=== PATIENT | female | born 1970 | race Caucasian/White ===

== ENCOUNTER 2016-03-14 13:58 | Outpatient (RCR) | payer MEDICAID, OTHER ==
[~2016-03-14 13:58] MED LIST: AMLO10TA2 PO; APIX5TAB PO; ASP81TEC PO; ASPI-983 PO; CAND8TAB PO; CLON0.2T PO; CLOT15CR9 TOP; CYCL-97 PO; CYCL10TA9 PO; DICY10CA26 PO; DICY20TA10 PO; DIPH25TA29 PO; DIPH50CA PO; DOCU100C37 PO; DPH25C PO; DULO30CA; DULO60CA6 PO; FURO40TA4 PO; HYDR-229 PO; HYDR-34 PO; HYDR-3820 PO; HYDR453. TOP; IBP800T; LISI1TAB10; LORTAB; MAGN400T6 PO; MECL-133 PO; MELO-195 PO; METH113C21 TP; METH1ADH5 TP; METO100T2 PO; METO25TA2 PO; NF-ESOM40C PO; OMG1KC PO; PANT40TA3 PO; POTA20TA8 PO; PRD20T PO; PREG100C PO; PREG300C PO; PREG50C PO; PRV20T PO; RNT150T PO; SCR1T PO; SCR1T1 PO; SERT100T8 PO; SUMA100T3 PO; TAZORAC; TIZA4TAB3 PO; TRAM50TA2 PO; WARF4TAB PO; WHEA730P PO; Zolpidem Tartrate PO; [UNRECOGNIZED DRUG - OTHER] TP
[2016-03-14 15:21] LABS: BASOPHILS % (AUTO) 0 % (0-10); EOSINOPHILS # (AUTO) 0.2 10^3/uL (0.0-0.3); EOSINOPHILS % (AUTO) 3 % (0-10); LYMPHOCYTES % (AUTO) 37 % (12-44); MEAN CORPUSCULAR HEMOGLOBIN 28 PG (25-34); MEAN CORPUSCULAR HGB CONC 33 G/DL (32-36); MEAN CORPUSCULAR VOLUME 83 FL (80-99); MEAN PLATELET VOLUME 9.8 FL (7.4-10.4); MONOCYTES # (AUTO) 0.5 X 10^3 (0.0-1.0); MONOCYTES % (AUTO) 6 % (0-12); NEUTROPHILS # (AUTO) 4.5 X 10^3 (1.8-7.8); NEUTROPHILS % (AUTO) 55 % (42-75); PLATELET COUNT 353 10^3/uL (130-400); RED BLOOD COUNT 4.38 10^6/uL (4.35-5.85); RED CELL DISTRIBUTION WIDTH 13.8 % (10.0-14.5); WHITE BLOOD COUNT 8.1 10^3/uL (4.3-11.0)
[2016-03-14 15:50] LABS: ALANINE AMINOTRANSFERASE 22 U/L (0-55); ALBUMIN 4.2 G/DL (3.2-4.5); ANION GAP 8 MMOL/L (5-14); ASPARTATE AMINO TRANSFERASE 50 U/L (5-34); BILIRUBIN,TOTAL 0.3 MG/DL (0.1-1.0); BLOOD UREA NITROGEN 14 MG/DL (7-18); BUN/CREATININE RATIO 17; CALCIUM 9.7 MG/DL (8.5-10.1); CARBON DIOXIDE 27 MMOL/L (21-32); CHLORIDE 102 MMOL/L (98-107); CREATININE SERUM 0.82 MG/DL (0.60-1.30); GFR ESTIMATED > 60; GLUCOSE 111 MG/DL (70-105); POTASSIUM 4.1 MMOL/L (3.6-5.0); SODIUM 137 MMOL/L (135-145); TOTAL PROTEIN 6.9 G/DL (6.4-8.2)
[2016-03-14 16:11] LABS: THYROID STIMULATING HORMONE 2.62 UIU/ML (0.35-4.94)
[2016-03-15 06:27] LABS: HOMOCYSTEINE 30.9 umol/L (<=10.3)
[2016-03-16 08:09] LABS: LUPUS ANTICOAGULANT PTT 35.5 Seconds (24.4-41.7)
[2016-03-16 08:10] LABS: DIL RUSSELL VIPER VENOM SCREEN 1.73 ratio (0.00-1.20); DRVVT SCREEN 1:1 MIX 1.47 ratio (0.00-1.20); INHIBITOR SCREEN PT Negative; PROTIME 1:1 MIX ROOM TEMP 14.4 Seconds (10.5-15.7)
[2016-03-16 08:43] LABS: PROTIME 1:1 MIX INCUBATED 15.7 Seconds (10.5-15.7)
[2016-03-16 08:44] LABS: PT REF RML 16.4 H SEC (10.5-15.7)
[2016-03-16 08:45] LABS: INR REF RML 1.3 (0.7-1.3); PTT LUPUS 35.9 SEC (20.6-39.2)
[2016-03-17 06:34] LABS: FACTOR 8 (VIII) ASSAY C 265 % (60-150)
[2016-03-17 06:42] LABS: PROTEIN C FUNCTIONAL ASSAY 203 % (70-130)
[2016-03-20 09:52] LABS: FACTOR II 20210 MUTATIONC Negative
[2016-03-20 16:31] LABS: CLIN PATHOLOGY REPORT FOOTNOTE
[2016-04-18] MEDS ORDERED: PANT20TA3 PO (16:23)
[2016-04-18] MEDS ORDERED: PRD10T PO (16:23)
[2016-04-18] MEDS ORDERED: ACET325T49 PO (16:23)
[2016-04-18] MEDS ORDERED: MAGN400T6 PO (16:23)
[2016-04-19] MEDS ORDERED: DICL100G18 TOP (08:04)
== END 2016-06-12 | disposition home or self-care (01) ==
LOC: ONC 13:58
PROVIDERS: ATTEND Internal Medicine Hematology & Oncology
DX: I27.82 Chronic pulmonary embolism (principal); I82.5Z1 Chronic embolism and thrombosis of unspecified deep veins of right distal lower extremity; Z85.3 Personal history of malignant neoplasm of breast; E66.01 Morbid (severe) obesity due to excess calories; Z68.41 Body mass index [BMI] 40.0-44.9, adult; I50.9 Heart failure, unspecified; K21.9 Gastro-esophageal reflux disease without esophagitis; Z90.13 Acquired absence of bilateral breasts and nipples; Z87.891 Personal history of nicotine dependence; Z79.01 Long term (current) use of anticoagulants
CPT/HCPCS: 36415; 80053; 81240; 83090; 84439; 84443; 85025; 85240; 85300; 85303; 85306; 85307; 85610; 85613; 85705; 85730; 86038; 86146; 86147; 86300; 99213

== ENCOUNTER 2016-03-29 11:39 | Inpatient (IN) | payer MEDICAID, OTHER ==
[~2016-03-29] VITALS: Ht 172.7 cm; Wt 130.6 kg
--- NOTE | 2016-03-29 13:13 | ST Cognitive Linguistic Eval ---
DORA PADILLABECONNOR MCCORD 03/29/16 1313: Speech Evaluation-General Medical Diagnosis Polymyalgia Rheumatica Onset Date: Mar 29, 2016 Therapy Diagnosis Therapy Diagnosis: Questionable Cognitive Impairment Precautions Precautions/Isolations: Fall Prevention, Standard Precautions Referral Referring Physician: Dr. Holder Reason for Referral: Evaluation/Treatment Cognitive Screen Medical History Pertinent Medical History: Breast CA S/P Mastectomy Reviewed History: Yes Speech PLF-Current Status Prior Level of Function The patient denied previous challenges with cognition, speech, or language. Subjective The patient was recently admitted to [facility] with a diagnosis of polymyalgia rhuematica. The patient greeted the clinician appropriately and agreed to participate in the cognitive screen on this date. Language Eval: Auditory Comprehends Simple Yes/No Ques: Functional Indent/Objects Multiple [place]: Functional Ident/Pics in Multiple [place]: Functional Follows 1-Step Commands: Functional Follows General Conversations: Functional Language Eval: Verbal Language Completes Spontaneous Greeting: Functional Produces Auto, Serial Info: Functional Imitates Simple Words/Phrases: Functional Word Finding: Functional Requests Basic Needs: Functional States Basic Personal Info: Functional Expresses Complex Ideas: Functional Cognitive Patient Orientation The patient is alert and oriented x 3. Objective Cognitive Domain Attention: WNL Memory: WNL Problem Solving: Functional Objective Impression The patient demonstrated cognitive linguistic skills grossly within normal limits for age. Communication/Social Cognition Comprehension: 6 Expression: 6 Social Interaction: 6 Problem Solvin Memory: 6 Speech Patient Assess Expression of Ideas/Wants: Expression (4) Understanding Vebal Content: Understands (4) Brief Interview-Mental Status: Yes Repetition of Three Words: Three (3) Temporal Orientation: Year: Correct (3) Temporal Orientation: Month: Accurate within 5 days(2) Temporal Orientation: Day: Correct (1) Recall : Wear: Yes, no cue required (2) Recall : Color: Yes, no cue required (2) Recall : Bed: Yes, no cue required (2) Speech-Plan Treatment Plan Speech Therapy Treatment Plan: Discontinue ST (Eval, only.) Rehab Potential: Guarded Safety Risks/Education Teaching Recipient: Patient Teaching Methods: Discussion Response to Teaching: Verbalize Understanding Education Topics Provided: Plan of Care Time Speech Therapy Time In: 12:30 Speech Therapy Time Out: 12:45 Total Billed Time: 15 Billed Treatment Time 1, LISA VINSON DO 03/31/16 1255: Speech Evaluation-General Therapy Diagnosis Therapy Diagnosis: not my patient VALERIEDORA EnamoradoANEESH ST Mar 29, 2016 13:13 LISA HOLDER DO Mar 31, 2016 12:55
[2016-03-29] MEDS: HYDROcodone/APAP 10 MG/325 MG (LORTAB) TAB PO PRN ×3 (14:33→23:36)
--- NOTE | 2016-03-29 14:36 | Physical Therapy Evaluation ---
MIYA RODRIGUEZ PT 03/29/16 1436: PT Evaluation-General Medical Diagnosis Admission Date Mar 29, 2016 at 11:39 Medical Diagnosis: Polymyalgia Rheumatica Onset Date: Mar 29, 2016 Therapy Diagnosis Therapy Diagnosis: impaired strength, mobility, endurance Height/Weight Height (Feet): 5 Height (Inches): 8.00 Weight (Pounds): 290 Weight (Ounces): 11.2 Precautions Precautions/Isolations: Fall Prevention, Standard Precautions Referral Physician: Dr. Holder Reason for Referral: Evaluation/Treatment Medical History Pertinent Medical History: Breast CA S/P Mastectomy, GERD, HTN, Smoking Additional Medical History fibromyalgia, depression, morbid obesity, resp. insuff., anxiety, breast CA, surg (mastectomy, hysterectomy, cholecystectomy, appendectomy, lung biopsy, EGD) Reviewed History: Yes Social History Home: Single Level Current Living Status: Spouse Entry Into Home: Stairs With Railing PT Steps Into Home: 2 Prior/Core FIM Prior Level of Function Functional [place] Measure 0=Not Assessed/NA 4=Minimal Assistance 1=Total Assistance 5=Supervision or Setup 2=Maximal Assistance 6=Modified [place] 3=Moderate Assistance 7=Complete [place] Bed Mobility: 7 Transfers (B,C,W/C) (FIM): 7 Gait: 6 patient uses a cane outside of the home PT Daily Note-Current Subjective Patient in bed pre tx, agrees to PT, she seems anxious. Pain Numeric Pain Scale: 5-Moderate Pain Comment: back and shoulders Appearance Patient in bed post tx with nurse call, phone, tray, all needs met. Mental Status Patient Orientation: Normal For Age Transfers Functional [place] Measure 0=Not Assessed/NA 4=Minimal Assistance 1=Total Assistance 5=Supervision or Setup 2=Maximal Assistance 6=Modified [place] 3=Moderate Assistance 7=Complete IndependenceIRFPAI Quality Coding Scale 6 Independent with activity with or without an assistive device 5 Patient requires set up or clean up by helper. Patient completes activity by themselves 4 Supervision or touching assist (CGA). [place] provide cues , steadying assist 3 The helper provides less than half the effort to complete the activity 2 The helper provides more than half the effort to complete the activity 1 Dependent. The helper does all the effort to complete an activity 7 Patient refused to complete or attempt activity 9 The patient did not perform the activity before the current illness or injury 88 Not attempted due to Medical conditions or safety concerns Transfers (B, C, W/C) (FIM): 4 Scootin Rollin Roll Left to Right (QC): 4 Supine to/from Sit: 5 Sit to/from Stand: 4 Bed to/from Chair: 4 Sit to Lying (QC): 4 Lying-Sitting/Side of Bed(QC): 4 Sit to Stand (QC): 4 Chair/Zjg-nw-Rpzrx Xfer(QC): 4 Car Transfer (QC): 88 cues for safety and hand placement Gait Training Does the Patient Walk?: Yes Gait (FIM): 1 Distance: 20' Walk 10 feet (QC): 4 Walk 50 ft with 2 Turns(QC): 88 Walk 150 ft (QC): 88 Walk 10ft-uneven surface(QC): 88 Gait Level of Assist: 4 Gait Persons Needed: 1 Gait Assistive Device: FWW Patient fatigues very quickly. Very poor endurance. Wheelchair Training Does the Pt Use a Wheelchair?: No Stair Training No steps at this time. Patient is too weak and has very poor endurance, steps will not be safe to perform at this time. Balance Balance Sitting Static: Normal Balance Sitting Dynamic: Normal Balance-Standing Static: Fair Balance Standing Dynamic: Fair Picking up an Object (QC): 88 Neuromuscular MMT 4/5 on the left LE and 4-/5 on the right LE. Patient has intact light touch sensation in both lower extremities but states it is decreased on the right foot. Treatments eval Assessment Patient has impaired strength, balance, endurance , mobility in general from polymyalgia rheumatica. Patient would benefit from skilled PT intervention to increase strength and endurance, improve functional mobility and independence at home. PT Short Term Goals Short Term Goals Time Frame: Apr 05, 2016 Transfers (B,C,W/C) (FIM): 5 Gait (FIM): 2 Gait Distance Comment: 50' Gait Level of Assist: 5 Gait Assistive Device: FWW PT Nutrition Intern Goals Mcc Goals PT Mcc Goals Time Frame: Apr 19, 2016 Transfers (B,C,W/C) (FIM): 6 Sit to Lying (QC): 6 Lying-Sitting on Side/Bed(QC): 6 Sit to Stand (QC): 6 Rollin Roll Left to Right (QC): 6 Chair/Bqk-tx-Wmnkz Xfer(QC): 6 Car Transfer (QC): 4 Does the Patient Walk: Yes Gait (FIM): 5 Distance: 200' Walk 10 feet (QC): 4 Walk 10ft-Uneven Surface(QC): 4 Walk 50ft with 2 Turns (QC): 4 Walk 150 ft (QC): 4 Gait Level of Assist: 5 Gait Assistive Device: FWW Does the Pt use WC or Scooter?: No Stairs (FIM): 2 # of Steps: 4 1 Step (curb) (QC): 4 4 Steps (QC): 4 12 Steps (QC): 88 Stairs Level Of Assist: 4 Picking up an Object (QC): 88 PT Plan Problem List Problem List: Activity Tolerance, Functional Strength, Safety, Balance, Gait, Transfer, Bed Mobility Treatment/Plan Treatment Plan: Continue Plan of Care Treatment Plan: Bed Mobility, Education, Functional Activity Dia, Functional Strength, Group Therapy, Gait, Safety, Therapeutic Exercise, Transfers Treatment Duration: Apr 19, 2016 # of days/week 5-6 Visits Per Week: 10-11 Minutes/Day (M-F): 60-90 Minutes/Day (Sat/Beltran): 15-30 Pt/Family Agrees w/Plan: Yes Safety Risks/Education Patient Education: Gait Training, Transfer Techniques, Correct Positioning, Safety Issues Teaching Recipient: Patient Teaching Methods: Demonstration, Discussion Response to Teaching: Reinforcement Needed Discharge Recommendations Plan Patient will perform bed mobility and transfers, balance and endurance training , functional strengthening, stair training, gait training, education, to improve functional mobility and independence at home. Therapy D/C Recommendations: Home w/ Family Support Time/GCodes Time In: 1145 Time Out: 1200 Total Billed Treatment Time: 15 Total Billed Treatment 1 visit EVS 15 min LISA HOLDER DO 03/31/16 1256: PT Evaluation-General Medical Diagnosis Admission Date not my patient MIYA RODRIGUEZ PT Mar 29, 2016 14:36 LISA HOLDER DO Mar 31, 2016 12:56
--- NOTE | 2016-03-29 14:55 | Therapy Group Daily Note ---
Therapy Daily Group Note Patient Education Topic Energy Cons Exercises LE Seated Exercise, Sit to/from Stand, UE Exercise Other/Notes Pt was propelled to PT/OT group in W/C in Therapy [facility] area. PT actively participated in group consisting of Introductions (Name, Place you'd like to Visit as well as Pt asked question of the Most amazing thing you've ever seen), UE/LE and Pt led Ex, Energy Conservation Education, Sit to Stand and Memory Recall Maldonado Bag game. Pt participated in group by answering questions and giving energy conservation examples during memory recall game. Pt also led an UE EX during group. Pt was propelled back to room to rest at the end of group with all needs met. Start Time: 13:00 Stop Time: 14:15 Total Billed Treatment Time: 75 Total Billed Treatment 1, GRP MANOJCB AREA COORDINATOR Mar 29, 2016 14:55
--- NOTE | 2016-03-29 15:40 | Occupational Therapy Eval ---
OT Evaluation-General/PLF Medical Diagnosis Admission Date Mar 29, 2016 at 11:39 Medical Diagnosis: Polymyalgia Rheumatica Onset Date: Mar 29, 2016 Therapy Diagnosis Therapy Diagnosis: weakness, decreased ADL skills Height/Weight Height (Feet): 5 Height (Inches): 8.00 Weight (Pounds): 290 Weight (Ounces): 11.2 Precautions Precautions/Isolations: Fall Prevention, Standard Precautions Weight Bear Status Weight Bearing Restriction: Weight Bearing/Tolerated Referral Physician: Dr. Parra Referral Reason: Activity Tolerance, Self Care, Evaluation/Treatment, Strengthening/ROM Medical History Pertinent Medical History: Breast CA S/P Mastectomy, GERD, HTN, Smoking Additional Medical History Respiratory distress, was on ventilator for 1 month. Pt. also states that she was having vertigo, and that it was even causing her to "faint" at times. States that at the hospital that she was at previously, an OT did a vestibular assessment on her. Pt. has vestibular exercises that she would like to implement into therapy services this date. Current History Pt. states that she woke up one morning and could not get out of bed. Her spouse called an ambulance after she laid there all day. States that she was told that her oxygen saturation was so high, that it was "poisoning" her. Pt. states that her is disabled, and that she normally takes care of him. Reviewed History: Yes Social History Home: Single Level Current Living Status: Spouse Entry Into Home: Stairs With Railing Steps Into Home: 3 ADL-Prior Level of Function ADL PLOF Comments Pt. states that previous to getting ill this time, she was able to bathe and dress self in her home. DME/Equipment: Tub/Shower, Toilet/Riser DME/Equipment Comments Pt. states that she has a cane and walker. States that she needs a shower seat. OT Current Status Subjective Pt. reports a 7/10 pain "all over." Nursing notified. Appearance Pt. is fatigued but agrees to therapy. Mental Status/Objective Patient Orientation: Person, Place Current Hand Dominance: Right Upper Extremity ROM WFL bilaterally Upper Extremity Coordination intact Upper Extremity Strength Pt. demonstrates 3+/5 bilateral UE strength. ADL-Treatment Functional [place] Measure 0=Not Assessed/NA 4=Minimal Assistance 1=Total Assistance 5=Supervision or Setup 2=Maximal Assistance 6=Modified [place] 3=Moderate Assistance 7=Complete IndependenceIRFPAI Quality Coding Scale 6 Independent with activity with or without an assistive device 5 Patient requires set up or clean up by helper. Patient completes activity by themselves 4 Supervision or touching assist (CGA). [place] provide cues , steadying assist 3 The helper provides less than half the effort to complete the activity 2 The helper provides more than half the effort to complete the activity 1 Dependent. The helper does all the effort to complete an activity 7 Patient refused to complete or attempt activity 9 The patient did not perform the activity before the current illness or injury 88 Not attempted due to Medical conditions or safety concerns Eating (FIM): 5 (set up to open packages.) Eating (QC): 5 Grooming (FIM): 5 (Pt. is able to brush hair with set up.) Oral Hygiene (QC): 5 Bathing (FIM): 5 (Pt. is able to wash self after set up. Declines shower but agrees to spongebath.) Shower/Bathe Self (QC): 5 Upper Body Dressing (FIM): 5 (set up) Upper Body Dressing (QC): 5 Lower Body Dressing (FIM): 5 (Pt. able to doff socks and pants, and then don pants. Required assistance to don VICKI hose.) Lower Body Dressing (QC): 5 On/Off Footwear (QC): 4 Toileting (FIM): 5 (SBA) Toileting Hygiene (QC): 4 Transfers (B, C, W/C) (FIM): 4 (Min assist for sit-stand.) Toilet/Commode Transfer (FIM): 5 (SBA) Toilet Transfer (QC): 4 Other Treatments After ADLs, pt. transferred back to bed. Pt. seen twice this date to complete evaluation. Education OT Patient Education: Correct positioning, Modified ADL techniques, Progress toward Goal/Update tx plan, Purpose of tx/functional activities, Reviewed precautions, Rehab process, Transfer techniques Teaching Recipient: Patient Teaching Methods: Demonstration, Discussion Response to Teaching: Verbalize Understanding, Return Demonstration OT Short Term Goals Short Term Goals Time Frame: Apr 05, 2016 Eating(FIM): 7 Grooming(FIM): 6 Bathing(FIM): 5 Upper Body Dressing(FIM): 6 Lower Body Dressing(FIM): 6 Toileting(FIM): 6 Transfers (B,C,W/C) (FIM): 56 Toilet/Commode Transfer(FIM): 6 Shower Transfer(FIM): 5 Additional Short Term Goals: 1-Demonstrate ADL Tasks, 2-Verbalize Understanding , 3-ImproveStrength/Dia 1=Demonstrate adherence to instructed precautions during ADL tasks. 2=Patient will verbalize/demonstrate understanding of assistive devices/ modifications for ADL. 3=Patient will improve strength/tolerance for activity to enable patient to perform ADL's. OT Shelter Goals Shelter Goals Time Frame: Apr 12, 2016 Eating (FIM): 6 Eating (QC): 6 Oral Hygiene (QC): 6 Grooming(FIM): 6 Bathing(FIM): 5 Shower/Bathe Self (QC): 5 Upper Body Dressing(FIM): 6 Upper Body Dressing (QC): 6 Lower Body Dressing(FIM): 6 Lower Body Dressing (QC): 6 On/Off Footwear (QC): 6 Toileting(FIM): 6 Toileting Hygiene (QC): 6 Transfers (B,C,W/C) (FIM): 6 Toilet/Commode Transfer(FIM): 6 Toilet/Commode Transfer (QC): 6 Shower Transfer(FIM): 5 Additional Goals: 1-Demonstrate ADL Tasks, 2-Verbalize Understanding, 3- ImproveStrength/Dia 1=Demonstrate adherence to instructed precautions during ADL tasks. 2=Patient will verbalize/demonstrate understanding of assistive devices/ modifications for ADL. 3=Patient will improve strength/tolerance for activity to enable patient to perform ADL's. OT Education/Plan Problem List/Assessment Assessment: Dependent Transfers, Impaired Bed Mobility, Impaired Funct Balance , Impaired I ADL's, Impaired Self-Care Skills Discharge Recommendations Plan/Recommendations: Continue POC Therapy D/C Recommendations: Home w/ Family Support, Occupational Therapy Home Care, Scheduled Assistance Equpiment Recommendations-D/C: Extended Bath Bench, VICKI Hose [place]vin Barriers to Progress weakness, low endurance. Treatment Plan/Plan of Care Treatment,Training & Education: Yes Patient would benefit from OT for education, treatment and training to promote independence in ADL's, mobility, safety and/or upper extremity function for ADL' s. Plan of Care: ADL Retraining, Functional Mobility, UE Funct Exercise/Act Treatment Duration: Apr 12, 2016 # of days/week 5-6 Visits Per Week: 10-12 Agreement: Yes Rehab Potential: Fair Time/GCodes Start Time: 11:30 Stop Time: 14:45 Total Time Billed (hr/min): 60 Billed Treatment Time 1, EVS [id number] 1, ADL x 2 [id number] 2 treatment as pt. came right before lunch, and wanted to eat her lunch before group therapy. OT came back after group therapy to assist her with ADLS. JULIO CESAR BURNETT OT Mar 29, 2016 15:40
--- NOTE | 2016-03-29 16:09 | Physical Therapy Daily Note ---
PT Daily Note-Current Subjective Pt supine in bed upon arrival. Pt reports feeling tired. Pt agreed to PT. Pain Numeric Pain Scale: 4 Location: Right, Left Location Body Site: Ear Pain Description: Throbbing Mental Status Patient Orientation: Person, Place, Time, Situation Transfers Functional [place] Measure 0=Not Assessed/NA 4=Minimal Assistance 1=Total Assistance 5=Supervision or Setup 2=Maximal Assistance 6=Modified [place] 3=Moderate Assistance 7=Complete IndependenceIRFPAI Quality Coding Scale 6 Independent with activity with or without an assistive device 5 Patient requires set up or clean up by helper. Patient completes activity by themselves 4 Supervision or touching assist (CGA). [place] provide cues , steadying assist 3 The helper provides less than half the effort to complete the activity 2 The helper provides more than half the effort to complete the activity 1 Dependent. The helper does all the effort to complete an activity 7 Patient refused to complete or attempt activity 9 The patient did not perform the activity before the current illness or injury 88 Not attempted due to Medical conditions or safety concerns Scootin Rollin Supine to/from Sit: 5 Sit to/from Stand: 4 Weight Bearing Weight Bearing Restriction: Full Weight Bearing Location Restriction: LE Bilateral Gait Training Does the Patient Walk?: Yes Gait (FIM): 2 Distance (FIM): 1=up to 49 ft Distance: 25' Gait Level of Assist: 4 Gait Persons Needed: 1 Gait Assistive Device: FWW Pt reports numbness and pain when walking to restroom. Pt's gait is slight antalgic. Treatments Pt completed Vestibular EX at EOB then needed to use toilet. Pt ambulated to restroom using FWW at CGA. After finished, pt ambulated back to bed and transferred back to supine in bed with all needs met at end of tx. Assessment Current Status: Fair Progress Pt gets dizzy with Ex and has to take short rest after each EX. Pt has numbness and pain with walking. PT Short Term Goals Short Term Goals Time Frame: Apr 05, 2016 Transfers (B,C,W/C) (FIM): 56 Gait (FIM): 2 Gait Distance Comment: 50' Gait Level of Assist: 5 Gait Assistive Device: FWW PT Skilled Nursing Goals Sql Database Programmer Goals PT Sql Database Programmer Goals Time Frame: Apr 19, 2016 Transfers (B,C,W/C) (FIM): 6 Sit to Lying (QC): 6 Lying-Sitting on Side/Bed(QC): 6 Sit to Stand (QC): 6 Rollin Roll Left to Right (QC): 6 Chair/Nig-hn-Yqvii Xfer(QC): 6 Car Transfer (QC): 4 Does the Patient Walk: Yes Gait (FIM): 5 Distance: 200' Walk 10 feet (QC): 4 Walk 10ft-Uneven Surface(QC): 4 Walk 50ft with 2 Turns (QC): 4 Walk 150 ft (QC): 4 Gait Level of Assist: 5 Gait Assistive Device: FWW Does the Pt use WC or Scooter?: No Stairs (FIM): 2 # of Steps: 4 1 Step (curb) (QC): 4 4 Steps (QC): 4 12 Steps (QC): 88 Stairs Level Of Assist: 4 Picking up an Object (QC): 88 PT Plan Problem List Problem List: Activity Tolerance, Functional Strength, Safety, Balance, Gait, Transfer, Bed Mobility Treatment/Plan Treatment Plan: Continue Plan of Care Treatment Plan: Bed Mobility, Education, Functional Activity Dia, Functional Strength, Group Therapy, Gait, Safety, Therapeutic Exercise, Transfers Treatment Duration: Apr 19, 2016 Visits Per Week: 10-11 Minutes/Day (M-F): 60-90 Minutes/Day (Sat/Beltran): 15-30 Safety Risks/Education Patient Education: Gait Training, Transfer Techniques, Reviewed Precautions, Correct Positioning, Safety Issues Teaching Recipient: Patient Teaching Methods: Discussion Response to Teaching: Verbalize Understanding Time/GCodes Time In: 1530 Time Out: 1555 Total Billed Treatment Time: 25 Total Billed Treatment visit, EX (15m) & FA (10m) CB ARANDA PTA Mar 29, 2016 16:09
[2016-03-29 18:16] VITALS: BP 125/76
[2016-03-29] MEDS: DOCUSATE SODIUM 100 MG (COLACE) CAP PO SCH (19:51)
[2016-03-29] MEDS: PREGABALIN 100 MG (LYRICA) CAPSULE PO SCH (19:51)
[2016-03-29] MEDS: PANTOPRAZOLE 20 MG TABLET (PROTONIX) PO SCH (19:52)
[2016-03-29] MEDS: APIXABAN 5 MG (ELIQUIS) TABLET PO SCH (19:52)
[2016-03-29] MEDS: diphenhydrAMINE 25 MG TAB (BENADRYL) PO SCH (19:52)
[2016-03-29] MEDS: SERTRALINE 100 MG (ZOLOFT) TAB PO SCH (19:52)
[2016-03-29] MEDS: cloNIDine 0.2 MG (CATAPRES) TAB PO SCH (19:52)
[2016-03-30] MEDS: KCL 20 MEQ TAB (K-DUR) PO SCH (05:01)
[2016-03-30] MEDS: HYDROcodone/APAP 10 MG/325 MG (LORTAB) TAB PO PRN ×5 (05:02→23:07)
[2016-03-30] MEDS: predniSONE 10 MG TAB PO SCH (05:02)
[2016-03-30] MEDS: ONDANSETRON 4 MG (ZOFRAN) ORAL DISSOLVE TAB PO PRN ×2 (05:23→18:36)
[2016-03-30 06:00] VITALS: BP 134/76
[2016-03-30 06:11] LABS: MEAN PLATELET VOLUME 9.9 FL (7.4-10.4); RED BLOOD COUNT 4.3 10^6/uL (4.35-5.85); RED CELL DISTRIBUTION WIDTH 14.1 % (10.0-14.5)
[2016-03-30 06:46] LABS: ALANINE AMINOTRANSFERASE 27 U/L (0-55); ALBUMIN 4.5 G/DL (3.2-4.5); ANION GAP 11 MMOL/L (5-14); ASPARTATE AMINO TRANSFERASE 23 U/L (5-34); BILIRUBIN,TOTAL 0.3 MG/DL (0.1-1.0); BLOOD UREA NITROGEN 17 MG/DL (7-18); BUN/CREATININE RATIO 21; CALCIUM 9.8 MG/DL (8.5-10.1); CARBON DIOXIDE 23 MMOL/L (21-32); CHLORIDE 102 MMOL/L (98-107); CREATININE SERUM 0.81 MG/DL (0.60-1.30); GFR ESTIMATED > 60; GLUCOSE 94 MG/DL (70-105); POTASSIUM 3.9 MMOL/L (3.6-5.0); SODIUM 136 MMOL/L (135-145); TOTAL PROTEIN 7.4 G/DL (6.4-8.2)
[2016-03-30] MEDS: ASPIRIN E.C. 81 MG (ECOTRIN) TAB PO SCH (09:08)
[2016-03-30] MEDS: FUROSEMIDE 40 MG (LASIX) TAB PO SCH (09:09)
[2016-03-30] MEDS: PREGABALIN 100 MG (LYRICA) CAPSULE PO SCH ×3 (09:09→20:10)
[2016-03-30] MEDS: amLODIPine 10 MG (NORVASC) TAB PO SCH (09:09)
[2016-03-30] MEDS: cloNIDine 0.2 MG (CATAPRES) TAB PO SCH ×3 (09:09→20:10)
[2016-03-30] MEDS: PANTOPRAZOLE 20 MG TABLET (PROTONIX) PO SCH ×2 (09:09→20:12)
[2016-03-30] MEDS: APIXABAN 5 MG (ELIQUIS) TABLET PO SCH ×2 (09:09→20:12)
[2016-03-30] MEDS: MAGNESIUM OXIDE (MAG-OX)400 MG TAB PO SCH (09:09)
[2016-03-30] MEDS: DOCUSATE SODIUM 100 MG (COLACE) CAP PO SCH ×2 (09:09→20:12)
--- NOTE | 2016-03-30 10:03 | Pulmonary Consultation ---
History of Present Illness History of Present Illness Date of Consultation 03/30/16 09:58 Date of Admission History of Present Illness 45yo with hx of multiple comorbidities and hospitalizations. SHe has hx of PE, mechanical ventilation, and tracheostomy. She went to [facility] secondary to extreme weakness and unable to get out of bed. [facility] dx her with myositis and put her on prednisone. She was transferred here for rehab. I am consulted secondary to hypoxia. currently she in on 99% on RA and no SOB> Allergies and Home Medications Allergies Coded Allergies: Cephalosporins (Verified Allergy, Unknown, 07/22/09) lisinopril (Unverified Allergy, Unknown, 02/22/15) Uncoded Allergies: CEFABID (Allergy, Mild, 07/22/09) Home Medications 5 MG TAB #15 5 MG PO HS PRN PRN INSOMNIA Prescribed by: CHIN STEWART on 12/09/15 1522 Amlodipine Besylate 10 Mg Tablet 10 MG PO HS (Reported) Apixaban 5 Mg Tablet 5 MG PO BID (Reported) Aspirin 81 Mg Tablet.dr 81 MG PO HS (Reported) Clonidine HCl 0.2 Mg Tablet 0.2 MG PO TID (Reported) Clotrimazole 15 Gm Cream..g. #1 0 GM TOP BID Prescribed by: CHIN STEWART on 12/09/15 1324 Diphenhydramine HCl 25 Mg Tablet 50 MG PO DAILY PRN PRN ITCHING (Reported) Docusate Sodium 100 Mg Capsule #60 100 MG PO BID Prescribed by: CHIN STEWART on 12/09/15 1324 Furosemide 40 Mg Tablet #30 40 MG PO DAILY Prescribed by: CHIN STEWART on 12/09/15 1324 Hydrocodone/Acetaminophen 1 Each Tablet #30 1 EA PO Q4H PRN PRN PAIN Prescribed by: CHIN STEWART on 12/09/15 1324 Hydrocortisone 453.6 Gm Cream..g. #1 0 GM TOP BID Prescribed by: CHIN STEWART on 12/09/15 1324 Magnesium Oxide 400 Mg Tablet #60 400 MG PO BIDPC Prescribed by: CHIN STEWART on 12/09/15 1324 Methyl Salicylate/Menthol 1 Each Adh..patch 1 PATCH TP DAILY PRN PRN PAIN ( Reported) Pantoprazole Sodium 40 Mg Tablet.dr 40 MG PO BID (Reported) Potassium Chloride 20 Meq Tab.er.prt #30 20 MEQ PO DAILY@0700 Prescribed by: CHIN STEWART on 12/09/15 1324 Pregabalin 100 Mg Capsule #60 300 MG PO BID Prescribed by: CHIN STEWART on 12/09/15 1324 Sertraline HCl 100 Mg Tablet 100 MG PO HS (Reported) Sumatriptan Succinate 100 Mg Tablet 50-100 MG PO UD PRN PRN MIGRAINE (Reported) TAKE 1/2-1 TABLET BY MOUTH NEEDED. MAY REPEAT IN 2 HOURS IF NEEDED Tizanidine HCl 4 Mg Tablet #60 4 MG PO TID PRN PRN Muscle pain/spasm Prescribed by: CHIN STEWART on 12/09/15 1324 Tramadol HCl 50 Mg Tablet 100 MG PO BID PRN PRN PAIN (Reported) TAKES 2 (50 MG) TABLETS Past Wlgrryb-Oiluqh-Almwyf Hx Patient Social History Smoking Status: Current Everyday Smoker Type Used: Cigarettes Recent Foreign Travel: No Contact w/Someone Who Travel: No Recent Infectious Disease Expo: No Recent Hopitalizations: Yes (GB REMOVED, HYST., APPY. , OVARIAN CYSTECTOMY) Immunizations Up To Date Tetanus Booster (TDap): More than 5yrs Date of Pneumonia Vaccine: Oct 01, 2015 Date of Influenza Vaccine: Dec 31, 2015 Seasonal Allergies Seasonal Allergies: Yes Surgeries HX Surgeries: Yes (TRAM FAP FOR LEFT AND RIGHT MASTECTOMY; 2 eye surgeries,) Respiratory Hx Respiratory Disorders: Yes Respiratory Disorders: Pneumonia, Chronic Bronchitis, Pulmonary Embolism Cardiovascular Hx Cardiac Disorders: Yes (pt reports "Low EF on left side") Neurological Hx Neurological Disorders: Yes ([place]) Reproductive System : No Hx Reproductive Disorders: Yes Sexually Transmitted Disease: No HIV/AIDS: No Female Reproductive Disorders: Denies BELL VALET History: Hysterectomy Genitourinary Hx Genitourinary Disorders: No Gastrointestinal Hx Gastrointestinal Disorders: Yes Gastrointestinal Disorders: Colitis, Gastroesophageal Reflux, Moraes's Esophagus, Chronic Constipation, Chronic Diarrhea, Irritable Bowel Musculoskeletal Hx Musculoskeletal Disorders: Yes (2 herniated discs in lower back and 1 in neck) Musculoskeletal Disorders: Arthritis, Fibromyalgia, Chronic Back Pain Endocrine Hx Endocrine Disorders: Yes HEENT HX ENT Disorders: No Loss of Vision: Denies Hearing Impairment: Denies Cancer Hx Cancer: Yes Cancer: Breast Psychosocial Hx Psychiatric Problems: Yes Behavioral Health Disorders: Anxiety, Depression Integumentary HX Skin/Integumentary Disorder: Yes Skin/Integumentary Disorders: Eczema Blood Transfusions Hx Blood Disorders: No Adverse Reaction to a Blood Tr: No Family Medical History Significant Family History: Cancer Family Medial History: Cancer 03 FATHER, Onset:60 years & older (LUNG CANCER) Chest pain 03 MOTHER (LYMPHANGIO MITOSIS) Dementia 03 FATHER, Onset:60 years & older Family history: Allergy 03 MOTHER (SEASONAL ALLERGIES) Family history: Arthritis 03 FATHER 03 MOTHER Family history: Asthma 03 MOTHER Family history: Breast disease 03 FATHER (AUNT ON FATHERS SIDE FROM BREAST CANCER) Family history: Cardiovascular disease 03 MOTHER Family history: Gastrointestinal disease 03 FATHER Family history: Hypertension 03 MOTHER Family history: Osteoporosis 03 MOTHER Heart disease 03 MOTHER History of - respiratory disease 03 MOTHER ("LYMPHANGIO MITOSIS - SHORTNESS OF BREATH AND TAKES BREATHING TREATMENTS" ) Malignant neoplasm of lung 03 FATHER No Family History of: Abdominal aortic aneurysm Lenny's disease Alcoholism Aphasia Cancer of colon Cataract Congenital heart disease Congestive heart failure Cystic fibrosis Dysphagia Family history: Alzheimer's disease Family history: Coronary thrombosis Family history: Diabetes mellitus Family history: Glaucoma Family history: Thyroid disorder Hearing loss History of - anemia Kidney disease Parkinson's disease Prostate cancer Psychotic disorder Seizure disorder Stroke Exam Exam Vital Signs Date Time Temp Pulse Resp B/P Pulse Ox O2 Delivery O2 Flow Rate FiO2 03/30/16 06:00 97.1 64 22 134/76 93 Room Air 03/29/16 21:00 Room Air 03/29/16 18:16 97.5 63 20 125/76 95 Room Air 03/29/16 17:34 Room Air I & O 03/30/16 07:00 Intake Total 2100 ml Balance 2100 ml General Appearance: No Apparent Distress WD/WN Anxious HEENT: PERRL/EOMI TMs Normal Neck: Full Range of Motion Normal Inspection Respiratory: Chest Non Tender Lungs Clear Normal Breath Sounds No Accessory Muscle Use No Respiratory Distress Cardiovascular: Regular Rate, Rhythm No Edema Gastrointestinal: normal bowel sounds non tender Extremity: Normal Capillary Refill Neurologic/Psychiatric: Alert Oriented x3 Results Lab Laboratory Tests 03/30/16 05:56 Assessment/Plan Assessment/Plan Dyspnea with Hypoxia -- pt has home oxygen at 3 liters/min - will reorder PRN -CUrrently her Sp02 is 99% on RA -SVNS Q 6 Hx of PE Deconditioning Probable RENALDO -outpt testing Hx of tracheostomy Clinical Quality Measures DVT/VTE Risk/Contraindication: Risk Factor Score Per Nursin RFS Level Per Nursing on Admit: 4+=Very High NARESH GALLARDO DO Mar 30, 2016 10:03
[2016-03-30] MEDS ORDERED: RT-ALBUTEROL/IPRATROPIUM 3 ML (DUONEB) VIAL INH PRN (10:15)
[2016-03-30] MEDS ORDERED: MECLIZINE 25 MG (ANTIVERT) TAB PO PRN (11:00)
--- NOTE | 2016-03-30 11:34 | Occupational Ther Daily Note ---
OT Current Status-Daily Note Subjective Pt alert, sitting in chair. Pt agreed to therapy. No c/o pain at this time. Mental Status/Objective Patient Orientation: Person, Place, Time, Situation Functional [place] Measure 0=Not Assessed/NA 4=Minimal Assistance 1=Total Assistance 5=Supervision or Setup 2=Maximal Assistance 6=Modified [place] 3=Moderate Assistance 7=Complete [place] ADL-Treatment Functional [place] Measure 0=Not Assessed/NA 4=Minimal Assistance 1=Total Assistance 5=Supervision or Setup 2=Maximal Assistance 6=Modified [place] 3=Moderate Assistance 7=Complete IndependenceIRFPAI Quality Coding Scale 6 Independent with activity with or without an assistive device 5 Patient requires set up or clean up by helper. Patient completes activity by themselves 4 Supervision or touching assist (CGA). [place] provide cues , steadying assist 3 The helper provides less than half the effort to complete the activity 2 The helper provides more than half the effort to complete the activity 1 Dependent. The helper does all the effort to complete an activity 7 Patient refused to complete or attempt activity 9 The patient did not perform the activity before the current illness or injury 88 Not attempted due to Medical conditions or safety concerns Grooming (FIM): 6 (Sitting at sink, pt is able to complete own grooming. Pt has dentures.) Bathing (FIM): 5 (Using shower bench, hand held shower and grabbars pt is able to complete bathing with SBA for safety.) Bathing Location: L Arm, R Arm, L Upper Leg, R Upper Leg, L Lower Leg ( including foot), R Lower Leg (including foot), Chest, Abdomen, Buttocks, Perineal Area Upper Body (FIM): 5 (After set up, pt is able to don/doff upper body clothing by self.) Lower Body Dressing (FIM): 4 (Pt donned/doffed pants with SBA using grabbars for safety to hike pants over hips. OT assisted with compression stockings and socks.) Transfers (B, C, W/C) (FIM): 5 (SBA for transfers) Shower Transfer(FIM): 5 (Using shower bench and grabbars, pt is SBA for transfer.) Pt was able to maneuver w/c out of room and 20' before taking a break. Sitting in w/c, pt was able to place clothing into washer then was assisted with applying soap and starting washer. Pt was transported back to room to complete vestibular exercises to decrease pt's dizziness during daily tasks. After therapy, pt lying in bed with call light/phone in reach. All needs met in room. OT Short Term Goals Short Term Goals Time Frame: Apr 05, 2016 Eating(FIM): 7 Grooming(FIM): 6 Bathing(FIM): 5 Upper Body Dressing(FIM): 6 Lower Body Dressing(FIM): 6 Toileting(FIM): 6 Transfers (B,C,W/C) (FIM): 56 Toilet/Commode Transfer(FIM): 6 Shower Transfer(FIM): 5 Additional Short Term Goals: 1-Demonstrate ADL Tasks, 2-Verbalize Understanding , 3-ImproveStrength/Dia 1=Demonstrate adherence to instructed precautions during ADL tasks. 2=Patient will verbalize/demonstrate understanding of assistive devices/ modifications for ADL. 3=Patient will improve strength/tolerance for activity to enable patient to perform ADL's. OT Snf Goals Nutritionist Public Health Goals Time Frame: Apr 12, 2016 Eating (FIM): 6 Eating (QC): 6 Oral Hygiene (QC): 6 Grooming(FIM): 6 Bathing(FIM): 5 Shower/Bathe Self (QC): 5 Upper Body Dressing(FIM): 6 Upper Body Dressing (QC): 6 Lower Body Dressing(FIM): 6 Lower Body Dressing (QC): 6 On/Off Footwear (QC): 6 Toileting(FIM): 6 Toileting Hygiene (QC): 6 Transfers (B,C,W/C) (FIM): 6 Toilet/Commode Transfer(FIM): 6 Toilet/Commode Transfer (QC): 6 Shower Transfer(FIM): 5 Additional Goals: 1-Demonstrate ADL Tasks, 2-Verbalize Understanding, 3- ImproveStrength/Dia 1=Demonstrate adherence to instructed precautions during ADL tasks. 2=Patient will verbalize/demonstrate understanding of assistive devices/ modifications for ADL. 3=Patient will improve strength/tolerance for activity to enable patient to perform ADL's. OT Education/Plan Discharge Recommendations Plan/Recommendations: Continue POC Treatment Plan/Plan of Care Patient would benefit from OT for education, treatment and training to promote independence in ADL's, mobility, safety and/or upper extremity function for ADL' s. Plan of Care: ADL Retraining, Functional Mobility, UE Funct Exercise/Act Treatment Duration: Apr 12, 2016 Visits Per Week: 10-12 Agreement: Yes Rehab Potential: Fair Time/GCodes Start Time: 10:00 Stop Time: 11:30 Total Time Billed (hr/min): 90 Billed Treatment Time 1 visit-ADL 5 (70 min) FA 1 (20 min) SAAD PEREZ Mar 30, 2016 11:34
--- NOTE | 2016-03-30 11:51 | Physical Therapy Daily Note ---
PT Daily Note-Current Subjective Pt supine in bed upon arrival. Pt reports cramping pain 7/10 in both UE & LE. Pt agrees to PT though. Pain Numeric Pain Scale: 7 Location: Soft Tissue Location Body Site: Arm Pain Description: Cramping Mental Status Patient Orientation: Person, Place, Time, Situation Transfers Functional [place] Measure 0=Not Assessed/NA 4=Minimal Assistance 1=Total Assistance 5=Supervision or Setup 2=Maximal Assistance 6=Modified [place] 3=Moderate Assistance 7=Complete IndependenceIRFPAI Quality Coding Scale 6 Independent with activity with or without an assistive device 5 Patient requires set up or clean up by helper. Patient completes activity by themselves 4 Supervision or touching assist ([facility]). [place] provide cues , steadying assist 3 The helper provides less than half the effort to complete the activity 2 The helper provides more than half the effort to complete the activity 1 Dependent. The helper does all the effort to complete an activity 7 Patient refused to complete or attempt activity 9 The patient did not perform the activity before the current illness or injury 88 Not attempted due to Medical conditions or safety concerns Scootin Rollin Supine to/from Sit: 4 Sit to/from Stand: 4 Weight Bearing Weight Bearing Restriction: Full Weight Bearing Location Restriction: LE Bilateral Gait Training Does the Patient Walk?: Yes Gait (FIM): 2 Distance (FIM): 1=up to 49 ft Distance: 15' Gait Level of Assist: 4 Gait Persons Needed: 1 Gait Assistive Device: FWW Pt has cramping pain while ambulating as well as tingling sensation. Pt has antalgic gait pattern. Wheelchair Training Does the Pt Use a Wheelchair?: Yes Wheelchair (FIM): 4 Wheelchair Distance: 1=up to 49 ft Distance: 30' Wheelchair Level of Assist: 4 Type of Wheelchair: Manual Pt has a lot of cramping in UE and isn't able to propel W/C for very far. Exercises Seated Therapy Exercises: Ankle pumps, Sit to stand, Long arc quads, Hip flexion, Kicking activity Seated Reps: 20 Treatments Pt was given morning meds at start of tx. Pt transferred supine to EOB at Min A with short rest break after to allow dizziness to subside. Pt then transferred EOB to standing using FWW at [facility] with short break again. Pt then ambulated in room to doorway using FWW at [facility] with W/C following. Pt then propelled W/C approx. 20' before needing assistance the rest of the way to Therapy Gym. Pt completed seated EX with several short rest breaks. Pt then completed another round of seated EX before rest. Pt then transferred to standing to attempt walking again. Pt ambulated approx. 5' before fatiguing to and needing to sit in W/C. Pt propelled W/C another 10' before needing assistance to room. Pt was left in W/C for OT to arrive for shower shortly. Pt left with all needs met at end of tx. Assessment Current Status: Fair Progress Pt fatigues quickly and needs frequent rest breaks. Pt has cramping in UE & LE that limits tx. PT Short Term Goals Short Term Goals Time Frame: Apr 05, 2016 Transfers (B,C,W/C) (FIM): 56 Gait (FIM): 2 Gait Distance Comment: 50' Gait Level of Assist: 5 Gait Assistive Device: FWW PT Assistant Softball Coach Goals [facility] Goals PT Assistant Softball Coach Goals Time Frame: Apr 19, 2016 Transfers (B,C,W/C) (FIM): 6 Sit to Lying (QC): 6 Lying-Sitting on Side/Bed(QC): 6 Sit to Stand (QC): 6 Rollin Roll Left to Right (QC): 6 Chair/Ski-fb-Sjnsk Xfer(QC): 6 Car Transfer (QC): 4 Does the Patient Walk: Yes Gait (FIM): 5 Distance: 200' Walk 10 feet (QC): 4 Walk 10ft-Uneven Surface(QC): 4 Walk 50ft with 2 Turns (QC): 4 Walk 150 ft (QC): 4 Gait Level of Assist: 5 Gait Assistive Device: FWW Does the Pt use WC or Scooter?: No Stairs (FIM): 2 # of Steps: 4 1 Step (curb) (QC): 4 4 Steps (QC): 4 12 Steps (QC): 88 Stairs Level Of Assist: 4 Picking up an Object (QC): 88 PT Plan Problem List Problem List: Activity Tolerance, Functional Strength, Safety, Balance, Gait, Transfer Treatment/Plan Treatment Plan: Continue Plan of Care Treatment Plan: Bed Mobility, Education, Functional Activity Dia, Functional Strength, Group Therapy, Gait, Safety, Therapeutic Exercise, Transfers Treatment Duration: Apr 19, 2016 Visits Per Week: 10-11 Minutes/Day (M-F): 60-90 Minutes/Day (Sat/[place]): 15-30 Safety Risks/Education Patient Education: Gait Training, Transfer Techniques, Correct Positioning, W/ C Management, Safety Issues Teaching Recipient: Patient Teaching Methods: Discussion Response to Teaching: Verbalize Understanding Time/GCodes Time In: 900 Time Out: 1000 Total Billed Treatment Time: 60 Total Billed Treatment visit, EX X2 (30m), FA (15m) & GT (15m) CB ARANDA DIRECTOR DENTAL SERVICES Mar 30, 2016 11:51
[2016-03-30] MEDS: RT-ALBUTEROL/IPRATROPIUM 3 ML (DUONEB) VIAL INH SCH ×2 (15:44→20:13)
--- NOTE | 2016-03-30 15:50 | Physical Therapy Daily Note ---
PT Daily Note-Current Subjective Patient is in bed and agrees to therapy. Patient c/o bottom of feet pain/ burning/tingling. Pain Numeric Pain Scale: 5-Moderate Pain Location: Right, Left Location Body Site: Foot Pain Description: Burning, Tingling Mental Status Patient Orientation: Normal For Age Transfers Functional [place] Measure 0=Not Assessed/NA 4=Minimal Assistance 1=Total Assistance 5=Supervision or Setup 2=Maximal Assistance 6=Modified [place] 3=Moderate Assistance 7=Complete IndependenceIRFPAI Quality Coding Scale 6 Independent with activity with or without an assistive device 5 Patient requires set up or clean up by helper. Patient completes activity by themselves 4 Supervision or touching assist (CGA). [place] provide cues , steadying assist 3 The helper provides less than half the effort to complete the activity 2 The helper provides more than half the effort to complete the activity 1 Dependent. The helper does all the effort to complete an activity 7 Patient refused to complete or attempt activity 9 The patient did not perform the activity before the current illness or injury 88 Not attempted due to Medical conditions or safety concerns Transfers (B, C, W/C) (FIM): 5 Scootin Rollin Roll Left to Right (QC): 5 Supine to/from Sit: 5 Sit to/from Stand: 5 Sit to Lying (QC): 5 Sit to Stand (QC): 5 Chair/Siq-ec-Asmbp Xfer(QC): 5 Bed to/from Chair: 5 Gait Training Does the Patient Walk?: Yes Gait (FIM): 2 Distance (FIM): 8=631-84 ft Distance: 75' x 2; 150' x 1 Gait Level of Assist: 5 Gait Assistive Device: FWW Patient required 2 recovery periods initially, then was able to ambulate from the laundry room to room without difficulty. Patient demonstrates a slow, steady gait sequence. Assessment Patient tolerated an increase in activity this p.m. PT to increase activity as tolerated by patient. PT Short Term Goals Short Term Goals Time Frame: Apr 05, 2016 Transfers (B,C,W/C) (FIM): 56 Gait (FIM): 2 (met 03/30/16) Gait Distance Comment: 50' Gait Level of Assist: 5 (met 03/30/16) Gait Assistive Device: FWW Wheelchair Distance: 30' PT Research Project Coordinator Goals Research Project Coordinator Goals PT Nursing Home Goals Time Frame: Apr 19, 2016 Transfers (B,C,W/C) (FIM): 6 Sit to Lying (QC): 6 Lying-Sitting on Side/Bed(QC): 6 Sit to Stand (QC): 6 Rollin (me5t 03/30/16) Roll Left to Right (QC): 6 Chair/Gaq-yn-Uncsd Xfer(QC): 6 Car Transfer (QC): 4 Does the Patient Walk: Yes Gait (FIM): 5 Distance: 200' Walk 10 feet (QC): 4 Walk 10ft-Uneven Surface(QC): 4 Walk 50ft with 2 Turns (QC): 4 Walk 150 ft (QC): 4 Gait Level of Assist: 5 Gait Assistive Device: FWW Does the Pt use WC or Scooter?: No Stairs (FIM): 2 # of Steps: 4 1 Step (curb) (QC): 4 4 Steps (QC): 4 12 Steps (QC): 88 Stairs Level Of Assist: 4 Picking up an Object (QC): 88 PT Plan Treatment/Plan Treatment Plan: Continue Plan of Care Treatment Plan: Bed Mobility, Education, Functional Activity Dia, Functional Strength, Group Therapy, Gait, Safety, Therapeutic Exercise, Transfers Treatment Duration: Apr 19, 2016 Visits Per Week: 10-11 Minutes/Day (M-F): 60-90 Minutes/Day (Sat/[place]): 15-30 Time/GCodes Time In: 1500 Time Out: 1530 Total Billed Treatment Time: 30 Total Billed Treatment 1 visit GT x 2 30 min JERRELL PHIPPS PT Mar 30, 2016 15:50
[2016-03-30 18:30] VITALS: BP 126/85
[2016-03-30] MEDS: diphenhydrAMINE 25 MG TAB (BENADRYL) PO SCH (20:11)
[2016-03-30] MEDS: ZOLPIDEM 5 MG (AMBIEN) TAB PO PRN (20:12)
[2016-03-30] MEDS: SERTRALINE 100 MG (ZOLOFT) TAB PO SCH (20:12)
[2016-03-31] MEDS: RT-ALBUTEROL/IPRATROPIUM 3 ML (DUONEB) VIAL INH SCH ×4 (02:52→21:46)
[2016-03-31] MEDS: KCL 20 MEQ TAB (K-DUR) PO SCH (05:16)
[2016-03-31] MEDS: predniSONE 10 MG TAB PO SCH (05:16)
[2016-03-31] MEDS: HYDROcodone/APAP 10 MG/325 MG (LORTAB) TAB PO PRN ×4 (05:16→20:18)
[2016-03-31 06:00] VITALS: BP 131/80
--- NOTE | 2016-03-31 07:41 | HISTORY AND PHYSICAL ---
DATE OF ADMISSION: 03/29/2016 CHIEF COMPLAINT: Weakness, difficulty with walking. The patient is a 45-year-old female, patient of critical access hospital [facility] to increased weakness and pain. ABG revealed respiratory alkalosis with O2 sat of 98%. UDS was positive for benzos and opiates. The patient was seen by neurology and internal medicine, PT and OT. She was felt to have polymyalgia rheumatica as well as temporal arteritis explaining some of her symptoms of generalized weakness as well as muscle pain. She was started on steroids. She is now referred to Inpatient Rehabilitation Unit at [facility] for ongoing therapies. Currently she complains of pain all over, worse with activity with muscle stiffness and aching. She is requesting an increase in her Lortab. She also mentioned starting Elavil at night to help her sleep and for the pain is well.However she is on multiple meds. She is set up for eating, grooming, bathing, dressing, all with extra time and assist for toileting, hygiene, transfers, and she is min assist for ambulation 20 feet with a front wheel walker. She has poor endurance, fatigues easily. She also complains of resting tremors which she relates to fatigue. PAST MEDICAL HISTORY: 1. Chronic pain, takes Lortab at home under the direction of [facility]. 2. Diabetes mellitus. 3. Obesity. 4. Hypertension. 5. GERD. 6. Nicotine dependence. 7. History of pulmonary embolism for which she received rehab for her general debilitation this prior August on this unit. 8. Anxiety. 9. Hypertriglyceridemia. 10. Pulmonary vascular congestion. PAST SURGICAL HISTORY: 1. Left mastectomy for breast cancer. 2. Cholecystectomy. 3. Appendectomy. 4. Lung biopsy. 5. Tracheostomy. 6. Gastrostomy. 7. EGD with biopsy. 8. Gastrostomy tube removal. ALLERGIES: 1. CEPHALOSPORINS. 2. LISINOPRIL. FAMILY HISTORY: Noncontributory. SOCIAL HISTORY: She is disabled. She indicates that she is obtained SSI and is awaiting approval for [place] Medicaid. She currently has no medical insurance. 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 She lives with her spouse in [place], [place] in a one-story home. She had been modified independent with extra time prior to this. MEDICATIONS: 1. Colace 200 mg p.o. b.i.d. 2. DuoNeb treatments q.2 hours p.r.n. also shortness of breath. 3. Meclizine 12.5 mg p.o. t.i.d. p.r.n. dizziness. 4. Ambien 5 mg p.o. at bedtime p.r.n. insomnia. 5. Amlodipine 10 mg p.o. daily. 6. ASA 81 mg p.o. daily. 7. Furosemide 20 mg p.o. daily. 8. Mag-Ox 400 mg p.o. daily. 9. K-Dur 20 milliequivalents p.o. daily. 10. Prednisone 15 mg p.o. daily. 11. Zofran 4 mg p.o. q.6 hours p.r.n. nausea, vomiting. 12. Catapres 0.2 mg p.o. t.i.d. 13. Benadryl 25 mg p.o. at bedtime p.r.n. insomnia. 14. Eliquis 5 mg p.o. b.i.d. 15. Protonix 20 mg p.o. b.i.d. 16. Lyrica 300 mg p.o. t.i.d. 17. Zoloft 20 mg p.o. at bedtime. 18. Lortab 10 and 1 tablet p.o. q.4 hours p.r.n. moderate pain. 19. Imitrex 100 mg p.o. q.2 hours p.r.n. migraine. 20. Zanaflex 1 mg p.o. q.8 hours p.r.n. muscle spasms. PHYSICAL EXAMINATION: Physical examination is significant for an obese female, appearing her stated age, lying in bed in no acute distress with resting tremors in both hands. VITAL SIGNS: She is afebrile, pulse is 64 and regular, respirations 20, blood pressure 134/75, O2 sat 93% on room air. HEENT: Vision, speech, hearing, grossly intact. No oral lesions noted. NECK: Supple without mass. HEART: Regular rhythm. LUNGS: Clear. ABDOMEN: Soft, nontender. Bowel sounds present. EXTREMITIES: Trace edema in the ankles. No calf tenderness. MUSCULOSKELETAL: She has functional active range of motion of all 4 extremities. NEUROLOGIC: Cognition appears grossly intact. Sensation grossly intact to touch. She has resting tremors both hands. Strength is 3+/5 both upper extremities. She is unable to straight leg raise both lower extremities. She can active hip flex with strength generally 3+ 4-/5 strength. IMPRESSION: 1. General debilitation secondary to bout of polymyalgia rheumatica and temporal arteritis, treated with steroids with generalized muscle pain, myalgias, and generalized weakness with decline in functional dependence. 2. Obesity. 3. History of PE. 4. Probable RENALDO, outpatient testing pending. 5. History of tracheostomy 6. Chronic pain and takes Lortab under the direction of [facility]. 7. Hypertension, controlled with medication. 8. OAC on Eliquis, sees Dr. Ruffin and Malou Loja on an outpatient basis PLAN: The patient will comprehensive program of inpatient rehabilitation with the goal of maximizing level of functional dependence prior to discharge home with spouse. The patient will have PT/OT 90 minutes per day, each discipline, for gait strengthening, conditioning, balance, ADLs, energy conservation, any patient/family/caregiver training necessary, any adaptive equipment and training necessary. Speech therapy has assessed the patient and found patient to be functional and discontinued speech therapy. Rehabilitation nursing assist with bowel, bladder, skin, medication administration, pain management. The patient reports she is continent of bowel and bladder. Respiratory therapy to assist with respiratory therapy and monitor O2 sats. Dr. Ruffin has been consulted appreciate his consults. Dr. Steiner [facility], we will see tomorrow on the . barrow worker helper to assist with discharge planning, community reentry. ESTIMATED LENGTH OF STAY: Two weeks. PROGNOSIS: Rehab prognosis appears good for goal of discharging home with spouse, hopefully, modified independent to supervision for ADLs and mobility skills. DIET: Heart healthy. CODE STATUS: Full code. POST ADMISSION PHYSICIAN ASSESSMENT: The preadmission screen agrees with the post admission assessment that the patient is a good candidate for inpatient rehabilitation. She appears to be well motivated to participate in 3 hours of therapy a day. She should be able tolerate 3 hours of therapy a day from a medical standpoint. She should benefit from the 3 hours of therapy a day. She has a reasonable discharge plan, reasonable discharge rehabilitation goals and a supportive family. She has various comorbidities that need to be closely monitored with medications and treatments adjusted on daily basis as needed. These include the ongoing treatment for her polymyalgia rheumatica and temporal arteritis with steroids. Her hypertension, and history of PE and shortness of breath and respiratory insufficiency, as well as her chronic pain. The patient requested be on Elavil at night and an increase in her hydrocodone but there was a question regarding overmedication in the recent past. She is on multiple medications and will defer to Dr. Steiner regarding this at this time. Barriers to discharge for this patient who had been modified independent prior to this and living with her spouse in the community in [place], [place] is for her to be modified independent to supervision for ADLs and mobility skills with decreased pain increased strength and endurance prior to discharge home with spouse so as to lessen the burden of the caregivers. Risks for this patient include: 1. Worsening weakness. 2. Worsening respiratory failure. 3. Poorly controlled pain. 4. Controlled hypertension. 5. Recurrent PE, DVT. 6. Urinary retention. 7. UTI. 8. Respiratory infection. 9. Aspiration. barrow worker helper to follow-up regarding status of patient's Medicaid application as it would certainly be beneficial for her to have [place] Medicaid in force. Job ID: [id number] Dictated Date: 03/30/2016 17:23:05 [employer] Date: 03/31/2016 07:17:20/joaquín SZYMANSKI
[2016-03-31] MEDS: APIXABAN 5 MG (ELIQUIS) TABLET PO SCH ×2 (07:47→20:17)
[2016-03-31] MEDS: cloNIDine 0.2 MG (CATAPRES) TAB PO SCH ×3 (07:47→20:17)
[2016-03-31] MEDS: PANTOPRAZOLE 20 MG TABLET (PROTONIX) PO SCH ×2 (07:47→20:17)
[2016-03-31] MEDS: MAGNESIUM OXIDE (MAG-OX)400 MG TAB PO SCH (07:47)
[2016-03-31] MEDS: ASPIRIN E.C. 81 MG (ECOTRIN) TAB PO SCH (07:47)
[2016-03-31] MEDS: DOCUSATE SODIUM 100 MG (COLACE) CAP PO SCH ×2 (07:48→20:17)
[2016-03-31] MEDS: amLODIPine 10 MG (NORVASC) TAB PO SCH (07:48)
[2016-03-31] MEDS: FUROSEMIDE 40 MG (LASIX) TAB PO SCH (07:48)
[2016-03-31] MEDS: PREGABALIN 100 MG (LYRICA) CAPSULE PO SCH ×3 (07:48→20:17)
--- NOTE | 2016-03-31 09:57 | PM & R (SOAP) Progress Note ---
Subjective Subjective/Events-last exam Patient was seen in her room this AM Patient Min assist for transfers with WW Patient Continent of bowel and bladder,Current meds reviewed Review of Systems Neurological: : Weakness Objective Exam Last Set of Vital Signs Vital Signs Date Time Temp Pulse Resp B/P Pulse Ox O2 Delivery O2 Flow Rate FiO2 03/31/16 06:00 97.9 90 20 131/80 97 Room Air Capillary Refill : I&O Intake and Output 03/31/16 00:00 Intake Total 1989 ml Balance 1990 ml Intake Oral 1990 ml # Voids 10 # Bowel Movements 1 General: Alert, Oriented X3, Cooperative, No Acute Distress HEENT: Atraumatic, PERRLA, EOMI, Mucous Memb Moist/[place] Neck: Supple, No JVD Lungs: Clear to Auscultation Heart: Regular Rate Abdomen: Normal Bowel Sounds, Soft, No Tenderness Extremities: Other (trace edema ankles) Neuro: Other (fairly diffuse weakness) Psych/Mental Status: Other (anxious at times) Results Lab Laboratory Tests 03/30/16 05:56: Alanine Aminotransferase (ALT/SGPT) 27, Albumin 4.5, Alkaline Phosphatase 74, Anion Gap 11, Aspartate Amino Transf (AST/SGOT) 23, BUN/Creatinine Ratio 21, Blood Urea Nitrogen 17, Calcium Level 9.8, Carbon Dioxide Level 23, Chloride Level 102, Creatinine 0.81, Erythrocyte Sedimentation Rate 31H, Estimat Glomerular Filtration Rate > 60, Glucose Level 94, Hematocrit 35, Hemoglobin 12.2, Mean Corpuscular Hemoglobin 28, Mean Corpuscular Hemoglobin Concent 35, Mean Corpuscular Volume 82, Mean Platelet Volume 9.9, Platelet Count 392, Potassium Level 3.9, Red Blood Count 4.30L, Red Cell Distribution Width 14.1, Sodium Level 136, Total Bilirubin 0.3, Total Protein 7.4, White Blood Count 9.0 Assessment/Plan Assessment Diffuse weakness seconday to PMR on steroids Chronic pain managed by [facility] on LOrtab HX Pulm embolism Plan Continue PT/OT/Pain management [facility] to see re chronic anxiety and pain DR Haskins et al [facility] to see Appreciate Dr Villegas consult Team Conference next week CHIN STEWART MD Mar 31, 2016 09:57
[2016-03-31] MEDS: ONDANSETRON 4 MG (ZOFRAN) ORAL DISSOLVE TAB PO PRN (11:08)
--- NOTE | 2016-03-31 11:18 | Occupational Ther Daily Note ---
OT Current Status-Daily Note Subjective Pt alert, lying in bed. Family present in room. Pt agreed to therapy. Asked for nausea and pain medications, reported to nrsg. Mental Status/Objective Functional Ocean Measure 0=Not Assessed/NA 4=Minimal Assistance 1=Total Assistance 5=Supervision or Setup 2=Maximal Assistance 6=Modified Ocean 3=Moderate Assistance 7=Complete Ocean ADL-Treatment Pt stated that she didn't want to complete bathing since her family was present. Pt ambulated to therapy gym with CGA using FWW, 1 break. Pt takes increased time to complete tasks. Pt has low activity tolerance and requires frequent breaks and slow movements. Pt completed arm bike for 10 min at 5 hays resistance, moving arm bike very slow that clock didn't count down until she sped up. Pt then completed resistive fine motor exercises that incorporates UE reaching and grasping. During exercises, pt requested to use bathroom. Pt mod I for toileting and SBA for transfer to toilet using FWW. After therapy, pt lying in bed with call light/phone in reach. Family present in room. All needs met in room. Functional Ocean Measure 0=Not Assessed/NA 4=Minimal Assistance 1=Total Assistance 5=Supervision or Setup 2=Maximal Assistance 6=Modified Ocean 3=Moderate Assistance 7=Complete IndependenceIRFPAI Quality Coding Scale 6 Independent with activity with or without an assistive device 5 Patient requires set up or clean up by helper. Patient completes activity by themselves 4 Supervision or touching assist (CGA). [place] provide cues , steadying assist 3 The helper provides less than half the effort to complete the activity 2 The helper provides more than half the effort to complete the activity 1 Dependent. The helper does all the effort to complete an activity 7 Patient refused to complete or attempt activity 9 The patient did not perform the activity before the current illness or injury 88 Not attempted due to Medical conditions or safety concerns Toileting Hygiene (QC): 6 Toileting (FIM): 6 Toilet/Commode Transfer (FIM): 6 OT Short Term Goals Short Term Goals Time Frame: Apr 05, 2016 Eating(FIM): 7 Grooming(FIM): 6 Bathing(FIM): 5 Upper Body Dressing(FIM): 6 Lower Body Dressing(FIM): 6 Toileting(FIM): 6 Transfers (B,C,W/C) (FIM): 56 Toilet/Commode Transfer(FIM): 6 Shower Transfer(FIM): 5 Additional Short Term Goals: 1-Demonstrate ADL Tasks, 2-Verbalize Understanding , 3-ImproveStrength/Dia 1=Demonstrate adherence to instructed precautions during ADL tasks. 2=Patient will verbalize/demonstrate understanding of assistive devices/ modifications for ADL. 3=Patient will improve strength/tolerance for activity to enable patient to perform ADL's. OT Intermediate Goals Intermediate Goals Time Frame: Apr 12, 2016 Eating (FIM): 6 Eating (QC): 6 Oral Hygiene (QC): 6 Grooming(FIM): 6 Bathing(FIM): 5 Shower/Bathe Self (QC): 5 Upper Body Dressing(FIM): 6 Upper Body Dressing (QC): 6 Lower Body Dressing(FIM): 6 Lower Body Dressing (QC): 6 On/Off Footwear (QC): 6 Toileting(FIM): 6 Toileting Hygiene (QC): 6 Transfers (B,C,W/C) (FIM): 6 Toilet/Commode Transfer(FIM): 6 Toilet/Commode Transfer (QC): 6 Shower Transfer(FIM): 5 Additional Goals: 1-Demonstrate ADL Tasks, 2-Verbalize Understanding, 3- ImproveStrength/Dia 1=Demonstrate adherence to instructed precautions during ADL tasks. 2=Patient will verbalize/demonstrate understanding of assistive devices/ modifications for ADL. 3=Patient will improve strength/tolerance for activity to enable patient to perform ADL's. OT Education/Plan Discharge Recommendations Plan/Recommendations: Continue POC Treatment Plan/Plan of Care Patient would benefit from OT for education, treatment and training to promote independence in ADL's, mobility, safety and/or upper extremity function for ADL' s. Plan of Care: ADL Retraining, Functional Mobility, UE Funct Exercise/Act Treatment Duration: Apr 12, 2016 Visits Per Week: 10-12 Agreement: Yes Rehab Potential: Fair Time/GCodes Start Time: 10:00 Stop Time: 11:00 Total Time Billed (hr/min): 60 Billed Treatment Time 1 visit-ADL 1 (15 min) EX 3 (45 min) SAAD PEREZ Mar 31, 2016 11:18
--- NOTE | 2016-03-31 12:02 | Consultation (CHS) ---
HPI History of Present Illness: 45Y WOMAN patient of Dr Melara who was recently hospitalized at [facility] for an acute exacerbation of PMR and temporal arteritis. She was given IV steroids and responded appropriately. She did have respiratory failure upon presentation to ER with a UDS positive for benzos and opiates (hydrocodone prescribed by her PCP). She improved and was transferred to IRF for further care and evaluation. Medicine is consulted for medical management. Source: patient, family Exam Limitations: no limitations Date seen by provider: Mar 31, 2016 Attending Physician Gabriele Patel MD PCP Anayeli Maldonado DO Consult Date of Admission Mar 29, 2016 at 11:39 am Home Medications Home Medications Reviewed patient Home Medication Reconciliation Form Allergies Coded Allergies: Cephalosporins (Verified Allergy, Unknown, 07/22/09) lisinopril (Unverified Allergy, Unknown, 02/22/15) Uncoded Allergies: CEFABID (Allergy, Mild, 07/22/09) LIU-Pmyelm-Synawm Hx Patient Social History Smoking Status: Current Everyday Smoker Type Used: Cigarettes Recent Foreign Travel: No Contact w/other who traveled: No Recent Hopitalizations: Yes (GB REMOVED, HYST., APPY. , OVARIAN CYSTECTOMY) Recent Infectious Disease Expo: No Immunizations Up To Date Tetanus Booster (TDap): More than 5yrs Date of Pneumonia Vaccine: Oct 01, 2015 Date of Influenza Vaccine: Dec 31, 2015 Past Medical History Past Medical History 1. History of CHF, non ischemic cardiomyopathy with a normal ejection fraction of 50% per last echocardiogram. 2. Morbid Obesity 3. Lt. Breast CA with bilateral mastectomy and reconstruction 2006 4. PSTD 5. Bipolar type II 6. History of Moraes Esophagitis 7. PE 8. Insulin Resistance 9. History of Pneumonia requiring mechanical ventilation 10. Fibromyalgia 11. Tobaccoism Past Surgical History 1.Bilateral Mastectomy with reconstruction 2006 2. Appendectomy 3. Cholecystectomy 4. Hysterectomy 5. Eye surgery as child Family Medical History Significant Family History: Cancer Family History: Cancer 03 FATHER, Onset:60 years & older (LUNG CANCER) Chest pain 03 MOTHER (LYMPHANGIO MITOSIS) Dementia 03 FATHER, Onset:60 years & older Family history: Allergy 03 MOTHER (SEASONAL ALLERGIES) Family history: Arthritis 03 FATHER 03 MOTHER Family history: Asthma 03 MOTHER Family history: Breast disease 03 FATHER (AUNT ON FATHERS SIDE FROM BREAST CANCER) Family history: Cardiovascular disease 03 MOTHER Family history: Gastrointestinal disease 03 FATHER Family history: Hypertension 03 MOTHER Family history: Osteoporosis 03 MOTHER Heart disease 03 MOTHER History of - respiratory disease 03 MOTHER ("LYMPHANGIO MITOSIS - SHORTNESS OF BREATH AND TAKES BREATHING TREATMENTS" ) Malignant neoplasm of lung 03 FATHER No Family History of: Abdominal aortic aneurysm [place]'s disease Alcoholism Aphasia Cancer of colon Cataract Congenital heart disease Congestive heart failure Cystic fibrosis Dysphagia Family history: Alzheimer's disease Family history: Coronary thrombosis Family history: Diabetes mellitus Family history: Glaucoma Family history: Thyroid disorder Hearing loss History of - anemia Kidney disease Parkinson's disease Prostate cancer Psychotic disorder Seizure disorder Stroke Review of Systems ([facility]) Constitutional: no symptoms reported All Other Systems Reviewed Negative Unless Noted: Yes Physical Exam-([facility]) Physical Exam Vital Signs VS - Last 72 Hours, by Label 04/03/16 04/03/16 04/03/16 04/03/16 15:46 18:07 20:10 20:16 Temp 97.1 Pulse 92 Resp 20 B/P 115/83 Pulse Ox 94 96 95 O2 Delivery Room Air Room Air Room Air Room Air 04/04/16 04/04/16 04/04/16 04/04/16 02:22 04:38 08:03 09:00 Temp 97.3 Pulse 81 Resp 20 B/P 145/81 Pulse Ox 96 96 95 O2 Delivery Room Air Room Air Room Air Room Air 04/04/16 04/04/16 04/04/16 04/04/16 15:29 18:00 19:47 20:50 Temp 97.6 Pulse 93 Resp 20 B/P 150/88 Pulse Ox 96 96 96 O2 Delivery Room Air Room Air Room Air Room Air 04/05/16 04/05/16 04/05/16 04/05/16 02:19 05:17 09:32 15:34 Temp 97.2 Pulse 99 Resp 20 B/P 130/87 Pulse Ox 94 96 95 O2 Delivery Room Air Room Air Room Air Room Air 04/05/16 04/05/16 04/05/16 04/06/16 18:58 19:53 20:10 02:49 Temp 97.7 Pulse 94 Resp 20 B/P 120/81 Pulse Ox 95 94 97 O2 Delivery Room Air Room Air Room Air Room Air 04/06/16 04/06/16 04/06/16 04:10 07:18 09:00 Temp 97.2 Pulse 92 Resp 20 B/P 124/81 Pulse Ox 96 O2 Delivery Room Air Room Air Room Air Capillary Refill : General Appearance: WD/WN no apparent distress obese HEENT: PERRL/EOMI normal ENT inspection pharynx normal Neck: non-tender full range of motion supple normal inspection Respiratory: lungs clear normal breath sounds no respiratory distress no accessory muscle use Cardiovascular: regular rate, rhythm no edema no gallop no JVD no murmur Gastrointestinal: normal bowel sounds non tender soft no organomegaly Back: normal inspection Extremities: normal range of motion non-tender normal inspection no pedal edema no calf tenderness normal capillary refill Neurologic/Psychiatric: imposer II-XII nml as tested no motor/sensory deficits alert normal mood/affect oriented x 3 Skin: normal color warm/dry Assessment/Plan Assessment/Plan Plan PMR TA -to be managed by IRF team ANXIETY -would hold on benzos for now, believe patient is on too many meds, we need to pare some of them down HTN -STABLE on current regimen PRIOR PE -on Eliquis, no changes today Diagnosis/Problems: Clinical Quality Measures DVT/VTE Risk/Contraindication: Risk Factor Score Per Nursin RFS Level Per Nursing on Admit: 4+=Very High TASHA HERNANDEZ MD Mar 31, 2016 12:02
--- NOTE | 2016-03-31 12:15 | Physical Therapy Daily Note ---
PT Daily Note-Current Subjective Pt supine in bed upon arrival. Pt reports less dizziness and cramping only 4/ 10 to start tx. Pt agreed to PT. Pain Numeric Pain Scale: 4 Location: Right, Left Location Body Site: Foot Pain Description: Cramping Mental Status Patient Orientation: Person, Place, Time, Situation Transfers Functional [place] Measure 0=Not Assessed/NA 4=Minimal Assistance 1=Total Assistance 5=Supervision or Setup 2=Maximal Assistance 6=Modified [place] 3=Moderate Assistance 7=Complete IndependenceIRFPAI Quality Coding Scale 6 Independent with activity with or without an assistive device 5 Patient requires set up or clean up by helper. Patient completes activity by themselves 4 Supervision or touching assist ([facility]). [place] provide cues , steadying assist 3 The helper provides less than half the effort to complete the activity 2 The helper provides more than half the effort to complete the activity 1 Dependent. The helper does all the effort to complete an activity 7 Patient refused to complete or attempt activity 9 The patient did not perform the activity before the current illness or injury 88 Not attempted due to Medical conditions or safety concerns Scootin Rollin Supine to/from Sit: 4 Sit to/from Stand: 4 Weight Bearing Weight Bearing Restriction: Full Weight Bearing Location Restriction: LE Bilateral Gait Training Does the Patient Walk?: Yes Distance (FIM): 4=164-61 ft Distance: 125' Gait Level of Assist: 4 Gait Persons Needed: 1 Gait Assistive Device: FWW Pt fatigues easy and needs rest break on way to [facility] but is able to walk farther than yesterday. Pt still reports cramping in bottom of feet especially after activity. Pt walks with antalgic gait. Exercises Seated Therapy Exercises: Ankle pumps, Long arc quads, Hip flexion, Kicking activity Seated Reps: 15 NuStep Minutes: 10 NuStep Workload: 3 Treatments Pt transferred from supine to EOB at [facility] then EOB to standing at [facility]. Pt ambulated using FWW at [facility] but needed to rest on way to [facility]. Pt then ambulates rest of way to gym. Pt uses NuStep for 10m at Workload 3. Pt then takes rest break before completing seated EX in chair. Pt again rests before walking part way to room, resting then returning to room. Pt transfers to EOB to rest at end of tx. Pt is left with all needs met. Assessment Current Status: Good Progress Pt is walking farther with less pain/cramping than yesterday. Pt fatigues less easily. PT Short Term Goals Short Term Goals Time Frame: Apr 05, 2016 Transfers (B,C,W/C) (FIM): 56 Gait (FIM): 2 (met 03/30/16) Gait Distance Comment: 50' Gait Level of Assist: 5 (met 03/30/16) Gait Assistive Device: FWW Wheelchair Distance: 30' PT Towboat Engineer Goals Towboat Engineer Goals PT Jail Goals Time Frame: Apr 19, 2016 Transfers (B,C,W/C) (FIM): 6 Sit to Lying (QC): 6 Lying-Sitting on Side/Bed(QC): 6 Sit to Stand (QC): 6 Rollin (me5t 03/30/16) Roll Left to Right (QC): 6 Chair/Onb-uc-Fslfn Xfer(QC): 6 Car Transfer (QC): 4 Does the Patient Walk: Yes Gait (FIM): 5 Distance: 200' Walk 10 feet (QC): 4 Walk 10ft-Uneven Surface(QC): 4 Walk 50ft with 2 Turns (QC): 4 Walk 150 ft (QC): 4 Gait Level of Assist: 5 Gait Assistive Device: FWW Does the Pt use WC or Scooter?: No Stairs (FIM): 2 # of Steps: 4 1 Step (curb) (QC): 4 4 Steps (QC): 4 12 Steps (QC): 88 Stairs Level Of Assist: 4 Picking up an Object (QC): 88 PT Plan Problem List Problem List: Activity Tolerance, Functional Strength, Safety, Balance, Gait, Transfer Treatment/Plan Treatment Plan: Continue Plan of Care Treatment Plan: Bed Mobility, Education, Functional Activity Dia, Functional Strength, Group Therapy, Gait, Safety, Therapeutic Exercise, Transfers Treatment Duration: Apr 19, 2016 Visits Per Week: 10-11 Minutes/Day (M-F): 60-90 Minutes/Day (Sat/Beltran): 15-30 Safety Risks/Education Patient Education: Gait Training, Transfer Techniques, Correct Positioning, Safety Issues Teaching Recipient: Patient Teaching Methods: Discussion Response to Teaching: Verbalize Understanding Time/GCodes Time In: 800 Time Out: 900 Total Billed Treatment Time: 60 Total Billed Treatment visit, GT X2 (30m) & EX X2 (30m) TREIBER,CB FISHER POT Mar 31, 2016 12:15
--- NOTE | 2016-03-31 13:29 | Individualized Plan of Care ---
Individualized Plan of Care Rehab Nursing IPOC Order Admission Date Mar 29, 2016 at 11:39 Current Orders Orders-CHIN STEWART MD [facility] Consult (03/30/16 17:24) PT IPOC Problem List: Activity Tolerance, Functional Strength, Safety, Balance, Gait, Transfer Treatment Plan: Continue Plan of Care Bed Mobility, Education, Functional Activity Dia, Functional Strength, Group Therapy, Gait, Safety, Therapeutic Exercise, Transfers Treatment Duration: Apr 19, 2016 Visits Per Week: 10-11 Minutes/Day (M-F): 60-90 Minutes/Day (Sat/Beltran): 15-30 OT IPOC Problems: Dependent Transfers, Impaired Bed Mobility, Impaired Funct Balance, Impaired I ADL's, Impaired Self-Care Skills Plan of Care: ADL Retraining, Functional Mobility, UE Funct Exercise/Act Treatment Duration: Apr 12, 2016 Visits Per Week: 10-12 Minutes/Day (M-F): 60-90 Minutes/Day (Sat/Beltran): 15-30 ST IPOC Speech Therapy Treatment Plan: Discontinue ST (Eval, only.) Physician IPOC Medical Issues being managed closely and that require the 24 hour availability of a physician:pain management,Ongoing treatment of PMR on steroids associated with diffuse weakness PTSD 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 Medical Issues: DVT Prophylaxis, Falls Precautions, Fluid/Electrolyte/ Nutrition Balance, Infection Protection, Pain Management, Other (List) (as per above) Brief Synthesis of Preadmission Screen, Post-Admission Evaluation, and Therapy Evaluations: 45 yo female with obesity and hx of PTSD and chronic pain who had been Modified Independent with a WW prior to onset of PMR requiring admission to an OSH and course of Steroid for treatment,Referred here for ongoing [facility] that she now has SSILives with spouse in [facility] Followed by [facility] Appreciate Dr Mendoza consult Have asked [facility] to see Medical Prognosis: good Anticipated Length of Stay: 2-3 weeks Rehab Goals Modified Independent for adls and mobility skills Anticipated discharge destinat: Home with spouse and [facility] CHIN STEWART MD Mar 31, 2016 13:29
--- NOTE | 2016-03-31 15:13 | Therapy Group Daily Note ---
Therapy Daily Group Note Patient Education Topic Home Safety Exercises LE Seated Exercise, UE Exercise Other/Notes Pt ambulated with CGA using FWW to OT/PT group in ARU [facility] area. Group consisted of introductions (name, place living, New Year's resolution), socialization, memory activity, ARU description, UE/LE seated exercises and home safety education. Pt participated in group and contributed to discussions appropriately Pt was able to complete UE/LE exercises. Pt demonstrated good memory during activity. After therapy, pt ambulated with CGA using FWW back to room. Pt laid in bed with call light/phone in reach. All needs met in room. Start Time: 13:00 Stop Time: 14:15 Total Billed Treatment Time: 75 Total Billed Treatment 1-GRP SAAD PEREZ Mar 31, 2016 15:13
[2016-03-31 18:56] VITALS: BP 137/89
[2016-03-31] MEDS: SERTRALINE 100 MG (ZOLOFT) TAB PO SCH (20:17)
[2016-03-31] MEDS: diphenhydrAMINE 25 MG TAB (BENADRYL) PO SCH (20:17)
[2016-03-31] MEDS: ZOLPIDEM 5 MG (AMBIEN) TAB PO PRN (20:18)
[2016-04-01] MEDS: HYDROcodone/APAP 10 MG/325 MG (LORTAB) TAB PO PRN ×6 (00:13→21:10)
[2016-04-01] MEDS: RT-ALBUTEROL/IPRATROPIUM 3 ML (DUONEB) VIAL INH SCH ×4 (02:59→19:40)
[2016-04-01 05:04] VITALS: BP 131/81
[2016-04-01] MEDS: KCL 20 MEQ TAB (K-DUR) PO SCH (05:57)
[2016-04-01] MEDS: predniSONE 10 MG TAB PO SCH (05:57)
[2016-04-01] MEDS: ONDANSETRON 4 MG (ZOFRAN) ORAL DISSOLVE TAB PO PRN (07:57)
[2016-04-01] MEDS: DOCUSATE SODIUM 100 MG (COLACE) CAP PO SCH ×2 (07:57→21:09)
[2016-04-01] MEDS: ASPIRIN E.C. 81 MG (ECOTRIN) TAB PO SCH (07:58)
[2016-04-01] MEDS: PANTOPRAZOLE 20 MG TABLET (PROTONIX) PO SCH ×2 (07:58→21:09)
[2016-04-01] MEDS: MAGNESIUM OXIDE (MAG-OX)400 MG TAB PO SCH (07:58)
[2016-04-01] MEDS: amLODIPine 10 MG (NORVASC) TAB PO SCH (07:59)
[2016-04-01] MEDS: cloNIDine 0.2 MG (CATAPRES) TAB PO SCH ×3 (07:59→21:09)
[2016-04-01] MEDS: FUROSEMIDE 40 MG (LASIX) TAB PO SCH (07:59)
[2016-04-01] MEDS: APIXABAN 5 MG (ELIQUIS) TABLET PO SCH ×2 (07:59→21:09)
--- NOTE | 2016-04-01 10:50 | Physical Therapy Daily Note ---
PT Daily Note-Current Subjective Patient is very agreeable to participate with PT. Pain Numeric Pain Scale: 5-Moderate Pain Location: Soft Tissue Location Body Site: Generalized Pain Description: Ache Mental Status Patient Orientation: Normal For Age Transfers Functional [place] Measure 0=Not Assessed/NA 4=Minimal Assistance 1=Total Assistance 5=Supervision or Setup 2=Maximal Assistance 6=Modified [place] 3=Moderate Assistance 7=Complete IndependenceIRFPAI Quality Coding Scale 6 Independent with activity with or without an assistive device 5 Patient requires set up or clean up by helper. Patient completes activity by themselves 4 Supervision or touching assist (CGA). [place] provide cues , steadying assist 3 The helper provides less than half the effort to complete the activity 2 The helper provides more than half the effort to complete the activity 1 Dependent. The helper does all the effort to complete an activity 7 Patient refused to complete or attempt activity 9 The patient did not perform the activity before the current illness or injury 88 Not attempted due to Medical conditions or safety concerns Transfers (B, C, W/C) (FIM): 6 Scootin Rollin Roll Left to Right (QC): 6 Supine to/from Sit: 6 Sit to/from Stand: 6 Sit to Lying (QC): 6 Sit to Stand (QC): 6 Gait Training Does the Patient Walk?: Yes Gait (FIM): 5 Distance (FIM): 3=150 ft Distance: 200' x 2 Gait Level of Assist: 5 Gait Assistive Device: FWW slow and methodical/safe and functional Assessment Patient tolerates treatment and returned to room with needs met. PT Short Term Goals Short Term Goals Time Frame: Apr 05, 2016 Transfers (B,C,W/C) (FIM): 56 Gait (FIM): 2 (met 03/30/16) Gait Distance Comment: 50' Gait Level of Assist: 5 (met 03/30/16) Gait Assistive Device: FWW Wheelchair Distance: 30' PT Fci Goals Timber Supervisor Goals PT Timber Supervisor Goals Time Frame: Apr 19, 2016 Transfers (B,C,W/C) (FIM): 6 Sit to Lying (QC): 6 Lying-Sitting on Side/Bed(QC): 6 Sit to Stand (QC): 6 Rollin Roll Left to Right (QC): 6 Chair/Qqt-sn-Uxhgg Xfer(QC): 6 Car Transfer (QC): 4 Does the Patient Walk: Yes Gait (FIM): 5 Distance: 200' Walk 10 feet (QC): 4 Walk 10ft-Uneven Surface(QC): 4 Walk 50ft with 2 Turns (QC): 4 Walk 150 ft (QC): 4 Gait Level of Assist: 5 Gait Assistive Device: FWW Does the Pt use WC or Scooter?: No Stairs (FIM): 2 # of Steps: 4 1 Step (curb) (QC): 4 4 Steps (QC): 4 12 Steps (QC): 88 Stairs Level Of Assist: 4 Picking up an Object (QC): 88 PT Plan Treatment/Plan Treatment Plan: Continue Plan of Care Treatment Plan: Bed Mobility, Education, Functional Activity Dia, Functional Strength, Group Therapy, Gait, Safety, Therapeutic Exercise, Transfers Treatment Duration: Apr 19, 2016 Visits Per Week: 10-11 Minutes/Day (M-F): 60-90 Minutes/Day (Sat/Beltran): 15-30 Time/GCodes Time In: 1005 Time Out: 1020 Total Billed Treatment Time: 15 Total Billed Treatment 1 visit GT 15 min JERRELL PHIPPS PT Apr 01, 2016 10:35
[2016-04-01] MEDS: PREGABALIN 100 MG (LYRICA) CAPSULE PO SCH ×3 (10:54→21:09)
[2016-04-01 17:15] VITALS: BP 153/86
[2016-04-01] MEDS: ZOLPIDEM 5 MG (AMBIEN) TAB PO PRN (21:09)
[2016-04-01] MEDS: diphenhydrAMINE 25 MG TAB (BENADRYL) PO SCH (21:09)
[2016-04-01] MEDS: SERTRALINE 100 MG (ZOLOFT) TAB PO SCH (21:09)
[2016-04-02] MEDS: HYDROcodone/APAP 10 MG/325 MG (LORTAB) TAB PO PRN ×6 (00:54→23:07)
[2016-04-02] MEDS: RT-ALBUTEROL/IPRATROPIUM 3 ML (DUONEB) VIAL INH SCH ×4 (02:54→20:08)
[2016-04-02] MEDS: predniSONE 10 MG TAB PO SCH (05:35)
[2016-04-02] MEDS: KCL 20 MEQ TAB (K-DUR) PO SCH (05:35)
[2016-04-02 06:00] VITALS: BP 122/87
[2016-04-02] MEDS: amLODIPine 10 MG (NORVASC) TAB PO SCH (09:46)
[2016-04-02] MEDS: APIXABAN 5 MG (ELIQUIS) TABLET PO SCH ×2 (09:46→19:19)
[2016-04-02] MEDS: ASPIRIN E.C. 81 MG (ECOTRIN) TAB PO SCH (09:46)
[2016-04-02] MEDS: DOCUSATE SODIUM 100 MG (COLACE) CAP PO SCH ×2 (09:46→19:19)
[2016-04-02] MEDS: PREGABALIN 100 MG (LYRICA) CAPSULE PO SCH ×3 (09:46→19:19)
[2016-04-02] MEDS: PANTOPRAZOLE 20 MG TABLET (PROTONIX) PO SCH ×2 (09:46→19:19)
[2016-04-02] MEDS: cloNIDine 0.2 MG (CATAPRES) TAB PO SCH ×3 (09:46→19:19)
[2016-04-02] MEDS: FUROSEMIDE 40 MG (LASIX) TAB PO SCH (09:46)
[2016-04-02] MEDS: MAGNESIUM OXIDE (MAG-OX)400 MG TAB PO SCH (09:47)
[2016-04-02 16:55] VITALS: BP 147/75
[2016-04-02] MEDS: SERTRALINE 100 MG (ZOLOFT) TAB PO SCH (19:19)
[2016-04-02] MEDS: ZOLPIDEM 5 MG (AMBIEN) TAB PO PRN (20:55)
[2016-04-02] MEDS: MILK OF MAGNESIA 400 MG/5 ML 30 ML UDC PO PRN (20:55)
[2016-04-02] MEDS: diphenhydrAMINE 25 MG TAB (BENADRYL) PO SCH (20:55)
[2016-04-03] MEDS: RT-ALBUTEROL/IPRATROPIUM 3 ML (DUONEB) VIAL INH SCH ×4 (02:37→20:16)
[2016-04-03] MEDS: HYDROcodone/APAP 10 MG/325 MG (LORTAB) TAB PO PRN ×4 (03:48→20:50)
[2016-04-03 05:27] VITALS: BP 117/79
[2016-04-03] MEDS: predniSONE 10 MG TAB PO SCH (06:10)
[2016-04-03] MEDS: KCL 20 MEQ TAB (K-DUR) PO SCH (06:10)
--- NOTE | 2016-04-03 08:01 | Occupational Ther Daily Note ---
OT Current Status-Daily Note Subjective Pt alert, lying in bed. Pt c/o aching in arms and feet then stated that she had difficulty with verbalizing wants earlier in the morning. Small abrasion under L breast, nrsg notified of all complaints. Mental Status/Objective Patient Orientation: Person, Place, Time, Situation Functional [place] Measure 0=Not Assessed/NA 4=Minimal Assistance 1=Total Assistance 5=Supervision or Setup 2=Maximal Assistance 6=Modified [place] 3=Moderate Assistance 7=Complete [place] ADL-Treatment Pt stated that she had already taken shower the evening before and didn't want to take one this morning. Pt did agree to freshen up and change clothing. After therapy, pt up in w/c with call light/phone in reach. All needs met in room. Functional [place] Measure 0=Not Assessed/NA 4=Minimal Assistance 1=Total Assistance 5=Supervision or Setup 2=Maximal Assistance 6=Modified [place] 3=Moderate Assistance 7=Complete IndependenceIRFPAI Quality Coding Scale 6 Independent with activity with or without an assistive device 5 Patient requires set up or clean up by helper. Patient completes activity by themselves 4 Supervision or touching assist ([facility]). [place] provide cues , steadying assist 3 The helper provides less than half the effort to complete the activity 2 The helper provides more than half the effort to complete the activity 1 Dependent. The helper does all the effort to complete an activity 7 Patient refused to complete or attempt activity 9 The patient did not perform the activity before the current illness or injury 88 Not attempted due to Medical conditions or safety concerns Eating (FIM): 6 (Dentures. Pt is able to open packages/containers then using built up handle is able to feed self.) Grooming (FIM): 6 (Pt using w/c is able to maneuver into bathroom and complete own grooming.) Upper Body (FIM): 5 (After set up, pt is able to complete upper body dressing.) Lower Body Dressing (FIM): 5 (After set up, pt is able to complete lower body dressing using FWW to stabilize self when hiking pants over hips. Pt is able to don/doff socks by self.) Pt does fatigue easily and takes increased time to complete daily skills and exercises. 1# wt attached to wrist while eating breakfast to increase strength and activity tolerance. OT Short Term Goals Short Term Goals Time Frame: Apr 05, 2016 Eating(FIM): 7 Grooming(FIM): 6 Bathing(FIM): 5 Upper Body Dressing(FIM): 6 Lower Body Dressing(FIM): 6 Toileting(FIM): 6 Transfers (B,C,W/C) (FIM): 56 Toilet/Commode Transfer(FIM): 6 Shower Transfer(FIM): 5 Additional Short Term Goals: 1-Demonstrate ADL Tasks, 2-Verbalize Understanding , 3-ImproveStrength/Dia 1=Demonstrate adherence to instructed precautions during ADL tasks. 2=Patient will verbalize/demonstrate understanding of assistive devices/ modifications for ADL. 3=Patient will improve strength/tolerance for activity to enable patient to perform ADL's. OT Personnel Clerks Supervisor Goals Personnel Clerks Supervisor Goals Time Frame: Apr 12, 2016 Eating (FIM): 6 Eating (QC): 6 Oral Hygiene (QC): 6 Grooming(FIM): 6 Bathing(FIM): 5 Shower/Bathe Self (QC): 5 Upper Body Dressing(FIM): 6 Upper Body Dressing (QC): 6 Lower Body Dressing(FIM): 6 Lower Body Dressing (QC): 6 On/Off Footwear (QC): 6 Toileting(FIM): 6 Toileting Hygiene (QC): 6 Transfers (B,C,W/C) (FIM): 6 Toilet/Commode Transfer(FIM): 6 Toilet/Commode Transfer (QC): 6 Shower Transfer(FIM): 5 Additional Goals: 1-Demonstrate ADL Tasks, 2-Verbalize Understanding, 3- ImproveStrength/Dia 1=Demonstrate adherence to instructed precautions during ADL tasks. 2=Patient will verbalize/demonstrate understanding of assistive devices/ modifications for ADL. 3=Patient will improve strength/tolerance for activity to enable patient to perform ADL's. OT Education/Plan Discharge Recommendations Plan/Recommendations: Continue POC Treatment Plan/Plan of Care Patient would benefit from OT for education, treatment and training to promote independence in ADL's, mobility, safety and/or upper extremity function for ADL' s. Plan of Care: ADL Retraining, Functional Mobility, UE Funct Exercise/Act Treatment Duration: Apr 12, 2016 Visits Per Week: 10-12 Minutes/Day (M-F): 60-90 Minutes/Day (Sat/Beltran): 15-30 Agreement: Yes Rehab Potential: Fair Time/GCodes Start Time: 07:00 Stop Time: 08:00 Total Time Billed (hr/min): 60 Billed Treatment Time 1 visit-FA 4 (60 min) SAAD PEREZ Apr 03, 2016 08:01
[2016-04-03] MEDS: FUROSEMIDE 40 MG (LASIX) TAB PO SCH (08:59)
[2016-04-03] MEDS: PREGABALIN 100 MG (LYRICA) CAPSULE PO SCH ×3 (09:00→20:51)
[2016-04-03] MEDS: ASPIRIN E.C. 81 MG (ECOTRIN) TAB PO SCH (09:00)
[2016-04-03] MEDS: MAGNESIUM OXIDE (MAG-OX)400 MG TAB PO SCH (09:00)
[2016-04-03] MEDS: APIXABAN 5 MG (ELIQUIS) TABLET PO SCH ×2 (09:00→20:50)
[2016-04-03] MEDS: amLODIPine 10 MG (NORVASC) TAB PO SCH (09:00)
[2016-04-03] MEDS: PANTOPRAZOLE 20 MG TABLET (PROTONIX) PO SCH ×2 (09:00→20:51)
[2016-04-03] MEDS: DOCUSATE SODIUM 100 MG (COLACE) CAP PO SCH ×2 (09:00→20:51)
[2016-04-03] MEDS: cloNIDine 0.2 MG (CATAPRES) TAB PO SCH ×3 (09:00→20:50)
--- NOTE | 2016-04-03 09:06 | Physical Therapy Daily Note ---
PT Daily Note-Current Subjective Pt. explains her recent history at home and her declining situation, she and her Pain Numeric Pain Scale: 5-Moderate Pain Location: Left Location Body Site: Knee Pain Description: Stabbing Mental Status Patient Orientation: Normal For Age Transfers Functional [place] Measure 0=Not Assessed/NA 4=Minimal Assistance 1=Total Assistance 5=Supervision or Setup 2=Maximal Assistance 6=Modified [place] 3=Moderate Assistance 7=Complete IndependenceIRFPAI Quality Coding Scale 6 Independent with activity with or without an assistive device 5 Patient requires set up or clean up by helper. Patient completes activity by themselves 4 Supervision or touching assist (C[facility]). [place] provide cues , steadying assist 3 The helper provides less than half the effort to complete the activity 2 The helper provides more than half the effort to complete the activity 1 Dependent. The helper does all the effort to complete an activity 7 Patient refused to complete or attempt activity 9 The patient did not perform the activity before the current illness or injury 88 Not attempted due to Medical conditions or safety concerns Transfers (B, C, W/C) (FIM): 5 Scootin Rollin Supine to/from Sit: 5 Sit to/from Stand: 6 Bed to/from Chair: 5 Gait Training Does the Patient Walk?: Yes Gait (FIM): 2 ([id number]) Distance (FIM): 8=042-03 ft (65x2) Gait Level of Assist: 5 Gait Persons Needed: 1 Gait Assistive Device: FWW slow, narrow CATIA at times, T foot placement with turns, pt. corrects this with cues Wheelchair Training Does the Pt Use a Wheelchair?: Yes Wheelchair (FIM): 6 Wheelchair Distance: 3=150 ft (175) Wheelchair Level of Assist: 6 Exercises Supine Ex: Bridging, Ankle pumps, Quad Set, Rolling, Glut sets, Heel Slides, Short Arc Quads, Scooting, Straight leg raise, Hip abd/add Supine Reps: 15 Assessment Current Status: Good Progress pt. feeling negative about her DC plans, states her home is in bad shape, hoping to move to an apartment and have help for she and her come in PT Short Term Goals Short Term Goals Time Frame: Apr 05, 2016 Transfers (B,C,W/C) (FIM): 56 Gait (FIM): 2 (met 03/30/16) Gait Distance Comment: 50' Gait Level of Assist: 5 (met 03/30/16) Gait Assistive Device: FWW Wheelchair Distance: 30' PT Undergraduate Advisor Goals Senior Living Goals PT Senior Living Goals Time Frame: Apr 19, 2016 Transfers (B,C,W/C) (FIM): 6 Sit to Lying (QC): 6 Lying-Sitting on Side/Bed(QC): 6 Sit to Stand (QC): 6 Rollin Roll Left to Right (QC): 6 Chair/Lrx-cc-Rhufh Xfer(QC): 6 Car Transfer (QC): 4 Does the Patient Walk: Yes Gait (FIM): 5 Distance: 200' Walk 10 feet (QC): 4 Walk 10ft-Uneven Surface(QC): 4 Walk 50ft with 2 Turns (QC): 4 Walk 150 ft (QC): 4 Gait Level of Assist: 5 Gait Assistive Device: FWW Does the Pt use WC or Scooter?: No Stairs (FIM): 2 # of Steps: 4 1 Step (curb) (QC): 4 4 Steps (QC): 4 12 Steps (QC): 88 Stairs Level Of Assist: 4 Picking up an Object (QC): 88 PT Plan Treatment/Plan Treatment Plan: Continue Plan of Care Treatment Plan: Bed Mobility, Education, Functional Activity Dia, Functional Strength, Group Therapy, Gait, Safety, Therapeutic Exercise, Transfers Treatment Duration: Apr 19, 2016 Visits Per Week: 10-11 Minutes/Day (M-F): 60-90 Minutes/Day (Sat/Beltran): 15-30 Safety Risks/Education Patient Education: Gait Training, Transfer Techniques, Correct Positioning, Disease Process, Safety Issues Teaching Recipient: Patient Teaching Methods: Demonstration, Discussion Response to Teaching: Verbalize Understanding, Return Demonstration, Reinforcement Needed Time/GCodes Time In: 800 Time Out: 900 Total Billed Treatment Time: 60 Total Billed Treatment 1,FA30m,EX30m G Codes Necessary: MARION Chowdary HAND INSPECTOR Apr 03, 2016 09:06
[2016-04-03] MEDS: ANTACID SUSP 30 ML UDC (MYLANTA) PO PRN (09:17)
--- NOTE | 2016-04-03 14:45 | Therapy Group Daily Note ---
Therapy Daily Group Note Other/Notes Rehab patients had group therapy in the common area on the rehab floor today. Each patient either ambulated or was transported to the common area and they all sat in a [place]. Then, each patient had to introduce themselves, state where they were born, and answer a question involving memory. Then the group was educated on home safety, decluttering, and home organization strategies. After that, each patient had to lead the group in a randomly selected exercise. Finally, each patient ambulated or was transported back to their room with nurse call, phone, tray, all needs met. Start Time: 13:00 Stop Time: 14:10 Total Billed Treatment Time: 70 Total Billed Treatment 1 visit GRP 70 min MIYA RODRIGUEZ PT Apr 03, 2016 14:45
[2016-04-03 18:07] VITALS: BP 115/83
[2016-04-03] MEDS: SERTRALINE 100 MG (ZOLOFT) TAB PO SCH (20:50)
[2016-04-03] MEDS: ZOLPIDEM 5 MG (AMBIEN) TAB PO PRN (20:50)
[2016-04-03] MEDS: diphenhydrAMINE 25 MG TAB (BENADRYL) PO SCH (20:51)
[2016-04-04] MEDS: RT-ALBUTEROL/IPRATROPIUM 3 ML (DUONEB) VIAL INH SCH ×4 (02:22→19:46)
[2016-04-04] MEDS: HYDROcodone/APAP 10 MG/325 MG (LORTAB) TAB PO PRN ×5 (02:33→21:21)
[2016-04-04 04:38] VITALS: BP 145/81
[2016-04-04] MEDS: MILK OF MAGNESIA 400 MG/5 ML 30 ML UDC PO PRN (05:15)
[2016-04-04] MEDS: predniSONE 10 MG TAB PO SCH (06:14)
[2016-04-04] MEDS: KCL 20 MEQ TAB (K-DUR) PO SCH (06:14)
[2016-04-04] MEDS: PREGABALIN 100 MG (LYRICA) CAPSULE PO SCH ×3 (08:15→20:38)
[2016-04-04] MEDS: cloNIDine 0.2 MG (CATAPRES) TAB PO SCH ×3 (08:15→20:38)
[2016-04-04] MEDS: DOCUSATE SODIUM 100 MG (COLACE) CAP PO SCH ×2 (08:15→20:38)
[2016-04-04] MEDS: amLODIPine 10 MG (NORVASC) TAB PO SCH (08:15)
[2016-04-04] MEDS: MAGNESIUM OXIDE (MAG-OX)400 MG TAB PO SCH (08:16)
[2016-04-04] MEDS: FUROSEMIDE 40 MG (LASIX) TAB PO SCH (08:16)
[2016-04-04] MEDS: PANTOPRAZOLE 20 MG TABLET (PROTONIX) PO SCH ×2 (08:16→20:38)
[2016-04-04] MEDS: ASPIRIN E.C. 81 MG (ECOTRIN) TAB PO SCH (08:16)
[2016-04-04] MEDS: APIXABAN 5 MG (ELIQUIS) TABLET PO SCH ×2 (08:16→20:38)
--- NOTE | 2016-04-04 08:31 | Pulmonary Progress Note ---
Subjective Subjective/Events-last exam Pt reports feeling improved and is only pc after neb treatment. She reports having strong hx of PNA every year. She denies RENALDO and reports has had a sleep study in past but suffers with insomnia. Exam Exam Vital Signs Date Time Temp Pulse Resp B/P Pulse Ox O2 Delivery O2 Flow Rate FiO2 04/04/16 08:03 95 Room Air 04/04/16 04:38 97.3 81 20 145/81 96 Room Air 04/04/16 02:22 96 Room Air 04/03/16 20:16 95 Room Air 04/03/16 20:10 Room Air 04/03/16 18:07 97.1 92 20 115/83 96 Room Air 04/03/16 15:46 94 Room Air 04/03/16 09:00 Room Air I & O 04/04/16 07:00 Intake Total 1989 ml Balance 1989 ml General Appearance: No Apparent Distress WD/WN Anxious Obese HEENT: PERRL/EOMI TMs Normal Neck: Full Range of Motion Normal Inspection Respiratory: Chest Non Tender Lungs Clear Normal Breath Sounds No Accessory Muscle Use No Respiratory Distress Cardiovascular: Regular Rate, Rhythm No Edema Gastrointestinal: normal bowel sounds non tender Extremity: Normal Capillary Refill Normal Inspection Normal Range of Motion Neurologic/Psychiatric: Alert Oriented x3 Skin: Normal Color Warm/Dry Assessment/Plan Assessment/Plan Dyspnea with Hypoxia -- pt has home oxygen at 3 liters/min - will reorder PRN -currently her Sp02 is 99% on RA -SVNS Q 6 Hx of PE Deconditioning Probable RENALDO -outpt testing Hx of PNA -can f/u outpatient w/PFT Hx of tracheostomy Clinical Quality Measures DVT/VTE Risk/Contraindication: Risk Factor Score Per Nursin RFS Level Per Nursing on Admit: 4+=Very High CHRISTIN VALIENTE RESEARCH EDITOR Apr 04, 2016 08:31
--- NOTE | 2016-04-04 09:01 | Physical Therapy Daily Note ---
PT Daily Note-Current Subjective Pt. states she is ready for Rx. C/o that her arms/ some carpal tunnel trouble prevents her from walking farther as well as leg fatigue. Pain Numeric Pain Scale: 4 Location: Right Location Body Site: Hip Pain Description: Ache Comment: nursing gave pain meds as pt. requested Mental Status Patient Orientation: Normal For Age Transfers Functional [place] Measure 0=Not Assessed/NA 4=Minimal Assistance 1=Total Assistance 5=Supervision or Setup 2=Maximal Assistance 6=Modified [place] 3=Moderate Assistance 7=Complete IndependenceIRFPAI Quality Coding Scale 6 Independent with activity with or without an assistive device 5 Patient requires set up or clean up by helper. Patient completes activity by themselves 4 Supervision or touching assist (CGA). [place] provide cues , steadying assist 3 The helper provides less than half the effort to complete the activity 2 The helper provides more than half the effort to complete the activity 1 Dependent. The helper does all the effort to complete an activity 7 Patient refused to complete or attempt activity 9 The patient did not perform the activity before the current illness or injury 88 Not attempted due to Medical conditions or safety concerns Transfers (B, C, W/C) (FIM): 5 Scootin Rollin Supine to/from Sit: 6 Sit to/from Stand: 6 Bed to/from Chair: 5 Gait Training Does the Patient Walk?: Yes Gait (FIM): 5 Distance (FIM): 3=150 ft (150x3) Gait Level of Assist: 5 Gait Persons Needed: 1 Gait Assistive Device: FWW Pt. walks slowly and rests arms/hands/ wrists momentarily during gait Stair Training Stair Training: Handrails/: uses walker #of Steps: 2 Stairs: Pattern: Step to Level of Assist: 4 pink step with FWW Exercises Supine Ex: Bridging, Ankle pumps, Pelvic tilt, Rolling, Glut sets, Heel Slides , Short Arc Quads, Scooting, Straight leg raise, Hip abd/add Supine Reps: 15 clam shells, side hip abd all x15, requires some effort for pt. Assessment Current Status: Good Progress pt. has exceeded the distance she walks at home and feels she is much past PLOF. but knows she will need to ascend descend stairs etc at home to get in out of home PT Short Term Goals Short Term Goals Time Frame: Apr 05, 2016 Transfers (B,C,W/C) (FIM): 56 Gait (FIM): 2 (met 03/30/16) Gait Distance Comment: 50' Gait Level of Assist: 5 (met 03/30/16) Gait Assistive Device: FWW Wheelchair Distance: 30' PT Lead Manufacturing Engineer Goals Lead Manufacturing Engineer Goals PT Lead Manufacturing Engineer Goals Time Frame: Apr 19, 2016 Transfers (B,C,W/C) (FIM): 6 Sit to Lying (QC): 6 Lying-Sitting on Side/Bed(QC): 6 Sit to Stand (QC): 6 Rollin Roll Left to Right (QC): 6 Chair/Kbd-ts-Zmkao Xfer(QC): 6 Car Transfer (QC): 4 Does the Patient Walk: Yes Gait (FIM): 5 Distance: 200' Walk 10 feet (QC): 4 Walk 10ft-Uneven Surface(QC): 4 Walk 50ft with 2 Turns (QC): 4 Walk 150 ft (QC): 4 Gait Level of Assist: 5 Gait Assistive Device: FWW Does the Pt use WC or Scooter?: No Stairs (FIM): 2 # of Steps: 4 1 Step (curb) (QC): 4 4 Steps (QC): 4 12 Steps (QC): 88 Stairs Level Of Assist: 4 Picking up an Object (QC): 88 PT Plan Treatment/Plan Treatment Plan: Continue Plan of Care Treatment Plan: Bed Mobility, Education, Functional Activity Dia, Functional Strength, Group Therapy, Gait, Safety, Therapeutic Exercise, Transfers Treatment Duration: Apr 19, 2016 Visits Per Week: 10-11 Minutes/Day (M-F): 60-90 Minutes/Day (Sat/Beltran): 15-30 Safety Risks/Education Patient Education: Gait Training, Transfer Techniques, Steps Teaching Recipient: Patient Teaching Methods: Demonstration, Discussion Response to Teaching: Verbalize Understanding, Return Demonstration, Reinforcement Needed Time/GCodes Time In: 800 Time Out: 900 Total Billed Treatment Time: 60 Total Billed Treatment 1,EX25,FA20,GT15 G Codes Necessary: MARION Chowdary CHOCOLATE MOLDER Apr 04, 2016 09:01
--- NOTE | 2016-04-04 10:21 | Occupational Ther Daily Note ---
OT Current Status-Daily Note Subjective Pt sleeping in bed, woke easily to name. Pt agreed to therapy. C/o pain throughout body stating that it felt like her body is a bruise. Nrsg notified that pt wanted pain meds and muscle relaxer. Mental Status/Objective Patient Orientation: Person, Place, Time, Situation Functional [place] Measure 0=Not Assessed/NA 4=Minimal Assistance 1=Total Assistance 5=Supervision or Setup 2=Maximal Assistance 6=Modified [place] 3=Moderate Assistance 7=Complete [place] ADL-Treatment Functional [place] Measure 0=Not Assessed/NA 4=Minimal Assistance 1=Total Assistance 5=Supervision or Setup 2=Maximal Assistance 6=Modified [place] 3=Moderate Assistance 7=Complete IndependenceIRFPAI Quality Coding Scale 6 Independent with activity with or without an assistive device 5 Patient requires set up or clean up by helper. Patient completes activity by themselves 4 Supervision or touching assist (CGA). [place] provide cues , steadying assist 3 The helper provides less than half the effort to complete the activity 2 The helper provides more than half the effort to complete the activity 1 Dependent. The helper does all the effort to complete an activity 7 Patient refused to complete or attempt activity 9 The patient did not perform the activity before the current illness or injury 88 Not attempted due to Medical conditions or safety concerns Toileting (FIM): 6 (Using FWW and grabbars pt is able to complete by self.) Toilet/Commode Transfer (FIM): 6 (Using FWW and grabbars, pt able to transfer by herself.) Other Treatment Pt ambulated with one break using FWW to therapy gym. Pt then completed arm bike 15 min at 10 hays resistance with no break to increase strength and endurance. Pt then completed resistive clothespins exercises with each hand. Pt takes increased time to complete exercises. Pt was able to tolerate exercises, light resistance completed. Pt ambulated without breaks to room with FWW then laid down in bed. After therapy, pt laying in bed with call light /phone in reach. All needs met in room. OT Short Term Goals Short Term Goals Time Frame: Apr 05, 2016 Eating(FIM): 7 Grooming(FIM): 6 Bathing(FIM): 5 Upper Body Dressing(FIM): 6 Lower Body Dressing(FIM): 6 Toileting(FIM): 6 Transfers (B,C,W/C) (FIM): 56 Toilet/Commode Transfer(FIM): 6 Shower Transfer(FIM): 5 Additional Short Term Goals: 1-Demonstrate ADL Tasks, 2-Verbalize Understanding , 3-ImproveStrength/Dia 1=Demonstrate adherence to instructed precautions during ADL tasks. 2=Patient will verbalize/demonstrate understanding of assistive devices/ modifications for ADL. 3=Patient will improve strength/tolerance for activity to enable patient to perform ADL's. OT Assisted Goals Assisted Goals Time Frame: Apr 12, 2016 Eating (FIM): 6 Eating (QC): 6 Oral Hygiene (QC): 6 Grooming(FIM): 6 Bathing(FIM): 5 Shower/Bathe Self (QC): 5 Upper Body Dressing(FIM): 6 Upper Body Dressing (QC): 6 Lower Body Dressing(FIM): 6 Lower Body Dressing (QC): 6 On/Off Footwear (QC): 6 Toileting(FIM): 6 Toileting Hygiene (QC): 6 Transfers (B,C,W/C) (FIM): 6 Toilet/Commode Transfer(FIM): 6 Toilet/Commode Transfer (QC): 6 Shower Transfer(FIM): 5 Additional Goals: 1-Demonstrate ADL Tasks, 2-Verbalize Understanding, 3- ImproveStrength/Dia 1=Demonstrate adherence to instructed precautions during ADL tasks. 2=Patient will verbalize/demonstrate understanding of assistive devices/ modifications for ADL. 3=Patient will improve strength/tolerance for activity to enable patient to perform ADL's. OT Education/Plan Discharge Recommendations Plan/Recommendations: Continue POC Treatment Plan/Plan of Care Patient would benefit from OT for education, treatment and training to promote independence in ADL's, mobility, safety and/or upper extremity function for ADL' s. Plan of Care: ADL Retraining, Functional Mobility, UE Funct Exercise/Act Treatment Duration: Apr 12, 2016 Visits Per Week: 10-12 Minutes/Day (M-F): 60-90 Minutes/Day (Sat/Beltran): 15-30 Agreement: Yes Rehab Potential: Fair Time/GCodes Start Time: 07:00 Stop Time: 08:00 Total Time Billed (hr/min): 60 Billed Treatment Time 1 visit-FA 1 (15 min) EX 3 (45 min) SAAD PEREZ Apr 04, 2016 10:21
--- NOTE | 2016-04-04 13:47 | Occupational Ther Daily Note ---
OT Current Status-Daily Note Subjective Pt alert, lying in bed. Pt agreed to therapy. Pt c/o being fatigued. Mental Status/Objective Patient Orientation: Person, Place, Time, Situation Functional [place] Measure 0=Not Assessed/NA 4=Minimal Assistance 1=Total Assistance 5=Supervision or Setup 2=Maximal Assistance 6=Modified [place] 3=Moderate Assistance 7=Complete [place] ADL-Treatment Pt was able to go from lying in bed with HOB raised to sitting EOB by self. Pt then was able to don shoes by self. Pt ambulated to therapy gym without breaks with SBA using FWW. Functional [place] Measure 0=Not Assessed/NA 4=Minimal Assistance 1=Total Assistance 5=Supervision or Setup 2=Maximal Assistance 6=Modified [place] 3=Moderate Assistance 7=Complete IndependenceIRFPAI Quality Coding Scale 6 Independent with activity with or without an assistive device 5 Patient requires set up or clean up by helper. Patient completes activity by themselves 4 Supervision or touching assist (CGA). [place] provide cues , steadying assist 3 The helper provides less than half the effort to complete the activity 2 The helper provides more than half the effort to complete the activity 1 Dependent. The helper does all the effort to complete an activity 7 Patient refused to complete or attempt activity 9 The patient did not perform the activity before the current illness or injury 88 Not attempted due to Medical conditions or safety concerns Other Treatment Pt completed UE dowel reynaldo exercises with 2# wt attached. Pt c/o pain in elbow with internal/external rotation exercises. Pt started off exercises with 10 reps and fatigued quickly. Reduced to 5 reps 3 times, pt was able to complete though took increased time to complete with breaks between each set. Pt ambulated back to room with CGA using FWW without breaks. After therapy, pt lying in bed with call light/phone in reach. All needs met in room. OT Short Term Goals Short Term Goals Time Frame: Apr 05, 2016 Eating(FIM): 7 Grooming(FIM): 6 Bathing(FIM): 5 Upper Body Dressing(FIM): 6 Lower Body Dressing(FIM): 6 Toileting(FIM): 6 Transfers (B,C,W/C) (FIM): 56 Toilet/Commode Transfer(FIM): 6 Shower Transfer(FIM): 5 Additional Short Term Goals: 1-Demonstrate ADL Tasks, 2-Verbalize Understanding , 3-ImproveStrength/Dia 1=Demonstrate adherence to instructed precautions during ADL tasks. 2=Patient will verbalize/demonstrate understanding of assistive devices/ modifications for ADL. 3=Patient will improve strength/tolerance for activity to enable patient to perform ADL's. OT Machine Marker Goals Machine Marker Goals Time Frame: Apr 12, 2016 Eating (FIM): 6 Eating (QC): 6 Oral Hygiene (QC): 6 Grooming(FIM): 6 Bathing(FIM): 5 Shower/Bathe Self (QC): 5 Upper Body Dressing(FIM): 6 Upper Body Dressing (QC): 6 Lower Body Dressing(FIM): 6 Lower Body Dressing (QC): 6 On/Off Footwear (QC): 6 Toileting(FIM): 6 Toileting Hygiene (QC): 6 Transfers (B,C,W/C) (FIM): 6 Toilet/Commode Transfer(FIM): 6 Toilet/Commode Transfer (QC): 6 Shower Transfer(FIM): 5 Additional Goals: 1-Demonstrate ADL Tasks, 2-Verbalize Understanding, 3- ImproveStrength/Dia 1=Demonstrate adherence to instructed precautions during ADL tasks. 2=Patient will verbalize/demonstrate understanding of assistive devices/ modifications for ADL. 3=Patient will improve strength/tolerance for activity to enable patient to perform ADL's. OT Education/Plan Discharge Recommendations Plan/Recommendations: Continue POC Treatment Plan/Plan of Care Patient would benefit from OT for education, treatment and training to promote independence in ADL's, mobility, safety and/or upper extremity function for ADL' s. Plan of Care: ADL Retraining, Functional Mobility, UE Funct Exercise/Act Treatment Duration: Apr 12, 2016 Visits Per Week: 10-12 Minutes/Day (M-F): 60-90 Minutes/Day (Sat/Beltran): 15-30 Agreement: Yes Rehab Potential: Fair Time/GCodes Start Time: 10:30 Stop Time: 11:00 Total Time Billed (hr/min): 30 Billed Treatment Time 1 visit-FA (10 min) EX (20 min) SAAD PEREZ Apr 04, 2016 13:47
--- NOTE | 2016-04-04 13:51 | Physical Therapy Daily Note ---
PT Daily Note-Current Subjective Agrees to Rx. Pain Numeric Pain Scale: 4 Location: Right, Medial Location Body Site: Arm Pain Description: Ache Comment: arms ache with wt bearing and walking Mental Status Patient Orientation: Normal For Age Transfers Functional [place] Measure 0=Not Assessed/NA 4=Minimal Assistance 1=Total Assistance 5=Supervision or Setup 2=Maximal Assistance 6=Modified [place] 3=Moderate Assistance 7=Complete IndependenceIRFPAI Quality Coding Scale 6 Independent with activity with or without an assistive device 5 Patient requires set up or clean up by helper. Patient completes activity by themselves 4 Supervision or touching assist (CGA). [place] provide cues , steadying assist 3 The helper provides less than half the effort to complete the activity 2 The helper provides more than half the effort to complete the activity 1 Dependent. The helper does all the effort to complete an activity 7 Patient refused to complete or attempt activity 9 The patient did not perform the activity before the current illness or injury 88 Not attempted due to Medical conditions or safety concerns TRFs chair and bed and toilet all SBA to Mod I Gait Training Gait Assistive Device: FWW 150,100 SBA slow with periodic stance to rest wrists and arms Exercises Standing: Hip Abduction, Hamstring curls, Heel/toe raises, Marching, Mini squats, Sit to Stand Standing Reps: 12 fatigued quickly and took sitting rest breaks NuStep Minutes: 5 NuStep Workload: 2 Assessment Current Status: Good Progress PT Short Term Goals Short Term Goals Time Frame: Apr 05, 2016 Transfers (B,C,W/C) (FIM): 56 Gait (FIM): 2 (met 03/30/16) Gait Distance Comment: 50' Gait Level of Assist: 5 (met 03/30/16) Gait Assistive Device: FWW Wheelchair Distance: 30' PT Fdc Goals Custodial Engineer Goals PT Custodial Engineer Goals Time Frame: Apr 19, 2016 Transfers (B,C,W/C) (FIM): 6 Sit to Lying (QC): 6 Lying-Sitting on Side/Bed(QC): 6 Sit to Stand (QC): 6 Rollin Roll Left to Right (QC): 6 Chair/Zex-hw-Aihdd Xfer(QC): 6 Car Transfer (QC): 4 Does the Patient Walk: Yes Gait (FIM): 5 Distance: 200' Walk 10 feet (QC): 4 Walk 10ft-Uneven Surface(QC): 4 Walk 50ft with 2 Turns (QC): 4 Walk 150 ft (QC): 4 Gait Level of Assist: 5 Gait Assistive Device: FWW Does the Pt use WC or Scooter?: No Stairs (FIM): 2 # of Steps: 4 1 Step (curb) (QC): 4 4 Steps (QC): 4 12 Steps (QC): 88 Stairs Level Of Assist: 4 Picking up an Object (QC): 88 PT Plan Treatment/Plan Treatment Plan: Continue Plan of Care Treatment Plan: Bed Mobility, Education, Functional Activity Dia, Functional Strength, Group Therapy, Gait, Safety, Therapeutic Exercise, Transfers Treatment Duration: Apr 19, 2016 Visits Per Week: 10-11 Minutes/Day (M-F): 60-90 Minutes/Day (Sat/Beltran): 15-30 Safety Risks/Education Patient Education: Gait Training, Transfer Techniques, Issued Written HEP, Correct Positioning Teaching Recipient: Patient Teaching Methods: Demonstration, Discussion Response to Teaching: Verbalize Understanding, Return Demonstration, Reinforcement Needed Time/GCodes Time In: 1245 Time Out: 1315 Total Billed Treatment Time: 30 Total Billed Treatment 1,EX20m,GT10m G Codes Necessary: MARION Chowdary OPTICAL SCIENTIST Apr 04, 2016 13:51
[2016-04-04 18:00] VITALS: BP 150/88
[2016-04-04] MEDS: SERTRALINE 100 MG (ZOLOFT) TAB PO SCH (20:38)
[2016-04-04] MEDS: diphenhydrAMINE 25 MG TAB (BENADRYL) PO SCH (20:38)
[2016-04-04] MEDS: ZOLPIDEM 5 MG (AMBIEN) TAB PO PRN (21:21)
[2016-04-05] MEDS: HYDROcodone/APAP 10 MG/325 MG (LORTAB) TAB PO PRN ×5 (01:52→21:03)
[2016-04-05] MEDS: RT-ALBUTEROL/IPRATROPIUM 3 ML (DUONEB) VIAL INH SCH ×4 (02:19→19:52)
[2016-04-05 05:17] VITALS: BP 130/87
[2016-04-05] MEDS: KCL 20 MEQ TAB (K-DUR) PO SCH (05:29)
[2016-04-05] MEDS: predniSONE 10 MG TAB PO SCH (05:30)
[2016-04-05] MEDS: cloNIDine 0.2 MG (CATAPRES) TAB PO SCH ×3 (08:05→21:02)
[2016-04-05] MEDS: amLODIPine 10 MG (NORVASC) TAB PO SCH (08:05)
[2016-04-05] MEDS: MAGNESIUM OXIDE (MAG-OX)400 MG TAB PO SCH (08:05)
[2016-04-05] MEDS: APIXABAN 5 MG (ELIQUIS) TABLET PO SCH ×2 (08:05→21:02)
[2016-04-05] MEDS: DOCUSATE SODIUM 100 MG (COLACE) CAP PO SCH ×2 (08:05→21:02)
[2016-04-05] MEDS: ASPIRIN E.C. 81 MG (ECOTRIN) TAB PO SCH (08:05)
[2016-04-05] MEDS: FUROSEMIDE 40 MG (LASIX) TAB PO SCH (08:05)
[2016-04-05] MEDS: PREGABALIN 100 MG (LYRICA) CAPSULE PO SCH ×3 (08:07→21:02)
[2016-04-05] MEDS: PANTOPRAZOLE 20 MG TABLET (PROTONIX) PO SCH ×2 (08:09→21:02)
--- NOTE | 2016-04-05 10:07 | Physical Therapy Daily Note ---
PT Daily Note-Current Subjective Pt. states she is feeling a little stronger and will eventually be ready to go up stairs but not today. Pt. explains she always gets in to her [facility] bed at home and sleeps/lays on very edge the way she is now in the hosp bed. When asked why pt. states "laziness I suppose" We then discussed that she would be more comfortable over a bit toward the center and that we would work on bridging and moving over etc. Pain Numeric Pain Scale: 4 Location: Left Location Body Site: Elbow Pain Description: Ache Comment: pt. states she looks forward to OT using paraffin on her left wrist /joints Mental Status Patient Orientation: Normal For Age Transfers Functional [place] Measure 0=Not Assessed/NA 4=Minimal Assistance 1=Total Assistance 5=Supervision or Setup 2=Maximal Assistance 6=Modified [place] 3=Moderate Assistance 7=Complete IndependenceIRFPAI Quality Coding Scale 6 Independent with activity with or without an assistive device 5 Patient requires set up or clean up by helper. Patient completes activity by themselves 4 Supervision or touching assist (CGA). [place] provide cues , steadying assist 3 The helper provides less than half the effort to complete the activity 2 The helper provides more than half the effort to complete the activity 1 Dependent. The helper does all the effort to complete an activity 7 Patient refused to complete or attempt activity 9 The patient did not perform the activity before the current illness or injury 88 Not attempted due to Medical conditions or safety concerns Transfers (B, C, W/C) (FIM): 5 Scootin Rollin Supine to/from Sit: 6 Sit to/from Stand: 5 Bed to/from Chair: 5 pt. was fatigued and needed min sit to stand from toilet, all other sit to stands SBA Gait Training Does the Patient Walk?: Yes Distance (FIM): 3=150 ft Gait Level of Assist: 5 Gait Persons Needed: 1 Gait Assistive Device: FWW slow, small step length Stair Training Stair Training: Handrails/: uses walker Stairs (FIM): 2 #of Steps: 2 Stairs: Pattern: Step to Level of Assist: 4 as ascending pt. states "oh my God that was hard" Exercises Supine Ex: Bridging, Ankle pumps, Pelvic tilt, Quad Set, Rolling, Glut sets, Lower trunk rotation, Knee to chest, Short Arc Quads, Scooting, Straight leg raise, Hip abd/add Supine Reps: 15 Treatments education and emphasis on core and abdomen as pt. remarks that she really likes head i=of bed up b/c her abs are so weak Assessment Current Status: Good Progress still needs assist up pink single step. will progress to use of single rail on left to ascend steps like pts situation at home PT Short Term Goals Short Term Goals Time Frame: Apr 05, 2016 Transfers (B,C,W/C) (FIM): 56 Gait (FIM): 2 (met 03/30/16) Gait Distance Comment: 50' Gait Level of Assist: 5 (met 03/30/16) Gait Assistive Device: FWW Wheelchair Distance: 30' PT Autism Specialist Goals Penitentiary Goals PT Penitentiary Goals Time Frame: Apr 19, 2016 Transfers (B,C,W/C) (FIM): 6 Sit to Lying (QC): 6 Lying-Sitting on Side/Bed(QC): 6 Sit to Stand (QC): 6 Rollin Roll Left to Right (QC): 6 Chair/Uzc-dp-Tzuww Xfer(QC): 6 Car Transfer (QC): 4 Does the Patient Walk: Yes Gait (FIM): 5 Distance: 200' Walk 10 feet (QC): 4 Walk 10ft-Uneven Surface(QC): 4 Walk 50ft with 2 Turns (QC): 4 Walk 150 ft (QC): 4 Gait Level of Assist: 5 Gait Assistive Device: FWW Does the Pt use WC or Scooter?: No Stairs (FIM): 2 # of Steps: 4 1 Step (curb) (QC): 4 4 Steps (QC): 4 12 Steps (QC): 88 Stairs Level Of Assist: 4 Picking up an Object (QC): 88 PT Plan Treatment/Plan Treatment Plan: Continue Plan of Care Treatment Plan: Bed Mobility, Education, Functional Activity Dia, Functional Strength, Group Therapy, Gait, Safety, Therapeutic Exercise, Transfers Treatment Duration: Apr 19, 2016 Visits Per Week: 10-11 Minutes/Day (M-F): 60-90 Minutes/Day (Sat/Beltran): 15-30 Safety Risks/Education Patient Education: Gait Training, Transfer Techniques, Steps, Correct Positioning, Disease Process, Safety Issues Teaching Recipient: Patient Teaching Methods: Demonstration, Discussion Response to Teaching: Verbalize Understanding, Return Demonstration, Reinforcement Needed Time/GCodes Time In: 910 Time Out: 1010 Total Billed Treatment Time: 60 Total Billed Treatment 1,GT20m,FA15m,EX25m G Codes Necessary: MARION Chowdary CASH SALES AUDIT CLERK Apr 05, 2016 10:07
--- NOTE | 2016-04-05 10:19 | Occupational Ther Daily Note ---
OT Current Status-Daily Note Subjective Pt sitting up right in bed. Agreeable to OT. Appearance Alert, Cooperative Mental Status/Objective Functional [place] Measure 0=Not Assessed/NA 4=Minimal Assistance 1=Total Assistance 5=Supervision or Setup 2=Maximal Assistance 6=Modified [place] 3=Moderate Assistance 7=Complete [place] ADL-Treatment Pt sat EOB to don shoes by self. Pt ambulated to therapy gym without breaks, SBA, FWW. Pt used arm bike for 11 min 12 hays (time decreased from previous date 04/04/16 due to pt reporting pain 7/10 on both hands, wrist), pt took several recovery breaks. Pt did peg board activity using 1# wrist weights on each wrist for strength to help with transfers from lower surfaces. Pt ambulated back to room without breaks SBA, FWW. Pt asked to be toileted, used grab bars, FWW, SBA. Pt ambulated to front of sink to wash hands, SBA, FWW. Pt walked to bed, FWW, SBA. Pt left sitting on EOB bed. Call light in reach. All needs mets. Functional [place] Measure 0=Not Assessed/NA 4=Minimal Assistance 1=Total Assistance 5=Supervision or Setup 2=Maximal Assistance 6=Modified [place] 3=Moderate Assistance 7=Complete IndependenceIRFPAI Quality Coding Scale 6 Independent with activity with or without an assistive device 5 Patient requires set up or clean up by helper. Patient completes activity by themselves 4 Supervision or touching assist (CGA). [place] provide cues , steadying assist 3 The helper provides less than half the effort to complete the activity 2 The helper provides more than half the effort to complete the activity 1 Dependent. The helper does all the effort to complete an activity 7 Patient refused to complete or attempt activity 9 The patient did not perform the activity before the current illness or injury 88 Not attempted due to Medical conditions or safety concerns Grooming (FIM): 5 Toileting (FIM): 5 Transfers (B, C, W/C) (FIM): 5 Education OT Patient Education: Progress toward Goal/Update tx plan, Purpose of tx/ functional activities Teaching Recipient: Patient Response to Teaching: Verbalize Understanding, Return Demonstration OT Short Term Goals Short Term Goals Time Frame: Apr 05, 2016 Eating(FIM): 7 Grooming(FIM): 6 Bathing(FIM): 5 Upper Body Dressing(FIM): 6 Lower Body Dressing(FIM): 6 Toileting(FIM): 6 Transfers (B,C,W/C) (FIM): 56 Toilet/Commode Transfer(FIM): 6 Shower Transfer(FIM): 5 Additional Short Term Goals: 1-Demonstrate ADL Tasks, 2-Verbalize Understanding , 3-ImproveStrength/Dia 1=Demonstrate adherence to instructed precautions during ADL tasks. 2=Patient will verbalize/demonstrate understanding of assistive devices/ modifications for ADL. 3=Patient will improve strength/tolerance for activity to enable patient to perform ADL's. OT As400 Administrator Goals As400 Administrator Goals Time Frame: Apr 12, 2016 Eating (FIM): 6 Eating (QC): 6 Oral Hygiene (QC): 6 Grooming(FIM): 6 Bathing(FIM): 5 Shower/Bathe Self (QC): 5 Upper Body Dressing(FIM): 6 Upper Body Dressing (QC): 6 Lower Body Dressing(FIM): 6 Lower Body Dressing (QC): 6 On/Off Footwear (QC): 6 Toileting(FIM): 6 Toileting Hygiene (QC): 6 Transfers (B,C,W/C) (FIM): 6 Toilet/Commode Transfer(FIM): 6 Toilet/Commode Transfer (QC): 6 Shower Transfer(FIM): 5 Additional Goals: 1-Demonstrate ADL Tasks, 2-Verbalize Understanding, 3- ImproveStrength/Dia 1=Demonstrate adherence to instructed precautions during ADL tasks. 2=Patient will verbalize/demonstrate understanding of assistive devices/ modifications for ADL. 3=Patient will improve strength/tolerance for activity to enable patient to perform ADL's. OT Education/Plan Discharge Recommendations Plan/Recommendations: Continue POC Treatment Plan/Plan of Care Patient would benefit from OT for education, treatment and training to promote independence in ADL's, mobility, safety and/or upper extremity function for ADL' s. Plan of Care: ADL Retraining, Functional Mobility, UE Funct Exercise/Act Treatment Duration: Apr 12, 2016 Visits Per Week: 10-12 Minutes/Day (M-F): 60-90 Minutes/Day (Sat/Beltran): 15-30 Agreement: Yes Rehab Potential: Fair Time/GCodes Start Time: 09:00 Stop Time: 10:00 Total Time Billed (hr/min): 60 Billed Treatment Time visit, EX 60 min TI MATA OT Apr 05, 2016 10:19
[2016-04-05] MEDS: DICLOFENAC 1% GEL 100 GM (VOLTAREN) TUBE TOP SCH ×4 (11:05→21:03)
[2016-04-05] MEDS: ONDANSETRON 4 MG (ZOFRAN) ORAL DISSOLVE TAB PO PRN (14:20)
--- NOTE | 2016-04-05 14:45 | Therapy Group Daily Note ---
Therapy Daily Group Note Patient Education Topic Other List Below (Rehab process and benefits of exercise) Exercises LE Seated Exercise, UE Exercise Other/Notes Pt. attended group PT OT session. Pt.ambulated with FWW SBA to/from. Pt. smiles and is very friendly with others in the group introducing herself etc. Rehab : "what it means and how its different" topic was taught as well as the importance of exercise and activity. pt. helped lead exercise with written illustrated card that she read and lead an exercise. Memory activities were done with image matching as well as pts recall for others names and statements. Pt. to room after Rx. Armendariz at hand Start Time: 13:00 Stop Time: 14:15 Total Billed Treatment Time: 75 Total Billed Treatment 1,GRP Start Time: 13:00 Stop Time: 14:15 Total Billed Treatment Time: 75 Total Billed Treatment 1,GRP MARION JACKMAN CARDIOLOGY SPECIALIST Apr 05, 2016 14:44
--- NOTE | 2016-04-05 17:19 | PM & R (SOAP) Progress Note ---
Subjective Subjective/Events-last exam Patient was seen in her room earlier today,Patient is SBA for transfers.Patient has questions re labwork done by DR Louise office and patient was scheduled to see her as an outpatient tomorrow.Will f/u re this. Patients resting tremors improving.Patient c/o artritic pain in Hands OT requesting Paraffin baths see orders.Voltaran gel ordered as well [facility] They recommended f/u with [facility] Review of Systems Musculoskeletal: : hand pain Objective Exam Last Set of Vital Signs Vital Signs Date Time Temp Pulse Resp B/P Pulse Ox O2 Delivery O2 Flow Rate FiO2 04/05/16 15:34 95 Room Air 04/05/16 05:17 97.2 99 20 130/87 Capillary Refill : I&O Intake and Output 04/05/16 00:00 Intake Total 1950 ml Balance 1950 ml Intake Oral 1950 ml # Voids 11 # Bowel Movements 2 General: Alert, Oriented X3, Cooperative, No Acute Distress HEENT: Atraumatic, PERRLA, EOMI, Mucous Memb Moist/Tok Neck: Supple, No JVD Lungs: Clear to Auscultation Heart: Regular Rate Abdomen: Normal Bowel Sounds, Soft, No Tenderness Extremities: Other (trace edema ankles) Neuro: Other (fairly diffuse weakness) Psych/Mental Status: Other (anxious at times) Assessment/Plan Assessment Diffuse weakness seconday to PMR on steroids Chronic pain managed by [facility] on LOrtab HX Pulm embolism Plan Continue PT/OT/Pain management [facility] to see re chronic anxiety and pain-done DR Haskins et al [facility] to see-done Appreciate Dr Villegas consult Team Conference held earlier today -See report for full functional update and POC and ELOS See orders re Paraffin baths and Voltaran gel CHIN STEWART MD Apr 05, 2016 17:18
[2016-04-05 18:58] VITALS: BP 120/81
[2016-04-05] MEDS: ZOLPIDEM 5 MG (AMBIEN) TAB PO PRN (21:02)
[2016-04-05] MEDS: diphenhydrAMINE 25 MG TAB (BENADRYL) PO SCH (21:02)
[2016-04-05] MEDS: SERTRALINE 100 MG (ZOLOFT) TAB PO SCH (21:02)
[2016-04-06] MEDS: HYDROcodone/APAP 10 MG/325 MG (LORTAB) TAB PO PRN ×5 (01:07→20:08)
[2016-04-06] MEDS: RT-ALBUTEROL/IPRATROPIUM 3 ML (DUONEB) VIAL INH SCH ×4 (02:49→22:27)
[2016-04-06 04:10] VITALS: BP 124/81
[2016-04-06] MEDS: predniSONE 10 MG TAB PO SCH (06:14)
[2016-04-06] MEDS: KCL 20 MEQ TAB (K-DUR) PO SCH (06:14)
[2016-04-06] MEDS: PREGABALIN 100 MG (LYRICA) CAPSULE PO SCH ×3 (08:51→20:07)
[2016-04-06] MEDS: DOCUSATE SODIUM 100 MG (COLACE) CAP PO SCH ×2 (08:51→20:07)
[2016-04-06] MEDS: cloNIDine 0.2 MG (CATAPRES) TAB PO SCH ×3 (08:51→20:08)
[2016-04-06] MEDS: ASPIRIN E.C. 81 MG (ECOTRIN) TAB PO SCH (08:51)
[2016-04-06] MEDS: PANTOPRAZOLE 20 MG TABLET (PROTONIX) PO SCH ×2 (08:51→20:08)
[2016-04-06] MEDS: amLODIPine 10 MG (NORVASC) TAB PO SCH (08:51)
[2016-04-06] MEDS: MAGNESIUM OXIDE (MAG-OX)400 MG TAB PO SCH (08:51)
[2016-04-06] MEDS: APIXABAN 5 MG (ELIQUIS) TABLET PO SCH ×2 (08:51→20:07)
[2016-04-06] MEDS: FUROSEMIDE 40 MG (LASIX) TAB PO SCH (08:51)
[2016-04-06] MEDS: DICLOFENAC 1% GEL 100 GM (VOLTAREN) TUBE TOP SCH ×4 (08:52→20:06)
--- NOTE | 2016-04-06 10:15 | Physical Therapy Daily Note ---
PT Daily Note-Current Subjective Agrees to Rx. States her son was here yesterday and inspired her to keep working. Pt. c/o she doesnt get any sleep and this inhibits her participation in therapies but admits she drinks coffee all day long.(pt. orders a carafe of coffee) Pt. commits to switch to decaf to see if this helps her sleep Pain Numeric Pain Scale: 5-Moderate Pain Location: Left Location Body Site: Wrist Pain Description: Ache Mental Status Patient Orientation: Normal For Age Transfers Functional [place] Measure 0=Not Assessed/NA 4=Minimal Assistance 1=Total Assistance 5=Supervision or Setup 2=Maximal Assistance 6=Modified [place] 3=Moderate Assistance 7=Complete IndependenceIRFPAI Quality Coding Scale 6 Independent with activity with or without an assistive device 5 Patient requires set up or clean up by helper. Patient completes activity by themselves 4 Supervision or touching assist (CGA). [place] provide cues , steadying assist 3 The helper provides less than half the effort to complete the activity 2 The helper provides more than half the effort to complete the activity 1 Dependent. The helper does all the effort to complete an activity 7 Patient refused to complete or attempt activity 9 The patient did not perform the activity before the current illness or injury 88 Not attempted due to Medical conditions or safety concerns Transfers (B, C, W/C) (FIM): 5 Scootin Rollin Supine to/from Sit: 5 Sit to/from Stand: 5 Bed to/from Chair: 5 Gait Training Does the Patient Walk?: Yes Gait (FIM): 4 Distance (FIM): 3=150 ft (150x2,100) Walking 10ft on uneven surface: 4 Gait Level of Assist: 4 Gait Persons Needed: 1 Gait Assistive Device: FWW pt. fatigues and gait safety waxes and wanes, best to have CGA Stair Training Stair Training: Handrails/: uses walker Stairs (FIM): 2 #of Steps: 4 Stairs: Pattern: Step to Level of Assist: 4 pink single step used Exercises Seated Therapy Exercises: Ankle pumps, Sit to stand, Long arc quads, Hip flexion, Hip abd/add Seated Reps: 12 NuStep Minutes: 10 NuStep Workload: 3 Treatments toileted x2 during Rx, manages all SBA to Mod I Assessment Current Status: Good Progress PT Short Term Goals Short Term Goals Time Frame: Apr 05, 2016 Transfers (B,C,W/C) (FIM): 56 Gait (FIM): 2 (met 03/30/16) Gait Distance Comment: 50' Gait Level of Assist: 5 (met 03/30/16) Gait Assistive Device: FWW Wheelchair Distance: 30' PT Opening Machine Cleaner Goals Alf Goals PT Alf Goals Time Frame: Apr 19, 2016 Transfers (B,C,W/C) (FIM): 6 Sit to Lying (QC): 6 Lying-Sitting on Side/Bed(QC): 6 Sit to Stand (QC): 6 Rollin Roll Left to Right (QC): 6 Chair/Bcz-ko-Uwidh Xfer(QC): 6 Car Transfer (QC): 4 Does the Patient Walk: Yes Gait (FIM): 5 Distance: 200' Walk 10 feet (QC): 4 Walk 10ft-Uneven Surface(QC): 4 Walk 50ft with 2 Turns (QC): 4 Walk 150 ft (QC): 4 Gait Level of Assist: 5 Gait Assistive Device: FWW Does the Pt use WC or Scooter?: No Stairs (FIM): 2 # of Steps: 4 1 Step (curb) (QC): 4 4 Steps (QC): 4 12 Steps (QC): 88 Stairs Level Of Assist: 4 Picking up an Object (QC): 88 PT Plan Treatment/Plan Treatment Plan: Continue Plan of Care Treatment Plan: Bed Mobility, Education, Functional Activity Dia, Functional Strength, Group Therapy, Gait, Safety, Therapeutic Exercise, Transfers Treatment Duration: Apr 19, 2016 Visits Per Week: 10-11 Minutes/Day (M-F): 60-90 Minutes/Day (Sat/Beltran): 15-30 Safety Risks/Education Patient Education: Gait Training, Transfer Techniques, Steps Teaching Recipient: Patient Teaching Methods: Demonstration, Discussion Response to Teaching: Verbalize Understanding, Return Demonstration, Reinforcement Needed Time/GCodes Time In: 915 Time Out: 1015 Total Billed Treatment Time: 60 Total Billed Treatment 1,EX30m,FA15m,GT15m G Codes Necessary: MARION Chowdary CHIEF PETROLEUM ENGINEER Apr 06, 2016 10:15
--- NOTE | 2016-04-06 10:34 | Occupational Ther Daily Note ---
OT Current Status-Daily Note Subjective Pt alert, lying in bed. Pt agreed to therapy. Pt stated that she had hurt very bad yesterday and today she felt better. Mental Status/Objective Patient Orientation: Person, Place, Time, Situation Functional [place] Measure 0=Not Assessed/NA 4=Minimal Assistance 1=Total Assistance 5=Supervision or Setup 2=Maximal Assistance 6=Modified [place] 3=Moderate Assistance 7=Complete [place] ADL-Treatment Functional [place] Measure 0=Not Assessed/NA 4=Minimal Assistance 1=Total Assistance 5=Supervision or Setup 2=Maximal Assistance 6=Modified [place] 3=Moderate Assistance 7=Complete IndependenceIRFPAI Quality Coding Scale 6 Independent with activity with or without an assistive device 5 Patient requires set up or clean up by helper. Patient completes activity by themselves 4 Supervision or touching assist (CGA). [place] provide cues , steadying assist 3 The helper provides less than half the effort to complete the activity 2 The helper provides more than half the effort to complete the activity 1 Dependent. The helper does all the effort to complete an activity 7 Patient refused to complete or attempt activity 9 The patient did not perform the activity before the current illness or injury 88 Not attempted due to Medical conditions or safety concerns Toileting (FIM): 6 (Using grabbars, pt is able to complete toileting by self.) Toilet/Commode Transfer (FIM): 6 (Using w/c and grabbars, pt is able to complete toilet transfer.) Other Treatment Pt was able to go from supine to sit EOB mod I. Then was able to transfer to w/ c with supervision. Pt maneuvered w/c to therapy gym by self. Completed arm bike at 10 hays resistance duration 15 min with 3 breaks to increase strength and activity tolerance for daily functional tasks. Pt then completed peg activity for resistance, took extended time to complete. Per physician order, wax paraffin treatment completed. Pt tolerated 20 min of paraffin then massage to hands and wrists. Pt stated that her hands did feel better after treatment. Hand shell sieve operator made for pt to complete mindy and using writing utensils. After therapy, pt left in care of nrsg in room. All needs met in room. OT Short Term Goals Short Term Goals Time Frame: Apr 05, 2016 Eating(FIM): 7 Grooming(FIM): 6 Bathing(FIM): 5 Upper Body Dressing(FIM): 6 Lower Body Dressing(FIM): 6 Toileting(FIM): 6 Transfers (B,C,W/C) (FIM): 56 Toilet/Commode Transfer(FIM): 6 Shower Transfer(FIM): 5 Additional Short Term Goals: 1-Demonstrate ADL Tasks, 2-Verbalize Understanding , 3-ImproveStrength/Dia 1=Demonstrate adherence to instructed precautions during ADL tasks. 2=Patient will verbalize/demonstrate understanding of assistive devices/ modifications for ADL. 3=Patient will improve strength/tolerance for activity to enable patient to perform ADL's. OT [facility] Goals Academic Intern Goals Time Frame: Apr 12, 2016 Eating (FIM): 6 Eating (QC): 6 Oral Hygiene (QC): 6 Grooming(FIM): 6 Bathing(FIM): 5 Shower/Bathe Self (QC): 5 Upper Body Dressing(FIM): 6 Upper Body Dressing (QC): 6 Lower Body Dressing(FIM): 6 Lower Body Dressing (QC): 6 On/Off Footwear (QC): 6 Toileting(FIM): 6 Toileting Hygiene (QC): 6 Transfers (B,C,W/C) (FIM): 6 Toilet/Commode Transfer(FIM): 6 Toilet/Commode Transfer (QC): 6 Shower Transfer(FIM): 5 Additional Goals: 1-Demonstrate ADL Tasks, 2-Verbalize Understanding, 3- ImproveStrength/Dia 1=Demonstrate adherence to instructed precautions during ADL tasks. 2=Patient will verbalize/demonstrate understanding of assistive devices/ modifications for ADL. 3=Patient will improve strength/tolerance for activity to enable patient to perform ADL's. OT Education/Plan Discharge Recommendations Plan/Recommendations: Continue POC Treatment Plan/Plan of Care Patient would benefit from OT for education, treatment and training to promote independence in ADL's, mobility, safety and/or upper extremity function for ADL' s. Plan of Care: ADL Retraining, Functional Mobility, UE Funct Exercise/Act Treatment Duration: Apr 12, 2016 Visits Per Week: 10-12 Minutes/Day (M-F): 60-90 Minutes/Day (Sat/Beltran): 15-30 Agreement: Yes Rehab Potential: Fair Time/GCodes Start Time: 07:15 Stop Time: 08:45 Total Time Billed (hr/min): 90 Billed Treatment Time 1 visit-FA 2 (30 min) EX 4 (60 min) SAAD PEREZ Apr 06, 2016 10:34
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
--- NOTE | 2016-04-06 14:07 | Physical Therapy Daily Note ---
PT Daily Note-Current Subjective Pt. moans and groans during Rx. When asked what was going on pt. states she has pain during gait and exercise, but really wants to continue Pain Numeric Pain Scale: 4 Location: Medial Location Body Site: Back Pain Description: Ache Mental Status Patient Orientation: Normal For Age Transfers Functional [place] Measure 0=Not Assessed/NA 4=Minimal Assistance 1=Total Assistance 5=Supervision or Setup 2=Maximal Assistance 6=Modified [place] 3=Moderate Assistance 7=Complete IndependenceIRFPAI Quality Coding Scale 6 Independent with activity with or without an assistive device 5 Patient requires set up or clean up by helper. Patient completes activity by themselves 4 Supervision or touching assist (CGA). [place] provide cues , steadying assist 3 The helper provides less than half the effort to complete the activity 2 The helper provides more than half the effort to complete the activity 1 Dependent. The helper does all the effort to complete an activity 7 Patient refused to complete or attempt activity 9 The patient did not perform the activity before the current illness or injury 88 Not attempted due to Medical conditions or safety concerns pt. tends to put HOB up as far as she can to get in and out. This DOMESTIC HOUSEKEEPER reminding her that she has flat bed at home and best way to prepare herself is to TRF from flat bed etc Pt. is able to do this indep Gait Training Gait Assistive Device: FWW 150x2 slow, stops x 2 to rest hands/wrists Exercises Standing: Hip Abduction, Hamstring curls, Heel/toe raises, Marching, Mini squats, Sit to Stand Standing Reps: 12 rests between exercises. needs more instruction to perform mini squat with knee protection Assessment Current Status: Good Progress PT Short Term Goals Short Term Goals Time Frame: Apr 05, 2016 Transfers (B,C,W/C) (FIM): 56 Gait (FIM): 2 (met 03/30/16) Gait Distance Comment: 50' Gait Level of Assist: 5 (met 03/30/16) Gait Assistive Device: FWW Wheelchair Distance: 30' PT Skilled Nursing Goals Train Master Goals PT Train Master Goals Time Frame: Apr 19, 2016 Transfers (B,C,W/C) (FIM): 6 Sit to Lying (QC): 6 Lying-Sitting on Side/Bed(QC): 6 Sit to Stand (QC): 6 Rollin Roll Left to Right (QC): 6 Chair/Aki-yu-Ipgpd Xfer(QC): 6 Car Transfer (QC): 4 Does the Patient Walk: Yes Gait (FIM): 5 Distance: 200' Walk 10 feet (QC): 4 Walk 10ft-Uneven Surface(QC): 4 Walk 50ft with 2 Turns (QC): 4 Walk 150 ft (QC): 4 Gait Level of Assist: 5 Gait Assistive Device: FWW Does the Pt use WC or Scooter?: No Stairs (FIM): 2 # of Steps: 4 1 Step (curb) (QC): 4 4 Steps (QC): 4 12 Steps (QC): 88 Stairs Level Of Assist: 4 Picking up an Object (QC): 88 PT Plan Treatment/Plan Treatment Plan: Continue Plan of Care Treatment Plan: Bed Mobility, Education, Functional Activity Dia, Functional Strength, Group Therapy, Gait, Safety, Therapeutic Exercise, Transfers Treatment Duration: Apr 19, 2016 Visits Per Week: 10-11 Minutes/Day (M-F): 60-90 Minutes/Day (Sat/Beltran): 15-30 Safety Risks/Education Patient Education: Gait Training, Transfer Techniques, Issued Written HEP, Correct Positioning, Safety Issues Teaching Recipient: Patient Teaching Methods: Demonstration, Discussion Response to Teaching: Verbalize Understanding, Return Demonstration, Reinforcement Needed Time/GCodes Time In: 1330 Time Out: 1400 Total Billed Treatment Time: 30 Total Billed Treatment 1,GT15m,EX15m G Codes Necessary: MARION Chowdary DOMESTIC HOUSEKEEPER Apr 06, 2016 14:07
--- NOTE | 2016-04-06 18:09 | Consultation ---
History of Present Illness History of Present Illness Patient Consulted On(gage/time) 04/06/16 17:58 Date of Admission 03/29/16 History of Present Illness This is a 45-year-old lady who is currently admitted to the rehabilitation floor after having been hospitalized at [facility] with respiratory failure , profound weakness thought to be arising from an exacerbation of Polymyalgia rheumatica and temporal arteritis. She was last seen by me on March 14, 2016 at the [facility] for evaluation of possible hypercoagulable state, after not having been seen for 2 years previously. Patient had had DVT of the right posterior lateral tibial veins in November 2015 and had recurrent bilateral lower lobe emboli. Patient had also recently had recurrent pneumonias and hypoxic respiratory failure requiring intubation, feeding tube placement and ventilatory support at [facility] this summer. She also states that her sister was hospitalized with DVT and PE at the time that she was hospitalized. She was taking Eliquis 5mg which she continues to take twice daily. Because her sister had also had pulmonary emboli and with her history of recurrent thrombotic events indefinite continuation of her anticoagulation was recommended as was evaluation with a hypercoagulability panel. The hypercoagulability panel was obtained and showed elevation of factor VIII and homocystine. No definite evidence of any other inherited or acquired hypercoagulability factors such as lupus anticoagulant was found. She has been informed that the factor VIII and homocyteine elevations need to be repeated during a period of stability in the outpatient setting to confirm persistent elevation. Past History is significant for: 1. Left Breast Cancer diagnosed May 2006. 2. History of depression. 3. Chronic inflammatory bowel disease. 4. History of ongoing Tobaccoism 5. History of recurrent pneumonia. 6. Multiple other comorbidities, including DJD, endometriosis by history, history of Mnires disease, and chronic recurrent abdominal pain related to her inflammatory bowel disease. 7. CHF diagnosed May 2010 with echocardiogram showing ejection fraction of 35 to 40 percent and cardiac catheterization showing no obstructive coronary artery lesions. CHF probably related to prior anthracycline use. 8. Negative Bone scan Apr 22 2012; Unremarkable liver, spleen, pancreas and adrenal on Feb 03 2013; 9. Non-obstructing right lung Pulmonary Embolus was diagnosed at [facility] (01/01/13-01/05/13) was previously on Xarelto 10. 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 Status post bilateral mastectomy with bilateral TRAM flap reconstruction May 2006. 2. Status post adjuvant chemotherapy with dose-dense ATC, completed 2006, given at [facility] under the direction of Drs. Garcias, Danya, and Eboni. Allergies and Home Medications Allergies Coded Allergies: Cephalosporins (Verified Allergy, Unknown, 07/22/09) lisinopril (Unverified Allergy, Unknown, 02/22/15) Uncoded Allergies: CEFABID (Allergy, Mild, 07/22/09) Home Medications 5 MG TAB #15 5 MG PO HS PRN PRN INSOMNIA Prescribed by: CHIN STEWART on 12/09/15 1522 Amlodipine Besylate 10 Mg Tablet 10 MG PO HS (Reported) Apixaban 5 Mg Tablet 5 MG PO BID (Reported) Aspirin 81 Mg Tablet.dr 81 MG PO HS (Reported) Clonidine HCl 0.2 Mg Tablet 0.2 MG PO TID (Reported) Clotrimazole 15 Gm Cream..g. #1 0 GM TOP BID Prescribed by: CHIN STEWART on 12/09/15 1324 Diphenhydramine HCl 25 Mg Tablet 50 MG PO DAILY PRN PRN ITCHING (Reported) Docusate Sodium 100 Mg Capsule #60 100 MG PO BID Prescribed by: CHIN STEWART on 12/09/15 1324 Furosemide 40 Mg Tablet #30 40 MG PO DAILY Prescribed by: CHIN STEWART on 12/09/15 1324 Hydrocodone/Acetaminophen 1 Each Tablet #30 1 EA PO Q4H PRN PRN PAIN Prescribed by: CHIN STEWART on 12/09/15 1324 Hydrocortisone 453.6 Gm Cream..g. #1 0 GM TOP BID Prescribed by: CHIN STEWART on 12/09/15 1324 Magnesium Oxide 400 Mg Tablet #60 400 MG PO BIDPC Prescribed by: CHIN STEWART on 12/09/15 1324 Methyl Salicylate/Menthol 1 Each Adh..patch 1 PATCH TP DAILY PRN PRN PAIN ( Reported) Pantoprazole Sodium 40 Mg Tablet.dr 40 MG PO BID (Reported) Potassium Chloride 20 Meq Tab.er.prt #30 20 MEQ PO DAILY@0700 Prescribed by: CHIN STEWART on 12/09/15 1324 Pregabalin 100 Mg Capsule #60 300 MG PO BID Prescribed by: CHIN STEWART on 12/09/15 1324 Sertraline HCl 100 Mg Tablet 100 MG PO HS (Reported) Sumatriptan Succinate 100 Mg Tablet 50-100 MG PO UD PRN PRN MIGRAINE (Reported) TAKE 1/2-1 TABLET BY MOUTH NEEDED. MAY REPEAT IN 2 HOURS IF NEEDED Tizanidine HCl 4 Mg Tablet #60 4 MG PO TID PRN PRN Muscle pain/spasm Prescribed by: CHIN STEWART on 12/09/15 1324 Tramadol HCl 50 Mg Tablet 100 MG PO BID PRN PRN PAIN (Reported) TAKES 2 (50 MG) TABLETS Past Uvdvewn-Bklrkl-Jytwbi Hx Patient Social History Smoking Status: Current Everyday Smoker Type Used: Cigarettes Recent Foreign Travel: No Contact w/Someone Who Travel: No Recent Infectious Disease Expo: No Recent Hopitalizations: Yes (GB REMOVED, HYST., APPY. , OVARIAN CYSTECTOMY) Immunizations Up To Date Tetanus Booster (TDap): More than 5yrs Date of Pneumonia Vaccine: Oct 01, 2015 Date of Influenza Vaccine: Dec 31, 2015 Seasonal Allergies Seasonal Allergies: Yes Surgeries HX Surgeries: Yes (TRAM FAP FOR LEFT AND RIGHT MASTECTOMY; 2 eye surgeries,) Respiratory Hx Respiratory Disorders: Yes Respiratory Disorders: Pneumonia, Chronic Bronchitis, Pulmonary Embolism Cardiovascular Hx Cardiac Disorders: Yes (pt reports "Low EF on left side") Neurological Hx Neurological Disorders: Yes ([place]) Reproductive System : No Hx Reproductive Disorders: Yes Sexually Transmitted Disease: No HIV/AIDS: No Female Reproductive Disorders: Denies INSPECTOR TIMERS History: Hysterectomy Genitourinary Hx Genitourinary Disorders: No Gastrointestinal Hx Gastrointestinal Disorders: Yes Gastrointestinal Disorders: Colitis, Gastroesophageal Reflux, Moraes's Esophagus, Chronic Constipation, Chronic Diarrhea, Irritable Bowel Musculoskeletal Hx Musculoskeletal Disorders: Yes (2 herniated discs in lower back and 1 in neck) Musculoskeletal Disorders: Arthritis, Fibromyalgia, Chronic Back Pain Endocrine Hx Endocrine Disorders: Yes HEENT HX ENT Disorders: No Loss of Vision: Denies Hearing Impairment: Denies Cancer Hx Cancer: Yes Cancer: Breast Psychosocial Hx Psychiatric Problems: Yes Behavioral Health Disorders: Anxiety, Depression Integumentary HX Skin/Integumentary Disorder: Yes Skin/Integumentary Disorders: Eczema Blood Transfusions Hx Blood Disorders: No Adverse Reaction to a Blood Tr: No Family Medical History Significant Family History: Cancer Family Medial History: Cancer 03 FATHER, Onset:60 years & older (LUNG CANCER) Chest pain 03 MOTHER (LYMPHANGIO MITOSIS) Dementia 03 FATHER, Onset:60 years & older Family history: Allergy 03 MOTHER (SEASONAL ALLERGIES) Family history: Arthritis 03 FATHER 03 MOTHER Family history: Asthma 03 MOTHER Family history: Breast disease 03 FATHER (AUNT ON FATHERS SIDE FROM BREAST CANCER) Family history: Cardiovascular disease 03 MOTHER Family history: Gastrointestinal disease 03 FATHER Family history: Hypertension 03 MOTHER Family history: Osteoporosis 03 MOTHER Heart disease 03 MOTHER History of - respiratory disease 03 MOTHER ("LYMPHANGIO MITOSIS - SHORTNESS OF BREATH AND TAKES BREATHING TREATMENTS" ) Malignant neoplasm of lung 03 FATHER No Family History of: Abdominal aortic aneurysm [place]'s disease Alcoholism Aphasia Cancer of colon Cataract Congenital heart disease Congestive heart failure Cystic fibrosis Dysphagia Family history: Alzheimer's disease Family history: Coronary thrombosis Family history: Diabetes mellitus Family history: Glaucoma Family history: Thyroid disorder Hearing loss History of - anemia Kidney disease Parkinson's disease Prostate cancer Psychotic disorder Seizure disorder Stroke Review of Systems-General Constitutional: malaise weakness weight gain Respiratory: short of breath Gastrointestinal: abdominal pain Musculoskeletal: joint pain muscle pain Psychiatric/Neurological: Depressed Weakness Physical Exam-General Problems Physical Exam Vital Signs Vital Sign - Last 12Hours 03/31/16 03/31/16 02:53 06:00 Temp 97.9 Pulse 90 Resp 20 B/P 131/80 Pulse Ox 95 O2 Delivery Room Air Capillary Refill : HEENT: PERRL/EOMI Neck: non-tender full range of motion supple Respiratory: chest non-tender lungs clear normal breath sounds no respiratory distress no accessory muscle use Cardiovascular: regular rate, rhythm no edema no gallop no JVD Gastrointestinal: normal bowel sounds non tender soft Rectal: deferred Back: normal inspection no CVA tenderness Neurologic/Psychiatric: 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 Because of history of recurrent bilateral pulmonary emboli, DVT, persistent morbid obesity, sedentary lifestyle b. Recommend to continue anticoagulation indefinitely - Possible RENALDO-workup pending - History of Stage I left breast cancer. No evidence of recurrent disease at this time. - History of CHF. Continue followup with oil heater installer. - Non-obstructing right lung Pulmonary Embolus was diagnosed at [facility] (01/01/13-01/05/13) - History of tobaccoism. Smoking cessation strongly advised; - Morbid obesity. Gradually increase exercise and consistently monitor and appropriately adjust dietary intake. - Multiple comorbidities including depression, degenerative joint disease, history of Mnires disease, history of chronic episodes of recurrent abdominal pain. Clinical Quality Measures DVT/VTE Risk/Contraindication: Risk Factor Score Per Nursin RFS Level Per Nursing on Admit: 4+=Very High MARY DANIEL MD Apr 06, 2016 18:09
[2016-04-06 18:33] VITALS: BP 141/82
[2016-04-06] MEDS: ZOLPIDEM 5 MG (AMBIEN) TAB PO PRN (20:07)
[2016-04-06] MEDS: SERTRALINE 100 MG (ZOLOFT) TAB PO SCH (20:07)
[2016-04-06] MEDS: diphenhydrAMINE 25 MG TAB (BENADRYL) PO SCH (20:08)
[2016-04-07] MEDS: SUMAtriptan 50 MG (IMITREX) TAB PO PRN (02:01)
[2016-04-07] MEDS: HYDROcodone/APAP 10 MG/325 MG (LORTAB) TAB PO PRN ×5 (02:01→21:26)
[2016-04-07] MEDS: RT-ALBUTEROL/IPRATROPIUM 3 ML (DUONEB) VIAL INH SCH ×4 (02:51→20:02)
[2016-04-07 05:53] VITALS: BP 125/84
[2016-04-07] MEDS: DICLOFENAC 1% GEL 100 GM (VOLTAREN) TUBE TOP SCH ×4 (06:19→20:24)
[2016-04-07] MEDS: predniSONE 10 MG TAB PO SCH (06:20)
[2016-04-07] MEDS: KCL 20 MEQ TAB (K-DUR) PO SCH (06:20)
[2016-04-07] MEDS: APIXABAN 5 MG (ELIQUIS) TABLET PO SCH ×2 (08:17→20:23)
[2016-04-07] MEDS: DOCUSATE SODIUM 100 MG (COLACE) CAP PO SCH ×2 (08:17→20:23)
[2016-04-07] MEDS: cloNIDine 0.2 MG (CATAPRES) TAB PO SCH ×3 (08:17→20:23)
[2016-04-07] MEDS: FUROSEMIDE 40 MG (LASIX) TAB PO SCH (08:17)
[2016-04-07] MEDS: PANTOPRAZOLE 20 MG TABLET (PROTONIX) PO SCH ×2 (08:17→20:23)
[2016-04-07] MEDS: MAGNESIUM OXIDE (MAG-OX)400 MG TAB PO SCH (08:17)
[2016-04-07] MEDS: amLODIPine 10 MG (NORVASC) TAB PO SCH (08:17)
[2016-04-07] MEDS: ASPIRIN E.C. 81 MG (ECOTRIN) TAB PO SCH (08:17)
[2016-04-07] MEDS: PREGABALIN 100 MG (LYRICA) CAPSULE PO SCH ×3 (08:18→20:23)
--- NOTE | 2016-04-07 09:29 | Occupational Ther Daily Note ---
OT Current Status-Daily Note Subjective Pt alert, lying in bed finishing parfait. Pt c/o pain in L elbow and arm. Reported to nurse tech that pt requested medication. Pt agreed to therapy. Mental Status/Objective Patient Orientation: Person, Place, Time, Situation Functional [place] Measure 0=Not Assessed/NA 4=Minimal Assistance 1=Total Assistance 5=Supervision or Setup 2=Maximal Assistance 6=Modified [place] 3=Moderate Assistance 7=Complete [place] ADL-Treatment Functional [place] Measure 0=Not Assessed/NA 4=Minimal Assistance 1=Total Assistance 5=Supervision or Setup 2=Maximal Assistance 6=Modified [place] 3=Moderate Assistance 7=Complete IndependenceIRFPAI Quality Coding Scale 6 Independent with activity with or without an assistive device 5 Patient requires set up or clean up by helper. Patient completes activity by themselves 4 Supervision or touching assist (CGA). [place] provide cues , steadying assist 3 The helper provides less than half the effort to complete the activity 2 The helper provides more than half the effort to complete the activity 1 Dependent. The helper does all the effort to complete an activity 7 Patient refused to complete or attempt activity 9 The patient did not perform the activity before the current illness or injury 88 Not attempted due to Medical conditions or safety concerns Other Treatment Pt ambulated to therapy gym with supervision using FWW. Pt c/o that L arm was going numb. Pt completed arm bike 15 min duration at 10 hays resistance with frequent breaks due to pain in L UE to increase strength and activity tolerance for daily functional tasks (8 min with B UE then the last 7 min with only R UE) . Then completed UE stretch and massage for pain and numbness. After therapy, pt's in room and pt lying in bed with call light/phone in reach. All needs met in room. OT Short Term Goals Short Term Goals Time Frame: Apr 05, 2016 Eating(FIM): 7 Grooming(FIM): 6 Bathing(FIM): 5 Upper Body Dressing(FIM): 6 Lower Body Dressing(FIM): 6 Toileting(FIM): 6 Transfers (B,C,W/C) (FIM): 56 Toilet/Commode Transfer(FIM): 6 Shower Transfer(FIM): 5 Additional Short Term Goals: 1-Demonstrate ADL Tasks, 2-Verbalize Understanding , 3-ImproveStrength/Dia 1=Demonstrate adherence to instructed precautions during ADL tasks. 2=Patient will verbalize/demonstrate understanding of assistive devices/ modifications for ADL. 3=Patient will improve strength/tolerance for activity to enable patient to perform ADL's. OT Fpc Goals Fpc Goals Time Frame: Apr 12, 2016 Eating (FIM): 6 Eating (QC): 6 Oral Hygiene (QC): 6 Grooming(FIM): 6 Bathing(FIM): 5 Shower/Bathe Self (QC): 5 Upper Body Dressing(FIM): 6 Upper Body Dressing (QC): 6 Lower Body Dressing(FIM): 6 Lower Body Dressing (QC): 6 On/Off Footwear (QC): 6 Toileting(FIM): 6 Toileting Hygiene (QC): 6 Transfers (B,C,W/C) (FIM): 6 Toilet/Commode Transfer(FIM): 6 Toilet/Commode Transfer (QC): 6 Shower Transfer(FIM): 5 Additional Goals: 1-Demonstrate ADL Tasks, 2-Verbalize Understanding, 3- ImproveStrength/Dia 1=Demonstrate adherence to instructed precautions during ADL tasks. 2=Patient will verbalize/demonstrate understanding of assistive devices/ modifications for ADL. 3=Patient will improve strength/tolerance for activity to enable patient to perform ADL's. OT Education/Plan Discharge Recommendations Plan/Recommendations: Continue POC Treatment Plan/Plan of Care Patient would benefit from OT for education, treatment and training to promote independence in ADL's, mobility, safety and/or upper extremity function for ADL' s. Plan of Care: ADL Retraining, Functional Mobility, UE Funct Exercise/Act Treatment Duration: Apr 12, 2016 Visits Per Week: 10-12 Minutes/Day (M-F): 60-90 Minutes/Day (Sat/Beltran): 15-30 Agreement: Yes Rehab Potential: Fair Time/GCodes Start Time: 07:00 Stop Time: 08:00 Total Time Billed (hr/min): 60 Billed Treatment Time 1 visit-EX 4 (60 min) SAAD PEREZ Apr 07, 2016 09:29
--- NOTE | 2016-04-07 09:53 | PM & R (SOAP) Progress Note ---
Subjective Subjective/Events-last exam Patient was seen in her room this AM Appreciate Dr Louise note and recs.Patient has complaints about left elbow and wrist pain States she was to have possible surgery for ulnar entrapment syndrome.Patient SBA for transfers and ambulation Patient feels the use of walker is execbating her left wrist pain Suggested use of platform walker to take pressure of left wrist Review of Systems Musculoskeletal: : arm pain Objective Exam Last Set of Vital Signs Vital Signs Date Time Temp Pulse Resp B/P Pulse Ox O2 Delivery O2 Flow Rate FiO2 04/07/16 06:48 95 Room Air 04/07/16 05:53 97.6 93 18 125/84 Capillary Refill : I&O Intake and Output 04/07/16 00:00 Intake Total 2080 ml Balance 2080 ml Intake Oral 2080 ml # Voids 10 General: Alert, Oriented X3, Cooperative, No Acute Distress HEENT: Atraumatic, PERRLA, EOMI, Mucous Memb Moist/[place] Neck: Supple, No JVD Lungs: Clear to Auscultation Heart: Regular Rate Abdomen: Normal Bowel Sounds, Soft, No Tenderness Extremities: Other (Has tenderness over ulnar course left elbow with mild tenderness left wrist) Neuro: Other (fairly diffuse weakness) Psych/Mental Status: Other (anxious at times) Assessment/Plan Assessment Diffuse weakness seconday to PMR on steroids Chronic pain managed by [facility] on LOrtab HX Pulm embolism HX Breat ca s/p mastectectomy being followed by Dr Cart[facility]a [facility] Left wrist and elbow pain Plan Continue PT/OT/Pain management [facility] to see re chronic anxiety and pain-done DR Haskins et al [facility] to see-done Appreciate Dr Villegas consult Team Conference held 04/05/16 -See report for full functional update and POC and ELOS See orders re Paraffin baths and Voltaran gel for left arm pain EMG on an outpatient basis once patient has obtained some form of medical insurance Consider local injection for pain control with ortho or Pain Physician Consider use of splint and/or Hemiplatform walker to decrease stress on Left wrist and elbow Next Team Conference 04/12/16 CHIN STEWART MD Apr 07, 2016 09:53
--- NOTE | 2016-04-07 10:14 | Physical Therapy Daily Note ---
PT Daily Note-Current Subjective Pt. agrees to try to do as much as she can. C/o pain in left hand arm wrist at 8 /10. Pt. holds left arm up on chest to chin. States she is really having great difficulty using FWW , wt bearing onto FWW etc. Pain Numeric Pain Scale: 8 Location: Left Location Body Site: Wrist Pain Description: Sharp Appearance appears FLACC 7, holds left arm with right or up under her chin in elbow flexion Mental Status Patient Orientation: Normal For Age Transfers Functional [place] Measure 0=Not Assessed/NA 4=Minimal Assistance 1=Total Assistance 5=Supervision or Setup 2=Maximal Assistance 6=Modified [place] 3=Moderate Assistance 7=Complete IndependenceIRFPAI Quality Coding Scale 6 Independent with activity with or without an assistive device 5 Patient requires set up or clean up by helper. Patient completes activity by themselves 4 Supervision or touching assist (CGA). [place] provide cues , steadying assist 3 The helper provides less than half the effort to complete the activity 2 The helper provides more than half the effort to complete the activity 1 Dependent. The helper does all the effort to complete an activity 7 Patient refused to complete or attempt activity 9 The patient did not perform the activity before the current illness or injury 88 Not attempted due to Medical conditions or safety concerns Transfers (B, C, W/C) (FIM): 6 Scootin Rollin Supine to/from Sit: 6 Sit to/from Stand: 6 Gait Training Does the Patient Walk?: Yes Gait (FIM): 4 Distance (FIM): 3=150 ft (150,125) Gait Level of Assist: 4 Gait Persons Needed: 1 Gait Assistive Device: Walker Matias pt. educated in use of matias walker in right hand. Pt. struggled with sequence and fatigued quickly needing to stand at 75ft intervals Exercises Supine Ex: Bridging, Ankle pumps, Pelvic tilt, Quad Set, Rolling, Glut sets, Lower trunk rotation, Heel Slides, Short Arc Quads, Scooting, Straight leg raise , Hip abd/add Supine Reps: 15 sidelying clam shells and sidelying hip abduction x 15 ea Treatments pt. toileted x 2 during Rx. Manages pants up down and cleaning indep. Pt. is challenged to manage gait issues as she as more and more hand wrist pain after/ during gait as she wt bears. On the other hand use of matias walker in just one hand makes walking quite a struggle and fatigues patient quickly Assessment Current Status: Fair Progress pts. bilat wrist (L>R) and arm pain inhibit gait and function PT Short Term Goals Short Term Goals Time Frame: Apr 05, 2016 Transfers (B,C,W/C) (FIM): 56 Gait (FIM): 2 (met 03/30/16) Gait Distance Comment: 50' Gait Level of Assist: 5 (met 03/30/16) Gait Assistive Device: FWW Wheelchair Distance: 30' PT Valve Tester Goals Valve Tester Goals PT Custodial Goals Time Frame: Apr 19, 2016 Transfers (B,C,W/C) (FIM): 6 Sit to Lying (QC): 6 Lying-Sitting on Side/Bed(QC): 6 Sit to Stand (QC): 6 Rollin Roll Left to Right (QC): 6 Chair/Tbn-tk-Zguny Xfer(QC): 6 Car Transfer (QC): 4 Does the Patient Walk: Yes Gait (FIM): 5 Distance: 200' Walk 10 feet (QC): 4 Walk 10ft-Uneven Surface(QC): 4 Walk 50ft with 2 Turns (QC): 4 Walk 150 ft (QC): 4 Gait Level of Assist: 5 Gait Assistive Device: FWW Does the Pt use WC or Scooter?: No Stairs (FIM): 2 # of Steps: 4 1 Step (curb) (QC): 4 4 Steps (QC): 4 12 Steps (QC): 88 Stairs Level Of Assist: 4 Picking up an Object (QC): 88 PT Plan Treatment/Plan Treatment Plan: Continue Plan of Care Treatment Plan: Bed Mobility, Education, Functional Activity Dia, Functional Strength, Group Therapy, Gait, Safety, Therapeutic Exercise, Transfers Treatment Duration: Apr 19, 2016 Visits Per Week: 10-11 Minutes/Day (M-F): 60-90 Minutes/Day (Sat/Beltran): 15-30 Safety Risks/Education Patient Education: Gait Training, Transfer Techniques, Correct Positioning, Disease Process, Safety Issues Teaching Recipient: Patient Teaching Methods: Demonstration, Discussion Response to Teaching: Verbalize Understanding, Return Demonstration, Reinforcement Needed this ELEVATOR DISPATCHER discussed pts. hand wrist pain with OT. All attempts are being made to see what can be done for possible interventions etc Time/GCodes Time In: 915 Time Out: 1015 Total Billed Treatment Time: 60 Total Billed Treatment 1,EX35,GT10,FA15 G Codes Necessary: MARION Chowdary ELEVATOR DISPATCHER Apr 07, 2016 10:14
--- NOTE | 2016-04-07 14:43 | Therapy Group Daily Note ---
Therapy Daily Group Note Patient Education Topic Other List Below (Rehab process, relaxation through music) Exercises Other (relaxation and breathing) Other/Notes Pt. attended group PT OT session this date. Pt. ambulated to /from with CGA. Pt. was very friendly and participated well showed great interest in the subject matter. Explanation of Rehab and expectations were part of education this date. Focus of group was on relaxation through music with guest demonstration by [facility] animal attendant who played [employer] flute. Utilization of music through playing instrument, dancing and singing were all mentioned. Managing stress during time of medical crisis to facilitate healing was also covered. Pt. to room with gil at hand after Rx. Start Time: 13:00 Stop Time: 14:15 Total Billed Treatment Time: 75 Total Billed Treatment 1,GRP MARION JACKMAN ELECTROMECHANICAL INSPECTOR Apr 07, 2016 14:43
--- NOTE | 2016-04-07 16:45 | Progress Note (SOAP) ---
Subjective Subjective/Events-last exam Reports left wrist pain from known carpal tunnel syndrome; Otherwise has no new complaints; Objective Exam Vital Signs Date Time Temp Pulse Resp B/P Pulse Ox O2 Delivery O2 Flow Rate FiO2 04/07/16 15:19 93 Room Air 04/07/16 09:00 Room Air 04/07/16 06:48 95 Room Air 04/07/16 05:53 97.6 93 18 125/84 95 Room Air 04/07/16 02:51 93 Room Air 04/06/16 22:27 95 Room Air 04/06/16 20:00 Room Air 04/06/16 18:33 98.6 107 16 141/82 93 I & O 04/07/16 07:00 Intake Total 2180 ml Balance 2180 ml Capillary Refill : General Appearance: Obese HEENT: PERRL/EOMI Neck: Full Range of Motion Non Tender Supple Respiratory: Chest Non Tender Lungs Clear Cardiovascular: Regular Rate, Rhythm No Edema No Gallop No JVD Gastrointestinal: normal bowel sounds non tender soft (obese abdomen) Extremity: Normal Inspection Non Tender No Calf Tenderness Neurologic/Psychiatric: Alert Oriented x3 No Motor/Sensory Deficits Normal Mood/Affect Assessment/Plan Assessment/Plan Assess & Plan/Chief Complaint - Deconditioning after recent [facility] admission for profound weakness, respiratory depression, arising from episode of myositis/PMR and temporal arteritis; - Recurrent bilateral lower lobe pulmonary emboli and right lower extremity posterior tibial DVT in late November 2015 - remains on anticoagulation with Eliquis a. Because of history of recurrent bilateral pulmonary emboli, DVT, persistent morbid obesity, sedentary lifestyle b. Recommend to continue anticoagulation indefinitely - Possible RENALDO-workup pending - History of Stage I left breast cancer. No evidence of recurrent disease at this time. - History of CHF. Continue followup with branch service leader. - Non-obstructing right lung Pulmonary Embolus was diagnosed at [facility] (01/01/13-01/05/13) - History of tobaccoism. Smoking cessation strongly advised; - Morbid obesity. Gradually increase exercise and consistently monitor and appropriately adjust dietary intake. - Multiple comorbidities including depression, degenerative joint disease, history of Mnires disease, history of chronic episodes of recurrent abdominal pain. -- Advise patient to keep followup appointment with Dr. Cartagena post discharge; -- Please Re-consult if new problem arises. Diagnosis/Problems: Clinical Quality Measures DVT/VTE Risk/Contraindication: Risk Factor Score Per Nursin RFS Level Per Nursing on Admit: 4+=Very High MARY CARTAGENA MD Apr 07, 2016 16:45
[2016-04-07 17:44] VITALS: BP 126/77
[2016-04-07] MEDS: diphenhydrAMINE 25 MG TAB (BENADRYL) PO SCH (20:23)
[2016-04-07] MEDS: SERTRALINE 100 MG (ZOLOFT) TAB PO SCH (20:23)
[2016-04-07] MEDS: ZOLPIDEM 5 MG (AMBIEN) TAB PO PRN (21:26)
[2016-04-08] MEDS: HYDROcodone/APAP 10 MG/325 MG (LORTAB) TAB PO PRN ×4 (02:29→19:19)
[2016-04-08] MEDS: RT-ALBUTEROL/IPRATROPIUM 3 ML (DUONEB) VIAL INH SCH ×4 (02:29→20:16)
[2016-04-08 06:00] VITALS: BP 117/76
[2016-04-08] MEDS: KCL 20 MEQ TAB (K-DUR) PO SCH (06:18)
[2016-04-08] MEDS: predniSONE 10 MG TAB PO SCH (06:18)
[2016-04-08] MEDS: ANTACID SUSP 30 ML UDC (MYLANTA) PO PRN (06:32)
[2016-04-08] MEDS: cloNIDine 0.2 MG (CATAPRES) TAB PO SCH ×3 (08:23→20:54)
[2016-04-08] MEDS: DOCUSATE SODIUM 100 MG (COLACE) CAP PO SCH ×2 (08:23→20:53)
[2016-04-08] MEDS: amLODIPine 10 MG (NORVASC) TAB PO SCH (08:23)
[2016-04-08] MEDS: APIXABAN 5 MG (ELIQUIS) TABLET PO SCH ×2 (08:23→20:54)
[2016-04-08] MEDS: ASPIRIN E.C. 81 MG (ECOTRIN) TAB PO SCH (08:23)
[2016-04-08] MEDS: FUROSEMIDE 40 MG (LASIX) TAB PO SCH (08:23)
[2016-04-08] MEDS: PREGABALIN 100 MG (LYRICA) CAPSULE PO SCH ×3 (08:23→20:53)
[2016-04-08] MEDS: PANTOPRAZOLE 20 MG TABLET (PROTONIX) PO SCH ×2 (08:23→20:54)
[2016-04-08] MEDS: MAGNESIUM OXIDE (MAG-OX)400 MG TAB PO SCH (08:23)
[2016-04-08] MEDS: DICLOFENAC 1% GEL 100 GM (VOLTAREN) TUBE TOP SCH ×4 (08:24→20:55)
--- NOTE | 2016-04-08 10:17 | Occ Therapy Progress Note ---
Therapy Progress Note Pt. seen this date for paraffin bath and education. Pt. able to transfer supine to sit on side of bed with SBA. Dipped bilateral hands in paraffin x 3 dips. Hands were put into plastic and wrapped with warm towels. Spoke with pt. regarding home set up and equipment needs for discharge home. Pt. states that she has not been feeling well. States that she has had a cough. Nursing aware per pt. Pt. has been coordinating with her regular JOAN and social work regarding needs for home. All needs met this date and pt. states, "that felt good." [id number] 1, FA JULIO CESAR BURNETT OT Apr 08, 2016 10:17
--- NOTE | 2016-04-08 11:47 | Physical Therapy Daily Note ---
PT Daily Note-Current Subjective Patient in bed pre tx, agrees to PT, complains of pain in left arm but will not rate. Appearance Patient sitting EOB post tx, going to order lunch. Has nurse call, phone, tray , all needs met. Mental Status Patient Orientation: Normal For Age Transfers Functional [place] Measure 0=Not Assessed/NA 4=Minimal Assistance 1=Total Assistance 5=Supervision or Setup 2=Maximal Assistance 6=Modified [place] 3=Moderate Assistance 7=Complete IndependenceIRFPAI Quality Coding Scale 6 Independent with activity with or without an assistive device 5 Patient requires set up or clean up by helper. Patient completes activity by themselves 4 Supervision or touching assist (CGA). [place] provide cues , steadying assist 3 The helper provides less than half the effort to complete the activity 2 The helper provides more than half the effort to complete the activity 1 Dependent. The helper does all the effort to complete an activity 7 Patient refused to complete or attempt activity 9 The patient did not perform the activity before the current illness or injury 88 Not attempted due to Medical conditions or safety concerns Transfers (B, C, W/C) (FIM): 5 Scootin Rollin Supine to/from Sit: 6 Sit to/from Stand: 5 Bed to/from Chair: 5 Wheelchair Training Does the Pt Use a Wheelchair?: Yes Wheelchair (FIM): 6 Distance: 150'x2 Type of Wheelchair: Manual Exercises Seated Therapy Exercises: Long arc quads, Hip flexion Seated Reps: 20 Standing: Hip Abduction, Hamstring curls, Heel/toe raises, Mini squats Standing Reps: 20 Treatments bed mobility and transfers, wheelchair mobility, functional strengthening Assessment Current Status: Fair Progress PT Short Term Goals Short Term Goals Time Frame: Apr 05, 2016 Transfers (B,C,W/C) (FIM): 56 Gait (FIM): 2 (met 03/30/16) Gait Distance Comment: 50' Gait Level of Assist: 5 (met 03/30/16) Gait Assistive Device: FWW Wheelchair Distance: 30' PT Sample Maker Original Goals Half-Way Goals PT Half-Way Goals Time Frame: Apr 19, 2016 Transfers (B,C,W/C) (FIM): 6 Sit to Lying (QC): 6 Lying-Sitting on Side/Bed(QC): 6 Sit to Stand (QC): 6 Rollin Roll Left to Right (QC): 6 Chair/Gig-pm-Dvege Xfer(QC): 6 Car Transfer (QC): 4 Does the Patient Walk: Yes Gait (FIM): 5 Distance: 200' Walk 10 feet (QC): 4 Walk 10ft-Uneven Surface(QC): 4 Walk 50ft with 2 Turns (QC): 4 Walk 150 ft (QC): 4 Gait Level of Assist: 5 Gait Assistive Device: FWW Does the Pt use WC or Scooter?: No Stairs (FIM): 2 # of Steps: 4 1 Step (curb) (QC): 4 4 Steps (QC): 4 12 Steps (QC): 88 Stairs Level Of Assist: 4 Picking up an Object (QC): 88 PT Plan Problem List Problem List: Activity Tolerance, Functional Strength, Safety, Balance, Gait, Transfer Treatment/Plan Treatment Plan: Continue Plan of Care Treatment Plan: Bed Mobility, Education, Functional Activity Dia, Functional Strength, Group Therapy, Gait, Safety, Therapeutic Exercise, Transfers Treatment Duration: Apr 19, 2016 Visits Per Week: 10-11 Minutes/Day (M-F): 60-90 Minutes/Day (Sat/Beltran): 15-30 Safety Risks/Education Patient Education: Transfer Techniques, Correct Positioning, Safety Issues Teaching Recipient: Patient Teaching Methods: Demonstration, Discussion Response to Teaching: Reinforcement Needed Time/GCodes Time In: 1125 Time Out: 1140 Total Billed Treatment Time: 15 Total Billed Treatment 1 visit EX 15 min MIYA RODRIGUEZ PT Apr 08, 2016 11:47
[2016-04-08 18:29] VITALS: BP 153/89
[2016-04-08] MEDS: SERTRALINE 100 MG (ZOLOFT) TAB PO SCH (20:53)
[2016-04-08] MEDS: ZOLPIDEM 5 MG (AMBIEN) TAB PO PRN (20:54)
[2016-04-08] MEDS: diphenhydrAMINE 25 MG TAB (BENADRYL) PO SCH (20:54)
[2016-04-09] MEDS: HYDROcodone/APAP 10 MG/325 MG (LORTAB) TAB PO PRN ×5 (00:43→20:52)
[2016-04-09] MEDS: RT-ALBUTEROL/IPRATROPIUM 3 ML (DUONEB) VIAL INH SCH ×4 (02:37→20:30)
[2016-04-09] MEDS: KCL 20 MEQ TAB (K-DUR) PO SCH (06:21)
[2016-04-09] MEDS: predniSONE 10 MG TAB PO SCH (06:21)
[2016-04-09 06:34] VITALS: BP 122/76
[2016-04-09] MEDS: PANTOPRAZOLE 20 MG TABLET (PROTONIX) PO SCH ×2 (08:12→20:52)
[2016-04-09] MEDS: DOCUSATE SODIUM 100 MG (COLACE) CAP PO SCH ×2 (08:12→20:52)
[2016-04-09] MEDS: cloNIDine 0.2 MG (CATAPRES) TAB PO SCH ×3 (08:12→20:52)
[2016-04-09] MEDS: FUROSEMIDE 40 MG (LASIX) TAB PO SCH (08:13)
[2016-04-09] MEDS: MAGNESIUM OXIDE (MAG-OX)400 MG TAB PO SCH (08:13)
[2016-04-09] MEDS: APIXABAN 5 MG (ELIQUIS) TABLET PO SCH ×2 (08:13→20:52)
[2016-04-09] MEDS: DICLOFENAC 1% GEL 100 GM (VOLTAREN) TUBE TOP SCH ×4 (08:13→20:54)
[2016-04-09] MEDS: PREGABALIN 100 MG (LYRICA) CAPSULE PO SCH ×3 (08:13→20:52)
[2016-04-09] MEDS: ASPIRIN E.C. 81 MG (ECOTRIN) TAB PO SCH (08:13)
[2016-04-09] MEDS: amLODIPine 10 MG (NORVASC) TAB PO SCH (08:13)
[2016-04-09 18:05] VITALS: BP 109/73
[2016-04-09] MEDS: diphenhydrAMINE 25 MG TAB (BENADRYL) PO SCH (20:52)
[2016-04-09] MEDS: SERTRALINE 100 MG (ZOLOFT) TAB PO SCH (20:52)
[2016-04-09] MEDS: ZOLPIDEM 5 MG (AMBIEN) TAB PO PRN (20:52)
[2016-04-10] MEDS: HYDROcodone/APAP 10 MG/325 MG (LORTAB) TAB PO PRN ×5 (01:57→22:47)
[2016-04-10] MEDS: RT-ALBUTEROL/IPRATROPIUM 3 ML (DUONEB) VIAL INH SCH ×4 (02:22→21:44)
[2016-04-10] MEDS: predniSONE 10 MG TAB PO SCH (06:19)
[2016-04-10] MEDS: KCL 20 MEQ TAB (K-DUR) PO SCH (06:19)
[2016-04-10 06:20] VITALS: BP 113/80
[2016-04-10] MEDS: PANTOPRAZOLE 20 MG TABLET (PROTONIX) PO SCH ×2 (08:25→20:41)
[2016-04-10] MEDS: cloNIDine 0.2 MG (CATAPRES) TAB PO SCH ×3 (08:25→20:41)
[2016-04-10] MEDS: MAGNESIUM OXIDE (MAG-OX)400 MG TAB PO SCH (08:25)
[2016-04-10] MEDS: APIXABAN 5 MG (ELIQUIS) TABLET PO SCH ×2 (08:25→20:41)
[2016-04-10] MEDS: amLODIPine 10 MG (NORVASC) TAB PO SCH (08:25)
[2016-04-10] MEDS: FUROSEMIDE 40 MG (LASIX) TAB PO SCH (08:25)
[2016-04-10] MEDS: PREGABALIN 100 MG (LYRICA) CAPSULE PO SCH ×3 (08:26→20:41)
[2016-04-10] MEDS: ASPIRIN E.C. 81 MG (ECOTRIN) TAB PO SCH (08:26)
[2016-04-10] MEDS: DICLOFENAC 1% GEL 100 GM (VOLTAREN) TUBE TOP SCH ×4 (08:26→20:42)
[2016-04-10] MEDS: DOCUSATE SODIUM 100 MG (COLACE) CAP PO SCH ×2 (08:26→20:41)
--- NOTE | 2016-04-10 08:30 | Occupational Ther Daily Note ---
OT Current Status-Daily Note Subjective Pt alert, lying in bed eating breakfast. Pt agreed to therapy. Pt c/o L arm pain and decreased ability to use it functionally. Nrsg notified. Mental Status/Objective Patient Orientation: Person, Place, Time, Situation Functional [place] Measure 0=Not Assessed/NA 4=Minimal Assistance 1=Total Assistance 5=Supervision or Setup 2=Maximal Assistance 6=Modified [place] 3=Moderate Assistance 7=Complete [place] ADL-Treatment Pt able to open containers/packages then feed self with regular utensils. Pt does use built up handle with eating utensils when needed. After set up, pt is able to don/doff socks and shoes by self. Functional [place] Measure 0=Not Assessed/NA 4=Minimal Assistance 1=Total Assistance 5=Supervision or Setup 2=Maximal Assistance 6=Modified [place] 3=Moderate Assistance 7=Complete IndependenceIRFPAI Quality Coding Scale 6 Independent with activity with or without an assistive device 5 Patient requires set up or clean up by helper. Patient completes activity by themselves 4 Supervision or touching assist (CGA). [place] provide cues , steadying assist 3 The helper provides less than half the effort to complete the activity 2 The helper provides more than half the effort to complete the activity 1 Dependent. The helper does all the effort to complete an activity 7 Patient refused to complete or attempt activity 9 The patient did not perform the activity before the current illness or injury 88 Not attempted due to Medical conditions or safety concerns Other Treatment Pt ambulated with SBA using FWW to therapy gym. Pt completed arm bike for 15 min at 10 hays resistance to increase strength and activity tolerance for daily functional tasks. Pt was able to complete 6 min with B UE then due to pain in L UE completed 9 min with only R UE. Pt then completed resistive clothespin activity to increase strength and dexterity of B hands/fingers. Pt only able to complete light resistance (red/yellow) on lowest reynaldo with L UE, completed all resistances with R UE 2x's each. Pt takes increased time to complete tasks due to decreased activity tolerance and pain in L UE. After therapy, pt lying in bed with call light/phone in reach. All needs met in room. OT Short Term Goals Short Term Goals Time Frame: Apr 05, 2016 Eating(FIM): 7 Grooming(FIM): 6 Bathing(FIM): 5 Upper Body Dressing(FIM): 6 Lower Body Dressing(FIM): 6 Toileting(FIM): 6 Transfers (B,C,W/C) (FIM): 56 Toilet/Commode Transfer(FIM): 6 Shower Transfer(FIM): 5 Additional Short Term Goals: 1-Demonstrate ADL Tasks, 2-Verbalize Understanding , 3-ImproveStrength/Dia 1=Demonstrate adherence to instructed precautions during ADL tasks. 2=Patient will verbalize/demonstrate understanding of assistive devices/ modifications for ADL. 3=Patient will improve strength/tolerance for activity to enable patient to perform ADL's. OT Timber Framer Goals Timber Framer Goals Time Frame: Apr 12, 2016 Eating (FIM): 6 Eating (QC): 6 Oral Hygiene (QC): 6 Grooming(FIM): 6 Bathing(FIM): 5 Shower/Bathe Self (QC): 5 Upper Body Dressing(FIM): 6 Upper Body Dressing (QC): 6 Lower Body Dressing(FIM): 6 Lower Body Dressing (QC): 6 On/Off Footwear (QC): 6 Toileting(FIM): 6 Toileting Hygiene (QC): 6 Transfers (B,C,W/C) (FIM): 6 Toilet/Commode Transfer(FIM): 6 Toilet/Commode Transfer (QC): 6 Shower Transfer(FIM): 5 Additional Goals: 1-Demonstrate ADL Tasks, 2-Verbalize Understanding, 3- ImproveStrength/Dia 1=Demonstrate adherence to instructed precautions during ADL tasks. 2=Patient will verbalize/demonstrate understanding of assistive devices/ modifications for ADL. 3=Patient will improve strength/tolerance for activity to enable patient to perform ADL's. OT Education/Plan Discharge Recommendations Plan/Recommendations: Continue POC Treatment Plan/Plan of Care Patient would benefit from OT for education, treatment and training to promote independence in ADL's, mobility, safety and/or upper extremity function for ADL' s. Plan of Care: ADL Retraining, Functional Mobility, UE Funct Exercise/Act Treatment Duration: Apr 12, 2016 Visits Per Week: 10-12 Minutes/Day (M-F): 60-90 Minutes/Day (Sat/Beltran): 15-30 Agreement: Yes Rehab Potential: Fair Time/GCodes Start Time: 07:15 Stop Time: 08:15 Total Time Billed (hr/min): 60 Billed Treatment Time visit-ADL 1 (15 min) EX 3 (45 min) SAAD PEREZ Apr 10, 2016 08:30
--- NOTE | 2016-04-10 10:35 | Physical Therapy Daily Note ---
PT Daily Note-Current Subjective Pt. states her left arm feels a little better after not weight bearing on it as much using center held walker and dolores walker but that dolores walker is to awkward. Pt. c/o she is more fatigued after using it.Pt. also comments that she feels she would like to learn some stretching techniques b/c she feels she has lost alot of flexibility in the past couple years. Pain Numeric Pain Scale: 0-No Pain Mental Status Patient Orientation: Normal For Age Transfers Functional [place] Measure 0=Not Assessed/NA 4=Minimal Assistance 1=Total Assistance 5=Supervision or Setup 2=Maximal Assistance 6=Modified [place] 3=Moderate Assistance 7=Complete IndependenceIRFPAI Quality Coding Scale 6 Independent with activity with or without an assistive device 5 Patient requires set up or clean up by helper. Patient completes activity by themselves 4 Supervision or touching assist (CGA). [place] provide cues , steadying assist 3 The helper provides less than half the effort to complete the activity 2 The helper provides more than half the effort to complete the activity 1 Dependent. The helper does all the effort to complete an activity 7 Patient refused to complete or attempt activity 9 The patient did not perform the activity before the current illness or injury 88 Not attempted due to Medical conditions or safety concerns Transfers (B, C, W/C) (FIM): 6 Scootin Rollin Supine to/from Sit: 6 Sit to/from Stand: 6 Bed to/from Chair: 6 Gait Training Does the Patient Walk?: Yes Gait (FIM): 5 Distance (FIM): 3=150 ft (x2) Gait Level of Assist: 5 Gait Persons Needed: 1 Gait Assistive Device: Walker Center-Hold slow step to gait pattern Exercises Supine Ex: Bridging, Ankle pumps, Quad Set, Rolling, Glut sets, Lower trunk rotation, Heel Slides, Short Arc Quads, Scooting, Straight leg raise, Hip abd/ add Supine Reps: 15 NuStep Minutes: 12 NuStep Workload: 3 Treatments self stretch taught for hamstrings and gastrocs using gait belt in supine SLR position Assessment Current Status: Good Progress PT Short Term Goals Short Term Goals Time Frame: Apr 05, 2016 Transfers (B,C,W/C) (FIM): 56 Gait (FIM): 2 (met 03/30/16) Gait Distance Comment: 50' Gait Level of Assist: 5 (met 03/30/16) Gait Assistive Device: FWW Wheelchair Distance: 150'x2 PT Mcc Goals Mcc Goals PT Environmental Field Technician Goals Time Frame: Apr 19, 2016 Transfers (B,C,W/C) (FIM): 6 Sit to Lying (QC): 6 Lying-Sitting on Side/Bed(QC): 6 Sit to Stand (QC): 6 Rollin Roll Left to Right (QC): 6 Chair/Fsc-pr-Hgfqn Xfer(QC): 6 Car Transfer (QC): 4 Does the Patient Walk: Yes Gait (FIM): 5 Distance: 200' Walk 10 feet (QC): 4 Walk 10ft-Uneven Surface(QC): 4 Walk 50ft with 2 Turns (QC): 4 Walk 150 ft (QC): 4 Gait Level of Assist: 5 Gait Assistive Device: FWW Does the Pt use WC or Scooter?: No Stairs (FIM): 2 # of Steps: 4 1 Step (curb) (QC): 4 4 Steps (QC): 4 12 Steps (QC): 88 Stairs Level Of Assist: 4 Picking up an Object (QC): 88 PT Plan Treatment/Plan Treatment Plan: Continue Plan of Care Treatment Plan: Bed Mobility, Education, Functional Activity Dia, Functional Strength, Group Therapy, Gait, Safety, Therapeutic Exercise, Transfers Treatment Duration: Apr 19, 2016 Visits Per Week: 10-11 Minutes/Day (M-F): 60-90 Minutes/Day (Sat/Beltran): 15-30 Safety Risks/Education Patient Education: Gait Training, Transfer Techniques, Issued Written HEP, Correct Positioning, Safety Issues Teaching Recipient: Patient Teaching Methods: Demonstration, Discussion Response to Teaching: Verbalize Understanding, Return Demonstration, Reinforcement Needed Time/GCodes Time In: 930 Time Out: 1030 Total Billed Treatment Time: 60 Total Billed Treatment 1,EX35m,GT25m G Codes Necessary: No MARION JACKMAN MATERIALS ENGINEERING TECHNICIAN Apr 10, 2016 10:35
--- NOTE | 2016-04-10 11:50 | Occupational Ther Daily Note ---
OT Current Status-Daily Note Subjective Pt alert, sitting in bed. Pt agreed to therapy. C/o pain with L UE, paraffin wax to be completed for pain. Mental Status/Objective Functional [place] Measure 0=Not Assessed/NA 4=Minimal Assistance 1=Total Assistance 5=Supervision or Setup 2=Maximal Assistance 6=Modified [place] 3=Moderate Assistance 7=Complete [place] ADL-Treatment Functional [place] Measure 0=Not Assessed/NA 4=Minimal Assistance 1=Total Assistance 5=Supervision or Setup 2=Maximal Assistance 6=Modified [place] 3=Moderate Assistance 7=Complete IndependenceIRFPAI Quality Coding Scale 6 Independent with activity with or without an assistive device 5 Patient requires set up or clean up by helper. Patient completes activity by themselves 4 Supervision or touching assist (CGA). [place] provide cues , steadying assist 3 The helper provides less than half the effort to complete the activity 2 The helper provides more than half the effort to complete the activity 1 Dependent. The helper does all the effort to complete an activity 7 Patient refused to complete or attempt activity 9 The patient did not perform the activity before the current illness or injury 88 Not attempted due to Medical conditions or safety concerns Other Treatment Pt able to go from supine to sit using HOB raised and hand rails. Pt then was able to transfer from EOB to w/c with SBA. Then was able to place L hand then elbow into paraffin wax 5x's wrapping with plastic wrap and then in towel to keep heat in for 20 min. Placed R hand into paraffin wax 5x's wrapping with plastic and towel for 20 min. UE massage and cross friction to decrease pain and swelling of UE's. Pt states that she is able to complete functional tasks easier after completed. After therapy, pt lying in bed with call light/phone in reach. All needs met in room. OT Short Term Goals Short Term Goals Time Frame: Apr 05, 2016 Eating(FIM): 7 Grooming(FIM): 6 Bathing(FIM): 5 Upper Body Dressing(FIM): 6 Lower Body Dressing(FIM): 6 Toileting(FIM): 6 Transfers (B,C,W/C) (FIM): 56 Toilet/Commode Transfer(FIM): 6 Shower Transfer(FIM): 5 Additional Short Term Goals: 1-Demonstrate ADL Tasks, 2-Verbalize Understanding , 3-ImproveStrength/Dia 1=Demonstrate adherence to instructed precautions during ADL tasks. 2=Patient will verbalize/demonstrate understanding of assistive devices/ modifications for ADL. 3=Patient will improve strength/tolerance for activity to enable patient to perform ADL's. OT Client Success Specialist Goals [facility] Goals Time Frame: Apr 12, 2016 Eating (FIM): 6 Eating (QC): 6 Oral Hygiene (QC): 6 Grooming(FIM): 6 Bathing(FIM): 5 Shower/Bathe Self (QC): 5 Upper Body Dressing(FIM): 6 Upper Body Dressing (QC): 6 Lower Body Dressing(FIM): 6 Lower Body Dressing (QC): 6 On/Off Footwear (QC): 6 Toileting(FIM): 6 Toileting Hygiene (QC): 6 Transfers (B,C,W/C) (FIM): 6 Toilet/Commode Transfer(FIM): 6 Toilet/Commode Transfer (QC): 6 Shower Transfer(FIM): 5 Additional Goals: 1-Demonstrate ADL Tasks, 2-Verbalize Understanding, 3- ImproveStrength/Dia 1=Demonstrate adherence to instructed precautions during ADL tasks. 2=Patient will verbalize/demonstrate understanding of assistive devices/ modifications for ADL. 3=Patient will improve strength/tolerance for activity to enable patient to perform ADL's. OT Education/Plan Discharge Recommendations Plan/Recommendations: Continue POC Treatment Plan/Plan of Care Patient would benefit from OT for education, treatment and training to promote independence in ADL's, mobility, safety and/or upper extremity function for ADL' s. Plan of Care: ADL Retraining, Functional Mobility, UE Funct Exercise/Act Treatment Duration: Apr 12, 2016 Visits Per Week: 10-12 Minutes/Day (M-F): 60-90 Minutes/Day (Sat/Beltran): 15-30 Agreement: Yes Rehab Potential: Fair Time/GCodes Start Time: 11:30 Stop Time: 12:00 Total Time Billed (hr/min): 30 Billed Treatment Time 1 visit-FA 2 (30 min) SAAD PEREZ Apr 10, 2016 11:50
--- NOTE | 2016-04-10 13:56 | Physical Therapy Daily Note ---
PT Daily Note-Current Subjective Pt. asleep upon entering. States she would like to get back to not needing an AD at home for gait Pain Numeric Pain Scale: 6 Location: Medial Location Body Site: Back Pain Description: Ache Comment: requests pain pill after Rx. Mental Status Patient Orientation: Normal For Age Transfers Functional [place] Measure 0=Not Assessed/NA 4=Minimal Assistance 1=Total Assistance 5=Supervision or Setup 2=Maximal Assistance 6=Modified [place] 3=Moderate Assistance 7=Complete IndependenceIRFPAI Quality Coding Scale 6 Independent with activity with or without an assistive device 5 Patient requires set up or clean up by helper. Patient completes activity by themselves 4 Supervision or touching assist (CGA). [place] provide cues , steadying assist 3 The helper provides less than half the effort to complete the activity 2 The helper provides more than half the effort to complete the activity 1 Dependent. The helper does all the effort to complete an activity 7 Patient refused to complete or attempt activity 9 The patient did not perform the activity before the current illness or injury 88 Not attempted due to Medical conditions or safety concerns in out bed and chair SBA Gait Training Gait Assistive Device: [place]-Hold gait 125x1,150x1 CGA to SBA , slow Exercises Standing: Hip Abduction, Hamstring curls, Heel/toe raises, Marching, Mini squats Standing Reps: 12 Treatments requests in bed after Rx Assessment Current Status: Good Progress PT Short Term Goals Short Term Goals Time Frame: Apr 05, 2016 Transfers (B,C,W/C) (FIM): 56 Gait (FIM): 2 (met 03/30/16) Gait Distance Comment: 50' Gait Level of Assist: 5 (met 03/30/16) Gait Assistive Device: FWW Wheelchair Distance: 150'x2 PT Computer Lab Para Professional Goals Computer Lab Para Professional Goals PT Computer Lab Para Professional Goals Time Frame: Apr 19, 2016 Transfers (B,C,W/C) (FIM): 6 Sit to Lying (QC): 6 Lying-Sitting on Side/Bed(QC): 6 Sit to Stand (QC): 6 Rollin Roll Left to Right (QC): 6 Chair/Tfh-ml-Pyxfn Xfer(QC): 6 Car Transfer (QC): 4 Does the Patient Walk: Yes Gait (FIM): 5 Distance: 200' Walk 10 feet (QC): 4 Walk 10ft-Uneven Surface(QC): 4 Walk 50ft with 2 Turns (QC): 4 Walk 150 ft (QC): 4 Gait Level of Assist: 5 Gait Assistive Device: FWW Does the Pt use WC or Scooter?: No Stairs (FIM): 2 # of Steps: 4 1 Step (curb) (QC): 4 4 Steps (QC): 4 12 Steps (QC): 88 Stairs Level Of Assist: 4 Picking up an Object (QC): 88 PT Plan Treatment/Plan Treatment Plan: Continue Plan of Care Treatment Plan: Bed Mobility, Education, Functional Activity Dia, Functional Strength, Group Therapy, Gait, Safety, Therapeutic Exercise, Transfers Treatment Duration: Apr 19, 2016 Visits Per Week: 10-11 Minutes/Day (M-F): 60-90 Minutes/Day (Sat/Beltran): 15-30 Safety Risks/Education Patient Education: Gait Training, Transfer Techniques Teaching Recipient: Patient Teaching Methods: Demonstration, Discussion Response to Teaching: Verbalize Understanding, Return Demonstration, Reinforcement Needed Time/GCodes Time In: 1315 Time Out: 1345 Total Billed Treatment Time: 30 Total Billed Treatment 1,GT20,EX10 G Codes Necessary: MARION Chowdary BLOCK SETTER GYPSUM Apr 10, 2016 13:56
[2016-04-10 18:55] VITALS: BP 143/87
[2016-04-10] MEDS: SERTRALINE 100 MG (ZOLOFT) TAB PO SCH (20:41)
[2016-04-10] MEDS: ZOLPIDEM 5 MG (AMBIEN) TAB PO PRN (20:41)
[2016-04-10] MEDS: diphenhydrAMINE 25 MG TAB (BENADRYL) PO SCH (20:42)
[2016-04-11] MEDS: RT-ALBUTEROL/IPRATROPIUM 3 ML (DUONEB) VIAL INH SCH ×3 (03:00→20:50)
[2016-04-11] MEDS: HYDROcodone/APAP 10 MG/325 MG (LORTAB) TAB PO PRN ×4 (03:23→20:21)
[2016-04-11 06:00] VITALS: BP 137/71
[2016-04-11] MEDS: KCL 20 MEQ TAB (K-DUR) PO SCH (06:33)
[2016-04-11] MEDS: predniSONE 10 MG TAB PO SCH (06:34)
[2016-04-11] MEDS: PANTOPRAZOLE 20 MG TABLET (PROTONIX) PO SCH ×2 (08:29→20:20)
[2016-04-11] MEDS: amLODIPine 10 MG (NORVASC) TAB PO SCH (08:29)
[2016-04-11] MEDS: DOCUSATE SODIUM 100 MG (COLACE) CAP PO SCH ×2 (08:29→20:20)
[2016-04-11] MEDS: APIXABAN 5 MG (ELIQUIS) TABLET PO SCH ×2 (08:29→20:20)
[2016-04-11] MEDS: ASPIRIN E.C. 81 MG (ECOTRIN) TAB PO SCH (08:29)
[2016-04-11] MEDS: FUROSEMIDE 40 MG (LASIX) TAB PO SCH (08:29)
[2016-04-11] MEDS: MAGNESIUM OXIDE (MAG-OX)400 MG TAB PO SCH (08:29)
[2016-04-11] MEDS: cloNIDine 0.2 MG (CATAPRES) TAB PO SCH ×3 (08:29→20:19)
[2016-04-11] MEDS: PREGABALIN 100 MG (LYRICA) CAPSULE PO SCH ×3 (08:35→20:18)
[2016-04-11] MEDS: DICLOFENAC 1% GEL 100 GM (VOLTAREN) TUBE TOP SCH ×4 (08:36→20:17)
--- NOTE | 2016-04-11 09:32 | Occupational Ther Daily Note ---
OT Current Status-Daily Note Subjective Pt alert, sitting in bed. Pt agreed to therapy. Pt c/o pain, did not rate, with L UE. Mental Status/Objective Patient Orientation: Person, Place, Time, Situation Functional [place] Measure 0=Not Assessed/NA 4=Minimal Assistance 1=Total Assistance 5=Supervision or Setup 2=Maximal Assistance 6=Modified [place] 3=Moderate Assistance 7=Complete [place] ADL-Treatment Pt went from supine to sit with HOB and using bed rails by self. Pt then ambulated to bathroom with supervision, able to transfer with FWW and grabbars by self onto toilet. Completed toileting with mod I. Ambulated with FWW to sink and washed hands by self. Pt donned socks and shoes by self sitting EOB after setup. Functional [place] Measure 0=Not Assessed/NA 4=Minimal Assistance 1=Total Assistance 5=Supervision or Setup 2=Maximal Assistance 6=Modified [place] 3=Moderate Assistance 7=Complete IndependenceIRFPAI Quality Coding Scale 6 Independent with activity with or without an assistive device 5 Patient requires set up or clean up by helper. Patient completes activity by themselves 4 Supervision or touching assist (CGA). [place] provide cues , steadying assist 3 The helper provides less than half the effort to complete the activity 2 The helper provides more than half the effort to complete the activity 1 Dependent. The helper does all the effort to complete an activity 7 Patient refused to complete or attempt activity 9 The patient did not perform the activity before the current illness or injury 88 Not attempted due to Medical conditions or safety concerns Toileting (FIM): 6 Transfers (B, C, W/C) (FIM): 5 Toilet/Commode Transfer (FIM): 6 Other Treatment Pt ambulated with SBA using FWW to therapy gym, one break. Massage to UE's to decrease pain, edema (used cross friction massage). Pt then completed arm bike 15 min starting at 15 hays resistance then decreasing to 10 hays resistance to increase strength for daily functional tasks. Pt very slow rotations on arm bike. Pt alternated using B UE's and R UE on arm bike. After therapy, pt sitting EOB in room with call light/phone in reach. All needs met in room. OT Short Term Goals Short Term Goals Time Frame: Apr 05, 2016 Eating(FIM): 7 Grooming(FIM): 6 Bathing(FIM): 5 Upper Body Dressing(FIM): 6 Lower Body Dressing(FIM): 6 Toileting(FIM): 6 Transfers (B,C,W/C) (FIM): 56 Toilet/Commode Transfer(FIM): 6 Shower Transfer(FIM): 5 Additional Short Term Goals: 1-Demonstrate ADL Tasks, 2-Verbalize Understanding , 3-ImproveStrength/Dia 1=Demonstrate adherence to instructed precautions during ADL tasks. 2=Patient will verbalize/demonstrate understanding of assistive devices/ modifications for ADL. 3=Patient will improve strength/tolerance for activity to enable patient to perform ADL's. OT Windows Technical Specialist Goals Half-Way Goals Time Frame: Apr 12, 2016 Eating (FIM): 6 Eating (QC): 6 Oral Hygiene (QC): 6 Grooming(FIM): 6 Bathing(FIM): 5 Shower/Bathe Self (QC): 5 Upper Body Dressing(FIM): 6 Upper Body Dressing (QC): 6 Lower Body Dressing(FIM): 6 Lower Body Dressing (QC): 6 On/Off Footwear (QC): 6 Toileting(FIM): 6 Toileting Hygiene (QC): 6 Transfers (B,C,W/C) (FIM): 6 Toilet/Commode Transfer(FIM): 6 Toilet/Commode Transfer (QC): 6 Shower Transfer(FIM): 5 Additional Goals: 1-Demonstrate ADL Tasks, 2-Verbalize Understanding, 3- ImproveStrength/Dia 1=Demonstrate adherence to instructed precautions during ADL tasks. 2=Patient will verbalize/demonstrate understanding of assistive devices/ modifications for ADL. 3=Patient will improve strength/tolerance for activity to enable patient to perform ADL's. OT Education/Plan Discharge Recommendations Plan/Recommendations: Continue POC Treatment Plan/Plan of Care Patient would benefit from OT for education, treatment and training to promote independence in ADL's, mobility, safety and/or upper extremity function for ADL' s. Plan of Care: ADL Retraining, Functional Mobility, UE Funct Exercise/Act Treatment Duration: Apr 12, 2016 Visits Per Week: 10-12 Minutes/Day (M-F): 60-90 Minutes/Day (Sat/Beltran): 15-30 Agreement: Yes Rehab Potential: Fair Time/GCodes Start Time: 08:30 Stop Time: 09:30 Total Time Billed (hr/min): 60 Billed Treatment Time 1 visit-FA 2 (30 min) EX 2 (30 min) SAAD PEREZ Apr 11, 2016 09:31
--- NOTE | 2016-04-11 10:20 | PM & R (SOAP) Progress Note ---
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.Patient is sba for transfers and ambulation with a walker but lets his left upper limb dangle Objective Exam Last Set of Vital Signs Vital Signs Date Time Temp Pulse Resp B/P Pulse Ox O2 Delivery O2 Flow Rate FiO2 04/11/16 08:39 Room Air 04/11/16 06:00 95.5 82 16 137/71 93 Capillary Refill : I&O Intake and Output 04/11/16 00:00 Intake Total 2340 ml Balance 2340 ml Intake Oral 2340 ml # Voids 14 # Bowel Movements 1 General: Alert, Oriented X3, Cooperative, No Acute Distress HEENT: Atraumatic, PERRLA, EOMI, Mucous Memb Moist/[place] Neck: Supple, No JVD Lungs: Clear to Auscultation Heart: Regular Rate Abdomen: Normal Bowel Sounds, Soft, No Tenderness Extremities: Other (Has tenderness over ulnar course left elbow with mild tenderness left wrist) Neuro: Other (fairly diffuse weakness) Psych/Mental Status: Other (anxious at times) Assessment/Plan Assessment Diffuse weakness seconday to PMR on steroids Chronic pain managed by [facility] on LOrtab HX Pulm embolism HX Breat ca s/p mastectectomy being followed by Dr Osiel Diego Left wrist and elbow pain-appears improved somewhat Plan Continue PT/OT/Pain management [facility] to see re chronic anxiety and pain-done DR Haskins et [facility] to [facility]-done Appreciate Dr Villegas co See orders re Paraffin baths and Voltaran gel for left arm pain EMG on an outpatient basis once patient has obtained some form of medical insurance Consider local injection for pain control with ortho or Pain Physician Consider use of splint and/or Hemiplatform walker to decrease stress on Left wrist and elbow Next Team Conference tomorrow 04/12/16 CHIN STEWART MD Apr 11, 2016 10:20
--- NOTE | 2016-04-11 10:57 | Physical Therapy Daily Note ---
PT Daily Note-Current Subjective Agreeable to PT. no complaints Mental Status Patient Orientation: Person, Place, Time, Situation Transfers Functional [place] Measure 0=Not Assessed/NA 4=Minimal Assistance 1=Total Assistance 5=Supervision or Setup 2=Maximal Assistance 6=Modified [place] 3=Moderate Assistance 7=Complete IndependenceIRFPAI Quality Coding Scale 6 Independent with activity with or without an assistive device 5 Patient requires set up or clean up by helper. Patient completes activity by themselves 4 Supervision or touching assist (CGA). [place] provide cues , steadying assist 3 The helper provides less than half the effort to complete the activity 2 The helper provides more than half the effort to complete the activity 1 Dependent. The helper does all the effort to complete an activity 7 Patient refused to complete or attempt activity 9 The patient did not perform the activity before the current illness or injury 88 Not attempted due to Medical conditions or safety concerns Transfers (B, C, W/C) (FIM): 5 Supine to/from Sit: 5 (HOB elevated) Sit to/from Stand: 5 toileted and toilet transfer mod indep Gait Training Gait (FIM): 5 Distance (FIM): 3=150 ft Distance: 150', 50', 125' 200' Gait Level of Assist: 5 (SBA for safety) Gait Assistive Device: FWW Pt chose to use FWW this visit, prefers it over center held walker. Limited step length B and poor heel toe angle or foot clearance. Gait slow and slightly shuffled. Stair Training Stair Training: Handrails/: 2 handrails Stairs (FIM): 2 #of Steps: 4 Level of Assist: 4 (min assist to go up; CGA to go down) slow on stairs and much difficulty going up but easier going down. Exercises Seated Therapy Exercises: Ankle pumps, Sit to stand, Long arc quads, Hip flexion, Hamstring Curls, Hip abd/add Seated Reps: 15 Standing: Hip Abduction, Hamstring curls, Heel/toe raises, Marching, Mini squats Standing Reps: 15 Treatments Ther ex performed to increase LE strength to normalize gait and improve strength for steps. Also to increase functional act tolerance and safety with mobilty. Assessment Current Status: Good Progress Progressing. Fatigues quickly and does become SOA with gait, recovers fairly quickly. Did better on the steps than she expected but it was difficult to go up. PT Short Term Goals Short Term Goals Time Frame: Apr 05, 2016 Transfers (B,C,W/C) (FIM): 56 Gait (FIM): 2 (met 03/30/16) Gait Distance Comment: 50' Gait Level of Assist: 5 (met 03/30/16) Gait Assistive Device: FWW Wheelchair Distance: 150'x2 PT County Program Technician Goals [facility] Goals PT County Program Technician Goals Time Frame: Apr 19, 2016 Transfers (B,C,W/C) (FIM): 6 Sit to Lying (QC): 6 Lying-Sitting on Side/Bed(QC): 6 Sit to Stand (QC): 6 Rollin Roll Left to Right (QC): 6 Chair/Dov-tm-Cbnfq Xfer(QC): 6 Car Transfer (QC): 4 Does the Patient Walk: Yes Gait (FIM): 5 Distance: 200' Walk 10 feet (QC): 4 Walk 10ft-Uneven Surface(QC): 4 Walk 50ft with 2 Turns (QC): 4 Walk 150 ft (QC): 4 Gait Level of Assist: 5 Gait Assistive Device: FWW Does the Pt use WC or Scooter?: No Stairs (FIM): 2 # of Steps: 4 1 Step (curb) (QC): 4 4 Steps (QC): 4 12 Steps (QC): 88 Stairs Level Of Assist: 4 Picking up an Object (QC): 88 PT Plan Problem List Problem List: Activity Tolerance, Functional Strength, Safety, Gait, Transfer Treatment/Plan Treatment Plan: Continue Plan of Care Treatment Plan: Bed Mobility, Education, Functional Activity Dia, Functional Strength, Group Therapy, Gait, Safety, Therapeutic Exercise, Transfers Treatment Duration: Apr 19, 2016 Visits Per Week: 10-11 Minutes/Day (M-F): 60-90 Minutes/Day (Sat/Beltran): 15-30 Safety Risks/Education Patient Education: Steps Teaching Recipient: Patient Teaching Methods: Demonstration, Discussion Response to Teaching: Reinforcement Needed Time/GCodes Time In: 1000 Time Out: 1100 Total Billed Treatment Time: 60 Total Billed Treatment visit EX 30 GT 30 SAAD PAINTER PT Apr 11, 2016 10:57
--- NOTE | 2016-04-11 12:42 | Physical Therapy Daily Note ---
PT Daily Note-Current Subjective Agrees to PT. Tired. Mental Status Patient Orientation: Person, Place, Time, Situation Transfers Functional [place] Measure 0=Not Assessed/NA 4=Minimal Assistance 1=Total Assistance 5=Supervision or Setup 2=Maximal Assistance 6=Modified [place] 3=Moderate Assistance 7=Complete IndependenceIRFPAI Quality Coding Scale 6 Independent with activity with or without an assistive device 5 Patient requires set up or clean up by helper. Patient completes activity by themselves 4 Supervision or touching assist (CGA). [place] provide cues , steadying assist 3 The helper provides less than half the effort to complete the activity 2 The helper provides more than half the effort to complete the activity 1 Dependent. The helper does all the effort to complete an activity 7 Patient refused to complete or attempt activity 9 The patient did not perform the activity before the current illness or injury 88 Not attempted due to Medical conditions or safety concerns Transfers (B, C, W/C) (FIM): 5 Supine to/from Sit: 5 Sit to/from Stand: 5 SBA with toileting and toilet transfer Gait Training Gait (FIM): 5 Distance: 150 ft x 4 Gait Assistive Device: FWW Exercises NuStep Minutes: 10 NuStep Workload: 1 Treatments Functional gait training and functional act tolerance on the Nu Step Assessment Current Status: Good Progress Strength and mobility progressing. PT Short Term Goals Short Term Goals Time Frame: Apr 05, 2016 Transfers (B,C,W/C) (FIM): 56 Gait (FIM): 2 (met 03/30/16) Gait Distance Comment: 50' Gait Level of Assist: 5 (met 03/30/16) Gait Assistive Device: FWW Wheelchair Distance: 150'x2 PT [facility] Goals [facility] Goals PT [facility] Goals Time Frame: Apr 19, 2016 Transfers (B,C,W/C) (FIM): 6 Sit to Lying (QC): 6 Lying-Sitting on Side/Bed(QC): 6 Sit to Stand (QC): 6 Rollin Roll Left to Right (QC): 6 Chair/Ptc-vi-Djpaf Xfer(QC): 6 Car Transfer (QC): 4 Does the Patient Walk: Yes Gait (FIM): 5 Distance: 200' Walk 10 feet (QC): 4 Walk 10ft-Uneven Surface(QC): 4 Walk 50ft with 2 Turns (QC): 4 Walk 150 ft (QC): 4 Gait Level of Assist: 5 Gait Assistive Device: FWW Does the Pt use WC or Scooter?: No Stairs (FIM): 2 # of Steps: 4 1 Step (curb) (QC): 4 4 Steps (QC): 4 12 Steps (QC): 88 Stairs Level Of Assist: 4 Picking up an Object (QC): 88 PT Plan Problem List Problem List: Activity Tolerance, Functional Strength, Safety Treatment/Plan Treatment Plan: Continue Plan of Care Treatment Plan: Bed Mobility, Education, Functional Activity Dia, Functional Strength, Group Therapy, Gait, Safety, Therapeutic Exercise, Transfers Treatment Duration: Apr 19, 2016 Visits Per Week: 10-11 Minutes/Day (M-F): 60-90 Minutes/Day (Sat/Beltran): 15-30 Discharge Recommendations Plan Discuss using 4WW with treating PHYSIOTHERAPY ASSISTANT Time/GCodes Time In: 1200 Time Out: 1230 Total Billed Treatment Time: 30 Total Billed Treatment visit EX 10 GT 20 SAAD PAINTER PT Apr 11, 2016 12:42
--- NOTE | 2016-04-11 12:52 | Occupational Ther Daily Note ---
OT Current Status-Daily Note Subjective Pt alert, sitting in bed. Pt agreed to therapy. No c/o pain at this time. Mental Status/Objective Patient Orientation: Person, Place, Time, Situation Functional [place] Measure 0=Not Assessed/NA 4=Minimal Assistance 1=Total Assistance 5=Supervision or Setup 2=Maximal Assistance 6=Modified [place] 3=Moderate Assistance 7=Complete [place] ADL-Treatment Functional [place] Measure 0=Not Assessed/NA 4=Minimal Assistance 1=Total Assistance 5=Supervision or Setup 2=Maximal Assistance 6=Modified [place] 3=Moderate Assistance 7=Complete IndependenceIRFPAI Quality Coding Scale 6 Independent with activity with or without an assistive device 5 Patient requires set up or clean up by helper. Patient completes activity by themselves 4 Supervision or touching assist (CGA). [place] provide cues , steadying assist 3 The helper provides less than half the effort to complete the activity 2 The helper provides more than half the effort to complete the activity 1 Dependent. The helper does all the effort to complete an activity 7 Patient refused to complete or attempt activity 9 The patient did not perform the activity before the current illness or injury 88 Not attempted due to Medical conditions or safety concerns Other Treatment Pt ambulated to therapy gym with SBA using FWW. Completed paraffin wax to B hands for 20 min. Physician ordered paraffin treatment for pain. Tolerated well, pt is able to grasp and hold onto items longer and without as much pain as stated by pt. After therapy, pt sitting in gym and PT took over care. All needs met. OT Short Term Goals Short Term Goals Time Frame: Apr 05, 2016 Eating(FIM): 7 Grooming(FIM): 6 Bathing(FIM): 5 Upper Body Dressing(FIM): 6 Lower Body Dressing(FIM): 6 Toileting(FIM): 6 Transfers (B,C,W/C) (FIM): 56 Toilet/Commode Transfer(FIM): 6 Shower Transfer(FIM): 5 Additional Short Term Goals: 1-Demonstrate ADL Tasks, 2-Verbalize Understanding , 3-ImproveStrength/Dia 1=Demonstrate adherence to instructed precautions during ADL tasks. 2=Patient will verbalize/demonstrate understanding of assistive devices/ modifications for ADL. 3=Patient will improve strength/tolerance for activity to enable patient to perform ADL's. OT Distilling Department Supervisor Goals Snf Goals Time Frame: Apr 12, 2016 Eating (FIM): 6 Eating (QC): 6 Oral Hygiene (QC): 6 Grooming(FIM): 6 Bathing(FIM): 5 Shower/Bathe Self (QC): 5 Upper Body Dressing(FIM): 6 Upper Body Dressing (QC): 6 Lower Body Dressing(FIM): 6 Lower Body Dressing (QC): 6 On/Off Footwear (QC): 6 Toileting(FIM): 6 Toileting Hygiene (QC): 6 Transfers (B,C,W/C) (FIM): 6 Toilet/Commode Transfer(FIM): 6 Toilet/Commode Transfer (QC): 6 Shower Transfer(FIM): 5 Additional Goals: 1-Demonstrate ADL Tasks, 2-Verbalize Understanding, 3- ImproveStrength/Dia 1=Demonstrate adherence to instructed precautions during ADL tasks. 2=Patient will verbalize/demonstrate understanding of assistive devices/ modifications for ADL. 3=Patient will improve strength/tolerance for activity to enable patient to perform ADL's. OT Education/Plan Discharge Recommendations Plan/Recommendations: Continue POC Treatment Plan/Plan of Care Patient would benefit from OT for education, treatment and training to promote independence in ADL's, mobility, safety and/or upper extremity function for ADL' s. Plan of Care: ADL Retraining, Functional Mobility, UE Funct Exercise/Act Treatment Duration: Apr 12, 2016 Visits Per Week: 10-12 Minutes/Day (M-F): 60-90 Minutes/Day (Sat/Beltran): 15-30 Agreement: Yes Rehab Potential: Fair Time/GCodes Start Time: 11:30 Stop Time: 12:00 Total Time Billed (hr/min): 30 Billed Treatment Time 1 visit-EX 2 (30 min) SAAD PEREZ Apr 11, 2016 12:52
[2016-04-11 18:46] VITALS: BP 142/88
[2016-04-11] MEDS: ZOLPIDEM 5 MG (AMBIEN) TAB PO PRN (20:19)
[2016-04-11] MEDS: SUMAtriptan 50 MG (IMITREX) TAB PO PRN (20:19)
[2016-04-11] MEDS: diphenhydrAMINE 25 MG TAB (BENADRYL) PO SCH (20:19)
[2016-04-11] MEDS: SERTRALINE 100 MG (ZOLOFT) TAB PO SCH (20:20)
[2016-04-12] MEDS: RT-ALBUTEROL/IPRATROPIUM 3 ML (DUONEB) VIAL INH SCH ×3 (02:38→15:00)
[2016-04-12 06:00] VITALS: BP 137/89
[2016-04-12] MEDS: predniSONE 10 MG TAB PO SCH (06:58)
[2016-04-12] MEDS: KCL 20 MEQ TAB (K-DUR) PO SCH (06:58)
[2016-04-12] MEDS: HYDROcodone/APAP 10 MG/325 MG (LORTAB) TAB PO PRN ×4 (06:59→21:17)
--- NOTE | 2016-04-12 08:01 | Occupational Ther Daily Note ---
OT Current Status-Daily Note Subjective Pt alert, sitting in bed. Pt agreed to therapy. No c/o pain at this time. Mental Status/Objective Patient Orientation: Person, Place, Time, Situation Functional [place] Measure 0=Not Assessed/NA 4=Minimal Assistance 1=Total Assistance 5=Supervision or Setup 2=Maximal Assistance 6=Modified [place] 3=Moderate Assistance 7=Complete [place] ADL-Treatment Mod I for bed mobility. Ambulated with FWW to closet and retrieved clothing by self. Then transported to bathroom with FWW. Pt sat at sink and completed grooming and bathing. Pt doffed/donned clothing by self. Functional [place] Measure 0=Not Assessed/NA 4=Minimal Assistance 1=Total Assistance 5=Supervision or Setup 2=Maximal Assistance 6=Modified [place] 3=Moderate Assistance 7=Complete IndependenceIRFPAI Quality Coding Scale 6 Independent with activity with or without an assistive device 5 Patient requires set up or clean up by helper. Patient completes activity by themselves 4 Supervision or touching assist (CGA). [place] provide cues , steadying assist 3 The helper provides less than half the effort to complete the activity 2 The helper provides more than half the effort to complete the activity 1 Dependent. The helper does all the effort to complete an activity 7 Patient refused to complete or attempt activity 9 The patient did not perform the activity before the current illness or injury 88 Not attempted due to Medical conditions or safety concerns Grooming (FIM): 6 (Sitting at sink. Dentures) Bathing (FIM): 6 (Sitting at sink.) Bathing Location: L Arm, R Arm, L Upper Leg, R Upper Leg, L Lower Leg ( including foot), R Lower Leg (including foot), Chest, Abdomen, Buttocks, Perineal Area Upper Body (FIM): 6 Lower Body Dressing (FIM): 6 Toileting (FIM): 6 Transfers (B, C, W/C) (FIM): 6 Toilet/Commode Transfer (FIM): 6 Other Treatment Pt then completed arm bike for 15 min at 10 hays resistance to increase strength and activity tolerance for daily functional tasks, 2 rest breaks. Pt stated that her R hand was going numb during arm bike. Pt then maneuvered w/c to laundry and placed laundry in washer then later transferred laundry from washer to dryer sitting in w/c. After therapy, pt sitting EOB with call light/ phone in reach. All needs met in room. OT Short Term Goals Short Term Goals Time Frame: Apr 05, 2016 Eating(FIM): 7 Grooming(FIM): 6 Bathing(FIM): 5 Upper Body Dressing(FIM): 6 Lower Body Dressing(FIM): 6 Toileting(FIM): 6 Transfers (B,C,W/C) (FIM): 56 Toilet/Commode Transfer(FIM): 6 Shower Transfer(FIM): 5 Additional Short Term Goals: 1-Demonstrate ADL Tasks, 2-Verbalize Understanding , 3-ImproveStrength/Dia 1=Demonstrate adherence to instructed precautions during ADL tasks. 2=Patient will verbalize/demonstrate understanding of assistive devices/ modifications for ADL. 3=Patient will improve strength/tolerance for activity to enable patient to perform ADL's. OT Residential Goals Manager House Goals Time Frame: Apr 12, 2016 Eating (FIM): 6 (met-04/12/16) Eating (QC): 6 Oral Hygiene (QC): 6 Grooming(FIM): 6 (met-04/12/16) Bathing(FIM): 5 (met-04/12/16) Shower/Bathe Self (QC): 5 Upper Body Dressing(FIM): 6 (met-04/12/16) Upper Body Dressing (QC): 6 Lower Body Dressing(FIM): 6 (met-04/12/16) Lower Body Dressing (QC): 6 On/Off Footwear (QC): 6 (met-04/12/16) Toileting(FIM): 6 (met-04/12/16) Toileting Hygiene (QC): 6 Transfers (B,C,W/C) (FIM): 6 (met-04/12/16) Toilet/Commode Transfer(FIM): 6 (met-04/12/16) Toilet/Commode Transfer (QC): 6 Shower Transfer(FIM): 5 Additional Goals: 1-Demonstrate ADL Tasks, 2-Verbalize Understanding, 3- ImproveStrength/Dia 1=Demonstrate adherence to instructed precautions during ADL tasks. 2=Patient will verbalize/demonstrate understanding of assistive devices/ modifications for ADL. 3=Patient will improve strength/tolerance for activity to enable patient to perform ADL's. OT Education/Plan Discharge Recommendations Plan/Recommendations: Continue POC Treatment Plan/Plan of Care Patient would benefit from OT for education, treatment and training to promote independence in ADL's, mobility, safety and/or upper extremity function for ADL' s. Plan of Care: ADL Retraining, Functional Mobility, UE Funct Exercise/Act Treatment Duration: Apr 12, 2016 Visits Per Week: 10-12 Minutes/Day (M-F): 60-90 Minutes/Day (Sat/Beltran): 15-30 Agreement: Yes Rehab Potential: Fair Time/GCodes Start Time: 07:00 Stop Time: 08:00 Total Time Billed (hr/min): 60 Billed Treatment Time 1 visit-ADL 3 (40 min) EX 1 (20 min) SAAD PEREZ Apr 12, 2016 08:01
[2016-04-12] MEDS: PREGABALIN 100 MG (LYRICA) CAPSULE PO SCH ×3 (08:22→21:18)
[2016-04-12] MEDS: DOCUSATE SODIUM 100 MG (COLACE) CAP PO SCH ×2 (08:22→21:18)
[2016-04-12] MEDS: MAGNESIUM OXIDE (MAG-OX)400 MG TAB PO SCH (08:23)
[2016-04-12] MEDS: DICLOFENAC 1% GEL 100 GM (VOLTAREN) TUBE TOP SCH ×4 (08:23→21:18)
[2016-04-12] MEDS: APIXABAN 5 MG (ELIQUIS) TABLET PO SCH ×2 (08:23→21:17)
[2016-04-12] MEDS: amLODIPine 10 MG (NORVASC) TAB PO SCH (08:23)
[2016-04-12] MEDS: PANTOPRAZOLE 20 MG TABLET (PROTONIX) PO SCH ×2 (08:23→21:17)
[2016-04-12] MEDS: ASPIRIN E.C. 81 MG (ECOTRIN) TAB PO SCH (08:23)
[2016-04-12] MEDS: FUROSEMIDE 40 MG (LASIX) TAB PO SCH (08:23)
[2016-04-12] MEDS: cloNIDine 0.2 MG (CATAPRES) TAB PO SCH ×3 (08:23→21:18)
--- NOTE | 2016-04-12 09:44 | Physical Therapy Daily Note ---
PT Daily Note-Current Subjective Pt was sitting in W/C upon arrival. Pt reports hasn't eaten breakfast yet but she won't need to until after tx per pt. Pt agrees to PT. Pain Numeric Pain Scale: 6 Location: Dorsal Location Body Site: Knee Pain Description: Ache Mental Status Patient Orientation: Person, Place, Time, Situation Transfers Functional [place] Measure 0=Not Assessed/NA 4=Minimal Assistance 1=Total Assistance 5=Supervision or Setup 2=Maximal Assistance 6=Modified [place] 3=Moderate Assistance 7=Complete IndependenceIRFPAI Quality Coding Scale 6 Independent with activity with or without an assistive device 5 Patient requires set up or clean up by helper. Patient completes activity by themselves 4 Supervision or touching assist (CGA). [place] provide cues , steadying assist 3 The helper provides less than half the effort to complete the activity 2 The helper provides more than half the effort to complete the activity 1 Dependent. The helper does all the effort to complete an activity 7 Patient refused to complete or attempt activity 9 The patient did not perform the activity before the current illness or injury 88 Not attempted due to Medical conditions or safety concerns Scootin Sit to/from Stand: 5 Weight Bearing Weight Bearing Restriction: Full Weight Bearing Location Restriction: LE Bilateral Gait Training Does the Patient Walk?: Yes Distance (FIM): 3=150 ft Distance: 150' Gait Level of Assist: 5 Gait Persons Needed: 1 Gait Assistive Device: Walker 3 Wheeled Pt's gait is slow and guarded due to using a new device but pt is steady and no LOB. Exercises Seated Therapy Exercises: Ankle pumps, Long arc quads, Hip flexion, Kicking activity, Hip abd/add Seated Reps: 15 Standing: Hip Abduction, Heel/toe raises, Marching, Mini squats Standing Reps: 15 NuStep Minutes: 12 NuStep Workload: 5 Treatments Pt requested resecuring washcloths on hand rests of FWW since they were loose. PT also completed pt education and discussion of stairs at home only having 1 handrail and step sequencing as well as pt's expectation for what she wants to do upon discharging home. Pt transfers from W/C in room using FWW at [facility]. Pt ambulates to Therapy Gym using FWW at [facility]. Pt transfers to [facility] and uses for 12m at Workload 5. Pt then transfers to chair to rest before completing seated EX. Pt takes short rest then transfers to standing at //bars for standing EX. Pt then ambulates to laundry room with 3WW at SBA. Pt returns to room to rest in W/C and order breakfast with all needs met at end of tx. Assessment Current Status: Good Progress Pt is improving in strength and independence of transfers and mobility. Pt has progressed to 3WW and is walking well despite being a little nervous. PT Short Term Goals Short Term Goals Time Frame: Apr 05, 2016 Transfers (B,C,W/C) (FIM): 56 Gait (FIM): 2 (met 03/30/16) Gait Distance Comment: 50' Gait Level of Assist: 5 (met 03/30/16) Gait Assistive Device: FWW Wheelchair Distance: 150'x2 PT Jail Goals Jail Goals PT Jail Goals Time Frame: Apr 19, 2016 Transfers (B,C,W/C) (FIM): 6 Sit to Lying (QC): 6 Lying-Sitting on Side/Bed(QC): 6 Sit to Stand (QC): 6 Rollin Roll Left to Right (QC): 6 Chair/Dzz-cr-Akeih Xfer(QC): 6 Car Transfer (QC): 4 Does the Patient Walk: Yes Gait (FIM): 5 Distance: 200' Walk 10 feet (QC): 4 Walk 10ft-Uneven Surface(QC): 4 Walk 50ft with 2 Turns (QC): 4 Walk 150 ft (QC): 4 Gait Level of Assist: 5 Gait Assistive Device: FWW Does the Pt use WC or Scooter?: No Stairs (FIM): 2 # of Steps: 4 1 Step (curb) (QC): 4 4 Steps (QC): 4 12 Steps (QC): 88 Stairs Level Of Assist: 4 Picking up an Object (QC): 88 PT Plan Problem List Problem List: Activity Tolerance, Functional Strength, Gait Treatment/Plan Treatment Plan: Continue Plan of Care Treatment Plan: Bed Mobility, Education, Functional Activity Dia, Functional Strength, Group Therapy, Gait, Safety, Therapeutic Exercise, Transfers Treatment Duration: Apr 19, 2016 Visits Per Week: 10-11 Minutes/Day (M-F): 60-90 Minutes/Day (Sat/Beltran): 15-30 Safety Risks/Education Patient Education: Gait Training, Transfer Techniques, Steps, Correct Positioning, Safety Issues Teaching Recipient: Patient Teaching Methods: Discussion Response to Teaching: Verbalize Understanding Time/GCodes Time In: 830 Time Out: 930 Total Billed Treatment Time: 60 Total Billed Treatment visit, FA (15m), GT (15m) & EX X2 (30m) CB ARANDA COMPUTER SYSTEMS SUPPORT SPECIALIST Apr 12, 2016 09:44
--- NOTE | 2016-04-12 13:42 | Physical Therapy Daily Note ---
PT Daily Note-Current Subjective Pt sitting up in bed upon arrival. Pt reports feeling pretty good this afternoon and would like to walk outside for tx. Pt agrees to PT. Pain Location: No Pain Reported Mental Status Patient Orientation: Person, Place, Time, Situation Transfers Functional [place] Measure 0=Not Assessed/NA 4=Minimal Assistance 1=Total Assistance 5=Supervision or Setup 2=Maximal Assistance 6=Modified [place] 3=Moderate Assistance 7=Complete IndependenceIRFPAI Quality Coding Scale 6 Independent with activity with or without an assistive device 5 Patient requires set up or clean up by helper. Patient completes activity by themselves 4 Supervision or touching assist (CGA). [place] provide cues , steadying assist 3 The helper provides less than half the effort to complete the activity 2 The helper provides more than half the effort to complete the activity 1 Dependent. The helper does all the effort to complete an activity 7 Patient refused to complete or attempt activity 9 The patient did not perform the activity before the current illness or injury 88 Not attempted due to Medical conditions or safety concerns Scootin Sit to/from Stand: 5 Bed to/from Chair: 5 Weight Bearing Weight Bearing Restriction: Full Weight Bearing Location Restriction: LE Bilateral Gait Training Does the Patient Walk?: Yes Distance (FIM): 3=150 ft Distance: 300' Walk 10 feet (QC): 5 Walk 50 ft with 2 Turns(QC): 5 Walk 150 ft (QC): 5 Walking 10ft on uneven surface: 5 Gait Level of Assist: 5 Gait Persons Needed: 1 Gait Assistive Device: Walker 3 Wheeled Pt able to ambulate farther than this morning due to using 3WW instead of FWW. Pt reports it is easier to use. Pt walks slow but steady with no LOB. Wheelchair Training Does the Pt Use a Wheelchair?: Yes Wheelchair Distance: 3=150 ft Distance: 500' Wheelchair Level of Assist: 6 Wheel 50 ft with 2 turns (QC): 6 Wheel 150 ft (QC): 6 Type of Wheelchair: Manual Pt fatigues especially with using LE to propel self so needs short rest break to help. Stair Training Stair Training: Handrails/: 1 handrail #of Steps: 3 1 Step (curb) (QC): 4 Stairs: Pattern: Step to Level of Assist: 4 Pt practices stairs outside in hospital garden area and only uses 1 hand rail because pt reports only having 1 rail at home. Treatments Pt transfers from sitting in bed to standing using 3WW at SBA then to W/C at A. Pt propels self to elevator to go to hospital [place] for practice with walking on uneven surfaces as well as stairs. Pt ambulated through garden on sidewalk, on varying surfaces several times, ramp and stairs once. Pt then transferred back to W/C to rest before propelling self back to elevator and back to room for restroom break before wheeling to Therapy Gym for OT. Pt was left with OT with all needs met at end of tx. Assessment Current Status: Good Progress Pt reported feeling much better in the fresh air and more comfortable walking with 3WW than even the FWW. Pt reports feeling less fatigued and able to walk farther since not putting as much pressure through arms while ambulating. PT Short Term Goals Short Term Goals Time Frame: Apr 05, 2016 Transfers (B,C,W/C) (FIM): 56 Gait (FIM): 2 (met 03/30/16) Gait Distance Comment: 50' Gait Level of Assist: 5 (met 03/30/16) Gait Assistive Device: FWW Wheelchair Distance: 150'x2 PT Talent Coordinator Goals Talent Coordinator Goals PT Talent Coordinator Goals Time Frame: Apr 19, 2016 Transfers (B,C,W/C) (FIM): 6 Sit to Lying (QC): 6 Lying-Sitting on Side/Bed(QC): 6 Sit to Stand (QC): 6 Rollin Roll Left to Right (QC): 6 Chair/Kem-sc-Pwwdy Xfer(QC): 6 Car Transfer (QC): 4 Does the Patient Walk: Yes Gait (FIM): 5 Distance: 200' Walk 10 feet (QC): 4 Walk 10ft-Uneven Surface(QC): 4 Walk 50ft with 2 Turns (QC): 4 Walk 150 ft (QC): 4 Gait Level of Assist: 5 Gait Assistive Device: FWW Does the Pt use WC or Scooter?: No Stairs (FIM): 2 # of Steps: 4 1 Step (curb) (QC): 4 4 Steps (QC): 4 12 Steps (QC): 88 Stairs Level Of Assist: 4 Picking up an Object (QC): 88 PT Plan Problem List Problem List: Activity Tolerance, Functional Strength, Gait Treatment/Plan Treatment Plan: Continue Plan of Care Treatment Plan: Bed Mobility, Education, Functional Activity Dia, Functional Strength, Group Therapy, Gait, Safety, Therapeutic Exercise, Transfers Treatment Duration: Apr 19, 2016 Visits Per Week: 10-11 Minutes/Day (M-F): 60-90 Minutes/Day (Sat/Beltran): 15-30 Safety Risks/Education Patient Education: Gait Training, Transfer Techniques, Correct Positioning, Safety Issues Teaching Recipient: Patient Teaching Methods: Discussion Response to Teaching: Verbalize Understanding Time/GCodes Time In: 1300 Time Out: 1330 Total Billed Treatment Time: 30 Total Billed Treatment visit, GT (15m) & WC (15m) CB ARANDA HASH SLINGER Apr 12, 2016 13:42
--- NOTE | 2016-04-12 14:17 | Occupational Ther Daily Note ---
OT Current Status-Daily Note Subjective Pt finishing up with PT. Pt agreed to therapy. OT took over care of pt. Pt c/ o fatigue and back hurting, did not rate. Mental Status/Objective Patient Orientation: Person, Place, Time, Situation Functional [place] Measure 0=Not Assessed/NA 4=Minimal Assistance 1=Total Assistance 5=Supervision or Setup 2=Maximal Assistance 6=Modified [place] 3=Moderate Assistance 7=Complete [place] ADL-Treatment Functional [place] Measure 0=Not Assessed/NA 4=Minimal Assistance 1=Total Assistance 5=Supervision or Setup 2=Maximal Assistance 6=Modified [place] 3=Moderate Assistance 7=Complete IndependenceIRFPAI Quality Coding Scale 6 Independent with activity with or without an assistive device 5 Patient requires set up or clean up by helper. Patient completes activity by themselves 4 Supervision or touching assist (CGA). [place] provide cues , steadying assist 3 The helper provides less than half the effort to complete the activity 2 The helper provides more than half the effort to complete the activity 1 Dependent. The helper does all the effort to complete an activity 7 Patient refused to complete or attempt activity 9 The patient did not perform the activity before the current illness or injury 88 Not attempted due to Medical conditions or safety concerns Other Treatment Paraffin bath to B hands. Pt tolerated well. Wax on for 20 min with plastic wrap and towel wrap. Discussed DME with pt for tub transfers and how to complete transfers safely. Pt able to complete functional grasp task without pain. Pt transferred from w/c to bed by self. After therapy, pt lying in bed with call light/phone in reach. OT Short Term Goals Short Term Goals Time Frame: Apr 05, 2016 Eating(FIM): 7 Grooming(FIM): 6 Bathing(FIM): 5 Upper Body Dressing(FIM): 6 Lower Body Dressing(FIM): 6 Toileting(FIM): 6 Transfers (B,C,W/C) (FIM): 56 Toilet/Commode Transfer(FIM): 6 Shower Transfer(FIM): 5 Additional Short Term Goals: 1-Demonstrate ADL Tasks, 2-Verbalize Understanding , 3-ImproveStrength/Dia 1=Demonstrate adherence to instructed precautions during ADL tasks. 2=Patient will verbalize/demonstrate understanding of assistive devices/ modifications for ADL. 3=Patient will improve strength/tolerance for activity to enable patient to perform ADL's. OT Jail Goals Jail Goals Time Frame: Apr 12, 2016 Eating (FIM): 6 (met-04/12/16) Eating (QC): 6 Oral Hygiene (QC): 6 Grooming(FIM): 6 (met-04/12/16) Bathing(FIM): 5 (met-04/12/16) Shower/Bathe Self (QC): 5 Upper Body Dressing(FIM): 6 (met-04/12/16) Upper Body Dressing (QC): 6 Lower Body Dressing(FIM): 6 (met-04/12/16) Lower Body Dressing (QC): 6 On/Off Footwear (QC): 6 (met-04/12/16) Toileting(FIM): 6 (met-04/12/16) Toileting Hygiene (QC): 6 Transfers (B,C,W/C) (FIM): 6 (met-04/12/16) Toilet/Commode Transfer(FIM): 6 (met-04/12/16) Toilet/Commode Transfer (QC): 6 Shower Transfer(FIM): 5 Additional Goals: 1-Demonstrate ADL Tasks, 2-Verbalize Understanding, 3- ImproveStrength/Dia 1=Demonstrate adherence to instructed precautions during ADL tasks. 2=Patient will verbalize/demonstrate understanding of assistive devices/ modifications for ADL. 3=Patient will improve strength/tolerance for activity to enable patient to perform ADL's. OT Education/Plan Discharge Recommendations Plan/Recommendations: Continue POC Treatment Plan/Plan of Care Patient would benefit from OT for education, treatment and training to promote independence in ADL's, mobility, safety and/or upper extremity function for ADL' s. Plan of Care: ADL Retraining, Functional Mobility, UE Funct Exercise/Act Treatment Duration: Apr 12, 2016 Visits Per Week: 10-12 Minutes/Day (M-F): 60-90 Minutes/Day (Sat/Beltran): 15-30 Agreement: Yes Rehab Potential: Fair Time/GCodes Start Time: 13:30 Stop Time: 14:00 Total Time Billed (hr/min): 30 Billed Treatment Time 1 visit-FA 2 (30 min) SAAD PEREZ Apr 12, 2016 14:16
[2016-04-12 18:00] VITALS: BP 132/84
[2016-04-12] MEDS: SERTRALINE 100 MG (ZOLOFT) TAB PO SCH (21:17)
[2016-04-12] MEDS: ZOLPIDEM 5 MG (AMBIEN) TAB PO PRN (21:17)
[2016-04-12] MEDS: diphenhydrAMINE 25 MG TAB (BENADRYL) PO SCH (21:18)
[2016-04-13 06:00] VITALS: BP 123/81
[2016-04-13] MEDS: predniSONE 10 MG TAB PO SCH (06:06)
[2016-04-13] MEDS: HYDROcodone/APAP 10 MG/325 MG (LORTAB) TAB PO PRN ×4 (06:06→22:24)
[2016-04-13] MEDS: KCL 20 MEQ TAB (K-DUR) PO SCH (06:06)
[2016-04-13] MEDS: DICLOFENAC 1% GEL 100 GM (VOLTAREN) TUBE TOP SCH ×4 (08:06→20:51)
[2016-04-13] MEDS: PREGABALIN 100 MG (LYRICA) CAPSULE PO SCH ×3 (08:06→20:49)
[2016-04-13] MEDS: APIXABAN 5 MG (ELIQUIS) TABLET PO SCH ×2 (08:07→20:49)
[2016-04-13] MEDS: FUROSEMIDE 40 MG (LASIX) TAB PO SCH (08:07)
[2016-04-13] MEDS: DOCUSATE SODIUM 100 MG (COLACE) CAP PO SCH ×2 (08:07→20:50)
[2016-04-13] MEDS: ASPIRIN E.C. 81 MG (ECOTRIN) TAB PO SCH (08:07)
[2016-04-13] MEDS: cloNIDine 0.2 MG (CATAPRES) TAB PO SCH ×3 (08:07→20:49)
[2016-04-13] MEDS: amLODIPine 10 MG (NORVASC) TAB PO SCH (08:07)
[2016-04-13] MEDS: MAGNESIUM OXIDE (MAG-OX)400 MG TAB PO SCH (08:07)
[2016-04-13] MEDS: PANTOPRAZOLE 20 MG TABLET (PROTONIX) PO SCH ×2 (08:07→20:49)
--- NOTE | 2016-04-13 10:42 | Occupational Ther Daily Note ---
OT Current Status-Daily Note Subjective Pt alert, sitting up in bed eating breakfast. Pt agreed to therapy. Pt stated that her legs hurt, but it was from walking the day before. Mental Status/Objective Patient Orientation: Person, Place, Time, Situation Functional [place] Measure 0=Not Assessed/NA 4=Minimal Assistance 1=Total Assistance 5=Supervision or Setup 2=Maximal Assistance 6=Modified [place] 3=Moderate Assistance 7=Complete [place] ADL-Treatment Functional [place] Measure 0=Not Assessed/NA 4=Minimal Assistance 1=Total Assistance 5=Supervision or Setup 2=Maximal Assistance 6=Modified [place] 3=Moderate Assistance 7=Complete IndependenceIRFPAI Quality Coding Scale 6 Independent with activity with or without an assistive device 5 Patient requires set up or clean up by helper. Patient completes activity by themselves 4 Supervision or touching assist (CGA). [place] provide cues , steadying assist 3 The helper provides less than half the effort to complete the activity 2 The helper provides more than half the effort to complete the activity 1 Dependent. The helper does all the effort to complete an activity 7 Patient refused to complete or attempt activity 9 The patient did not perform the activity before the current illness or injury 88 Not attempted due to Medical conditions or safety concerns Pt completed a tub transfer using vertical grabbar at edge of tub then stepped in with close SBA. Pt demonstrated no LOB and was able to lift both LE into/ out of tub without catching foot on tub ledge. Other Treatment Pt maneuvered w/c to therapy gym. Pt completed arm bike 15 min at 10 hays resistance without breaks and using both hands to increase strength and activity tolerance for daily functional tasks. Cross friction massage to elbows and wrists to decrease inflammation and swelling. Pt has demonstrated a decrease in swelling and has improved with activity tolerance for daily functional tasks. After therapy, transferred back to bed by self. Call light/ phone in reach. All needs met in room. Education OT Patient Education: Safety issues, Transfer techniques Teaching Recipient: Patient Teaching Methods: Demonstration Response to Teaching: Return Demonstration OT Short Term Goals Short Term Goals Time Frame: Apr 05, 2016 Eating(FIM): 7 Grooming(FIM): 6 Bathing(FIM): 5 Upper Body Dressing(FIM): 6 Lower Body Dressing(FIM): 6 Toileting(FIM): 6 Transfers (B,C,W/C) (FIM): 56 Toilet/Commode Transfer(FIM): 6 Shower Transfer(FIM): 5 Additional Short Term Goals: 1-Demonstrate ADL Tasks, 2-Verbalize Understanding , 3-ImproveStrength/Dia 1=Demonstrate adherence to instructed precautions during ADL tasks. 2=Patient will verbalize/demonstrate understanding of assistive devices/ modifications for ADL. 3=Patient will improve strength/tolerance for activity to enable patient to perform ADL's. OT Fire Prevention Inspector Goals Fire Prevention Inspector Goals Time Frame: Apr 12, 2016 Eating (FIM): 6 (met-04/12/16) Eating (QC): 6 Oral Hygiene (QC): 6 Grooming(FIM): 6 (met-04/12/16) Bathing(FIM): 5 (met-04/12/16) Shower/Bathe Self (QC): 5 Upper Body Dressing(FIM): 6 (met-04/12/16) Upper Body Dressing (QC): 6 Lower Body Dressing(FIM): 6 (met-04/12/16) Lower Body Dressing (QC): 6 On/Off Footwear (QC): 6 (met-04/12/16) Toileting(FIM): 6 (met-04/12/16) Toileting Hygiene (QC): 6 Transfers (B,C,W/C) (FIM): 6 (met-04/12/16) Toilet/Commode Transfer(FIM): 6 (met-04/12/16) Toilet/Commode Transfer (QC): 6 Shower Transfer(FIM): 5 Additional Goals: 1-Demonstrate ADL Tasks, 2-Verbalize Understanding, 3- ImproveStrength/Dia 1=Demonstrate adherence to instructed precautions during ADL tasks. 2=Patient will verbalize/demonstrate understanding of assistive devices/ modifications for ADL. 3=Patient will improve strength/tolerance for activity to enable patient to perform ADL's. OT Education/Plan Discharge Recommendations Plan/Recommendations: Continue POC Treatment Plan/Plan of Care Patient would benefit from OT for education, treatment and training to promote independence in ADL's, mobility, safety and/or upper extremity function for ADL' s. Plan of Care: ADL Retraining, Functional Mobility, UE Funct Exercise/Act Treatment Duration: Apr 12, 2016 Visits Per Week: 10-12 Minutes/Day (M-F): 60-90 Minutes/Day (Sat/Beltran): 15-30 Agreement: Yes Rehab Potential: Fair Time/GCodes Start Time: 07:00 Stop Time: 08:00 Total Time Billed (hr/min): 60 Billed Treatment Time 1 visit-EX 2 (30 min) FA 2 (30 min) SAAD PEREZ Apr 13, 2016 10:42
--- NOTE | 2016-04-13 11:44 | Physical Therapy Daily Note ---
PT Daily Note-Current Subjective Pt sitting in W/C in hallway coloring upon arrival. Pt reports has had a slight headache and back of both knees are a little tight/sore today. Pt also feeling a little more tired than normal. Pt agrees to PT. Pain Numeric Pain Scale: 6 Location: Right, Left, Dorsal Location Body Site: Knee Pain Description: Ache, Tightness Mental Status Patient Orientation: Person, Place, Time, Situation Transfers Functional [place] Measure 0=Not Assessed/NA 4=Minimal Assistance 1=Total Assistance 5=Supervision or Setup 2=Maximal Assistance 6=Modified [place] 3=Moderate Assistance 7=Complete IndependenceIRFPAI Quality Coding Scale 6 Independent with activity with or without an assistive device 5 Patient requires set up or clean up by helper. Patient completes activity by themselves 4 Supervision or touching assist (CGA). [place] provide cues , steadying assist 3 The helper provides less than half the effort to complete the activity 2 The helper provides more than half the effort to complete the activity 1 Dependent. The helper does all the effort to complete an activity 7 Patient refused to complete or attempt activity 9 The patient did not perform the activity before the current illness or injury 88 Not attempted due to Medical conditions or safety concerns Scootin Rollin Supine to/from Sit: 6 Sit to/from Stand: 5 Bed to/from Chair: 5 Weight Bearing Weight Bearing Restriction: Full Weight Bearing Location Restriction: LE Bilateral Gait Training Does the Patient Walk?: Yes Distance (FIM): 3=150 ft Distance: 300' Walk 10 feet (QC): 5 Walk 50 ft with 2 Turns(QC): 5 Walk 150 ft (QC): 5 Gait Level of Assist: 5 Gait Persons Needed: 1 Gait Assistive Device: Walker 3 Wheeled Pt has a slow gait pattern and walks slightly stiff today due to pain in back of B knees. Wheelchair Training Does the Pt Use a Wheelchair?: Yes Wheelchair Distance: 3=150 ft Distance: 250' Wheelchair Level of Assist: 6 Wheel 50 ft with 2 turns (QC): 6 Wheel 150 ft (QC): 6 Type of Wheelchair: Manual Exercises Seated Therapy Exercises: Ankle pumps, Long arc quads, Hip flexion, Kicking activity, Hip abd/add Seated Reps: 15 NuStep Minutes: 15 NuStep Workload: 5 Treatments Pt propelled self in hallway to Therapy Gym in W/C at Mod I. Pt then transferred to NuStep w/o AD at [facility]. Pt used NuStep for 15m at Workload 5. Pt took short rest break before transferring to standing at [facility]. Pt ambulated in hallway using 3WW at A with W/C following for fatigue. Pt ambulated approx. 150' before sitting to rest in W/C then propelled W/C another 100' before ambulating another 150' to [facility]. Pt rested again in W/C before completing seated EX and returning to room for supine in bed at end of tx. Pt is left with all needs met at end of tx. Assessment Current Status: Good Progress Pt is getting stronger and more independent with transfers and mobility. Pt fatigues and needs rest breaks but quickly recovers. Pt is fighting a headache as well as pain/tightness in backs of both knees. PT Short Term Goals Short Term Goals Time Frame: Apr 05, 2016 Transfers (B,C,W/C) (FIM): 56 Gait (FIM): 2 (met 03/30/16) Gait Distance Comment: 50' Gait Level of Assist: 5 (met 03/30/16) Gait Assistive Device: FWW Wheelchair Distance: 500' PT Program Director/Music Director Goals Program Director/Music Director Goals PT Program Director/Music Director Goals Time Frame: Apr 19, 2016 Transfers (B,C,W/C) (FIM): 6 Sit to Lying (QC): 6 Lying-Sitting on Side/Bed(QC): 6 Sit to Stand (QC): 6 Rollin Roll Left to Right (QC): 6 Chair/Mtp-mb-Zsbyd Xfer(QC): 6 Car Transfer (QC): 4 Does the Patient Walk: Yes Gait (FIM): 5 Distance: 200' Walk 10 feet (QC): 4 Walk 10ft-Uneven Surface(QC): 4 Walk 50ft with 2 Turns (QC): 4 Walk 150 ft (QC): 4 Gait Level of Assist: 5 Gait Assistive Device: FWW Does the Pt use WC or Scooter?: No Stairs (FIM): 2 # of Steps: 4 1 Step (curb) (QC): 4 4 Steps (QC): 4 12 Steps (QC): 88 Stairs Level Of Assist: 4 Picking up an Object (QC): 88 PT Plan Problem List Problem List: Activity Tolerance, Functional Strength, Gait Treatment/Plan Treatment Plan: Continue Plan of Care Treatment Plan: Bed Mobility, Education, Functional Activity Dia, Functional Strength, Group Therapy, Gait, Safety, Therapeutic Exercise, Transfers Treatment Duration: Apr 19, 2016 Visits Per Week: 10-11 Minutes/Day (M-F): 60-90 Minutes/Day (Sat/Beltran): 15-30 Safety Risks/Education Patient Education: Gait Training, Transfer Techniques, Correct Positioning, Safety Issues Teaching Recipient: Patient Teaching Methods: Discussion Response to Teaching: Verbalize Understanding Time/GCodes Time In: 1030 Time Out: 1130 Total Billed Treatment Time: 60 Total Billed Treatment visit, EX X2 (30m), FA (15m) & GT (15m) CB ARANDA FORENSIC BALLISTICS EXPERT Apr 13, 2016 11:44
--- NOTE | 2016-04-13 12:43 | Occupational Ther Daily Note ---
OT Current Status-Daily Note Subjective Pt lying in bed. Pt stated that she was starting a migraine and the sides of her back hurt. Ice packs placed at the sides and room was dimmed and temperature was dropped, per pt request. Mental Status/Objective Patient Orientation: Person, Place, Time, Situation Functional [place] Measure 0=Not Assessed/NA 4=Minimal Assistance 1=Total Assistance 5=Supervision or Setup 2=Maximal Assistance 6=Modified [place] 3=Moderate Assistance 7=Complete [place] ADL-Treatment Functional [place] Measure 0=Not Assessed/NA 4=Minimal Assistance 1=Total Assistance 5=Supervision or Setup 2=Maximal Assistance 6=Modified [place] 3=Moderate Assistance 7=Complete IndependenceIRFPAI Quality Coding Scale 6 Independent with activity with or without an assistive device 5 Patient requires set up or clean up by helper. Patient completes activity by themselves 4 Supervision or touching assist (CGA). [place] provide cues , steadying assist 3 The helper provides less than half the effort to complete the activity 2 The helper provides more than half the effort to complete the activity 1 Dependent. The helper does all the effort to complete an activity 7 Patient refused to complete or attempt activity 9 The patient did not perform the activity before the current illness or injury 88 Not attempted due to Medical conditions or safety concerns Other Treatment Completed paraffin bath for B hands. 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 Pt tolerated paraffin, wrapped in plastic and towel for 20 min then taken off. Pt lying in bed with arms resting on pillows. After therapy, pt in bed with call light/phone in reach. All needs met in room. OT Short Term Goals Short Term Goals Time Frame: Apr 05, 2016 Eating(FIM): 7 Grooming(FIM): 6 Bathing(FIM): 5 Upper Body Dressing(FIM): 6 Lower Body Dressing(FIM): 6 Toileting(FIM): 6 Transfers (B,C,W/C) (FIM): 56 Toilet/Commode Transfer(FIM): 6 Shower Transfer(FIM): 5 Additional Short Term Goals: 1-Demonstrate ADL Tasks, 2-Verbalize Understanding , 3-ImproveStrength/Dia 1=Demonstrate adherence to instructed precautions during ADL tasks. 2=Patient will verbalize/demonstrate understanding of assistive devices/ modifications for ADL. 3=Patient will improve strength/tolerance for activity to enable patient to perform ADL's. OT Instructional Technology Coordinator Goals Half-Way Goals Time Frame: Apr 12, 2016 Eating (FIM): 6 (met-04/12/16) Eating (QC): 6 Oral Hygiene (QC): 6 Grooming(FIM): 6 (met-04/12/16) Bathing(FIM): 5 (met-04/12/16) Shower/Bathe Self (QC): 5 Upper Body Dressing(FIM): 6 (met-04/12/16) Upper Body Dressing (QC): 6 Lower Body Dressing(FIM): 6 (met-04/12/16) Lower Body Dressing (QC): 6 On/Off Footwear (QC): 6 (met-04/12/16) Toileting(FIM): 6 (met-04/12/16) Toileting Hygiene (QC): 6 Transfers (B,C,W/C) (FIM): 6 (met-04/12/16) Toilet/Commode Transfer(FIM): 6 (met-04/12/16) Toilet/Commode Transfer (QC): 6 Shower Transfer(FIM): 5 Additional Goals: 1-Demonstrate ADL Tasks, 2-Verbalize Understanding, 3- ImproveStrength/Ida 1=Demonstrate adherence to instructed precautions during ADL tasks. 2=Patient will verbalize/demonstrate understanding of assistive devices/ modifications for ADL. 3=Patient will improve strength/tolerance for activity to enable patient to perform ADL's. OT Education/Plan Discharge Recommendations Plan/Recommendations: Continue POC Treatment Plan/Plan of Care Patient would benefit from OT for education, treatment and training to promote independence in ADL's, mobility, safety and/or upper extremity function for ADL' s. Plan of Care: ADL Retraining, Functional Mobility, UE Funct Exercise/Act Treatment Duration: Apr 12, 2016 Visits Per Week: 10-12 Minutes/Day (M-F): 60-90 Minutes/Day (Sat/Beltran): 15-30 Agreement: Yes Rehab Potential: Fair Time/GCodes Start Time: 11:30 Stop Time: 12:00 Total Time Billed (hr/min): 30 Billed Treatment Time 1 visit-FA 2 (30 min) SAAD PEREZ Apr 13, 2016 12:43
--- NOTE | 2016-04-13 14:00 | Physical Therapy Daily Note ---
PT Daily Note-Current Subjective Pt sitting up in bed upon arrival. Pt reports having less pain in both head and back of legs when compared to this morning. Pt agrees to PT. Pain Numeric Pain Scale: 4 Location: Dorsal Location Body Site: Knee Pain Description: Ache Mental Status Patient Orientation: Person, Place, Time, Situation Transfers Functional [place] Measure 0=Not Assessed/NA 4=Minimal Assistance 1=Total Assistance 5=Supervision or Setup 2=Maximal Assistance 6=Modified [place] 3=Moderate Assistance 7=Complete IndependenceIRFPAI Quality Coding Scale 6 Independent with activity with or without an assistive device 5 Patient requires set up or clean up by helper. Patient completes activity by themselves 4 Supervision or touching assist (CGA). [place] provide cues , steadying assist 3 The helper provides less than half the effort to complete the activity 2 The helper provides more than half the effort to complete the activity 1 Dependent. The helper does all the effort to complete an activity 7 Patient refused to complete or attempt activity 9 The patient did not perform the activity before the current illness or injury 88 Not attempted due to Medical conditions or safety concerns Scootin Rollin Supine to/from Sit: 6 Sit to/from Stand: 5 Bed to/from Chair: 5 Weight Bearing Weight Bearing Restriction: Full Weight Bearing Location Restriction: LE Bilateral Gait Training Does the Patient Walk?: Yes Distance (FIM): 3=150 ft Distance: 250' Gait Level of Assist: 5 Gait Persons Needed: 1 Gait Assistive Device: Walker 3 Wheeled Pt's gait is slow but steady and no LOB. Pt ambulates better with her shoes on. Wheelchair Training Does the Pt Use a Wheelchair?: Yes Wheelchair Distance: 3=150 ft Distance: 200' Wheelchair Level of Assist: 6 Wheel 50 ft with 2 turns (QC): 6 Wheel 150 ft (QC): 6 Type of Wheelchair: Manual Exercises Seated Therapy Exercises: Ankle pumps, Long arc quads, Hip flexion, Kicking activity, Hip abd/add Seated Reps: 15 Treatments Pt completed seated EX in W/C in room. Pt then transferred from W/C to standing using 3WW at SBA. Pt ambulated in hallway using 3WW at SBA with W/C following for fatigue. Pt returned to room to rest in bed at end of tx with all needs met. Assessment Current Status: Good Progress Pt continues to get better with transfers and mobility but does better when she walks with her shoes on. PT Short Term Goals Short Term Goals Time Frame: Apr 05, 2016 Transfers (B,C,W/C) (FIM): 56 Gait (FIM): 2 (met 03/30/16) Gait Distance Comment: 50' Gait Level of Assist: 5 (met 03/30/16) Gait Assistive Device: FWW Wheelchair Distance: 250' PT Retirement Goals Retirement Goals PT Car Wash Attendant Goals Time Frame: Apr 19, 2016 Transfers (B,C,W/C) (FIM): 6 Sit to Lying (QC): 6 Lying-Sitting on Side/Bed(QC): 6 Sit to Stand (QC): 6 Rollin Roll Left to Right (QC): 6 Chair/Ewe-bo-Xtvxl Xfer(QC): 6 Car Transfer (QC): 4 Does the Patient Walk: Yes Gait (FIM): 5 Distance: 200' Walk 10 feet (QC): 4 Walk 10ft-Uneven Surface(QC): 4 Walk 50ft with 2 Turns (QC): 4 Walk 150 ft (QC): 4 Gait Level of Assist: 5 Gait Assistive Device: FWW Does the Pt use WC or Scooter?: No Stairs (FIM): 2 # of Steps: 4 1 Step (curb) (QC): 4 4 Steps (QC): 4 12 Steps (QC): 88 Stairs Level Of Assist: 4 Picking up an Object (QC): 88 PT Plan Problem List Problem List: Activity Tolerance, Functional Strength, Gait Treatment/Plan Treatment Plan: Continue Plan of Care Treatment Plan: Bed Mobility, Education, Functional Activity Dia, Functional Strength, Group Therapy, Gait, Safety, Therapeutic Exercise, Transfers Treatment Duration: Apr 19, 2016 Visits Per Week: 10-11 Minutes/Day (M-F): 60-90 Minutes/Day (Sat/Beltran): 15-30 Safety Risks/Education Patient Education: Gait Training, Correct Positioning, Safety Issues Teaching Recipient: Patient Teaching Methods: Discussion Response to Teaching: Verbalize Understanding Time/GCodes Time In: 1300 Time Out: 1330 Total Billed Treatment Time: 30 Total Billed Treatment visit, EX (15m) & GT (15m) CB ARANDA PTA Apr 13, 2016 14:00
[2016-04-13 18:56] VITALS: BP 128/84
[2016-04-13] MEDS: diphenhydrAMINE 25 MG TAB (BENADRYL) PO SCH (20:49)
[2016-04-13] MEDS: SERTRALINE 100 MG (ZOLOFT) TAB PO SCH (20:50)
[2016-04-13] MEDS: ZOLPIDEM 5 MG (AMBIEN) TAB PO PRN (22:24)
[2016-04-14] MEDS: HYDROcodone/APAP 10 MG/325 MG (LORTAB) TAB PO PRN ×4 (04:08→22:20)
[2016-04-14 05:49] VITALS: BP 104/67
[2016-04-14] MEDS: predniSONE 10 MG TAB PO SCH (06:04)
[2016-04-14] MEDS: KCL 20 MEQ TAB (K-DUR) PO SCH (06:04)
[2016-04-14] MEDS: ANTACID SUSP 30 ML UDC (MYLANTA) PO PRN (06:31)
[2016-04-14] MEDS: PREGABALIN 100 MG (LYRICA) CAPSULE PO SCH ×3 (08:00→20:46)
[2016-04-14] MEDS: ASPIRIN E.C. 81 MG (ECOTRIN) TAB PO SCH (08:01)
[2016-04-14] MEDS: MAGNESIUM OXIDE (MAG-OX)400 MG TAB PO SCH (08:01)
[2016-04-14] MEDS: cloNIDine 0.2 MG (CATAPRES) TAB PO SCH ×3 (08:01→20:47)
[2016-04-14] MEDS: PANTOPRAZOLE 20 MG TABLET (PROTONIX) PO SCH ×2 (08:01→20:47)
[2016-04-14] MEDS: APIXABAN 5 MG (ELIQUIS) TABLET PO SCH ×2 (08:01→20:46)
[2016-04-14] MEDS: amLODIPine 10 MG (NORVASC) TAB PO SCH (08:01)
[2016-04-14] MEDS: DOCUSATE SODIUM 100 MG (COLACE) CAP PO SCH ×2 (08:01→20:46)
[2016-04-14] MEDS: FUROSEMIDE 40 MG (LASIX) TAB PO SCH (08:01)
[2016-04-14] MEDS: DICLOFENAC 1% GEL 100 GM (VOLTAREN) TUBE TOP SCH ×4 (08:02→20:47)
--- NOTE | 2016-04-14 09:01 | PM & R (SOAP) Progress Note ---
Subjective Subjective/Events-last exam Patient was seen in her room this AM Patient sba for transfers.Overall doing better,Strength and function improving Objective Exam Last Set of Vital Signs Vital Signs Date Time Temp Pulse Resp B/P Pulse Ox O2 Delivery O2 Flow Rate FiO2 04/14/16 08:08 Room Air 04/14/16 05:49 97.1 94 18 104/67 96 Capillary Refill : I&O Intake and Output 04/14/16 00:00 Intake Total 1450 ml Balance 1450 ml Intake Oral 1450 ml # Voids 11 # Bowel Movements 1 General: Alert, Oriented X3, Cooperative, No Acute Distress HEENT: Atraumatic, PERRLA, EOMI, Mucous Memb Moist/[place] Neck: Supple, No JVD Lungs: Clear to Auscultation Heart: Regular Rate Abdomen: Normal Bowel Sounds, Soft, No Tenderness Extremities: Other (Has tenderness over ulnar course left elbow with mild tenderness left wrist) Neuro: Other (fairly diffuse weakness) Psych/Mental Status: Other (anxious at times) Assessment/Plan Assessment Diffuse weakness seconday to PMR on steroids-improving Chronic pain managed by [facility] on LOrtab HX Pulm embolism HX Breat ca s/p mastectectomy being followed by Dr Cartagena [facility] Left wrist and elbow pain-appears improved somewhat Plan Continue PT/OT/Pain management [facility] to see re chronic anxiety and pain-done DR Haskins et al On license of [facility] to see-done Appreciate Dr Villegas consult See orders re Paraffin baths and Voltaran gel for left arm pain EMG on an outpatient basis once patient has obtained some form of medical insurance Consider local injection for pain control with ortho or Pain Physician if needed on an outpatient basi Team Conference held 04/12/16-See report for full functional update and POC and ELOS. CHIN STEWART MD Apr 14, 2016 09:01
[2016-04-14] MEDS ORDERED: RT-ALBUTEROL/IPRATROPIUM 3 ML (DUONEB) VIAL INH PRN (09:30)
--- NOTE | 2016-04-14 09:55 | Occupational Ther Daily Note ---
OT Current Status-Daily Note Subjective Pt alert, lying in bed. Pt stated that she had already taken shower early am. No c/o pain just couldn't sleep well last night. Pt agreed to therapy. Mental Status/Objective Patient Orientation: Person, Place, Time, Situation Functional [place] Measure 0=Not Assessed/NA 4=Minimal Assistance 1=Total Assistance 5=Supervision or Setup 2=Maximal Assistance 6=Modified [place] 3=Moderate Assistance 7=Complete [place] ADL-Treatment Pt states that when she takes shower, nrsg brings towels/wash clothes then supervises when she transfers into shower then completes bathing by self. Pt ambulates with 3WW into bathroom to transfer onto toilet and complete own toileting then ambulates to sink to wash and complete grooming by self. Functional [place] Measure 0=Not Assessed/NA 4=Minimal Assistance 1=Total Assistance 5=Supervision or Setup 2=Maximal Assistance 6=Modified [place] 3=Moderate Assistance 7=Complete IndependenceIRFPAI Quality Coding Scale 6 Independent with activity with or without an assistive device 5 Patient requires set up or clean up by helper. Patient completes activity by themselves 4 Supervision or touching assist (CGA). [place] provide cues , steadying assist 3 The helper provides less than half the effort to complete the activity 2 The helper provides more than half the effort to complete the activity 1 Dependent. The helper does all the effort to complete an activity 7 Patient refused to complete or attempt activity 9 The patient did not perform the activity before the current illness or injury 88 Not attempted due to Medical conditions or safety concerns On/Off Footwear (QC): 6 (pt dons/doffs footwear by self.) Toileting (FIM): 6 Transfers (B, C, W/C) (FIM): 6 Toilet/Commode Transfer (FIM): 6 Toilet Transfer (QC): 6 Other Treatment Pt ambulated in therapy gym with FWW. Then pt completed arm bike 15 min at 10 hays resistance to increase strength and activity tolerance for daily functional tasks. Pt took 2 rest breaks and took L UE off bike while continuing to use R UE 2x's. Pt then completed resistive clothespin activity, used all resistances with R UE and light resistances with L UE. Pt then ambulated back to room with 3WW and was able to get back into bed by self. After therapy, pt lying in bed with call light/phone in reach. All needs met in room. OT Short Term Goals Short Term Goals Time Frame: Apr 05, 2016 Eating(FIM): 7 Grooming(FIM): 6 Bathing(FIM): 5 Upper Body Dressing(FIM): 6 Lower Body Dressing(FIM): 6 Toileting(FIM): 6 Transfers (B,C,W/C) (FIM): 56 Toilet/Commode Transfer(FIM): 6 Shower Transfer(FIM): 5 Additional Short Term Goals: 1-Demonstrate ADL Tasks, 2-Verbalize Understanding , 3-ImproveStrength/Dia 1=Demonstrate adherence to instructed precautions during ADL tasks. 2=Patient will verbalize/demonstrate understanding of assistive devices/ modifications for ADL. 3=Patient will improve strength/tolerance for activity to enable patient to perform ADL's. OT Nursing Home Goals Director Of [employer] Goals Time Frame: Apr 12, 2016 Eating (FIM): 6 (met-04/12/16) Eating (QC): 6 Oral Hygiene (QC): 6 Grooming(FIM): 6 (met-04/12/16) Bathing(FIM): 5 (met-04/12/16) Shower/Bathe Self (QC): 5 Upper Body Dressing(FIM): 6 (met-04/12/16) Upper Body Dressing (QC): 6 Lower Body Dressing(FIM): 6 (met-04/12/16) Lower Body Dressing (QC): 6 On/Off Footwear (QC): 6 (met-04/12/16) Toileting(FIM): 6 (met-04/12/16) Toileting Hygiene (QC): 6 Transfers (B,C,W/C) (FIM): 6 (met-04/12/16) Toilet/Commode Transfer(FIM): 6 (met-04/12/16) Toilet/Commode Transfer (QC): 6 Shower Transfer(FIM): 5 Additional Goals: 1-Demonstrate ADL Tasks, 2-Verbalize Understanding, 3- ImproveStrength/Dia 1=Demonstrate adherence to instructed precautions during ADL tasks. 2=Patient will verbalize/demonstrate understanding of assistive devices/ modifications for ADL. 3=Patient will improve strength/tolerance for activity to enable patient to perform ADL's. OT Education/Plan Discharge Recommendations Plan/Recommendations: Continue POC Treatment Plan/Plan of Care Patient would benefit from OT for education, treatment and training to promote independence in ADL's, mobility, safety and/or upper extremity function for ADL' s. Plan of Care: ADL Retraining, Functional Mobility, UE Funct Exercise/Act Treatment Duration: Apr 12, 2016 Visits Per Week: 10-12 Minutes/Day (M-F): 60-90 Minutes/Day (Sat/Beltran): 15-30 Agreement: Yes Rehab Potential: Fair Time/GCodes Start Time: 09:00 Stop Time: 10:00 Total Time Billed (hr/min): 60 Billed Treatment Time 1 visit-EX 4 (60 min) SAAD PEREZ Apr 14, 2016 09:55
--- NOTE | 2016-04-14 11:26 | Physical Therapy Daily Note ---
PT Daily Note-Current Subjective Pt. states she has been wanting to go to the Hospital 1st floor in whchair to browse and to see the chapel but it has never worked out. Requests to do this today. Pt. emotional at one point and shared that her son took his own life after serving in [employer]. Pt. states that she is having much less pain in her arms after OT Rxs and is now walking with less wt bearing on walker and that also helps Pain Numeric Pain Scale: 0-No Pain Mental Status Patient Orientation: Normal For Age Transfers Functional [place] Measure 0=Not Assessed/NA 4=Minimal Assistance 1=Total Assistance 5=Supervision or Setup 2=Maximal Assistance 6=Modified [place] 3=Moderate Assistance 7=Complete IndependenceIRFPAI Quality Coding Scale 6 Independent with activity with or without an assistive device 5 Patient requires set up or clean up by helper. Patient completes activity by themselves 4 Supervision or touching assist (CGA). [place] provide cues , steadying assist 3 The helper provides less than half the effort to complete the activity 2 The helper provides more than half the effort to complete the activity 1 Dependent. The helper does all the effort to complete an activity 7 Patient refused to complete or attempt activity 9 The patient did not perform the activity before the current illness or injury 88 Not attempted due to Medical conditions or safety concerns Transfers (B, C, W/C) (FIM): 6 Scootin Rollin Roll Left to Right (QC): 6 Supine to/from Sit: 6 Sit to/from Stand: 6 Sit to Lying (QC): 6 Sit to Stand (QC): 6 Chair/Wzr-ej-Ayqvy Xfer(QC): 6 Bed to/from Chair: 6 Gait Training Does the Patient Walk?: Yes Gait (FIM): 6 Distance (FIM): 3=150 ft (200x2,100) Walk 10 feet (QC): 6 Walk 50 ft with 2 Turns(QC): 6 Walk 150 ft (QC): 6 Walking 10ft on uneven surface: 6 Gait Level of Assist: 6 Gait Persons Needed: 0 Gait Assistive Device: Walker 3 Wheeled Wheelchair Training Does the Pt Use a Wheelchair?: Yes Wheelchair (FIM): 5 Wheelchair Distance: 3=150 ft (500plus) Wheelchair Level of Assist: 5 pt. needs skilled verbal instruction to take wider turns as she runs in to [employer] work, edges etc from cutting too short Stair Training Stair Training: Handrails/: uses walker Stairs (FIM): 2 #of Steps: 4 Stairs: Pattern: Step to Level of Assist: 4 pink step Exercises Seated Therapy Exercises: Ankle pumps, Sit to stand, Long arc quads, Hip abd/ add Seated Reps: 15 Assessment Current Status: Good Progress less pain in UEs, further more indep gait dist PT Short Term Goals Short Term Goals Time Frame: Apr 05, 2016 Transfers (B,C,W/C) (FIM): 56 Gait (FIM): 2 (met 03/30/16) Gait Distance Comment: 50' Gait Level of Assist: 5 (met 03/30/16) Gait Assistive Device: FWW Wheelchair Distance: 200' PT Flatwork Catcher Goals Mcfp Goals PT Mcfp Goals Time Frame: Apr 19, 2016 Transfers (B,C,W/C) (FIM): 6 Sit to Lying (QC): 6 Lying-Sitting on Side/Bed(QC): 6 Sit to Stand (QC): 6 Rollin Roll Left to Right (QC): 6 Chair/Luo-ke-Yeozg Xfer(QC): 6 Car Transfer (QC): 4 Does the Patient Walk: Yes Gait (FIM): 5 Distance: 200' Walk 10 feet (QC): 4 Walk 10ft-Uneven Surface(QC): 4 Walk 50ft with 2 Turns (QC): 4 Walk 150 ft (QC): 4 Gait Level of Assist: 5 Gait Assistive Device: FWW Does the Pt use WC or Scooter?: No Stairs (FIM): 2 # of Steps: 4 1 Step (curb) (QC): 4 4 Steps (QC): 4 12 Steps (QC): 88 Stairs Level Of Assist: 4 Picking up an Object (QC): 88 PT Plan Treatment/Plan Treatment Plan: Continue Plan of Care Treatment Plan: Bed Mobility, Education, Functional Activity Dia, Functional Strength, Group Therapy, Gait, Safety, Therapeutic Exercise, Transfers Treatment Duration: Apr 19, 2016 Visits Per Week: 10-11 Minutes/Day (M-F): 60-90 Minutes/Day (Sat/Beltran): 15-30 Safety Risks/Education Patient Education: Gait Training, Transfer Techniques, Steps Teaching Recipient: Patient Teaching Methods: Demonstration, Discussion Response to Teaching: Verbalize Understanding, Return Demonstration, Reinforcement Needed Time/GCodes Time In: 1030 Time Out: 1130 Total Billed Treatment Time: 60 Total Billed Treatment 1,EX15m,WHC25m,GT20m G Codes Necessary: MARION Chowdary DRUM TESTER Apr 14, 2016 11:26
--- NOTE | 2016-04-14 14:56 | Therapy Group Daily Note ---
Therapy Daily Group Note Patient Education Topic Home Safety Exercises Fine Motor, UE Exercise Other/Notes Pt required encouragement to come to OT/PT lunch group. Pt actively participated in group. Group consisted of introductions (name, place living, worst thing to happen to your house), socialization, discussions about home safety during power outages and winter storms. Pt came up with ideas for what to do if this happened to her. Pt demonstrated ability to set self up for eating and feed self with regular utensils. After group, pt ambulated back to room and laid down in bed with call light/phone in reach. All needs met in room. Start Time: 12:00 Stop Time: 13:00 Total Billed Treatment Time: 60 Total Billed Treatment 1-GRP SAAD PEREZ Apr 14, 2016 14:55
[2016-04-14 18:32] VITALS: BP 148/87
[2016-04-14] MEDS: diphenhydrAMINE 25 MG TAB (BENADRYL) PO SCH (20:45)
[2016-04-14] MEDS: SERTRALINE 100 MG (ZOLOFT) TAB PO SCH (20:47)
[2016-04-14] MEDS: RT-ALBUTEROL/IPRATROPIUM 3 ML (DUONEB) VIAL INH SCH (21:00)
[2016-04-14] MEDS: ZOLPIDEM 5 MG (AMBIEN) TAB PO PRN (22:20)
[2016-04-15 06:00] VITALS: BP 137/74
[2016-04-15] MEDS: predniSONE 10 MG TAB PO SCH (06:20)
[2016-04-15] MEDS: HYDROcodone/APAP 10 MG/325 MG (LORTAB) TAB PO PRN ×4 (06:20→21:16)
[2016-04-15] MEDS: KCL 20 MEQ TAB (K-DUR) PO SCH (06:20)
[2016-04-15] MEDS: DOCUSATE SODIUM 100 MG (COLACE) CAP PO SCH ×2 (08:54→21:25)
[2016-04-15] MEDS: APIXABAN 5 MG (ELIQUIS) TABLET PO SCH ×2 (08:54→21:24)
[2016-04-15] MEDS: MAGNESIUM OXIDE (MAG-OX)400 MG TAB PO SCH (08:54)
[2016-04-15] MEDS: cloNIDine 0.2 MG (CATAPRES) TAB PO SCH ×3 (08:54→21:24)
[2016-04-15] MEDS: PREGABALIN 100 MG (LYRICA) CAPSULE PO SCH ×3 (08:54→21:24)
[2016-04-15] MEDS: ASPIRIN E.C. 81 MG (ECOTRIN) TAB PO SCH (08:54)
[2016-04-15] MEDS: FUROSEMIDE 40 MG (LASIX) TAB PO SCH (08:54)
[2016-04-15] MEDS: PANTOPRAZOLE 20 MG TABLET (PROTONIX) PO SCH ×2 (08:55→21:24)
[2016-04-15] MEDS: amLODIPine 10 MG (NORVASC) TAB PO SCH (08:55)
[2016-04-15] MEDS: DICLOFENAC 1% GEL 100 GM (VOLTAREN) TUBE TOP SCH ×4 (08:55→21:25)
--- NOTE | 2016-04-15 11:05 | Physical Therapy Daily Note ---
PT Daily Note-Current Subjective Pt. agrees to Rx. Asks if she can be up ad thelma about the unit and hospital. This CAN CLEANER suggests she have escort Pain Numeric Pain Scale: 0-No Pain Mental Status Patient Orientation: Normal For Age Transfers Functional [place] Measure 0=Not Assessed/NA 4=Minimal Assistance 1=Total Assistance 5=Supervision or Setup 2=Maximal Assistance 6=Modified [place] 3=Moderate Assistance 7=Complete IndependenceIRFPAI Quality Coding Scale 6 Independent with activity with or without an assistive device 5 Patient requires set up or clean up by helper. Patient completes activity by themselves 4 Supervision or touching assist (CGA). [place] provide cues , steadying assist 3 The helper provides less than half the effort to complete the activity 2 The helper provides more than half the effort to complete the activity 1 Dependent. The helper does all the effort to complete an activity 7 Patient refused to complete or attempt activity 9 The patient did not perform the activity before the current illness or injury 88 Not attempted due to Medical conditions or safety concerns Transfers (B, C, W/C) (FIM): 6 Scootin Rollin Supine to/from Sit: 6 Sit to/from Stand: 6 Bed to/from Chair: 5 Gait Training Does the Patient Walk?: Yes Gait (FIM): 5 Distance (FIM): 3=150 ft (165x2) Gait Level of Assist: 5 Gait Persons Needed: 1 Gait Assistive Device: Walker 3 Wheeled Exercises NuStep Minutes: 10 NuStep Workload: 3 Assessment Current Status: Good Progress PT Short Term Goals Short Term Goals Time Frame: Apr 05, 2016 Transfers (B,C,W/C) (FIM): 56 Gait (FIM): 2 (met 03/30/16) Gait Distance Comment: 50' Gait Level of Assist: 5 (met 03/30/16) Gait Assistive Device: FWW Wheelchair Distance: 200' PT Senior Care Goals Senior Care Goals PT Senior Care Goals Time Frame: Apr 19, 2016 Transfers (B,C,W/C) (FIM): 6 Sit to Lying (QC): 6 Lying-Sitting on Side/Bed(QC): 6 Sit to Stand (QC): 6 Rollin Roll Left to Right (QC): 6 Chair/Jir-no-Esyat Xfer(QC): 6 Car Transfer (QC): 4 Does the Patient Walk: Yes Gait (FIM): 5 Distance: 200' Walk 10 feet (QC): 4 Walk 10ft-Uneven Surface(QC): 4 Walk 50ft with 2 Turns (QC): 4 Walk 150 ft (QC): 4 Gait Level of Assist: 5 Gait Assistive Device: FWW Does the Pt use WC or Scooter?: No Stairs (FIM): 2 # of Steps: 4 1 Step (curb) (QC): 4 4 Steps (QC): 4 12 Steps (QC): 88 Stairs Level Of Assist: 4 Picking up an Object (QC): 88 PT Plan Treatment/Plan Treatment Plan: Continue Plan of Care Treatment Plan: Bed Mobility, Education, Functional Activity Dia, Functional Strength, Group Therapy, Gait, Safety, Therapeutic Exercise, Transfers Treatment Duration: Apr 19, 2016 Visits Per Week: 10-11 Minutes/Day (M-F): 60-90 Minutes/Day (Sat/Beltran): 15-30 Safety Risks/Education Patient Education: Gait Training, Transfer Techniques, Correct Positioning Teaching Recipient: Patient Teaching Methods: Demonstration, Discussion Response to Teaching: Verbalize Understanding, Return Demonstration, Reinforcement Needed Time/GCodes Time In: 725 Time Out: 750 Total Billed Treatment Time: 25 Total Billed Treatment 1,FA15m,EX10m G Codes Necessary: MARION Chowdary PTA Apr 15, 2016 11:05
[2016-04-15 17:02] VITALS: BP 112/79
[2016-04-15] MEDS: SERTRALINE 100 MG (ZOLOFT) TAB PO SCH (21:24)
[2016-04-15] MEDS: diphenhydrAMINE 25 MG TAB (BENADRYL) PO SCH (21:24)
[2016-04-15 21:27] VITALS: BP 120/80
[2016-04-16 00:15] VITALS: BP 118/75
[2016-04-16 02:29] VITALS: BP 120/80
[2016-04-16] MEDS: HYDROcodone/APAP 10 MG/325 MG (LORTAB) TAB PO PRN ×4 (02:42→20:06)
[2016-04-16 04:41] VITALS: BP 108/66
[2016-04-16 07:03] VITALS: BP 106/68
[2016-04-16] MEDS: KCL 20 MEQ TAB (K-DUR) PO SCH (07:07)
[2016-04-16] MEDS: predniSONE 10 MG TAB PO SCH (07:07)
[2016-04-16] MEDS: PREGABALIN 100 MG (LYRICA) CAPSULE PO SCH ×3 (08:14→20:05)
[2016-04-16] MEDS: ASPIRIN E.C. 81 MG (ECOTRIN) TAB PO SCH (08:14)
[2016-04-16] MEDS: APIXABAN 5 MG (ELIQUIS) TABLET PO SCH ×2 (08:14→20:06)
[2016-04-16] MEDS: DOCUSATE SODIUM 100 MG (COLACE) CAP PO SCH ×2 (08:15→20:06)
[2016-04-16] MEDS: MAGNESIUM OXIDE (MAG-OX)400 MG TAB PO SCH (08:15)
[2016-04-16] MEDS: FUROSEMIDE 40 MG (LASIX) TAB PO SCH (08:15)
[2016-04-16] MEDS: cloNIDine 0.2 MG (CATAPRES) TAB PO SCH ×3 (08:15→20:06)
[2016-04-16] MEDS: PANTOPRAZOLE 20 MG TABLET (PROTONIX) PO SCH ×2 (08:15→20:06)
[2016-04-16] MEDS: amLODIPine 10 MG (NORVASC) TAB PO SCH (08:15)
[2016-04-16] MEDS: DICLOFENAC 1% GEL 100 GM (VOLTAREN) TUBE TOP SCH ×4 (08:15→20:07)
[2016-04-16] MEDS ORDERED: ACETAMINOPHEN 325 MG TABLET/CAPLET (TYLENOL) PO PRN (10:15)
[2016-04-16 18:14] VITALS: BP 123/77
[2016-04-16] MEDS: diphenhydrAMINE 25 MG TAB (BENADRYL) PO SCH (20:05)
[2016-04-16] MEDS: SERTRALINE 100 MG (ZOLOFT) TAB PO SCH (20:06)
[2016-04-16] MEDS: ZOLPIDEM 5 MG (AMBIEN) TAB PO PRN (20:06)
[2016-04-17] MEDS: KCL 20 MEQ TAB (K-DUR) PO SCH (06:11)
[2016-04-17] MEDS: predniSONE 10 MG TAB PO SCH (06:11)
[2016-04-17] MEDS: HYDROcodone/APAP 10 MG/325 MG (LORTAB) TAB PO PRN ×5 (06:12→22:23)
[2016-04-17 06:18] VITALS: BP 129/81
--- NOTE | 2016-04-17 08:36 | Physical Therapy Daily Note ---
PT Daily Note-Current Subjective Pt. states she is not sure about her DC plans but hopes to DC Wed. when her DIL is in [place] and could help her get home easier than her could. Pain Numeric Pain Scale: 0-No Pain Mental Status Patient Orientation: Normal For Age Transfers Functional [place] Measure 0=Not Assessed/NA 4=Minimal Assistance 1=Total Assistance 5=Supervision or Setup 2=Maximal Assistance 6=Modified [place] 3=Moderate Assistance 7=Complete IndependenceIRFPAI Quality Coding Scale 6 Independent with activity with or without an assistive device 5 Patient requires set up or clean up by helper. Patient completes activity by themselves 4 Supervision or touching assist (CGA). [place] provide cues , steadying assist 3 The helper provides less than half the effort to complete the activity 2 The helper provides more than half the effort to complete the activity 1 Dependent. The helper does all the effort to complete an activity 7 Patient refused to complete or attempt activity 9 The patient did not perform the activity before the current illness or injury 88 Not attempted due to Medical conditions or safety concerns Transfers (B, C, W/C) (FIM): 7 Scootin Rollin Roll Left to Right (QC): 6 Supine to/from Sit: 7 Sit to/from Stand: 7 Sit to Lying (QC): 6 Sit to Stand (QC): 6 Chair/Qra-hd-Iqtsl Xfer(QC): 6 Bed to/from Chair: 7 Gait Training Does the Patient Walk?: Yes Gait (FIM): 6 Distance (FIM): 3=150 ft (200x2) Walk 10 feet (QC): 6 Walk 50 ft with 2 Turns(QC): 6 Walk 150 ft (QC): 6 Walking 10ft on uneven surface: 6 Gait Level of Assist: 6 Gait Persons Needed: 0 Gait Assistive Device: Walker 3 Wheeled Stair Training Stair Training: Handrails/: 1 handrail Stairs (FIM): 5 #of Steps: 4 1 Step (curb) (QC): 6 4 Steps (QC): 5 Stairs: Pattern: Step to Level of Assist: 6 Balance Special Test Comments pt. declines this challenge stating she fears it is unsafe Exercises Supine Ex: Bridging, Ankle pumps, Pelvic tilt, Quad Set, Rolling, Glut sets, Lower trunk rotation, Heel Slides, Short Arc Quads, Scooting, Straight leg raise , Hip abd/add Supine Reps: 15 sidelying abduction bilat x15 NuStep Minutes: 12 NuStep Workload: 3 Assessment Current Status: Good Progress PT Short Term Goals Short Term Goals Time Frame: Apr 05, 2016 Transfers (B,C,W/C) (FIM): 56 Gait (FIM): 2 (met 03/30/16) Gait Distance Comment: 50' Gait Level of Assist: 5 (met 03/30/16) Gait Assistive Device: FWW Wheelchair Distance: 200' PT Senior Living Goals Senior Living Goals PT [employer] Goals Time Frame: Apr 19, 2016 Transfers (B,C,W/C) (FIM): 6 Sit to Lying (QC): 6 Lying-Sitting on Side/Bed(QC): 6 Sit to Stand (QC): 6 Rollin Roll Left to Right (QC): 6 Chair/Cgi-za-Hxbko Xfer(QC): 6 Car Transfer (QC): 4 Does the Patient Walk: Yes Gait (FIM): 5 Distance: 200' Walk 10 feet (QC): 4 Walk 10ft-Uneven Surface(QC): 4 Walk 50ft with 2 Turns (QC): 4 Walk 150 ft (QC): 4 Gait Level of Assist: 5 Gait Assistive Device: FWW Does the Pt use WC or Scooter?: No Stairs (FIM): 2 # of Steps: 4 1 Step (curb) (QC): 4 4 Steps (QC): 4 12 Steps (QC): 88 Stairs Level Of Assist: 4 Picking up an Object (QC): 88 PT Plan Treatment/Plan Treatment Plan: Continue Plan of Care Treatment Plan: Bed Mobility, Education, Functional Activity Dia, Functional Strength, Group Therapy, Gait, Safety, Therapeutic Exercise, Transfers Treatment Duration: Apr 19, 2016 Visits Per Week: 10-11 Minutes/Day (M-F): 60-90 Minutes/Day (Sat/Beltran): 15-30 Safety Risks/Education Patient Education: Gait Training, Transfer Techniques, Steps, Issued Written HEP, Correct Positioning Teaching Recipient: Patient Teaching Methods: Demonstration, Discussion Response to Teaching: Verbalize Understanding, Return Demonstration, Reinforcement Needed discussed open chest position and pecs stretches while pt in supine Time/GCodes Time In: 730 Time Out: 830 Total Billed Treatment Time: 60 Total Billed Treatment 1,EX30m,FA15m,GT15m G Codes Necessary: MARION Chowdary PROFESSOR OF NURSING Apr 17, 2016 08:36
--- NOTE | 2016-04-17 09:31 | Occupational Ther Daily Note ---
OT Current Status-Daily Note Subjective Pt alert, lying in bed. Pt agreed to therapy. No c/o pain at this time. Mental Status/Objective Patient Orientation: Person, Place, Time, Situation Functional [place] Measure 0=Not Assessed/NA 4=Minimal Assistance 1=Total Assistance 5=Supervision or Setup 2=Maximal Assistance 6=Modified [place] 3=Moderate Assistance 7=Complete [place] ADL-Treatment Functional [place] Measure 0=Not Assessed/NA 4=Minimal Assistance 1=Total Assistance 5=Supervision or Setup 2=Maximal Assistance 6=Modified [place] 3=Moderate Assistance 7=Complete IndependenceIRFPAI Quality Coding Scale 6 Independent with activity with or without an assistive device 5 Patient requires set up or clean up by helper. Patient completes activity by themselves 4 Supervision or touching assist (CGA). [place] provide cues , steadying assist 3 The helper provides less than half the effort to complete the activity 2 The helper provides more than half the effort to complete the activity 1 Dependent. The helper does all the effort to complete an activity 7 Patient refused to complete or attempt activity 9 The patient did not perform the activity before the current illness or injury 88 Not attempted due to Medical conditions or safety concerns Eating (FIM): 6 (Dentures. Pt is able to open packages/containers then feed self using regular utensils.) Eating (QC): 6 (Dentures. Pt is able to open packages/containers then feed self using regular utensils.) Grooming (FIM): 6 (Sitting at sink, pt is able to complete by self.) Oral Hygiene (QC): 6 (Sitting at sink, pt is able to complete by self.) Toileting Hygiene (QC): 6 (Using 3WW and grabbar, pt is able to complete by self.) Bathing (FIM): 6 (Using grabbars, bench and hand held shower pt is able to complete by self.) Upper Body (FIM): 6 (Using w/c, pt is able to retrieve clothing and don/doff by self.) Upper Body Dressing (QC): 6 (Using w/c, pt is able to retrieve clothing and don /doff by self.) Lower Body Dressing (FIM): 6 (Using w/c, pt is able to retrieve clothing and don/doff by self.) Lower Body Dressing (QC): 6 (Using w/c, pt is able to retrieve clothing and don /doff by self.) On/Off Footwear (QC): 6 (Pt able to don/doff footwear by self.) Toileting (FIM): 6 (Using 3WW and grabbar, pt is able to complete by self.) Transfers (B, C, W/C) (FIM): 6 (Using 3WW or w/c, pt is able to transfer by self.) Toilet/Commode Transfer (FIM): 6 (Using 3WW or w/c and grabbars, pt is able to transfer by self.) Toilet Transfer (QC): 6 (Using 3WW or w/c and grabbars, pt is able to transfer by self.) Shower Transfer(FIM): 6 (Using 3WW or w/c, bench and grabbars, pt is able to transfer by self.) Shower/Bathe Self (QC): 6 (Using grabbars, bench and hand held shower pt is able to complete by self.) Other Treatment Pt maneuvered w/c to therapy gym by self. Completed arm bike 15 min at 10 hays resistance (3 breaks) to increase strength and endurance for daily functional tasks. After therapy, pt lying in bed with call light/phone within reach. All needs met in room. OT Short Term Goals Short Term Goals Time Frame: Apr 05, 2016 Eating(FIM): 7 Grooming(FIM): 6 (met-04/17/16) Bathing(FIM): 5 (met-04/17/16) Upper Body Dressing(FIM): 6 (met-04/17/16) Lower Body Dressing(FIM): 6 (met-04/17/16) Toileting(FIM): 6 (met-04/17/16) Transfers (B,C,W/C) (FIM): 6 (met-04/17/16) Toilet/Commode Transfer(FIM): 6 (met-04/17/16) Shower Transfer(FIM): 5 (met-04/17/16) Additional Short Term Goals: 1-Demonstrate ADL Tasks, 2-Verbalize Understanding , 3-ImproveStrength/Dia 1=Demonstrate adherence to instructed precautions during ADL tasks. 2=Patient will verbalize/demonstrate understanding of assistive devices/ modifications for ADL. 3=Patient will improve strength/tolerance for activity to enable patient to perform ADL's. OT [employer] Goals [employer] Goals Time Frame: Apr 12, 2016 Eating (FIM): 6 (met-04/12/16) Eating (QC): 6 (met-04/17/16) Oral Hygiene (QC): 6 (met-04/17/16) Grooming(FIM): 6 (met-04/12/16) Bathing(FIM): 5 (met-04/12/16) Shower/Bathe Self (QC): 5 (met-04/17/16) Upper Body Dressing(FIM): 6 (met-04/12/16) Upper Body Dressing (QC): 6 (met-04/17/16) Lower Body Dressing(FIM): 6 (met-04/12/16) Lower Body Dressing (QC): 6 (met-04/17/16) On/Off Footwear (QC): 6 (met-04/12/16) Toileting(FIM): 6 (met-04/12/16) Toileting Hygiene (QC): 6 (met-04/17/16) Transfers (B,C,W/C) (FIM): 6 (met-04/12/16) Toilet/Commode Transfer(FIM): 6 (met-04/12/16) Toilet/Commode Transfer (QC): 6 (met-04/17/16) Shower Transfer(FIM): 5 (met-04/17/16) Additional Goals: 1-Demonstrate ADL Tasks, 2-Verbalize Understanding, 3- ImproveStrength/Dia 1=Demonstrate adherence to instructed precautions during ADL tasks. 2=Patient will verbalize/demonstrate understanding of assistive devices/ modifications for ADL. 3=Patient will improve strength/tolerance for activity to enable patient to perform ADL's. OT Education/Plan Discharge Recommendations Plan/Recommendations: Continue POC Treatment Plan/Plan of Care Patient would benefit from OT for education, treatment and training to promote independence in ADL's, mobility, safety and/or upper extremity function for ADL' s. Plan of Care: ADL Retraining, Functional Mobility, UE Funct Exercise/Act Treatment Duration: Apr 12, 2016 Visits Per Week: 10-12 Minutes/Day (M-F): 60-90 Minutes/Day (Sat/Beltran): 15-30 Agreement: Yes Rehab Potential: Fair Time/GCodes Start Time: 09:00 Stop Time: 10:00 Total Time Billed (hr/min): 60 Billed Treatment Time 1 visit-ADL 2 (35 min) EX 2 (25 min) SAAD PEREZ Apr 17, 2016 09:31
[2016-04-17] MEDS: DOCUSATE SODIUM 100 MG (COLACE) CAP PO SCH ×2 (09:52→20:08)
[2016-04-17] MEDS: DICLOFENAC 1% GEL 100 GM (VOLTAREN) TUBE TOP SCH ×4 (09:52→20:12)
[2016-04-17] MEDS: amLODIPine 10 MG (NORVASC) TAB PO SCH (09:53)
[2016-04-17] MEDS: PANTOPRAZOLE 20 MG TABLET (PROTONIX) PO SCH ×2 (09:53→20:08)
[2016-04-17] MEDS: APIXABAN 5 MG (ELIQUIS) TABLET PO SCH ×2 (09:53→20:08)
[2016-04-17] MEDS: MAGNESIUM OXIDE (MAG-OX)400 MG TAB PO SCH (09:53)
[2016-04-17] MEDS: cloNIDine 0.2 MG (CATAPRES) TAB PO SCH ×3 (09:53→20:08)
[2016-04-17] MEDS: FUROSEMIDE 40 MG (LASIX) TAB PO SCH (09:53)
[2016-04-17] MEDS: PREGABALIN 100 MG (LYRICA) CAPSULE PO SCH ×3 (09:53→20:08)
[2016-04-17] MEDS: ASPIRIN E.C. 81 MG (ECOTRIN) TAB PO SCH (09:57)
--- NOTE | 2016-04-17 13:12 | Physical Therapy Daily Note ---
PT Daily Note-Current Subjective Pt. agrees to Rx. Pain Numeric Pain Scale: 0-No Pain Mental Status Patient Orientation: Normal For Age Transfers Functional [place] Measure 0=Not Assessed/NA 4=Minimal Assistance 1=Total Assistance 5=Supervision or Setup 2=Maximal Assistance 6=Modified [place] 3=Moderate Assistance 7=Complete IndependenceIRFPAI Quality Coding Scale 6 Independent with activity with or without an assistive device 5 Patient requires set up or clean up by helper. Patient completes activity by themselves 4 Supervision or touching assist (CGA). [place] provide cues , steadying assist 3 The helper provides less than half the effort to complete the activity 2 The helper provides more than half the effort to complete the activity 1 Dependent. The helper does all the effort to complete an activity 7 Patient refused to complete or attempt activity 9 The patient did not perform the activity before the current illness or injury 88 Not attempted due to Medical conditions or safety concerns all TRFs bed and chair indep Gait Training Gait Assistive Device: Walker 3 Wheeled 250ft,100ft indep observed, no LOB up adlib status now Exercises Standing: Hip Abduction, Hamstring curls, Heel/toe raises, Marching, Mini squats, Sit to Stand Standing Reps: 15 Assessment Current Status: Good Progress PT Short Term Goals Short Term Goals Time Frame: Apr 05, 2016 Transfers (B,C,W/C) (FIM): 6 Gait (FIM): 2 (met 03/30/16) Gait Distance Comment: 50' Gait Level of Assist: 5 (met 03/30/16) Gait Assistive Device: FWW Wheelchair Distance: 200' PT Format Proofreader Goals Intermediate Goals PT Intermediate Goals Time Frame: Apr 19, 2016 Transfers (B,C,W/C) (FIM): 6 Sit to Lying (QC): 6 Lying-Sitting on Side/Bed(QC): 6 Sit to Stand (QC): 6 Rollin Roll Left to Right (QC): 6 Chair/Pgz-fn-Ecsqx Xfer(QC): 6 Car Transfer (QC): 4 Does the Patient Walk: Yes Gait (FIM): 5 Distance: 200' Walk 10 feet (QC): 4 Walk 10ft-Uneven Surface(QC): 4 Walk 50ft with 2 Turns (QC): 4 Walk 150 ft (QC): 4 Gait Level of Assist: 5 Gait Assistive Device: FWW Does the Pt use WC or Scooter?: No Stairs (FIM): 2 # of Steps: 4 1 Step (curb) (QC): 4 4 Steps (QC): 4 12 Steps (QC): 88 Stairs Level Of Assist: 4 Picking up an Object (QC): 88 PT Plan Treatment/Plan Treatment Plan: Continue Plan of Care Treatment Plan: Bed Mobility, Education, Functional Activity Dia, Functional Strength, Group Therapy, Gait, Safety, Therapeutic Exercise, Transfers Treatment Duration: Apr 19, 2016 Visits Per Week: 10-11 Minutes/Day (M-F): 60-90 Minutes/Day (Sat/Beltran): 15-30 Safety Risks/Education Patient Education: Gait Training, Transfer Techniques, Issued Written HEP, Correct Positioning, Disease Process, Safety Issues Teaching Recipient: Patient Teaching Methods: Demonstration, Discussion Response to Teaching: Verbalize Understanding, Return Demonstration, Reinforcement Needed Time/GCodes Time In: 1245 Time Out: 1315 Total Billed Treatment Time: 30 Total Billed Treatment 1,GT10m,EX20m G Codes Necessary: MARION Chowdary SQUARE CUTTER Apr 17, 2016 13:12
[2016-04-17 13:14] VITALS: BP 134/85
--- NOTE | 2016-04-17 14:31 | Occupational Ther Daily Note ---
OT Current Status-Daily Note Subjective Pt alert, lying in bed. Pt working on [employer]. Pt agreed to therapy. Pt c/o pain (09/09), nrsg notified and brought pain meds. Mental Status/Objective Patient Orientation: Person, Place, Time, Situation Functional [place] Measure 0=Not Assessed/NA 4=Minimal Assistance 1=Total Assistance 5=Supervision or Setup 2=Maximal Assistance 6=Modified [place] 3=Moderate Assistance 7=Complete [place] ADL-Treatment Functional [place] Measure 0=Not Assessed/NA 4=Minimal Assistance 1=Total Assistance 5=Supervision or Setup 2=Maximal Assistance 6=Modified [place] 3=Moderate Assistance 7=Complete IndependenceIRFPAI Quality Coding Scale 6 Independent with activity with or without an assistive device 5 Patient requires set up or clean up by helper. Patient completes activity by themselves 4 Supervision or touching assist (CGA). [place] provide cues , steadying assist 3 The helper provides less than half the effort to complete the activity 2 The helper provides more than half the effort to complete the activity 1 Dependent. The helper does all the effort to complete an activity 7 Patient refused to complete or attempt activity 9 The patient did not perform the activity before the current illness or injury 88 Not attempted due to Medical conditions or safety concerns Other Treatment Pt ambulated using 3WW to therapy gym. Paraffin bath completed to B hands to decrease pain and swelling. Also cross friction completed to B lateral and medial epicondyles to decrease inflammation and pain. Areas appear to have decreased in inflammation and per pt a decrease in pain. After therapy, pt sitting on EOB with call light/phone in reach. All needs met in room. OT Short Term Goals Short Term Goals Time Frame: Apr 05, 2016 Eating(FIM): 7 Grooming(FIM): 6 Bathing(FIM): 5 Upper Body Dressing(FIM): 6 Lower Body Dressing(FIM): 6 Toileting(FIM): 6 Transfers (B,C,W/C) (FIM): 6 Toilet/Commode Transfer(FIM): 6 Shower Transfer(FIM): 5 Additional Short Term Goals: 1-Demonstrate ADL Tasks, 2-Verbalize Understanding , 3-ImproveStrength/Dia 1=Demonstrate adherence to instructed precautions during ADL tasks. 2=Patient will verbalize/demonstrate understanding of assistive devices/ modifications for ADL. 3=Patient will improve strength/tolerance for activity to enable patient to perform ADL's. OT Usp Goals Usp Goals Time Frame: Apr 12, 2016 Eating (FIM): 6 (met-04/12/16) Eating (QC): 6 Oral Hygiene (QC): 6 Grooming(FIM): 6 (met-04/12/16) Bathing(FIM): 5 (met-04/12/16) Shower/Bathe Self (QC): 5 Upper Body Dressing(FIM): 6 Upper Body Dressing (QC): 6 Lower Body Dressing(FIM): 6 (met-04/12/16) Lower Body Dressing (QC): 6 On/Off Footwear (QC): 6 (met-04/12/16) Toileting(FIM): 6 (met-04/12/16) Toileting Hygiene (QC): 6 Transfers (B,C,W/C) (FIM): 6 (met-04/12/16) Toilet/Commode Transfer(FIM): 6 (met-04/12/16) Toilet/Commode Transfer (QC): 6 Shower Transfer(FIM): 5 Additional Goals: 1-Demonstrate ADL Tasks, 2-Verbalize Understanding, 3- ImproveStrength/Dia 1=Demonstrate adherence to instructed precautions during ADL tasks. 2=Patient will verbalize/demonstrate understanding of assistive devices/ modifications for ADL. 3=Patient will improve strength/tolerance for activity to enable patient to perform ADL's. OT Education/Plan Discharge Recommendations Plan/Recommendations: Continue POC Treatment Plan/Plan of Care Patient would benefit from OT for education, treatment and training to promote independence in ADL's, mobility, safety and/or upper extremity function for ADL' s. Plan of Care: ADL Retraining, Functional Mobility, UE Funct Exercise/Act Treatment Duration: Apr 12, 2016 Visits Per Week: 10-12 Minutes/Day (M-F): 60-90 Minutes/Day (Sat/Beltran): 15-30 Agreement: Yes Rehab Potential: Fair Time/GCodes Start Time: 13:50 Stop Time: 14:10 Total Time Billed (hr/min): 30 Billed Treatment Time 1 visit-FA 2 (30 min) SAAD PEREZ Apr 17, 2016 14:31
[2016-04-17] MEDS: IBUPROFEN 800 MG (MOTRIN) TAB PO PRN (16:25)
[2016-04-17 18:21] VITALS: BP 132/78
[2016-04-17] MEDS: diphenhydrAMINE 25 MG TAB (BENADRYL) PO SCH (20:08)
[2016-04-17] MEDS: SERTRALINE 100 MG (ZOLOFT) TAB PO SCH (20:10)
[2016-04-17] MEDS: ZOLPIDEM 5 MG (AMBIEN) TAB PO PRN (22:22)
[2016-04-18] MEDS: HYDROcodone/APAP 10 MG/325 MG (LORTAB) TAB PO PRN ×5 (04:59→22:31)
[2016-04-18 06:00] VITALS: BP 132/83
[2016-04-18] MEDS: KCL 20 MEQ TAB (K-DUR) PO SCH (06:06)
[2016-04-18] MEDS: predniSONE 10 MG TAB PO SCH (06:06)
--- NOTE | 2016-04-18 07:55 | Occupational Ther Daily Note ---
OT Current Status-Daily Note Subjective Pt alert, finishing breakfast in bed. Pt agreed to therapy. No c/o pain. Mental Status/Objective Patient Orientation: Person, Place, Time, Situation Functional [place] Measure 0=Not Assessed/NA 4=Minimal Assistance 1=Total Assistance 5=Supervision or Setup 2=Maximal Assistance 6=Modified [place] 3=Moderate Assistance 7=Complete [place] ADL-Treatment Functional [place] Measure 0=Not Assessed/NA 4=Minimal Assistance 1=Total Assistance 5=Supervision or Setup 2=Maximal Assistance 6=Modified [place] 3=Moderate Assistance 7=Complete IndependenceIRFPAI Quality Coding Scale 6 Independent with activity with or without an assistive device 5 Patient requires set up or clean up by helper. Patient completes activity by themselves 4 Supervision or touching assist (CGA). [place] provide cues , steadying assist 3 The helper provides less than half the effort to complete the activity 2 The helper provides more than half the effort to complete the activity 1 Dependent. The helper does all the effort to complete an activity 7 Patient refused to complete or attempt activity 9 The patient did not perform the activity before the current illness or injury 88 Not attempted due to Medical conditions or safety concerns On/Off Footwear (QC): 6 (Pt is able to don/doff socks and shoes sitting EOB.) Other Treatment Pt ambulated to therapy gym with 3WW. Completed arm bike 15 min at 15 hays resistance to increase strength and activity tolerance for daily functional tasks, no breaks and used B hands throughout exercises. Pt then completed resistive B UE exercises to strengthen UE and hands. Pt was able to complete each activity with B hands, did not c/o pain or numbness with activities. Pt ambulated to room and laid back in bed after therapy. Call light/phone in reach. All needs met in room. OT Short Term Goals Short Term Goals Time Frame: Apr 05, 2016 Eating(FIM): 7 Grooming(FIM): 6 Bathing(FIM): 5 Upper Body Dressing(FIM): 6 Lower Body Dressing(FIM): 6 Toileting(FIM): 6 Transfers (B,C,W/C) (FIM): 6 Toilet/Commode Transfer(FIM): 6 Shower Transfer(FIM): 5 Additional Short Term Goals: 1-Demonstrate ADL Tasks, 2-Verbalize Understanding , 3-ImproveStrength/Dia 1=Demonstrate adherence to instructed precautions during ADL tasks. 2=Patient will verbalize/demonstrate understanding of assistive devices/ modifications for ADL. 3=Patient will improve strength/tolerance for activity to enable patient to perform ADL's. OT Senior Care Goals Senior Care Goals Time Frame: Apr 12, 2016 Eating (FIM): 6 (met-04/12/16) Eating (QC): 6 Oral Hygiene (QC): 6 Grooming(FIM): 6 (met-04/12/16) Bathing(FIM): 5 (met-04/12/16) Shower/Bathe Self (QC): 5 Upper Body Dressing(FIM): 6 Upper Body Dressing (QC): 6 Lower Body Dressing(FIM): 6 (met-04/12/16) Lower Body Dressing (QC): 6 On/Off Footwear (QC): 6 (met-04/12/16) Toileting(FIM): 6 (met-04/12/16) Toileting Hygiene (QC): 6 Transfers (B,C,W/C) (FIM): 6 (met-04/12/16) Toilet/Commode Transfer(FIM): 6 (met-04/12/16) Toilet/Commode Transfer (QC): 6 Shower Transfer(FIM): 5 Additional Goals: 1-Demonstrate ADL Tasks, 2-Verbalize Understanding, 3- ImproveStrength/Dia 1=Demonstrate adherence to instructed precautions during ADL tasks. 2=Patient will verbalize/demonstrate understanding of assistive devices/ modifications for ADL. 3=Patient will improve strength/tolerance for activity to enable patient to perform ADL's. OT Education/Plan Discharge Recommendations Plan/Recommendations: Continue POC Treatment Plan/Plan of Care Patient would benefit from OT for education, treatment and training to promote independence in ADL's, mobility, safety and/or upper extremity function for ADL' s. Plan of Care: ADL Retraining, Functional Mobility, UE Funct Exercise/Act Treatment Duration: Apr 12, 2016 Visits Per Week: 10-12 Minutes/Day (M-F): 60-90 Minutes/Day (Sat/Beltran): 15-30 Agreement: Yes Rehab Potential: Fair Time/GCodes Start Time: 07:00 Stop Time: 08:00 Total Time Billed (hr/min): 60 Billed Treatment Time 1 visit-FA 1 (15 min) EX 3 (45 min) SAAD PEREZ Apr 18, 2016 07:55
--- NOTE | 2016-04-18 08:57 | Physical Therapy Daily Note ---
PT Daily Note-Current Subjective Patient in bed pre tx, agrees to PT, needs to partly get dressed, but does not need any assist for that. Pain Numeric Pain Scale: 4 Comment: back pain Appearance Patient BTB post tx with nurse call, phone, tray, all needs met. Mental Status Patient Orientation: Normal For Age Transfers Functional [place] Measure 0=Not Assessed/NA 4=Minimal Assistance 1=Total Assistance 5=Supervision or Setup 2=Maximal Assistance 6=Modified [place] 3=Moderate Assistance 7=Complete IndependenceIRFPAI Quality Coding Scale 6 Independent with activity with or without an assistive device 5 Patient requires set up or clean up by helper. Patient completes activity by themselves 4 Supervision or touching assist (CGA). [place] provide cues , steadying assist 3 The helper provides less than half the effort to complete the activity 2 The helper provides more than half the effort to complete the activity 1 Dependent. The helper does all the effort to complete an activity 7 Patient refused to complete or attempt activity 9 The patient did not perform the activity before the current illness or injury 88 Not attempted due to Medical conditions or safety concerns Transfers (B, C, W/C) (FIM): 6 Scootin Rollin Roll Left to Right (QC): 6 Supine to/from Sit: 6 Sit to/from Stand: 6 Sit to Lying (QC): 6 Sit to Stand (QC): 6 Patient transfers in a safe manner, appropriate hand placement Gait Training Does the Patient Walk?: Yes Gait (FIM): 6 Distance: 200'x3 Walk 10 feet (QC): 6 Walk 50 ft with 2 Turns(QC): 6 Walk 150 ft (QC): 6 Walking 10ft on uneven surface: 6 Gait Level of Assist: 6 Gait Assistive Device: Walker 3 Wheeled Patient fatigues quickly, 200' is about as far as she can go. Patient is able to ambulate with mod I 10' over an uneven surface like carpet and 50' with at least 2 turns of 90 degrees. Wheelchair Training Does the Pt Use a Wheelchair?: No Stair Training Stair Training: Handrails/: 1 handrail Stairs (FIM): 2 #of Steps: 8 1 Step (curb) (QC): 6 4 Steps (QC): 6 12 Steps (QC): 88 Stairs: Pattern: Step to Level of Assist: 6 Patient fatigues quickly and 8 steps is as much as she can do at this time. Balance Picking up an Object (QC): 88 Exercises NuStep Minutes: 15 NuStep Workload: 5 Treatments ambulation, bed mobility and transfers, functional strengthening, stair training Assessment Current Status: Fair Progress Patient has poor endurance. She needs a lot of time to recover from mild activity, she even had to rest several times while on the stepper. PT Short Term Goals Short Term Goals Time Frame: Apr 05, 2016 Transfers (B,C,W/C) (FIM): 6 Gait (FIM): 2 (met 03/30/16) Gait Distance Comment: 50' Gait Level of Assist: 5 (met 03/30/16) Gait Assistive Device: FWW Wheelchair Distance: 200' PT Sales Representative [employer] Goals Prison Goals PT Sales Representative [employer] Goals Time Frame: Apr 19, 2016 Transfers (B,C,W/C) (FIM): 6 Sit to Lying (QC): 6 Lying-Sitting on Side/Bed(QC): 6 Sit to Stand (QC): 6 Rollin Roll Left to Right (QC): 6 Chair/Ujl-bs-Oqlwn Xfer(QC): 6 Car Transfer (QC): 4 Does the Patient Walk: Yes Gait (FIM): 5 Distance: 200' Walk 10 feet (QC): 4 Walk 10ft-Uneven Surface(QC): 4 Walk 50ft with 2 Turns (QC): 4 Walk 150 ft (QC): 4 Gait Level of Assist: 5 Gait Assistive Device: FWW Does the Pt use WC or Scooter?: No Stairs (FIM): 2 # of Steps: 4 1 Step (curb) (QC): 4 4 Steps (QC): 4 12 Steps (QC): 88 Stairs Level Of Assist: 4 Picking up an Object (QC): 88 PT Plan Problem List Problem List: Activity Tolerance, Functional Strength, Safety, Balance, Gait, Transfer Treatment/Plan Treatment Plan: Continue Plan of Care Treatment Plan: Bed Mobility, Education, Functional Activity Dia, Functional Strength, Group Therapy, Gait, Safety, Therapeutic Exercise, Transfers Treatment Duration: Apr 19, 2016 Visits Per Week: 10-11 Minutes/Day (M-F): 60-90 Minutes/Day (Sat/Beltran): 15-30 Safety Risks/Education Patient Education: Gait Training, Transfer Techniques, Steps, Safety Issues Teaching Recipient: Patient Teaching Methods: Demonstration, Discussion Response to Teaching: Reinforcement Needed Time/GCodes Time In: 800 Time Out: 900 Total Billed Treatment Time: 60 Total Billed Treatment 1 visit EX 15 min FA 15 min GT 30 min MIYA RODRIGUEZ PT Apr 18, 2016 08:57
[2016-04-18] MEDS: cloNIDine 0.2 MG (CATAPRES) TAB PO SCH ×3 (08:58→21:34)
[2016-04-18] MEDS: FUROSEMIDE 40 MG (LASIX) TAB PO SCH (08:58)
[2016-04-18] MEDS: DOCUSATE SODIUM 100 MG (COLACE) CAP PO SCH ×2 (08:58→21:35)
[2016-04-18] MEDS: amLODIPine 10 MG (NORVASC) TAB PO SCH (08:58)
[2016-04-18] MEDS: PREGABALIN 100 MG (LYRICA) CAPSULE PO SCH ×3 (08:58→21:34)
[2016-04-18] MEDS: MAGNESIUM OXIDE (MAG-OX)400 MG TAB PO SCH (08:58)
[2016-04-18] MEDS: ASPIRIN E.C. 81 MG (ECOTRIN) TAB PO SCH (08:59)
[2016-04-18] MEDS: PANTOPRAZOLE 20 MG TABLET (PROTONIX) PO SCH ×2 (08:59→21:34)
[2016-04-18] MEDS: APIXABAN 5 MG (ELIQUIS) TABLET PO SCH ×2 (08:59→21:34)
[2016-04-18] MEDS: DICLOFENAC 1% GEL 100 GM (VOLTAREN) TUBE TOP SCH ×4 (09:00→21:35)
--- NOTE | 2016-04-18 10:43 | Occupational Ther Daily Note ---
OT Current Status-Daily Note Subjective Pt sleeping in bed, woke easily to name. Pt agreed to therapy. No c/o pain at this. Mental Status/Objective Functional [place] Measure 0=Not Assessed/NA 4=Minimal Assistance 1=Total Assistance 5=Supervision or Setup 2=Maximal Assistance 6=Modified [place] 3=Moderate Assistance 7=Complete [place] ADL-Treatment Pt able to ambulate with 3WW into bathroom and complete transfer and toileting by self. Then manipulated w/c to therapy gym by self. Functional [place] Measure 0=Not Assessed/NA 4=Minimal Assistance 1=Total Assistance 5=Supervision or Setup 2=Maximal Assistance 6=Modified [place] 3=Moderate Assistance 7=Complete IndependenceIRFPAI Quality Coding Scale 6 Independent with activity with or without an assistive device 5 Patient requires set up or clean up by helper. Patient completes activity by themselves 4 Supervision or touching assist (CGA). [place] provide cues , steadying assist 3 The helper provides less than half the effort to complete the activity 2 The helper provides more than half the effort to complete the activity 1 Dependent. The helper does all the effort to complete an activity 7 Patient refused to complete or attempt activity 9 The patient did not perform the activity before the current illness or injury 88 Not attempted due to Medical conditions or safety concerns Other Treatment Pt completed paraffin bath to B hands to decrease pain and inflammation. Pt has demonstrated a decrease in pain while gripping items in both hands and decrease numbness in B hands during activities. Cross friction to lateral and medial epicondyle to decrease pain and inflammation. Pt maneuvered w/c back to room then laid down in bed. Call light/phone in reach. All needs met in room. OT Short Term Goals Short Term Goals Time Frame: Apr 05, 2016 Eating(FIM): 7 Grooming(FIM): 6 Bathing(FIM): 5 Upper Body Dressing(FIM): 6 Lower Body Dressing(FIM): 6 Toileting(FIM): 6 Transfers (B,C,W/C) (FIM): 6 Toilet/Commode Transfer(FIM): 6 Shower Transfer(FIM): 5 Additional Short Term Goals: 1-Demonstrate ADL Tasks, 2-Verbalize Understanding , 3-ImproveStrength/Dia 1=Demonstrate adherence to instructed precautions during ADL tasks. 2=Patient will verbalize/demonstrate understanding of assistive devices/ modifications for ADL. 3=Patient will improve strength/tolerance for activity to enable patient to perform ADL's. OT Care Home Goals Care Home Goals Time Frame: Apr 12, 2016 Eating (FIM): 6 (met-04/12/16) Eating (QC): 6 Oral Hygiene (QC): 6 Grooming(FIM): 6 (met-04/12/16) Bathing(FIM): 5 (met-04/12/16) Shower/Bathe Self (QC): 5 Upper Body Dressing(FIM): 6 Upper Body Dressing (QC): 6 Lower Body Dressing(FIM): 6 (met-04/12/16) Lower Body Dressing (QC): 6 On/Off Footwear (QC): 6 (met-04/12/16) Toileting(FIM): 6 (met-04/12/16) Toileting Hygiene (QC): 6 Transfers (B,C,W/C) (FIM): 6 (met-04/12/16) Toilet/Commode Transfer(FIM): 6 (met-04/12/16) Toilet/Commode Transfer (QC): 6 Shower Transfer(FIM): 5 Additional Goals: 1-Demonstrate ADL Tasks, 2-Verbalize Understanding, 3- ImproveStrength/Dia 1=Demonstrate adherence to instructed precautions during ADL tasks. 2=Patient will verbalize/demonstrate understanding of assistive devices/ modifications for ADL. 3=Patient will improve strength/tolerance for activity to enable patient to perform ADL's. OT Education/Plan Discharge Recommendations Plan/Recommendations: Continue POC Treatment Plan/Plan of Care Patient would benefit from OT for education, treatment and training to promote independence in ADL's, mobility, safety and/or upper extremity function for ADL' s. Plan of Care: ADL Retraining, Functional Mobility, UE Funct Exercise/Act Treatment Duration: Apr 12, 2016 Visits Per Week: 10-12 Minutes/Day (M-F): 60-90 Minutes/Day (Sat/Beltran): 15-30 Agreement: Yes Rehab Potential: Fair Time/GCodes Start Time: 10:00 Stop Time: 10:30 Total Time Billed (hr/min): 30 Billed Treatment Time 1 visit-FA 2 (30 min) SAAD PEREZ Apr 18, 2016 10:43
[2016-04-18] MEDS: IBUPROFEN 800 MG (MOTRIN) TAB PO PRN (11:07)
[2016-04-18 12:48] VITALS: BP 149/99
--- NOTE | 2016-04-18 13:29 | Physical Therapy Daily Note ---
PT Daily Note-Current Subjective Patient sitting EOB knitting, agrees to PT. Pain Numeric Pain Scale: 6 Comment: low back and legs Appearance Patient on EOB post tx with nurse call, phone, tray, all needs met. Mental Status Patient Orientation: Normal For Age Transfers Functional [place] Measure 0=Not Assessed/NA 4=Minimal Assistance 1=Total Assistance 5=Supervision or Setup 2=Maximal Assistance 6=Modified [place] 3=Moderate Assistance 7=Complete IndependenceIRFPAI Quality Coding Scale 6 Independent with activity with or without an assistive device 5 Patient requires set up or clean up by helper. Patient completes activity by themselves 4 Supervision or touching assist (CGA). [place] provide cues , steadying assist 3 The helper provides less than half the effort to complete the activity 2 The helper provides more than half the effort to complete the activity 1 Dependent. The helper does all the effort to complete an activity 7 Patient refused to complete or attempt activity 9 The patient did not perform the activity before the current illness or injury 88 Not attempted due to Medical conditions or safety concerns Transfers (B, C, W/C) (FIM): 6 Sit to/from Stand: 6 Gait Training Gait (FIM): 6 Distance: 400', 100' Gait Assistive Device: Walker 3 Wheeled no safety issues, slow steady ambulation Exercises Supine Ex: Ankle pumps, Quad Set, Glut sets, Heel Slides, Short Arc Quads, Straight leg raise, Hip abd/add Supine Reps: 20 Seated Therapy Exercises: Long arc quads Seated Reps: 20 Treatments functional strengthening, transfers, ambulation Assessment Current Status: Fair Progress steadily improving mobility PT Short Term Goals Short Term Goals Time Frame: Apr 05, 2016 Transfers (B,C,W/C) (FIM): 6 Gait (FIM): 2 (met 03/30/16) Gait Distance Comment: 50' Gait Level of Assist: 5 (met 03/30/16) Gait Assistive Device: FWW Wheelchair Distance: 200' PT Shelter Goals Line Controller Goals PT Shelter Goals Time Frame: Apr 19, 2016 Transfers (B,C,W/C) (FIM): 6 Sit to Lying (QC): 6 Lying-Sitting on Side/Bed(QC): 6 Sit to Stand (QC): 6 Rollin Roll Left to Right (QC): 6 Chair/Vqb-kd-Brohb Xfer(QC): 6 Car Transfer (QC): 4 Does the Patient Walk: Yes Gait (FIM): 5 Distance: 200' Walk 10 feet (QC): 4 Walk 10ft-Uneven Surface(QC): 4 Walk 50ft with 2 Turns (QC): 4 Walk 150 ft (QC): 4 Gait Level of Assist: 5 Gait Assistive Device: FWW Does the Pt use WC or Scooter?: No Stairs (FIM): 2 # of Steps: 4 1 Step (curb) (QC): 4 4 Steps (QC): 4 12 Steps (QC): 88 Stairs Level Of Assist: 4 Picking up an Object (QC): 88 PT Plan Problem List Problem List: Activity Tolerance, Functional Strength, Safety, Balance, Gait, Transfer Treatment/Plan Treatment Plan: Continue Plan of Care Treatment Plan: Bed Mobility, Education, Functional Activity Dia, Functional Strength, Group Therapy, Gait, Safety, Therapeutic Exercise, Transfers Treatment Duration: Apr 19, 2016 Visits Per Week: 10-11 Minutes/Day (M-F): 60-90 Minutes/Day (Sat/Beltran): 15-30 Safety Risks/Education Patient Education: Gait Training, Transfer Techniques, Safety Issues Teaching Recipient: Patient Teaching Methods: Demonstration, Discussion Response to Teaching: Reinforcement Needed Time/GCodes Time In: 1300 Time Out: 1330 Total Billed Treatment Time: 30 Total Billed Treatment 1 visit GT 15 min EX 15 min MIYA RODRIGUEZ PT Apr 18, 2016 13:29
[2016-04-18] MEDS ORDERED: ACET325T49 PO (16:23)
[2016-04-18] MEDS ORDERED: MAGN400T6 PO (16:23)
[2016-04-18] MEDS ORDERED: PANT20TA3 PO (16:23)
[2016-04-18] MEDS ORDERED: PRD10T PO (16:23)
[2016-04-18 18:20] VITALS: BP 128/81
[2016-04-18] MEDS: diphenhydrAMINE 25 MG TAB (BENADRYL) PO SCH (21:34)
[2016-04-18] MEDS: SERTRALINE 100 MG (ZOLOFT) TAB PO SCH (21:35)
[2016-04-18] MEDS: ZOLPIDEM 5 MG (AMBIEN) TAB PO PRN (22:30)
[2016-04-19] MEDS: HYDROcodone/APAP 10 MG/325 MG (LORTAB) TAB PO PRN ×3 (03:49→12:36)
[2016-04-19 06:00] VITALS: BP 137/81
[2016-04-19] MEDS: KCL 20 MEQ TAB (K-DUR) PO SCH (06:01)
[2016-04-19] MEDS: predniSONE 10 MG TAB PO SCH (06:01)
--- NOTE | 2016-04-19 08:03 | PM & R (SOAP) Progress Note ---
Subjective Subjective/Events-last exam Patient was seen in her room this AM Finds Voltaran gel helpful for pain.Will provide RX for it but inforned patient that [facility] would have to approve it.as rxs are dispensed under their Staffs name at their own inhouse Pharmacy Objective Exam Last Set of Vital Signs Vital Signs Date Time Temp Pulse Resp B/P Pulse Ox O2 Delivery O2 Flow Rate FiO2 04/19/16 06:00 97.9 89 18 137/81 95 Room Air Capillary Refill : I&O Intake and Output 04/19/16 00:00 Intake Total 1160 ml Balance 1160 ml Intake Oral 1160 ml # Voids 9 General: Alert, Oriented X3, Cooperative, No Acute Distress HEENT: Atraumatic, PERRLA, EOMI, Mucous Memb Moist/Seth Ward Neck: Supple, No JVD Lungs: Clear to Auscultation Heart: Regular Rate Abdomen: Normal Bowel Sounds, Soft, No Tenderness Extremities: Other (Has tenderness over ulnar course left elbow with mild tenderness left wrist) Neuro: Other (fairly diffuse weakness) Psych/Mental Status: Other (anxious at times) Assessment/Plan Assessment Diffuse weakness seconday to PMR on steroids-improving Chronic pain managed by [facility] on LOrtab HX Pulm embolism HX Breat ca s/p mastectectomy being followed by Dr Osiel Diego Left wrist and elbow pain-appears improved somewhat Plan Discharge today to home with spouse and C F/U with [facility] Healthcare provider See orders.. CHIN STEWART MD Apr 19, 2016 08:02
[2016-04-19] MEDS ORDERED: DICL100G18 TOP (08:04)
[2016-04-19] MEDS: DOCUSATE SODIUM 100 MG (COLACE) CAP PO SCH (08:29)
[2016-04-19] MEDS: cloNIDine 0.2 MG (CATAPRES) TAB PO SCH ×2 (08:29→12:29)
[2016-04-19] MEDS: APIXABAN 5 MG (ELIQUIS) TABLET PO SCH (08:29)
[2016-04-19] MEDS: PANTOPRAZOLE 20 MG TABLET (PROTONIX) PO SCH (08:29)
[2016-04-19] MEDS: FUROSEMIDE 40 MG (LASIX) TAB PO SCH (08:29)
[2016-04-19] MEDS: ASPIRIN E.C. 81 MG (ECOTRIN) TAB PO SCH (08:29)
[2016-04-19] MEDS: amLODIPine 10 MG (NORVASC) TAB PO SCH (08:29)
[2016-04-19] MEDS: MAGNESIUM OXIDE (MAG-OX)400 MG TAB PO SCH (08:29)
[2016-04-19] MEDS: PREGABALIN 100 MG (LYRICA) CAPSULE PO SCH ×2 (08:30→12:29)
[2016-04-19] MEDS: DICLOFENAC 1% GEL 100 GM (VOLTAREN) TUBE TOP SCH ×2 (08:34→13:00)
--- NOTE | 2016-04-19 10:03 | Therapy Team Discharge Summary ---
Therapy Discharge Summary Discharge Recommendations Date of Discharge Therapy D/C Recommendations: Home w/ Family Support, Occupational Therapy Home Care, Scheduled Assistance Occupational Therapy Pt. has been seen by occupational therapy to increase overall strength and mobility. Pt. has met all goals. Pt. continues to gain strength and independence for daily tasks. Pt. plans to discharge home with spouse, and it is recommended that she have continued home care occupational therapy. Pt. has been set up with all needed equipment. PT Fci Goals Accounts Receivable Associate Goals PT Accounts Receivable Associate Goals Time Frame: Apr 19, 2016 Transfers (B,C,W/C) (FIM): 6 Roll Left to Right (QC): 6 Sit to Lying (QC): 6 Lying-Sitting on Side/Bed(QC): 6 Sit to Stand (QC): 6 Chair/Gzb-uv-Ofdyt Xfer(QC): 6 Car Transfer (QC): 4 Does the Patient Walk: Yes Gait (FIM): 5 Distance: 200' Walk 10 feet (QC): 4 Walk 10ft-Uneven Surface(QC): 4 Walk 50ft with 2 Turns (QC): 4 Walk 150 ft (QC): 4 Gait Level of Assist: 5 Gait Assistive Device: FWW Does the Pt use WC or Scooter?: No Stairs (FIM): 2 # of Steps: 4 1 Step (curb) (QC): 4 4 Steps (QC): 4 12 Steps (QC): 88 Stairs Level Of Assist: 4 Picking up an Object (QC): 88 OT Accounts Receivable Associate Goals Accounts Receivable Associate Goals Time Frame: Apr 12, 2016 Eating (FIM): 6 (met-04/12/16) Eating (QC): 6 Oral Hygiene (QC): 6 Grooming(FIM): 6 (met-04/12/16) Bathing(FIM): 5 (met-04/12/16) Shower/Bathe Self (QC): 5 Upper Body Dressing(FIM): 6 (met) Upper Body Dressing (QC): 6 Lower Body Dressing(FIM): 6 (met-04/12/16) Lower Body Dressing (QC): 6 On/Off Footwear (QC): 6 (met-04/12/16) Toileting(FIM): 6 (met-04/12/16) Toileting Hygiene (QC): 6 Transfers (B,C,W/C) (FIM): 6 (met-04/12/16) Toilet/Commode Transfer(FIM): 6 (met-04/12/16) Toilet/Commode Transfer (QC): 6 Shower Transfer(FIM): 5 (met) Additional Goals: 1-Demonstrate ADL Tasks, 2-Verbalize Understanding, 3- ImproveStrength/Dia 1=Demonstrate adherence to instructed precautions during ADL tasks. 2=Patient will verbalize/demonstrate understanding of assistive devices/ modifications for ADL. 3=Patient will improve strength/tolerance for activity to enable patient to perform ADL's. JULIO CESAR BURNETT OT Apr 19, 2016 10:03
--- NOTE | 2016-04-19 11:09 | Therapy Team Discharge Summary ---
Therapy Discharge Summary Discharge Recommendations Date of Discharge Therapy D/C Recommendations: Home w/ Family Support, Occupational Therapy Home Care, Scheduled Assistance Physical Therapy Patient came to rehab for Polymyalgia Rheumatica. Upon admission patient performed bed mobility with CGA/SBA, performed transfers with CGA, ambulated 20 ' with a rolling walker with CGA, and did not perform stairs at that time due to weakness and poor endurance. Patient has been performing bed mobility and transfer training, balance and endurance training, functional strengthening, stair training, gait training, and education. Patient has made good progress and has met all of her chcf goals. Now, patient performs bed mobility with mod I, ambulates 200' with a 3 wheeled walker with mod I, and can go up and down 8 steps using 1 handrail with mod I. Patient is being discharged from this facility today and will be discharged from PT at this time. PT Paper Coater Goals Paper Coater Goals PT Fdc Goals Time Frame: Apr 19, 2016 Transfers (B,C,W/C) (FIM): 6 Roll Left to Right (QC): 6 Sit to Lying (QC): 6 Lying-Sitting on Side/Bed(QC): 6 Sit to Stand (QC): 6 Chair/Whk-xi-Aozfg Xfer(QC): 6 Car Transfer (QC): 4 Does the Patient Walk: Yes Gait (FIM): 5 Distance: 200' Walk 10 feet (QC): 4 Walk 10ft-Uneven Surface(QC): 4 Walk 50ft with 2 Turns (QC): 4 Walk 150 ft (QC): 4 Gait Level of Assist: 5 Gait Assistive Device: FWW Does the Pt use WC or Scooter?: No Stairs (FIM): 2 # of Steps: 4 1 Step (curb) (QC): 4 4 Steps (QC): 4 12 Steps (QC): 88 Stairs Level Of Assist: 4 Picking up an Object (QC): 88 OT Fdc Goals Paper Coater Goals Time Frame: Apr 12, 2016 Eating (FIM): 6 (met-04/12/16) Eating (QC): 6 Oral Hygiene (QC): 6 Grooming(FIM): 6 (met-04/12/16) Bathing(FIM): 5 (met-04/12/16) Shower/Bathe Self (QC): 5 Upper Body Dressing(FIM): 6 (met) Upper Body Dressing (QC): 6 Lower Body Dressing(FIM): 6 (met-04/12/16) Lower Body Dressing (QC): 6 On/Off Footwear (QC): 6 (met-04/12/16) Toileting(FIM): 6 (met-04/12/16) Toileting Hygiene (QC): 6 Transfers (B,C,W/C) (FIM): 6 (met-04/12/16) Toilet/Commode Transfer(FIM): 6 (met-04/12/16) Toilet/Commode Transfer (QC): 6 Shower Transfer(FIM): 5 (met) Additional Goals: 1-Demonstrate ADL Tasks, 2-Verbalize Understanding, 3- ImproveStrength/Dia 1=Demonstrate adherence to instructed precautions during ADL tasks. 2=Patient will verbalize/demonstrate understanding of assistive devices/ modifications for ADL. 3=Patient will improve strength/tolerance for activity to enable patient to perform ADL's. MIYA RODRIGUEZ PT Apr 19, 2016 11:08
--- NOTE | 2016-04-19 12:51 | Diagnostic Imaging Report ---
CLINICAL INDICATION: Patient fell four days ago. Since then right iris/pupil appears to be more lateral than normal. Patient had two surgeries on the left eye. Patient has history of breast cancer. EXAM: Axial CT scan of the brain performed without IV contrast. COMPARISON: Head CT without IV contrast dated 12/08/2015. FINDINGS: There is no evidence of acute cerebral infarct, intracranial hemorrhage, or gross mass effect. There is normal espinoza-white matter distinction. The brain parenchymal volume appears appropriate for patient's age. There is no significant midline shift or herniation. There is no evidence of hydrocephalus. The basal cisterns are unremarkable. The skull, extracranial soft tissue, and orbits are unremarkable. The paranasal sinuses are unremarkable. IMPRESSION: Unremarkable CT scan of the brain. Dictated by: Dictated on workstation # [id number]
[2016-04-19 14:00] VITALS: BP 137/81
--- NOTE | 2016-04-19 14:53 | Occ Therapy Rehab Re-Cert ---
OT Re-Certification Form Plan of Care: ADL Retraining, Functional Mobility, UE Funct Exercise/Act Pt. was in this facility longer than original POC due to medical concerns, and continuation of testing to determine independence before discharge home. Please extend original POC one week, 04-19-16, as pt. is discharging this date. Treatment Duration: 3 weeks # of days/week 5-6 Minutes/Day (M-F): 60-90 Minutes/Day (Sat/Beltran): 15-30 Agreement: Yes Rehab Potential: Good OT Short Term Goals Short Term Goals Time Frame: Apr 05, 2016 Eating(FIM): 7 Grooming(FIM): 6 Bathing(FIM): 5 Upper Body Dressing(FIM): 6 Lower Body Dressing(FIM): 6 Toileting(FIM): 6 Transfers (B,C,W/C) (FIM): 6 Toilet/Commode Transfer(FIM): 6 Shower Transfer(FIM): 5 Additional Short Term Goals: 1-Demonstrate ADL Tasks, 2-Verbalize Understanding , 3-ImproveStrength/Dia 1=Demonstrate adherence to instructed precautions during ADL tasks. 2=Patient will verbalize/demonstrate understanding of assistive devices/ modifications for ADL. 3=Patient will improve strength/tolerance for activity to enable patient to perform ADL's. OT Residential Goals Residential Goals Eating (FIM): 6 (met-04/12/16) Grooming(FIM): 6 (met-04/12/16) Bathing(FIM): 5 (met-04/12/16) Upper Body Dressing(FIM): 6 (met) Lower Body Dressing(FIM): 6 (met-04/12/16) Toileting(FIM): 6 (met-04/12/16) Transfers (B,C,W/C) (FIM): 6 (met-04/12/16) Toilet/Commode Transfer(FIM): 6 (met-04/12/16) Shower Transfer(FIM): 5 (met) Additional Goals: 1-Demonstrate ADL Tasks, 2-Verbalize Understanding, 3- ImproveStrength/Dia 1=Demonstrate adherence to instructed precautions during ADL tasks. 2=Patient will verbalize/demonstrate understanding of assistive devices/ modifications for ADL. 3=Patient will improve strength/tolerance for activity to enable patient to perform ADL's. JULIO CESAR BURNETT OT Apr 19, 2016 14:53
--- NOTE | 2016-05-03 11:15 | DISCHARGE SUMMARY ---
DATE OF ADMISSION: 03/29/2016 DATE OF DISCHARGE: 04/19/2016 HISTORY OF PRESENT ILLNESS: The patient is a 45-year-old female, patient of [facility] who was admitted to [facility] due to increased weakness and pain. ABG revealed respiratory alkalosis with O2 sat at 98%. UDS was positive for benzodiazepines and opiates. The patient was seen by neurology and internal medicine, PT and OT. She was felt to have polymyalgia rheumatica as well as temporal arteritis explaining some of her symptoms of generalized weakness as well as muscle pain. She was started on steroids. She was then referred to Inpatient Rehabilitation Unit at [facility] for ongoing therapies as she lives in this [facility]. Upon transfer, she complained of pain all over, worse with activity with aching. She is requesting an increase in Lortab, also mentioned starting Elavil at night to help her sleep. However, she is on multiple medications and there was a mention at an outside facility that perhaps she was overmedicated. She also complains of resting tremors which she relates to fatigue. She had been independent but disabled prior to this and is awaiting [place] Medicaid card, apparently has no medical insurance. PAST MEDICAL HISTORY: 1. Chronic pain takes Lortab at home under the direction of [facility]. 2. Diabetes mellitus. 3. Obesity. 4. Hypertension. 5. GERD. 6. Nicotine dependence. 7. History of pulmonary embolism for which she received rehab on this unit in August. 8. Anxiety. 9. Hypertriglyceridemia. 10. Pulmonary vascular congestion. 11. Left mastectomy for breast cancer and has seen Dr. Cartagena in the past medical oncology. 12. Cholecystectomy. 13. Appendectomy. 14. Lung biopsy. 15. Tracheostomy. 16. Gastrostomy. 17. EGD with biopsy. 18. Gastrostomy tube removal. She indicates that she has obtained SSI. She lives with her spouse in [place], [place] in a one-story home. She had been modified independent with extra time prior to this. MEDICAL COURSE: She continued on her transfer medications, which were multiple. She had multiple pain complaints which were manage with current medications and with therapies and modalities. She did have a fall the weekend prior to discharge and had a contusion over the left forehead. A CT was done which revealed no bleed. She has no complaints of headache upon discharge and despite all his various issues of pain complaints, functionally she improved. She was see by [facility] and they recommended follow-up for her anxiety with their clinic in [place]. CBC on 03/30 showed hemoglobin and hematocrit 12.2/35, WBC 9, platelet count 392,000. Chemistry on 03/30 showed normal electrolytes, BUN and creatinine. Glucose was 94, albumin 4.5. CT of the brain on 04/19 as per above showed unremarkable CT scan of the brain. She was afebrile during her stay. Her pulse on 04/19 was 89, respirations 18, blood pressure 137/81. O2 sat 95% on room air. She was seen by Dr. Ruffin as well, pulmonology while on rehab unit. His impression was dyspnea with hypoxia. She has home O2 at 3 L/min, we will reorder p.r.n. Currently her O2 sat is 99% on room air. She continued on small volume nebulizer treatments. He felt that she had probable RENALDO but would need outpatient testing and there is a history of PNA and the patient had a follow-up as an outpatient basis with PFT, has a history of tracheostomy, as well as pulmonary embolism. The patient was seen by Dr. Cartagena in follow-up regarding lab tests obtained on an outpatient basis. She notes a history of chronic inflammatory bowel disease. Left breast cancer diagnosed May 2006. History of depression, history of ongoing tobaccoism, history of recurrent pneumonia and multiple other comorbidities, as well as congestive heart failure with echocardiogram showing ejection fraction 35 to 40% May 2010. Recurrent DVT and bilateral lower lobe pulmonary emboli 2015 and the bilateral mastectomy in May 2006 with bilateral TRAM flap reconstruction. She is status post adjuvant chemotherapy with dose dense ATC completed 2006 given at [place] under the direction of Dr. Garcias. Dr. Cartagena recommended to continue anticoagulation indefinitely. The patient may have for further work-up with labs on an outpatient basis at a later time. The patient did find Voltaren gel helpful for her arthritic pain complaints and a prescription for this was provided to her. REHABILITATION COURSE: The patient was assessed by speech therapy upon admission and found to be functional and they signed off. Physical therapy notes upon admission, the patient performed bed mobility with contact guard to standby assist and perform transfers with contact guard, could ambulate 20 feet with a wheeled walker with contact guard. She has made good progress and upon discharge she is modified independent for bed mobility, could ambulate 200 feet with a 3 wheeled walker with modified independence, could go up and down 8 steps using one handrail with modified independence. OT notes that she has made good progress and continues to gain in strength and independence with daily tasks (ADLS). Upon admission, the patient was min assist for transfers, toileting hygiene and toilet transfers. Otherwise standby assist to set-up for the remainder of ADLs. OT notes upon discharge she is set up to modified independent for basic ADLs. DISCHARGE INSTRUCTIONS: The patient will continue current diet and have follow-up with [facility] provider, [facility] mental health services and Dr. Cartagena, medical oncology and follow-up home health care. She is discharged home with her spouse. DISCHARGE MEDICATIONS: 1. Tylenol 650 mg p.o. q.6 hours p.r.n. mild pain. 2. Voltaren gel q.i.d. 3. Mag-Ox 400 mg p.o. daily. 4. Protonix 20 mg b.i.d. 5. Prednisone 15 mg p.o. daily. 6. Amlodipine 10 mg p.o. at bedtime. 7. Eliquis 5 mg p.o. b.i.d. 8. ASA 81 mg p.o. at bedtime. 9. Catapres 0.2 mg p.o. t.i.d. 10. Colace 100 mg p.o. b.i.d. 11. Furosemide 40 mg p.o. daily. 12. Lortab 10/325, 1 tablet p.o. q.4 hours p.r.n. pain. 13. Exelon patch apply daily p.r.n. pain. 14. KCL 20 mEq p.o. daily. 15. Lyrica 300 mg p.o. b.i.d. 16. Zoloft 20 mg p.o. at bedtime. 17. Sumatriptan 50 to 100 mg p.o. p.r.n. headache, migraine. 18. Zanaflex 4 mg p.o. t.i.d. p.r.n. muscle pain and spasm. 19. Ambien 5 mg p.o. at bedtime p.r.n. insomnia. DISCHARGE DIAGNOSES: 1. Rehabilitation general debilitation secondary to polymyalgia rheumatica, improving. 2. Temporal arteritis improving on steroids. 3. Hypoxemia uses O2 at home p.r.n., improved. 4. Fibromyalgia, on medication. 5. RENALDO probable, will have sleep study outpatient. 6. Tobaccoism/smoking. 7. GERD, on medication. 8. Hypertension, controlled with medication. 9. BMI 10. Long-term use anticoagulant. 11. Personal history of PE. 12. Personal history of DVT. 13. History of breast cancer, status post mastectomy, remote. 14. Depression, on medications. 15. Carpal tunnel syndrome. 16. Blindness right eye. 17. Fall with contusion left forehead with negative. CT. CONDITION AT DISCHARGE: Improved and stable. PROGNOSIS: Rehab prognosis appears good for some continued improvement at home with follow-up with PCP and mental health services as well as Dr. Cartagena. Job ID: [id number] Dictated Date: 05/02/2016 11:18:50 [employer] Date: 05/03/2016 10:40:58/joaquín [email or web address]
== END 2016-04-19 14:30 | disposition home or self-care (01) | DRG 546 ==
PROVIDERS: ADMIT Physical Medicine & Rehabilitation; ATTEND Physical Medicine & Rehabilitation
DX: M35.3 Polymyalgia rheumatica (principal); M31.6 Other giant cell arteritis; R09.02 Hypoxemia; M79.7 Fibromyalgia; E11.9 Type 2 diabetes mellitus without complications; I10 Essential (primary) hypertension; E66.01 Morbid (severe) obesity due to excess calories; Z68.41 Body mass index [BMI] 40.0-44.9, adult; K21.9 Gastro-esophageal reflux disease without esophagitis; F17.210 Nicotine dependence, cigarettes, uncomplicated; G47.33 Obstructive sleep apnea (adult) (pediatric); Z79.01 Long term (current) use of anticoagulants; Z86.711 Personal history of pulmonary embolism; Z86.718 Personal history of other venous thrombosis and embolism; Z85.3 Personal history of malignant neoplasm of breast; F32.9 Major depressive disorder, single episode, unspecified; G56.02 Carpal tunnel syndrome, left upper limb; H54.41 Blindness, right eye, normal vision left eye; S00.83XA Contusion of other part of head, initial encounter; W19.XXXA Unspecified fall, initial encounter; Y92.239 Unspecified place in hospital as the place of occurrence of the external cause
CPT/HCPCS: 36415; 70450; 80053; 85027; 85652; 94640; 94664; 94760

== ENCOUNTER → 2016-08-03 | Outpatient (CLI) | payer MEDICAID ==
[~2016-08-03] MED LIST changes: +ACET325T49 PO; +DICL100G18 TOP; +PANT20TA3 PO; +PRD10T PO
--- NOTE | 2016-08-03 13:07 | Diagnostic Imaging Report ---
INDICATION: Tachycardia. PA and lateral chest obtained at 12:52 p.m. and compared with 12/09/15. FINDINGS: There is cardiomegaly. Mediastinal silhouette is unremarkable. There is some linear scarring or atelectasis in the right perihilar region and base as well as the left base. These findings are similar to the prior study of 12/09/15. There is no pneumothorax or pleural fluid or new consolidation. IMPRESSION: Cardiomegaly. There is some parenchymal scarring and/or atelectasis in the right midlung base as well as the left base, appearing similar to 12/09/15. There is no new infiltrate or edema or pleural fluid. Dictated by: Dictated on workstation # [id number]
[2016-08-03 15:06] LABS: MEAN PLATELET VOLUME 9.7 FL (7.4-10.4); RED BLOOD COUNT 4.61 10^6/uL (4.35-5.85); WHITE BLOOD COUNT 14.3 10^3/uL (4.3-11.0)
[2016-08-03 15:39] LABS: ALANINE AMINOTRANSFERASE 23 U/L (0-55); ALBUMIN 4.6 G/DL (3.2-4.5); ANION GAP 11 MMOL/L (5-14); ASPARTATE AMINO TRANSFERASE 16 U/L (5-34); BILIRUBIN,TOTAL 0.4 MG/DL (0.1-1.0); BLOOD UREA NITROGEN 21 MG/DL (7-18); BUN/CREATININE RATIO 22; CALCIUM 10.3 MG/DL (8.5-10.1); CARBON DIOXIDE 26 MMOL/L (21-32); CHLORIDE 103 MMOL/L (98-107); CHOLESTEROL 308 MG/DL (< 200); CREATININE SERUM 0.95 MG/DL (0.60-1.30); DIRECT LDL 207 MG/DL (1-129); GFR ESTIMATED > 60; GLUCOSE 85 MG/DL (70-105); POTASSIUM 3.4 MMOL/L (3.6-5.0); SODIUM 140 MMOL/L (135-145); TOTAL PROTEIN 8.3 G/DL (6.4-8.2); TRIGLYCERIDES 232 MG/DL (<150); VLDL CHOLESTEROL 46 MG/DL (5-40)
[2016-08-03 16:00] LABS: THYROID STIMULATING HORMONE 1.71 UIU/ML (0.35-4.94)
== END ==
LOC: RAD 11:54
PROVIDERS: ATTEND Internal Medicine Cardiovascular Disease
DX: I26.99 Other pulmonary embolism without acute cor pulmonale (principal); I11.0 Hypertensive heart disease with heart failure; I51.9 Heart disease, unspecified; R07.9 Chest pain, unspecified; R06.00 Dyspnea, unspecified
CPT/HCPCS: 36415; 71020; 80053; 80061; 84443; 85027

== ENCOUNTER → 2016-08-03 | Outpatient (CLI) | payer MEDICAID ==
[2016-08-03 15:05] LABS: BASOPHILS # (AUTO) 0.1 10^3/uL (0.0-0.1); BASOPHILS % (AUTO) 1 % (0-10); EOSINOPHILS # (AUTO) 0.2 10^3/uL (0.0-0.3); EOSINOPHILS % (AUTO) 1 % (0-10); LYMPHOCYTES % (AUTO) 35 % (12-44); MEAN CORPUSCULAR HEMOGLOBIN 28 PG (25-34); MEAN CORPUSCULAR HGB CONC 33 G/DL (32-36); MEAN CORPUSCULAR VOLUME 83 FL (80-99); MEAN PLATELET VOLUME 9.7 FL (7.4-10.4); MONOCYTES # (AUTO) 0.8 X 10^3 (0.0-1.0); MONOCYTES % (AUTO) 6 % (0-12); NEUTROPHILS # (AUTO) 8.1 X 10^3 (1.8-7.8); NEUTROPHILS % (AUTO) 58 % (42-75); PLATELET COUNT 421 10^3/uL (130-400); RED BLOOD COUNT 4.66 10^6/uL (4.35-5.85); RED CELL DISTRIBUTION WIDTH 14.9 % (10.0-14.5); WHITE BLOOD COUNT 14.2 10^3/uL (4.3-11.0)
[2016-08-03 15:33] LABS: ERYTHROCYTE SEDIMENTATION RATE 48 MM/HR (0-20)
[2016-08-03 15:37] LABS: ALANINE AMINOTRANSFERASE 23 U/L (0-55); ALBUMIN 4.6 G/DL (3.2-4.5); ANION GAP 11 MMOL/L (5-14); ASPARTATE AMINO TRANSFERASE 16 U/L (5-34); BILIRUBIN,DIRECT 0.2 MG/DL (0.0-0.3); BILIRUBIN,INDIRECT 0.2 MG/DL; BILIRUBIN,TOTAL 0.4 MG/DL (0.1-1.0); BLOOD UREA NITROGEN 21 MG/DL (7-18); BUN/CREATININE RATIO 23; CALCIUM 10.2 MG/DL (8.5-10.1); CARBON DIOXIDE 26 MMOL/L (21-32); CHLORIDE 103 MMOL/L (98-107); CREATINE KINASE 20 U/L (29-168); CREATININE SERUM 0.92 MG/DL (0.60-1.30); GFR ESTIMATED > 60; GLUCOSE 85 MG/DL (70-105); POTASSIUM 3.3 MMOL/L (3.6-5.0); SODIUM 140 MMOL/L (135-145); TOTAL PROTEIN 8.3 G/DL (6.4-8.2)
[2016-08-03 15:49] LABS: BAND NEUTROPHILS 2 %; BASOPHILS % (MANUAL) 0 %; EOSINOPHILS % (MANUAL) 1 %; LYMPHOCYTES % (MANUAL) 50 %; NEUTROPHILS % (MANUAL) 46 %
[2016-08-03 15:59] LABS: THYROID STIMULATING HORMONE 1.69 UIU/ML (0.35-4.94)
[2016-08-04 00:18] LABS: HEPATITIS B CORE TOTAL INDEX 0.07 Index (<=0.50)
[2016-08-04 08:03] LABS: HEPATITIS B SURFACE AB INDEX <3.10 mIU/mL (>=10.00); HEPATITIS B SURFACE AB INTERP Non-Immune (Immune)
[2016-08-04 08:07] LABS: HEPATITIS B CORE TOTAL INTERP Non-Reactive
[2016-08-04 08:15] LABS: C3 COMPLEMENT SERUM 196 mg/dL (73-183); C4 COMPLEMENT SERUM 34 mg/dL (15-59); CYCLIC CITRULLUINATED PEPTIDE 5.5 Units (0.0-19.0)
[2016-08-04 22:25] LABS: SJOGRENS SSA ANTIBODIES <20 Units (0-19); SJOGRENS SSB ANTIBODIES <20 Units (0-19); SSA INTP Negative (Negative); SSB INTP Negative (Negative)
[2016-08-07 08:00] LABS: ALDOLASE 4.1 U/L (1.5-8.1)
[2016-08-07 14:07] LABS: DIL RUSSELL VIPER VENOM SCREEN 1.15 ratio (0.00-1.20); LUPUS ANTICOAGULANT PTT 26.9 Seconds (24.4-41.7)
[2016-08-08 16:26] LABS: CLIN PATHOLOGY REPORT FOOTNOTE
[2016-08-08 16:27] LABS: PT REF RML 13.5 SEC (10.5-15.7)
[2016-08-08 16:28] LABS: PTT LUPUS 24.6 SEC (20.6-39.2)
== END ==
LOC: LAB 12:44
PROVIDERS: ATTEND Internal Medicine Rheumatology
DX: M60.9 Myositis, unspecified (principal)
CPT/HCPCS: 36415; 80048; 80076; 82085; 82550; 84443; 85007; 85027; 85610; 85613; 85652; 85705; 85730; 86141; 86146; 86147; 86160; 86200; 86235; 86430; 86704; 86706; 86803; 87340

== ENCOUNTER → 2016-08-21 | Outpatient (CLI) | payer MEDICAID | LOC: CARD 15:17 | PROVIDERS: ATTEND Internal Medicine Cardiovascular Disease | DX: R07.9 Chest pain, unspecified (principal); R06.00 Dyspnea, unspecified; I10 Essential (primary) hypertension; I51.9 Heart disease, unspecified; I26.99 Other pulmonary embolism without acute cor pulmonale; R00.0 Tachycardia, unspecified | CPT/HCPCS: 93306 ==

== ENCOUNTER 2019-04-08 15:44 | Inpatient (IN) | payer MEDICAID ==
[~2019-04-08] VITALS: Ht 172.7 cm; Wt 130.3 kg
[~2019-04-08 15:44] MED LIST changes: -AMLO10TA2 PO; +AMLO10TA7 PO; -MAGN400T6 PO; +MAGN400T8 PO; -TIZA4TAB3 PO; +TIZA4TAB4 PO; -TRAM50TA2 PO; +TRM50T PO
[2019-04-08] MEDS ORDERED: ASPIRIN 81 MG CHEW (CHILDREN'S ASA) ONE (16:33)
[2019-04-08] MEDS ORDERED: NS IV 500 ML 500 ML ONE (16:33)
[2019-04-08] MEDS ORDERED: NS IV 500 ML 500 ML IV ONE ×2 (16:36→18:54)
--- NOTE | 2019-04-08 16:42 | ED Cardiac General ---
History of Present Illness General Chief Complaint: Cardiac/General Problems Stated Complaint: LOW BLOOD PRESSURE Nursing Triage Note: SENT OVER FROM DR WESTFALL'S OFFICE. PT STATE SHE HAD AN APPT WITH [facility] AND WAS FOUND TO HAVE HYPOTENSION. A ULTRASOUND OF THE NECK WAS DONE AND TOLD TO COME TO THE ER. Source: patient Exam Limitations: no limitations History of Present Illness Date Seen by Provider: Apr 08, 2019 Time Seen by Provider: 16:27 Initial Comments Patient presents to the ER by private conveyance from Dr. Westfall's clinic where she was being seen for a routine appointment. She has a history of coronary disease but no diabetes. She did not feel well and was having a hard time standing up feeling like she was going to pass out. They were able to get a blood pressure in the 60-80 systolic range and a heart rate in the 50s to 60s. She has a history of CHF. She denies being on blood thinners. She has been having chest pain off and on for the past several weeks but she says it's her chronic chest pain. She denies daily weights but she says she has noticed increased swelling in her lower extremities upper extremities and around her middle. She takes an unknown amount of furosemide. She's been wearing her compression stockings because none of her shoes fit. She denies a cough fever chills orthopnea. Allergies and Home Medications Allergies Coded Allergies: Cephalosporins (Verified Allergy, Unknown, 07/22/09) lisinopril (Unverified Allergy, Unknown, 02/22/15) Uncoded Allergies: CEFABID (Allergy, Mild, 07/22/09) Home Medications Acetaminophen 325 Mg Tablet, 650 MG PO Q6HR PRN for MILD PAIN Prescribed by: CHIN STEWART on 04/18/16 1623 Amlodipine Besylate 10 Mg Tablet, 10 MG PO HS, (Reported) Apixaban 5 Mg Tablet, 5 MG PO BID, (Reported) Aspirin 81 Mg Tablet.dr, 81 MG PO HS, (Reported) Clonidine HCl 0.2 Mg Tablet, 0.2 MG PO TID, (Reported) Diclofenac Sodium 100 Gm Gel..gram., 0 GM TOP QID Prescribed by: CHIN STEWART on 04/19/16 0804 Docusate Sodium 100 Mg Capsule, 100 MG PO BID Prescribed by: CHIN STEWART on 12/09/15 1324 Furosemide 40 Mg Tablet, 40 MG PO DAILY Prescribed by: CHIN STEWART on 12/09/15 1324 Hydrocodone/Acetaminophen 1 Each Tablet, 1 EA PO Q4H PRN for PAIN Prescribed by: CHIN STEWART on 12/09/15 132 Magnesium Oxide 400 Mg Tablet, 400 MG PO DAILY Prescribed by: CHIN STEWART on 04/18/16 1623 Methyl Salicylate/Menthol 1 Each Adh..patch, 1 PATCH TP DAILY PRN for PAIN, (Reported) Pantoprazole Sodium 20 Mg Tablet.dr, 20 MG PO BID Prescribed by: CHIN STEWART on 04/18/16 162 Potassium Chloride 20 Meq Tab.er.prt, 20 MEQ PO DAILY@0700 Prescribed by: CHIN STEWART on 12/09/15 1324 Prednisone 10 Mg Tab, 15 MG PO DAILY@0700 Prescribed by: CHIN STEWART on 04/18/16 162 Pregabalin 100 Mg Capsule, 300 MG PO BID Prescribed by: CHIN STEWART on 12/09/15 132 Sertraline HCl 100 Mg Tablet, 100 MG PO HS, (Reported) Sumatriptan Succinate 100 Mg Tablet, 50-100 MG PO UD PRN for MIGRAINE, (Reported) TAKE 1/2-1 TABLET BY MOUTH NEEDED. MAY REPEAT IN 2 HOURS IF NEEDED Tizanidine HCl 4 Mg Tablet, 4 MG PO TID PRN for Muscle pain/spasm Prescribed by: CHIN STEWART on 12/09/15 1324 [Zolpidem Tartrate] 5 MG TAB, 5 MG PO HS PRN for INSOMNIA Prescribed by: CHIN STEWART on 12/09/15 1522 Patient Home Medication List Home Medication List Reviewed: Yes Review of Systems Review of Systems Constitutional: No chills, No diaphoresis EENTM: No Blurred Vision, No Double Vision Respiratory: Denies Cough, Denies Shortness of Air Cardiovascular: Denies Chest Pain, Denies Lightheadedness Gastrointestinal: Denies Abdomen Distended, Denies Abdominal Pain, Denies Constipated Genitourinary: Denies Burning, Denies Discharge Musculoskeletal: No back pain, No joint pain Skin: No pruritus, No rash Psychiatric/Neurological: Denies Headache, Denies Numbness, Denies Paresthesia Hematologic/Lymphatic: Denies Anemia All Other Systems Reviewed Negative Unless Noted: Yes Past Hjqpuov-Chyszq-Emadge Hx Patient Social History Alcohol Use: Denies Use Recreational Drug Use: No Type Used: Cigarettes Former Smoker, Quit: Oct 01, 2015 Recent Foreign Travel: No Contact w/Someone Who Travel: No Recent Infectious Disease Expo: No Recent Hopitalizations: Yes (GB REMOVED, HYST., APPY. 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 Sexually Transmitted Disease: No HIV/AIDS: No Colitis, Gastroesophageal Reflux, Moraes's Esophagus, Chronic Constipation, Chronic Diarrhea, Irritable Bowel Arthritis, Fibromyalgia, Chronic Back Pain Loss of Vision: Denies Hearing Impairment: Denies Breast Anxiety, Depression Eczema Adverse Reaction/Blood Tranf: No Family Medical History Cancer 03 FATHER, Onset:60 years & older (LUNG CANCER) Chest pain 03 MOTHER (LYMPHANGIO MITOSIS) Dementia 03 FATHER, Onset:60 years & older Family history: Allergy 03 MOTHER (SEASONAL ALLERGIES) Family history: Arthritis 03 FATHER 03 MOTHER Family history: Asthma 03 MOTHER Family history: Breast disease 03 FATHER (AUNT ON FATHERS SIDE FROM BREAST CANCER) Family history: Cardiovascular disease 03 MOTHER Family history: Gastrointestinal disease 03 FATHER Family history: Hypertension 03 MOTHER Family history: Osteoporosis 03 MOTHER Heart disease 03 MOTHER History of - respiratory disease 03 MOTHER ("LYMPHANGIO MITOSIS - SHORTNESS OF BREATH AND TAKES BREATHING TREATMENTS" ) Malignant neoplasm of lung 03 FATHER No Family History of: Abdominal aortic aneurysm Lenny's disease Alcoholism Aphasia Cancer of colon Cataract Congenital heart disease Congestive heart failure Cystic fibrosis Dysphagia Family history: Alzheimer's disease Family history: Coronary thrombosis Family history: Diabetes mellitus Family history: Glaucoma Family history: Thyroid disorder Hearing loss History of - anemia Kidney disease Parkinson's disease Prostate cancer Psychotic disorder Seizure disorder Stroke Cancer Physical Exam Vital Signs Vital Signs - First Documented 04/08/19 04/08/19 04/08/19 16:21 16:25 16:50 Temp 36.9 Pulse 65 Resp 16 B/P (MAP) 68/40 (49) Pulse Ox 99 O2 Delivery Room Air O2 Flow Rate 3.00 Capillary Refill : Less Than 3 Seconds Height, Weight, BMI Height: 5'8.00" Weight: 288lbs. 0.0oz. 130.032184ig; 43.00 BMI Method:Stated General Appearance: WD/WN, Anxious, Mild Distress HEENT: PERRL/EOMI, TMs Normal, Normal ENT Inspection, Pharynx Normal; No Moist Mucous Membranes Neck: Full Range of Motion, Normal Inspection, Non Tender Respiratory: Lungs Clear, Normal Breath Sounds, No Accessory Muscle Use, No Respiratory Distress Cardiovascular: Regular Rate, Rhythm, No Edema, No Murmur, Normal Peripheral Pulses Gastrointestinal: Normal Bowel Sounds, Non Tender, Soft Extremity: Normal Capillary Refill, Normal Inspection, Pedal Edema (trace bilateral) Neurologic/Psychiatric: Alert, Oriented x3, No Motor/Sensory Deficits Skin: Normal Color, Warm/Dry Focused Exam Lactate Level 04/08/19 16:42: Lactic Acid Level 2.74*H 04/08/19 18:51: Lactic Acid Level Laboratory Tests Test 04/08/19 16:42 04/08/19 18:51 Lactic Acid Level 2.74 MMOL/L (0.50-2.00) *H Progress/Results/Core Measures Results/Orders Lab Results Laboratory Tests Test 04/08/19 16:42 04/08/19 17:43 04/08/19 18:51 Range/Units White Blood Count 11.3 H 4.3-11.0 10^3/uL Red Blood Count 4.55 4.35-5.85 10^6/uL Hemoglobin 12.7 11.5-16.0 G/DL Hematocrit 39 35-52 % Mean Corpuscular Volume 86 80-99 FL Mean Corpuscular Hemoglobin 28 25-34 PG Mean Corpuscular Hemoglobin Concent 33 32-36 G/DL Red Cell Distribution Width 14.3 10.0-14.5 % Platelet Count 458 H 130-400 10^3/uL Mean Platelet Volume 9.8 7.4-10.4 FL Neutrophils (%) (Auto) 50 42-75 % Lymphocytes (%) (Auto) 39 12-44 % Monocytes (%) (Auto) 7 0-12 % Eosinophils (%) (Auto) 3 0-10 % Basophils (%) (Auto) 1 0-10 % Neutrophils # (Auto) 5.7 1.8-7.8 X 10^3 Lymphocytes # (Auto) 4.4 H 1.0-4.0 X 10^3 Monocytes # (Auto) 0.8 0.0-1.0 X 10^3 Eosinophils # (Auto) 0.3 0.0-0.3 10^3/uL Basophils # (Auto) 0.1 0.0-0.1 10^3/uL Prothrombin Time 17.0 H 12.2-14.7 SEC INR Comment 1.3 0.8-1.4 Activated Partial Thromboplast Time 31 24-35 SEC D-Dimer <= 0.27 0.00-0.49 UG/ML Sodium Level 139 135-145 MMOL/L Potassium Level 4.2 3.6-5.0 MMOL/L Chloride Level 101 98-107 MMOL/L Carbon Dioxide Level 21 21-32 MMOL/L Anion Gap 17 H 5-14 MMOL/L Blood Urea Nitrogen 19 H 7-18 MG/DL Creatinine 1.83 H 0.60-1.30 MG/DL Estimat Glomerular Filtration Rate 29 BUN/Creatinine Ratio 10 Glucose Level 117 H 70-105 MG/DL Lactic Acid Level 2.74 *H 0.50-2.00 MMOL/L Calcium Level 10.4 H 8.5-10.1 MG/DL Corrected Calcium 8.5-10.1 MG/DL Magnesium Level 2.3 1.6-2.4 MG/DL Total Bilirubin 0.5 0.1-1.0 MG/DL Aspartate Amino Transf (AST/SGOT) 32 5-34 U/L Alanine Aminotransferase (ALT/SGPT) 27 0-55 U/L Alkaline Phosphatase 164 H 40-136 U/L Myoglobin 118.7 H 10.0-92.0 NG/ML Troponin I < 0.028 <0.028 NG/ML B-Type Natriuretic Peptide 23.1 <100.0 PG/ML Total Protein 8.3 H 6.4-8.2 GM/DL Albumin 4.7 H 3.2-4.5 GM/DL Urine Color YELLOW Urine Clarity CLEAR Urine pH 5.5 5-9 Urine Specific Lockhart 1.025 H 1.016-1.022 Urine Protein NEGATIVE NEGATIVE Urine Glucose (UA) NEGATIVE NEGATIVE Urine Ketones TRACE H NEGATIVE Urine Nitrite NEGATIVE NEGATIVE Urine Bilirubin NEGATIVE NEGATIVE Urine Urobilinogen 0.2 < = 1.0 MG/DL Urine Leukocyte Esterase TRACE NEGATIVE Urine RBC (Auto) NEGATIVE NEGATIVE Urine RBC RARE /HPF Urine WBC 25-50 H /HPF Urine Squamous Epithelial Cells 10-25 H /HPF Urine Crystals NONE /LPF Urine Bacteria MODERATE H /HPF Urine Casts PRESENT /LPF Urine Hyaline Casts 0-2 H /LPF Urine Mucus MODERATE H /LPF Urine Yeast FEW H /HPF Urine Culture Indicated CULTURE PENDING My Orders Orders - ZAHIDA CABRERA Cbc With Automated Diff (04/08/19 16:36) Magnesium (04/08/19 16:36) Chest 1 View, Ap/Pa Only (04/08/19 16:36) Ekg Tracing (04/08/19 16:36) Comprehensive Metabolic Panel (04/08/19 16:36) Myoglobin Serum (04/08/19 16:36) Protime With Inr (04/08/19 16:36) Partial Thromboplastin Time (04/08/19 16:36) O2 (04/08/19 16:36) Monitor-Rhythm Ecg Trace Only (04/08/19 16:36) Lipid Panel (04/09/19 06:00) Ed Iv/Invasive Line Start (04/08/19 16:36) BNP (04/08/19 16:36) Aspirin Chewable Tablet (Baby Aspirin Ch (04/08/19 16:45) Ed Iv/Invasive Line Start (04/08/19 16:36) Ns Iv 500 Ml (Sodium Chloride 0.9%) (04/08/19 16:36) Blood Culture (04/08/19 16:39) Sputum Culture (04/08/19 16:39) Urinalysis (04/08/19 16:39) Urine Culture (04/08/19 16:39) Ed Iv/Invasive Line Start (04/08/19 16:39) Vital Signs Adult Sepsis Patie Q15M (04/08/19 16:39) Remove Rings In Anticipation O (04/08/19 16:39) Lactic Acid Analyzer (04/08/19 16:39) Fibrin Degradation Products (04/08/19 16:42) Troponin I (04/08/19 16:42) Medications Given in ED Current Medications Medications Dose Ordered Sig/Jasen Route Start Time Stop Time Status Last Admin Dose Admin Aspirin 324 mg ONCE ONCE PO 04/08/19 16:45 04/08/19 16:46 DC 04/08/19 16:41 324 MG Sodium Chloride 500 ml @ 0 mls/hr Q0M ONCE IV 04/08/19 16:36 04/08/19 16:40 DC 04/08/19 16:41 500 MLS/HR Vital Signs/I&O 04/08/19 04/08/19 04/08/19 04/08/19 16:21 16:25 16:50 17:11 Temp 36.9 Pulse 65 46 51 Resp 16 18 18 B/P (MAP) 68/40 (49) 118/74 (89) 122/67 (85) Pulse Ox 99 98 O2 Delivery Room Air Nasal Cannula Nasal Cannula Nasal Cannula O2 Flow Rate 3.00 3.00 3.00 04/08/19 04/08/19 18:14 18:44 Pulse 50 53 Resp 18 18 B/P (MAP) 118/65 (82) 116/62 (80) Pulse Ox 98 97 O2 Delivery Nasal Cannula Room Air O2 Flow Rate 3.00 Blood Pressure Mean: 49 Progress Progress Note #1: Time: 16:50 Progress Note Patient comes in with low blood pressure and history of heart failure so we gave 500 mL aliquots get a septic workup does not give any history consistent with infection. As of 500 cc are done and her blood pressure has improved to 118/74. Her heart rate has paroxysmal he been inappropriate in the 45-60 range. Review of the last note from today by Dr. Westfall demonstrates she has a history of labile hypertension with episodes of hypotension and syncope. She's had extensive workup done at [facility] and he noted her to be currently hypotensive and stopped her losartan and his plan was to continue monitoring outpatient. She has a known history of grade 1 diastolic heart failure with her last echocardiogram from March 2019 1 month ago showing mild left ventricular hypertrophy and EF of 60%. In remission for left breast cancer. Oxygen dependent due to COPD and interstitial lung disease followed by Dr. Valdivia at . Nonobstructing carotid and coronary artery disease. History of anxiety and fibromyalgia. Because of her claim of chest pain which she says is chronic we have given her 325 of aspirin. She is on her baseline of oxygen and maintaining 99-100%. After we obtain our labs I intend to compare notes with the senior teradata developer, Dr. Westfall. Progress Note #2: Time: 18:47 Progress Note The patient received 500 cc of IV fluids her blood pressure is stabilized in the 110-120 systolic range. Heart rate still in the 50s. She's not had any further complaints. Her urinalysis could be contaminated however given how labile her blood pressures of been lately it may be reasonable to cover her with some antibiotics overnight. We discussed it with her and would like to observe her overnight. It wouldn't quite call her septic and she's had no fever or tachycardic and her white count is marginal. We will treat her and see what her labs looked like in the morning. She does have a mildly elevated creatinine and lactate which are either from dehydration or infection both. Plan to give her an additional 1500 cc which would bring her up over 20 mL/kg based on an ideal body weight of 90 kg. Zosyn should be adequate coverage. Patient is in agreement with this plan and her questions have been answered. Initial ECG Impression Date: Apr 08, 2019 Initial ECG Impression Time: 16:36 Initial ECG Rate: 51 Initial ECG Rhythm: Normal Sinus Initial ECG Intervals: QT (494) Initial ECG Impression: Normal, Nonspecific Changes Comment No clinically relevant ST elevation or depression. Diagnostic Imaging Diagonstic Imaging: Xray Plain Films/CT/US/NM/MRI: chest (1v) Comments NAME: BOAZ CANALES [facility] REC#: [id number] PT STATUS: REG ER : 1970 PHYSICIAN: ZAIHDA CABRERA MD ADMIT DATE: 04/08/19/ER Signed Date of Exam:04/08/19 CHEST 1 VIEW, AP/PA ONLY INDICATION: Low blood pressure. TIME OF EXAM: 05:04 p.m. Correlation is made with prior chest from 08/03/2016. FINDINGS: Heart remains enlarged. There is some linear atelectasis in right perihilar region. The lungs appear to be fairly clear. No significant infiltrate, effusion, or pneumothorax is identified although the left base is somewhat obscured on this portable technique. IMPRESSION: Cardiomegaly. No acute feature is identified although left base is somewhat obscured on this portable technique. Dictated by: Dictated on workstation # [id number] Dict: 04/08/19 1710 Trans: 04/08/19 1733 [id number] Interpreted by: SWATI MATHEWS MD Electronically signed by: SWATI MATHEWS MD 04/08/19 1733 Reviewed: Reviewed by Me Departure Communication (Admissions) Time/Spoke to Admitting Phy: 19:00 Discussed case lab imaging findings with Dr. Jj and he agrees with observation on antibiotics. Discussed the dubious nature of a UTI versus contamination on urinalysis collection. If her hypotension stays away and we get some fluids back then she can go out tomorrow. Impression Primary Impression: Labile blood pressure Additional Impressions: Dehydration UTI (urinary tract infection) Qualified Codes: N30.00 - Acute cystitis without hematuria Acute kidney injury Disposition: ADMITTED INPATIENT Condition: Stable Admissions Decision to Admit Reason: Admit from ER (General) Decision to Admit/Date: Apr 08, 2019 Time/Decision to Admit Time: 18:30 Departure-Patient Inst. Referrals: SARITA EDGE DO (PCP/Family) Primary Care Physician ZAHIDA CABRERA Apr 08, 2019 16:42
[2019-04-08] MEDS ORDERED: ASPIRIN 81 MG CHEW (CHILDREN'S ASA) PO ONE (16:45)
[2019-04-08 16:50] VITALS: BP 118/74
--- NOTE | 2019-04-08 16:50 | NUR ---
PATIENT REPORTS SHE IS FEELING BETTER.
[2019-04-08 16:51] LABS: BASOPHILS # (AUTO) 0.1 10^3/uL (0.0-0.1); BASOPHILS % (AUTO) 1 % (0-10); EOSINOPHILS # (AUTO) 0.3 10^3/uL (0.0-0.3); EOSINOPHILS % (AUTO) 3 % (0-10); HEMATOCRIT 39 % (35-52); HEMOGLOBIN 12.7 G/DL (11.5-16.0); LYMPHOCYTES # (AUTO) 4.4 X 10^3 (1.0-4.0); LYMPHOCYTES % (AUTO) 39 % (12-44); MEAN CORPUSCULAR HEMOGLOBIN 28 PG (25-34); MEAN CORPUSCULAR HGB CONC 33 G/DL (32-36); MEAN CORPUSCULAR VOLUME 86 FL (80-99); MEAN PLATELET VOLUME 9.8 FL (7.4-10.4); MONOCYTES # (AUTO) 0.8 X 10^3 (0.0-1.0); MONOCYTES % (AUTO) 7 % (0-12); NEUTROPHILS # (AUTO) 5.7 X 10^3 (1.8-7.8); NEUTROPHILS % (AUTO) 50 % (42-75); PLATELET COUNT 458 10^3/uL (130-400); RED CELL DISTRIBUTION WIDTH 14.3 % (10.0-14.5); WHITE BLOOD COUNT 11.3 10^3/uL (4.3-11.0)
--- NOTE | 2019-04-08 16:56 | NUR ---
CALLED AND INFORMED WHAT WAS GOING ON PRE PATINT REQUEST. Addendum: 04/08/19 at 1658 by [facility] AT BEDSIDE DRAWING 2ND BLOOD CULTURE.
[2019-04-08 17:08] LABS: FIBRIN DEGRADATION PRODUCTS <= 0.27 UG/ML (0.00-0.49); INR 1.3 (0.8-1.4); PARTIAL THROMBOPLASTIN TIME 31 SEC (24-35)
[2019-04-08 17:11] VITALS: BP 122/67
[2019-04-08 17:11] LABS: ALANINE AMINOTRANSFERASE 27 U/L (0-55); ALBUMIN 4.7 GM/DL (3.2-4.5); ALKALINE PHOSPHATASE 164 U/L (40-136); BILIRUBIN,TOTAL 0.5 MG/DL (0.1-1.0); BUN/CREATININE RATIO 10; CALCIUM 10.4 MG/DL (8.5-10.1); CARBON DIOXIDE 21 MMOL/L (21-32); CHLORIDE 101 MMOL/L (98-107); CREATININE SERUM 1.83 MG/DL (0.60-1.30); GFR ESTIMATED 29; GLUCOSE 117 MG/DL (70-105); MAGNESIUM 2.3 MG/DL (1.6-2.4); POTASSIUM 4.2 MMOL/L (3.6-5.0); SODIUM 139 MMOL/L (135-145); TOTAL PROTEIN 8.3 GM/DL (6.4-8.2)
--- NOTE | 2019-04-08 17:13 | Diagnostic Imaging Report ---
INDICATION: Low blood pressure. TIME OF EXAM: 05:04 p.m. Correlation is made with prior chest from 08/03/2016. FINDINGS: Heart remains enlarged. There is some linear atelectasis in right perihilar region. The lungs appear to be fairly clear. No significant infiltrate, effusion, or pneumothorax is identified although the left base is somewhat obscured on this portable technique. IMPRESSION: Cardiomegaly. No acute feature is identified although left base is somewhat obscured on this portable technique. Dictated by: Dictated on workstation # [id number]
[2019-04-08 17:49] LABS: BILIRUBIN,URINE NEGATIVE (NEGATIVE); CLARITY,URINE CLEAR; COLOR,URINE YELLOW; GLUCOSE, URINE (UA) NEGATIVE (NEGATIVE); KETONES,URINE TRACE (NEGATIVE); LEUKOCYTE ESTERASE ,URINE TRACE (NEGATIVE); NITRITE,URINE NEGATIVE (NEGATIVE); PH,URINE 5.5 (5-9); PROTEIN,URINE NEGATIVE (NEGATIVE)
[2019-04-08 18:01] LABS: BACTERIA,URINE MODERATE /HPF; RBC,URINE RARE /HPF; WBC,URINE 25-50 /HPF
[2019-04-08 18:02] LABS: HYALINE CASTS, URINE 0-2 /LPF; YEAST,URINE FEW /HPF
[2019-04-08 18:14] VITALS: BP 118/65
[2019-04-08 18:44] VITALS: BP 116/62
[2019-04-08] MEDS ORDERED: NS IV 1000 ML 1,000 ML IV SCH (18:54)
[2019-04-08] MEDS ORDERED: PIPERACILLIN/TAZOBACTAM (BULK) 4.5 GM in NS (IVPB) 100 ML IV ONE (19:00)
--- NOTE | 2019-04-08 20:35 | NUR ---
BOAZ CANALES admitted to room 409-1, with an admitting diagnosis of UTI, Dehydration, SAROJ, and Labile Blood PRessure on 04/08/19 from ED via hospital bed, accompanied by staff.BOAZ CANALES introduced to surroundings, call light, bed controls, phone, TV, temperature control, lights, meal times, smoking policy, visitor policy, side rail policy, bathrooms and showers. Patient Rights given to patient in the handbook. BOAZ CANALES verbalizes understanding that [facility] is not responsible for the loss or damage to any personal effects or valuables that are kept in the patients posession during their hospitalization.
[2019-04-08 20:52] VITALS: BP 106/59
[2019-04-08] MEDS ORDERED: ONDANSETRON 4 MG/2 ML (SDV) Z0FRAN IV PRN (21:30)
[2019-04-08] MEDS ORDERED: LACTATED RINGERS 1,000 ML IV SCH (21:30)
[2019-04-08] MEDS ORDERED: ACETAMINOPHEN 500 MG TAB (TYLENOL) PO PRN (21:45)
[2019-04-09] VITALS (10 sets, daily range): BP systolic 82–165; BP diastolic 51–89
[2019-04-09] MEDS ORDERED: DOCUSATE SODIUM 100 MG (COLACE) CAP PO PRN (00:30)
[2019-04-09] MEDS ORDERED: fentaNYL INJECTION 100 MCG/2 ML AMP IVP PRN (00:30)
[2019-04-09] MEDS ORDERED: diphenhydrAMINE 25 MG TAB (BENADRYL) PO PRN (00:30)
[2019-04-09] MEDS ORDERED: guaiFENesin/DM (ROBITUSSIN DM) 10 ML UDC PO PRN (00:30)
[2019-04-09] MEDS ORDERED: IBUPROFEN TABLET 200 MG TAB PO PRN (00:30)
[2019-04-09] MEDS ORDERED: POLYETHYLENE GLYCOL 17 GM (MIRALAX) PACK PO PRN (00:30)
[2019-04-09] MEDS: PIPERACILLIN/TAZO 4.5 GM/NS 100 ML IV SCH ×6 (01:00→17:39)
[2019-04-09] MEDS ORDERED: NS IV 1000 ML 1,000 ML ONE (01:09)
[2019-04-09] MEDS ORDERED: NS IV 1000 ML 1,000 ML IV SCH (01:15)
--- NOTE | 2019-04-09 01:22 | NUR ---
0040 - Notified by PCT that patient's BP was 82/52. House sup was beside this RN when PCT informed RN of blood pressure. 0045 - Took blood pressure this time on the calf BP = 84/64. 0048 - Notified Dr. Charles. Received orders to stop LR, bolus 1L NS, and to start NS at 175ml/hr after bolus. Monitor blood pressure and to continue bolus if systolic BP is less than 85mmhg.
[2019-04-09] MEDS: NS IV 1000 ML 1,000 ML IV SCH ×3 (02:20→16:10)
--- NOTE | 2019-04-09 02:24 | NUR ---
BP is 96/63 after 1L Bolus NS
[2019-04-09] MEDS ORDERED: PIPERACILLIN/TAZO 4.5 GM VIAL (ZOSYN) IV ONE (02:54)
[2019-04-09] MEDS ORDERED: NS (IVPB) 100 ML ONE (02:54)
--- NOTE | 2019-04-09 03:08 | NUR ---
Repeat BP 30 minutes after bolus = 99/51
[2019-04-09 04:34] LABS: BASOPHILS # (AUTO) 0.1 10^3/uL (0.0-0.1); BASOPHILS % (AUTO) 1 % (0-10); EOSINOPHILS # (AUTO) 0.4 10^3/uL (0.0-0.3); EOSINOPHILS % (AUTO) 5 % (0-10); HEMATOCRIT 32 % (35-52); HEMOGLOBIN 10.3 G/DL (11.5-16.0); LYMPHOCYTES # (AUTO) 2.8 X 10^3 (1.0-4.0); LYMPHOCYTES % (AUTO) 34 % (12-44); MEAN CORPUSCULAR HEMOGLOBIN 28 PG (25-34); MEAN CORPUSCULAR HGB CONC 32 G/DL (32-36); MEAN CORPUSCULAR VOLUME 88 FL (80-99); MEAN PLATELET VOLUME 9.9 FL (7.4-10.4); MONOCYTES # (AUTO) 0.7 X 10^3 (0.0-1.0); MONOCYTES % (AUTO) 8 % (0-12); NEUTROPHILS # (AUTO) 4.4 X 10^3 (1.8-7.8); NEUTROPHILS % (AUTO) 53 % (42-75); PLATELET COUNT 318 10^3/uL (130-400); RED CELL DISTRIBUTION WIDTH 14.2 % (10.0-14.5); WHITE BLOOD COUNT 8.3 10^3/uL (4.3-11.0)
[2019-04-09 04:56] LABS: ALBUMIN 3.6 GM/DL (3.2-4.5); BILIRUBIN,TOTAL 0.4 MG/DL (0.1-1.0); CALCIUM 8.5 MG/DL (8.5-10.1); CREATININE SERUM 1.66 MG/DL (0.60-1.30); POTASSIUM 4.2 MMOL/L (3.6-5.0); TOTAL PROTEIN 6.3 GM/DL (6.4-8.2)
--- NOTE | 2019-04-09 07:40 | Pulmonary Consultation ---
History of Present Illness History of Present Illness Date Seen by Provider: Apr 09, 2019 Time Seen by Provider: 07:06 Date of Admission Allergies and Home Medications Allergies Coded Allergies: Cephalosporins (Verified Allergy, Unknown, 07/22/09) lisinopril (Unverified Allergy, Unknown, 02/22/15) Uncoded Allergies: CEFABID (Allergy, Mild, 07/22/09) Home Medications Albuterol Sulfate 1 Puff Puff, 2 PUFF IH Q4H PRN for SHORTNESS OF BREATH, (Reported) 1 PUFF = 90 MCG Amlodipine Besylate 10 Mg Tablet, 10 MG PO HS, (Reported) Apixaban 5 Mg Tablet, 5 MG PO BID, (Reported) Atorvastatin Calcium 20 Mg Tablet, 20 MG PO HS, (Reported) Buspirone HCl 10 Mg Tablet, 10 MG PO TID, (Reported) Clonidine HCl 0.2 Mg Tablet, 0.2 MG PO TID, (Reported) Diclofenac Sodium 100 Gm Gel..gram., TOP QID PRN for ARTHRITIS PAIN, (Reported) Diphenhydramine HCl 25 Mg Capsule, 25 MG PO Q8H PRN for ITCHING, (Reported) Docusate Sodium 100 Mg Capsule, 100 MG PO TID, (Reported) Ergocalciferol (Vitamin D2) 50,000 Unit Capsule, 50,000 UNITS PO Th, (Reported) Eszopiclone 1 Mg Tablet, 1 MG PO HS, (Reported) Fluoxetine HCl 20 Mg Capsule, 20 MG PO HS, (Reported) TAKES ALONG WITH 10MG CAPSULE FOR A TOTAL DAILY DOSE OF 30MG Fluoxetine HCl 10 Mg Capsule, 10 MG PO HS, (Reported) TAKES ALONG WITH 20MG CAPSULE FOR A TOTAL DAILY DOSE OF 30MG Furosemide 40 Mg Tablet, 40 MG PO DAILY, (Reported) Hydrocodone/Acetaminophen 1 Each Tablet, 1 TAB PO Q6H PRN for PAIN-MODERATE (5- 7), (Reported) Loratadine 10 Mg Tablet, 10 MG PO DAILY, (Reported) Magnesium Oxide 400 Mg Tablet, 400 MG PO DAILY, (Reported) Meclizine HCl 12.5 Mg Tablet, 12.5 MG PO TID PRN for DIZZINESS, (Reported) Melatonin 5 Mg Tablet, 10 MG PO HS, (Reported) TAKES 2 (5MG) TABLETS Menthol 118 Ml Gel..ml., TP QID PRN for ARTHRITIS PAIN, (Reported) Methyl Salicylate/Menthol 1 Each Adh..patch, 1 PATCH TP DAILY PRN for SHOULDER PAIN, (Reported) Metoprolol Tartrate 25 Mg Tablet, 25 MG PO DAILY, (Reported) Olopatadine HCl 5 Ml Drops, 1 DROP OU BID PRN for ALLERGIES, (Reported) Omeprazole 20 Mg Capsule.dr, 20 MG PO DAILY, (Reported) Ondansetron 4 Mg Tab.rapdis, 4 MG PO Q8H PRN for NAUSEA/VOMITING-1ST LINE, (Reported) Potassium Chloride 20 Meq Tab.er.prt, 20 MEQ PO DAILY, (Reported) Pregabalin 75 Mg Capsule, 75 MG PO Q8H, (Reported) Ropinirole HCl 0.5 Mg Tablet, 1 MG PO TID, (Reported) TAKES 2 (0.5MG) TABLETS Tiotropium [place] 4 Gm Mist.inhal, 2 PUFF IH DAILY, (Reported) Tizanidine HCl 4 Mg Tablet, 6 MG PO Q8H PRN for MUSCLE SPASMS, (Reported) TAKES 1 & 1/2 (4MG) TABLET Past Ltnjqhi-Zribjw-Rodyja Hx Patient Social History Alcohol Use: Denies Use Recreational Drug Use: No Smoking Status: Former Smoker Type Used: Cigarettes Former Smoker, Quit: Oct 01, 2015 Recent Foreign Travel: No Contact w/Someone Who Travel: No Recent Infectious Disease Expo: No Recent Hopitalizations: Yes (GB REMOVED, HYST., APPY. 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 Sexually Transmitted Disease: No HIV/AIDS: No Gastrointestinal: Yes Colitis, Gastroesophageal Reflux, Moraes's Esophagus, Chronic Constipation, Chronic Diarrhea, Irritable Bowel Musculoskeletal: Yes (2 herniated discs in lower back and 1 in neck) Arthritis, Fibromyalgia, Chronic Back Pain Endocrine: Yes Loss of Vision: Denies Hearing Impairment: Denies Cancer: Yes Breast Psychosocial: Yes Anxiety, Depression Integumentary: Yes Eczema Blood Disorders: No Adverse Reaction/Blood Tranf: No Family Medical History Cancer 03 FATHER, Onset:60 years & older (LUNG CANCER) Chest pain 03 MOTHER (LYMPHANGIO MITOSIS) Dementia 03 FATHER, Onset:60 years & older Family history: Allergy 03 MOTHER (SEASONAL ALLERGIES) Family history: Arthritis 03 FATHER 03 MOTHER Family history: Asthma 03 MOTHER Family history: Breast disease 03 FATHER (AUNT ON FATHERS SIDE FROM BREAST CANCER) Family history: Cardiovascular disease 03 MOTHER Family history: Gastrointestinal disease 03 FATHER Family history: Hypertension 03 MOTHER Family history: Osteoporosis 03 MOTHER Heart disease 03 MOTHER History of - respiratory disease 03 MOTHER ("LYMPHANGIO MITOSIS - SHORTNESS OF BREATH AND TAKES BREATHING TREATMENTS" ) Malignant neoplasm of lung 03 FATHER No Family History of: Abdominal aortic aneurysm [place]'s disease Alcoholism Aphasia Cancer of colon Cataract Congenital heart disease Congestive heart failure Cystic fibrosis Dysphagia Family history: Alzheimer's disease Family history: Coronary thrombosis Family history: Diabetes mellitus Family history: Glaucoma Family history: Thyroid disorder Hearing loss History of - anemia Kidney disease Parkinson's disease Prostate cancer Psychotic disorder Seizure disorder Stroke Cancer Sepsis Event Evaluation Height, Weight, BMI Height: 5'8.00" Weight: 288lbs. 0.0oz. [id number]; 43.68 BMI Method:Stated Exam Exam Vital Signs Date Time Temp Pulse Resp B/P (MAP) Pulse Ox O2 Delivery O2 Flow Rate FiO2 04/09/19 04:41 57 107/51 (69) 04/09/19 03:47 51 100/53 (69) 04/09/19 03:08 36.4 53 18 99/51 (67) 93 Nasal Cannula 3.00 04/09/19 00:21 84/89 (87) 04/09/19 00:10 36.4 50 16 82/55 (64) 97 Nasal Cannula 3.00 04/08/19 20:52 35.6 62 22 106/59 97 Nasal Cannula 3.00 04/08/19 20:52 35.6 62 22 106/59 (75) 97 Nasal Cannula 3.00 04/08/19 20:35 96 Nasal Cannula 3.00 04/08/19 18:44 53 18 116/62 (80) 97 Room Air 04/08/19 18:14 50 18 118/65 (82) 98 Nasal Cannula 3.00 04/08/19 17:11 51 18 122/67 (85) 98 Nasal Cannula 3.00 04/08/19 16:50 46 18 118/74 (89) 99 Nasal Cannula 3.00 04/08/19 16:25 Nasal Cannula 3.00 04/08/19 16:21 36.9 65 16 68/40 (49) Room Air I & O 04/09/19 07:00 Intake Total 600 ml Balance 600 ml Height & Weight Height: 5'8.00" Weight: 288lbs. 0.0oz. 130.697383rg; 43.68 BMI Method:Stated General Appearance: WD/WN, Anxious, Mild Distress HEENT: PERRL/EOMI, TMs Normal, Normal ENT Inspection, Pharynx Normal; No Moist Mucous Membranes Neck: Full Range of Motion, Normal Inspection, Non Tender Respiratory: Lungs Clear, Normal Breath Sounds, No Accessory Muscle Use, No Respiratory Distress Cardiovascular: Regular Rate, Rhythm, No Edema, No Murmur, Normal Peripheral Pulses Capillary Refill: Less Than 3 Seconds Extremity: Normal Capillary Refill, Normal Inspection, Pedal Edema (trace bilateral) Neurologic/Psychiatric: Alert, Oriented x3, No Motor/Sensory Deficits Skin: Normal Color, Warm/Dry Results Lab Laboratory Tests 04/08/19 16:42 04/09/19 04:08 Assessment/Plan Assessment/Plan Hypotension -S/P IVF bolus -Monitor -Telemetry -Repeat CXR -Labs and imaging reviewed Anemia -Monitor Dehydration -IVF Metabolic lactic acidosis -IMproving UTI -Continue Zosyn -Cultures pending Acute renal failure -IVF Once pt is transferred out of ICU I will sign off. Please call with any questions. NARESH GALLARDO DO Apr 09, 2019 07:40
[2019-04-09] MEDS ORDERED: PREGABALIN 100 MG (LYRICA) CAPSULE PO SCH (09:00)
[2019-04-09] MEDS: ASPIRIN E.C. 81 MG (ECOTRIN) TAB PO SCH (09:16)
[2019-04-09] MEDS: PANTOPRAZOLE 20 MG TABLET (PROTONIX) PO SCH ×2 (09:16→21:39)
[2019-04-09] MEDS: APIXABAN 5 MG (ELIQUIS) TABLET PO SCH ×2 (09:17→21:39)
--- NOTE | 2019-04-09 09:42 | Diagnostic Imaging Report ---
INDICATION: Shortness of breath. TIME OF EXAM: 9:04 a.m. COMPARISON: Correlation is made with prior chest from 04/08/2019. FINDINGS: The heart is enlarged but stable. There is some minimal right perihilar atelectasis or scarring. Otherwise, the lungs are clear. No effusion or pneumothorax is seen. IMPRESSION: Stable chest since one day earlier. Dictated by: Dictated on workstation # [id number]
[2019-04-09] MEDS ORDERED: ESZO1TAB12 PO (09:57)
[2019-04-09] MEDS ORDERED: FURO40TA4 PO (09:57)
[2019-04-09] MEDS ORDERED: BUSP10TA95 PO (09:57)
[2019-04-09] MEDS ORDERED: DOCU-143 PO (09:57)
[2019-04-09] MEDS ORDERED: LORA-703 PO (09:57)
[2019-04-09] MEDS ORDERED: MECL12.579 PO (09:57)
[2019-04-09] MEDS ORDERED: ATOR20TA66 PO (09:57)
[2019-04-09] MEDS ORDERED: OMEP-280 PO (09:57)
[2019-04-09] MEDS ORDERED: LOSA25TA41 PO (09:57)
[2019-04-09] MEDS ORDERED: FLUO20CA45 PO (09:57)
[2019-04-09] MEDS ORDERED: MAGN400T39 PO (09:57)
[2019-04-09] MEDS ORDERED: MENT118G TP (09:57)
[2019-04-09] MEDS ORDERED: ONDA4TAB11 PO (09:57)
[2019-04-09] MEDS ORDERED: TIZA4TAB4 PO (09:57)
[2019-04-09] MEDS ORDERED: METO-333 PO (09:57)
[2019-04-09] MEDS ORDERED: DICL100G31 TOP (09:57)
[2019-04-09] MEDS ORDERED: OLOP5DRO13 OU (09:57)
[2019-04-09] MEDS ORDERED: HYDR-3820 PO (09:57)
[2019-04-09] MEDS ORDERED: FLUO10CA30 PO (09:57)
[2019-04-09] MEDS ORDERED: PREG75CA PO (09:57)
[2019-04-09] MEDS ORDERED: ROPI0.5T2 PO (09:57)
[2019-04-09] MEDS ORDERED: ERGO50006 PO (09:57)
[2019-04-09] MEDS ORDERED: POTA20TA15 PO (09:57)
[2019-04-09] MEDS ORDERED: MELA5TAB14 PO (10:04)
[2019-04-09] MEDS ORDERED: DIPH25CA79 PO (10:09)
--- NOTE | 2019-04-09 10:10 | NUR ---
WENT OVER THE EXT MED HX WITH THE PATIENT AND SHE VERIFIED HOW SHE TAKES EACH MEDICATION. SHE STATES YESTERDAY PRIOR TO ADMISSION TO THE HOSPITAL DR. ELDRIDGE TOLD HER TO STOP HER LOSARTAN, IT WAS FILLED 25MG #30 04-01-19 - I REMOVED IT FROM THE MED REC AT THIS TIME. SHE STATES SHE GETS SAMPLES OF A PROAIR INHALER PRN AND SPIRIVA 1.25MCG RESPIMAT. SHE HAS THESE WITH HER IN HER PURSE. OTC MEDS: BIOFREEZE PRN BENADRYL PRN ITCHING MAG DAILY MELATONIN 5MG 2 HS COLACE TID SALONPAS PRN
[2019-04-09] MEDS ORDERED: RT-ALBUINH IH (10:12)
[2019-04-09] MEDS ORDERED: TIOT4MIS5 IH (10:12)
[2019-04-09] MEDS ORDERED: PREGABALIN 75 MG (LYRICA) CAP PO SCH ×2 (13:15→14:00)
[2019-04-09] MEDS ORDERED: rOPINIRole 1 MG (REQUIP) TABLET PO SCH (14:00)
[2019-04-09] MEDS ORDERED: MELATONIN 3 MG TABLET PO PRN (14:00)
--- NOTE | 2019-04-09 14:02 | History & Physical-Hospitalist ---
History of Present Illness HPI/Chief Complaint Ilene Patel is a 48-year-old female with past medical history of hypertension, atrial fibrillation, GERD, depression, anxiety, insomnia, fibromyalgia, who presented with hypotension. She reports that she had been Dr. Westfall's office and was told to come the emergency room due to low blood pressure. She reports that she has had labile blood pressures for long time. She reports having some fevers and chills at home. She did not check her temperature. She denies any shortness of breath or cough. She denies any chest pain. She denies any abdominal pain, nausea, vomiting, or diarrhea. She reports occasional dysuria. She denies any frequency or urgency. Source: patient Exam Limitations: no limitations Date Seen 04/09/19 Time Seen by a Provider: 09:00 Attending Physician Nell Montes MD PCP Leeroy Leo DO Referring Physician Date of Admission Apr 08, 2019 at 19:00 Home Medications & Allergies Home Medications Reviewed patient Home Medication Reconciliation performed by pharmacy medication reconciliations earth science technician and/or nursing. Patients Allergies have been reviewed. Allergies Allergies Coded Allergies Cephalosporins (Verified Allergy, Unknown, 07/22/09) lisinopril (Unverified Allergy, Unknown, 02/22/15) Uncoded Allergies CEFABID ( Allergy, Mild, 07/22/09) Past Cmajxuh-Htsyqj-Sctqbh Hx Past Med/Social Hx: Reviewed Nursing Past Med/Soc Hx Patient Social History Alcohol Use: Denies Use Recreational Drug Use: No Smoking Status: Former Smoker Former Smoker, Quit: Oct 01, 2015 Type Used: Cigarettes Recent Foreign Travel: No Contact w/other who traveled: No Recent Hopitalizations: Yes (GB REMOVED, HYST., APPY. , OVARIAN CYSTECTOMY) Recent Infectious Disease Expo: No Immunizations Up To Date Tetanus Booster (TDap): More than 5yrs Date of Pneumonia Vaccine: Jan 06, 2019 Date of Influenza Vaccine: Jan 06, 2019 Seasonal Allergies Seasonal Allergies: Yes Past Medical History Currently Using CPAP: No Currently Using BIPAP: No Reproductive: Yes Sexually Transmitted Disease: No HIV/AIDS: No Female Reproductive Disorders: Denies Hysterectomy Gastrointestinal: Colitis, Gastroesophageal Reflux, Moraes's Esophagus, Chronic Constipation, Chronic Diarrhea, Irritable Bowel Musculoskeletal: Arthritis, Fibromyalgia, Chronic Back Pain Loss of Vision: Denies Hearing Impairment: Denies Cancer: Breast Psychosocial: Anxiety, Depression Skin/Integumentary: Eczema History of Blood Disorders: No Adverse Reaction to Blood Fall: No Family History Cancer 03 FATHER, Onset:60 years & older (LUNG CANCER) Chest pain 03 MOTHER (LYMPHANGIO MITOSIS) Dementia 03 FATHER, Onset:60 years & older Family history: Allergy 03 MOTHER (SEASONAL ALLERGIES) Family history: Arthritis 03 FATHER 03 MOTHER Family history: Asthma 03 MOTHER Family history: Breast disease 03 FATHER (AUNT ON FATHERS SIDE FROM BREAST CANCER) Family history: Cardiovascular disease 03 MOTHER Family history: Gastrointestinal disease 03 FATHER Family history: Hypertension 03 MOTHER Family history: Osteoporosis 03 MOTHER Heart disease 03 MOTHER History of - respiratory disease 03 MOTHER ("LYMPHANGIO MITOSIS - SHORTNESS OF BREATH AND TAKES BREATHING TREATMENTS" ) Malignant neoplasm of lung 03 FATHER No Family History of: Abdominal aortic aneurysm [place]'s disease Alcoholism Aphasia Cancer of colon Cataract Congenital heart disease Congestive heart failure Cystic fibrosis Dysphagia Family history: Alzheimer's disease Family history: Coronary thrombosis Family history: Diabetes mellitus Family history: Glaucoma Family history: Thyroid disorder Hearing loss History of - anemia Kidney disease Parkinson's disease Prostate cancer Psychotic disorder Seizure disorder Stroke Cancer Review of Systems Constitutional: chills, fever EENTM: no symptoms reported Respiratory: no symptoms reported Cardiovascular: palpitations Gastrointestinal: no symptoms reported Genitourinary: dysuria Musculoskeletal: no symptoms reported Skin: no symptoms reported Psychiatric/Neurological: No Symptoms Reported Physical Exam Physical Exam Vital Signs Vital Signs - First Documented 04/08/19 04/08/19 04/08/19 16:21 16:25 16:50 Temp 36.9 Pulse 65 Resp 16 B/P (MAP) 68/40 (49) Pulse Ox 99 O2 Delivery Room Air O2 Flow Rate 3.00 Capillary Refill : Less Than 3 Seconds Height, Weight, BMI Height: 5'8.00" Weight: 288lbs. 0.0oz. 130.395191mv; 43.68 BMI Method:Stated General Appearance: No Apparent Distress, Obese HEENT: PERRL/EOMI, Pharynx Normal Neck: Normal Inspection, Supple Respiratory: Lungs Clear, Normal Breath Sounds, No Respiratory Distress Cardiovascular: Regular Rate, Rhythm, No Edema, No Murmur Gastrointestinal: Normal Bowel Sounds, Non Tender, Soft Extremity: Normal Inspection, Non Tender, No Pedal Edema Neurologic/Psychiatric: Alert, Oriented x3, No Motor/Sensory Deficits, Normal Mood/Affect Skin: Normal Color, Warm/Dry Results Results/Procedures Labs Laboratory Tests 04/08/19 16:42 04/09/19 04:08 Patient resulted labs reviewed. Imaging: Reviewed Imaging Report Assessment/Plan Admission Diagnosis Severe sepsis Admission Status: Inpatient Order (span 2 midnights) Reason for Inpatient Admission: Sepsis requiring IV antibiotics Assessment and Plan Severe sepsis UTI Lactic acidosis Acute kidney injury Urinalysis indicative of UTI Urine culture pending Lactic acid elevated greater than 2 on admission, resolved Creatinine 1.83 on admission, baseline approximately 1, improved to 1.66 this morning Blood pressures soft, responsive to IV fluids Continue IV fluids Started on Zosyn Hypertension Hold home meds and setting of hypotension Recurrent venous thromboembolism Continue Eliquis Diagnosis/Problems Diagnosis/Problems (1) Severe sepsis Status: Acute (2) Urinary tract infection Status: Acute (3) Lactic acidosis Status: Acute (4) Acute kidney injury Status: Acute Clinical Quality Measures DVT/VTE Risk/Contraindication: Risk Factor Score Per Nursin RFS Level Per Nursing on Admit: 4+=Very High NELL MONTES MD Apr 09, 2019 14:02
--- NOTE | 2019-04-09 14:58 | NUR ---
"RD ASSESSMENT PMHx: PE; colitis; chronic diarrhea/constipation; fibromyalgia; CA(breast); CHF PT INTERACTION: Pt was awake and pleasant during consult for MST score. Pt states current appetite is not good and has been that way for awhile. Note PO intake of 100% x1meal, per chart review. Pt states following a regular diet at home, but watches salt intake. Pt states no recent issues with chewing/swallowing food. Pt states frequent episodes nausea, and reports 1 episode of emesis a week on average. Pt states recent issues with constipation and that her last BM was 04/07. Note pt currently on bowel regimen of colace PRN, per chart review. Pt states recent 35# wt loss x5mon (11% x5mon). This is significant wt loss, per ASPEN guidelines. Note unable to determine recent wt hx, per chart review. Given pt PO intake and wt hx, pt meets criteria for malnutrition per ASPEN guidelines. ABNORMAL NUTRITION-RELATED LAB VALUES LOW: Pro 6.3; HDL 28 HIGH: CL 109; BUN 22; cr 1.66; glu 122; alkphos 139 Est. kcal needs: 4797-3162 kcal | 25-30 kcal/kg IBW (based on IBW of 63.6 kg) Est. Pro needs: 64-76 g Pro | 1.0-1.2 g Pro/kg (based on IBW of 63.6 kg) PES STATEMENT: Inadequate oral intake (NI-2.1) related to nausea | vomiting | loss of appetite | constipation as evidenced by pt interview INTERVENTION: Continue with current diet order of 2000mg Na diet. Pt may benefit from nutrition supplementation if PO intake declines. Will continue to follow and reassess as pt needs and status change. MONITOR/EVALUATE: PO Intake; Plan of Care; Hydration Status; Weight Status; Lab Values Leonora Umaña, MS, RD, LD"
[2019-04-09] MEDS: rOPINIRole 1 MG (REQUIP) TABLET PO SCH ×2 (17:39→21:39)
[2019-04-09] MEDS ORDERED: ZOLPIDEM 5 MG (AMBIEN) TAB PO SCH (21:00)
[2019-04-09] MEDS ORDERED: NON-FORMULARY MEDICATION 1 EA EA (Eszopiclone 1 MG) PO SCH (21:00)
[2019-04-09] MEDS ORDERED: FLUoxetine HCL 10 MG (PROzac) CAPSULE/TABLET PO SCH (21:00)
[2019-04-09] MEDS ORDERED: NON-FORMULARY MEDICATION 1 EA EA (Melatonin 10 MG) PO SCH (21:00)
[2019-04-09] MEDS ORDERED: NON-FORMULARY MEDICATION 1 EA EA (Ropinirole HCl 1 MG) PO SCH (21:00)
[2019-04-09] MEDS ORDERED: FLUoxetine HCL 20 MG (PROzac) CAP PO SCH (21:00)
[2019-04-09] MEDS ORDERED: SERTRALINE 100 MG (ZOLOFT) TAB PO SCH (21:00)
[2019-04-09] MEDS: busPIRone 10 MG (BUSPAR) TAB PO SCH (21:39)
[2019-04-09] MEDS: PREGABALIN 75 MG (LYRICA) CAP PO SCH (21:39)
[2019-04-09] MEDS: HYDROcodone/APAP 10 MG/325 MG (LORTAB) TAB PO PRN (21:47)
[2019-04-10] MEDS: PIPERACILLIN/TAZO 4.5 GM/NS 100 ML IV SCH ×4 (01:05→07:45)
[2019-04-10] MEDS: NS IV 1000 ML 1,000 ML IV SCH ×2 (01:15→07:46)
[2019-04-10 04:35] VITALS: BP 159/83
[2019-04-10 05:53] LABS: BUN/CREATININE RATIO 13; CALCIUM 8.6 MG/DL (8.5-10.1); CARBON DIOXIDE 17 MMOL/L (21-32); CHLORIDE 111 MMOL/L (98-107); CREATININE SERUM 0.95 MG/DL (0.60-1.30); GFR ESTIMATED > 60; GLUCOSE 138 MG/DL (70-105); POTASSIUM 3.8 MMOL/L (3.6-5.0); SODIUM 140 MMOL/L (135-145)
[2019-04-10] MEDS: PANTOPRAZOLE 20 MG TABLET (PROTONIX) PO SCH (07:45)
[2019-04-10] MEDS: PREGABALIN 75 MG (LYRICA) CAP PO SCH (07:45)
[2019-04-10] MEDS: ASPIRIN E.C. 81 MG (ECOTRIN) TAB PO SCH (07:45)
[2019-04-10] MEDS: APIXABAN 5 MG (ELIQUIS) TABLET PO SCH (07:45)
[2019-04-10] MEDS: busPIRone 10 MG (BUSPAR) TAB PO SCH (07:46)
[2019-04-10] MEDS: rOPINIRole 1 MG (REQUIP) TABLET PO SCH (07:46)
[2019-04-10] MEDS: HYDROcodone/APAP 10 MG/325 MG (LORTAB) TAB PO PRN (07:51)
[2019-04-10] MEDS ORDERED: UMECLIDINIUM BROMIDE (INCRUSE ELLIPTA) 7'S IH SCH (08:00)
[2019-04-10 08:56] VITALS: BP 142/66
[2019-04-10] MEDS ORDERED: OMEPRAZOLE 20 MG (PriLOSEC) CAP NON-FORMULARY PO SCH (09:00)
[2019-04-10 11:33] VITALS: BP 139/76
[2019-04-10] MEDS ORDERED: METO-333 PO (12:21)
[2019-04-10 13:18] VITALS: BP 139/76
--- NOTE | 2019-04-10 17:09 | Discharge Summary ---
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 She was initially thought to have sepsis due to a urinary tract infection, but her urine culture was negative for infection. Her other infectious workup was negative. She had a lactic acidosis and acute kidney injury which improved with IV fluids. She has been on Norvasc, metoprolol, and clonidine for hypertension. Her clonidine was held during her stay and her blood pressure improved. This was held on discharge and she was instructed to use a half pill as needed for systolic blood pressure above 180 at home. She should follow up with her primary care physician in 1-2 weeks. Labs and Pending Lab Test: Laboratory Tests 04/10/19 04:22: Sodium Level 140, Potassium Level 3.8, Chloride Level 111H, Carbon Dioxide Level 17L, Anion Gap 12, Blood Urea Nitrogen 12, Creatinine 0.95, Estimat Glomerular Filtration Rate > 60, BUN/Creatinine Ratio 13, Glucose Level 138H, Calcium Level 8.6 Microbiology 04/08/19 Urine Culture - Final, Complete 3 or more isolates 04/08/19 Blood Culture - Preliminary, Resulted No growth Home Meds Active Metoprolol Tartrate 25 Mg Tablet 25 Mg PO BID 30 Days Reported Spiriva Respimat 1.25MCG/ACTUATION (Tiotropium [place]) 4 Gm Mist.inhal 2 Puff IH DAILY Proair Hfa (Albuterol Sulfate) 1 Puff Puff 2 Puff IH Q4H PRN 1 PUFF = 90 MCG Benadryl (Diphenhydramine HCl) 25 Mg Capsule 25 Mg PO Q8H PRN Melatonin 5 Mg Tablet 10 Mg PO HS TAKES 2 (5MG) TABLETS Biofreeze (Menthol) 118 Ml Gel..ml. TP QID PRN Magnesium (Magnesium Oxide) 400 Mg Tablet 400 Mg PO DAILY Colace (Docusate Sodium) 100 Mg Capsule 100 Mg PO TID Tizanidine HCl 4 Mg Tablet 6 Mg PO Q8H PRN TAKES 1 & 1/2 (4MG) TABLET Ondansetron Odt (Ondansetron) 4 Mg Tab.rapdis 4 Mg PO Q8H PRN Hydrocodon-Acetaminophn 10-325 (Hydrocodone/Acetaminophen) 1 Each Tablet 1 Tab PO Q6H PRN Allerclear (Loratadine) 10 Mg Tablet 10 Mg PO DAILY Eszopiclone 1 Mg Tablet 1 Mg PO HS Fluoxetine HCl 10 Mg Capsule 10 Mg PO HS TAKES ALONG WITH 20MG CAPSULE FOR A TOTAL DAILY DOSE OF 30MG Fluoxetine HCl 20 Mg Capsule 20 Mg PO HS TAKES ALONG WITH 10MG CAPSULE FOR A TOTAL DAILY DOSE OF 30MG Ropinirole HCl 0.5 Mg Tablet 1 Mg PO TID TAKES 2 (0.5MG) TABLETS Omeprazole 20 Mg Capsule.dr 20 Mg PO DAILY Olopatadine HCl 5 Ml Drops 1 Drop OU BID PRN Atorvastatin Calcium 20 Mg Tablet 20 Mg PO HS Potassium Chloride 20 Meq Tab.er.prt 20 Meq PO DAILY Diclofenac Sodium 100 Gm Gel..gram. TOP QID PRN Furosemide 40 Mg Tablet 40 Mg PO DAILY Meclizine HCl 12.5 Mg Tablet 12.5 Mg PO TID PRN Buspirone HCl 10 Mg Tablet 10 Mg PO TID Vitamin D2 (Ergocalciferol (Vitamin D2)) 50,000 Unit Capsule 50,000 Units PO TH Lyrica (Pregabalin) 75 Mg Capsule 75 Mg PO Q8H Sal[place]pas Patch (Methyl Salicylate/Menthol) 1 Each Adh..patch 1 Patch TP DAILY PRN Eliquis (Apixaban) 5 Mg Tablet 5 Mg PO BID Amlodipine Besylate 10 Mg Tablet 10 Mg PO HS Assessment/Pt Instructions Take medications as prescribed. Stop taking Clonidine. If your systolic blood pressure is >180 at home, take half of one of your clonidine pills and make an appointment to see your physician. Follow up with your primary care doctor in 1- 2 weeks. Discharge Planning: <30 minutes discharge planning Discharge Instructions Discharge Diet: No Restrictions Activity as Tolerated: Yes Discharge Physical Examination Vital Signs Vital Signs Date Time Temp Pulse Resp B/P (MAP) Pulse Ox O2 Delivery O2 Flow Rate FiO2 04/10/19 13:18 36.4 102 20 139/76 100 Nasal Cannula 3.00 General Appearance: No Apparent Distress, Obese HEENT: PERRL/EOMI, Pharynx Normal Respiratory: Lungs Clear, Normal Breath Sounds, No Respiratory Distress Cardiovascular: Regular Rate, Rhythm, No Edema, No Murmur Gastrointestinal: Normal Bowel Sounds, Non Tender, Soft Extremity: Normal Inspection, Non Tender, No Pedal Edema Skin: Normal Color, Warm/Dry Neurologic/Psychiatric: Alert, Oriented x3, No Motor/Sensory Deficits, Normal Mood/Affect Allergies: Coded Allergies: Cephalosporins (Verified Allergy, Unknown, 07/22/09) lisinopril (Unverified Allergy, Unknown, 02/22/15) Uncoded Allergies: CEFABID (Allergy, Mild, 07/22/09) Discharge Summary Date of Admission Apr 09, 2019 at 14:38 Date of Discharge Apr 10, 2019 at 12:55 Discharge Date: Apr 10, 2019 Discharge Time: 12:55 Admission Diagnosis Severe sepsis Discharge Diagnosis Orthostatic hypotension (1) Orthostatic hypotension Status: Resolved (2) Severe sepsis Status: Resolved (3) Urinary tract infection Status: Acute (4) Lactic acidosis Status: Resolved (5) Acute kidney injury Status: Resolved Clinical Quality Measures DVT/VTE Risk/Contraindication: Risk Factor Score Per Nursin RFS Level Per Nursing on Admit: 4+=Very High REMA MONTES MD Apr 10, 2019 17:07
--- NOTE | 2019-04-14 13:13 | Physician Query Clarification ---
PQ-Uncertain Diagnosis Admission/Discharge Admission Date: Apr 09, 2019 at 14:38 Discharge Date: Apr 10, 2019 at 12:55 The medical record reflects the following clinical scenario: History/Risk Factors: orthostatic hypotension, CHF Clinical Findings: lactic acidosis, acute kidney injury Treatment: IV fluids, Zosyn Question: Is SEPSIS a clinically valid diagnosis? sepsis and severe sepsis was documented in the throughout the chart, listed on summary but body of summary says "She was initially thought to have sepsis due to a urinary tract infection, but her urine culture was negative for infection. Her other infectious workup was negative." Please document a response in Progress Note or Discharge Summary. 1. Yes, clinically valid, condition resolved. 2. No, condition ruled out. 3. Other, with explanation of clinical findings. 4. Undetermined, no explanation for clinical findings. PHYSICIAN RESPONSE Diagnosis clinically valid: No, conditon ruled out Please remember a lack of response to the above will prompt a phone page by [facility]/Coding staff. In responding to this query, please exercise your independent professional judgment. The purpose of this communication is to more accurately reflect the complexity of your patients condition. The fact that a question is asked does not imply that any particular answer is desired or expected. Thank you for your timely response to this clarification. Requestors name: [ ] Phone # [ ] THIS PHYSICIAN QUERY FORM IS A PERMANENT PART OF THE MEDICAL RECORD GREGORIO MAY Apr 14, 2019 13:12 REMA MONTES MD Apr 23, 2019 16:24
== END 2019-04-10 12:55 | disposition home or self-care (01) | DRG 683 ==
LOC: EDUNIT# 15:44 → ER 15:46 → 4TH 19:00 → UNDOADMOB 19:00 → EDLOC 20:35 → 4TH 20:55 → OBSVTOIN 04-09 14:38 → INTOOBSV 04-09 14:38 → 4TH 04-10 11:42 → UNDODISIN 04-10 12:55
PROVIDERS: ADMIT Internal Medicine; ATTEND Internal Medicine
DX: N17.9 Acute kidney failure, unspecified (principal); E87.2 Acidosis; I11.0 Hypertensive heart disease with heart failure; I50.30 Unspecified diastolic (congestive) heart failure; J96.11 Chronic respiratory failure with hypoxia; I95.1 Orthostatic hypotension; E86.0 Dehydration; I25.10 Atherosclerotic heart disease of native coronary artery without angina pectoris; I48.91 Unspecified atrial fibrillation; J44.9 Chronic obstructive pulmonary disease, unspecified; K58.1 Irritable bowel syndrome with constipation; F41.9 Anxiety disorder, unspecified; F32.9 Major depressive disorder, single episode, unspecified; K21.9 Gastro-esophageal reflux disease without esophagitis; M19.91 Primary osteoarthritis, unspecified site; M79.7 Fibromyalgia; M54.9 Dorsalgia, unspecified; L30.9 Dermatitis, unspecified; H81.09 Meniere's disease, unspecified ear; G47.00 Insomnia, unspecified; E78.5 Hyperlipidemia, unspecified; Z87.891 Personal history of nicotine dependence; Z87.01 Personal history of pneumonia (recurrent); Z86.711 Personal history of pulmonary embolism; Z99.81 Dependence on supplemental oxygen; Z85.3 Personal history of malignant neoplasm of breast; Z90.13 Acquired absence of bilateral breasts and nipples; Z90.710 Acquired absence of both cervix and uterus; Z90.49 Acquired absence of other specified parts of digestive tract; Z79.01 Long term (current) use of anticoagulants
CPT/HCPCS: 36415; 71045; 80048; 80053; 80061; 81000; 82962; 83605; 83735; 83874; 83880; 84484; 85025; 85379; 85610; 85730; 87040; 87088; 93005; 93041; 94640; 94760; 96361; 96366; 96374; 96376; G0378

== ENCOUNTER → 2020-12-15 | Outpatient (CLI) | payer OTHER ==
[~2020-12-15] MED LIST changes: +ACHYD1T PO; +AMLO-251 PO; -AMLO10TA7 PO; +ASPI-1238 PO; -ASPI-983 PO; +ATOR20TA66 PO; +BUSP10TA95 PO; +CLN.2T PO; -CLON0.2T PO; +DICL100G13 TOP; +DIPH25CA79 PO; +DOCU-143 PO; +ERGO50006 PO; +ESZO1TAB12 PO; +FLUO10CA31 PO; +FLUO20CA46 PO; -HYDR-3820 PO; +LORA-703 PO; +LOSA25TA41 PO; +MAGN400T39 PO; +MECL-215 PO; +MELA5TAB14 PO; +MENT118G TP; +METH1ADH15 TP; -METH1ADH5 TP; +METO-333 PO; +OLOP5DRO13 OU; +OMEP20CA18 PO; +ONDA4TAB11 PO; +PANT20TA18 PO; -PANT20TA3 PO; -PANT40TA3 PO; +PANT40TA52 PO; +POTA20TA15 PO; +PREG75CA PO; +ROPI0.5T4 PO; +RT-ALBUINH IH; +RT-ALBUTEROL SULF 2.5 MG/3 ML PRE-MIX VIAL INH ONE; +SERT-414 PO; -SERT100T8 PO; +TIOT4MIS5 IH
--- NOTE | 2020-12-15 10:13 | Diagnostic Imaging Report ---
INDICATION: Interstitial lung disease. PA and lateral views of the chest are obtained with comparison made study of 08/03/2016. FINDINGS: Heart size and pulmonary vascularity are at the upper limits normal. There has been mild increase in perihilar density in both lungs. No pneumothorax or focal consolidation is identified and there is no evidence of significant pleural fluid. Surgical findings are seen in the left shoulder. IMPRESSION: Increasing perihilar density which could represent edema and/or pneumonitis. Component of mild congestive heart failure is not excluded and clinical correlation would be useful. Dictated by: Dictated on workstation # [id number]
== END ==
LOC: RT 08:56
PROVIDERS: ATTEND Family Medicine
DX: Z02.71 Encounter for disability determination (principal); J84.9 Interstitial pulmonary disease, unspecified
CPT/HCPCS: 71046; 94060; 94729